=== PATIENT | male | born 1955 | race Caucasian/White ===

== ENCOUNTER → 2016-04-07 | Outpatient (CLI) | payer OTHER ==
--- NOTE | 2016-04-07 17:05 | CT ---
EXAMINATION TYPE: CT abdomen pelvis w con DATE OF EXAM: 04/07/2016 3:58 PM COMPARISON: 05/30/2014 HISTORY: 60-year-old male complains of severe generalized abdominal pain post double hernia repair on e month ago. TECHNIQUE: Contiguous axial scanning of the abdomen and pelvis following administration of 100 ml Omn ipaque 300 IV contrast. Delayed images through the kidneys and coronal/sagittal reconstructions perf ormed. CT DLP: 379.5 mGycm Automated exposure control for dose reduction was used. FINDINGS: Heart is normal size without pericardial effusion. Lung bases clear without pleural effusion. Scattered cysts within the liver are redemonstrated measuring up to 3.6 cm and the left hepatic lobe having increased in size from 2014. Liver is enlarged measuring up to 19.1 cm craniocaudal with dimin ished attenuation in comparison to the spleen. However, there is new hypodensity in the central liver superior to the gallbladder fossa, refer to ax ial images 15 through 21. This area spans approximately 4.8 cm craniocaudal. The gallbladder is hydropic measuring 5.1 cm wide. The bile duct appears dilated at 1.1 cm though wit h distal tapering and no obstructing lesion seen. The adrenal glands, right kidney, spleen, and pancreas show no gross abnormality. Cortical cysts measuring up to 1.3 cm and the left kidney are unchanged. Surgical clips below the spleen and throughout the left abdomen. Hazy density throughout the intra-ab dominal fat suggesting edema. There is mild perihepatic ascites with mild ascites tracking down the right paracolic gutter and mode rate pelvic free fluid. No dilated small bowel or free air. There appears to be circumferential wall thickening of the ascending colon, for example, coronal imag e 48 and axial image 57. No mesenteric or retroperitoneal lymphadenopathy seen. Moderate atherosclerotic calcifications throughout the abdominal aorta and iliac arteries without ane urysm. Surgical clips present continue along the proximal sigmoid and at the sigmoid rectal junction. Previously seen mass within the posterior left bladder is no longer identified. Bones: Accentuated lumbar lordosis with a mild multilevel degenerative disc disease. IMPRESSION: 1. THERE IS NEW DIFFUSE MESENTERIC EDEMA, MILD RIGHT-SIDED ABDOMINAL ASCITES, AND MODERATE PELVIC ASC ITES. THE EXACT ETIOLOGY IS UNCERTAIN AND FURTHER WORKUP IS RECOMMENDED. 2. HEPATOMEGALY WITH DIMINISHED ATTENUATION OF THE LIVER. FINDINGS COULD REFLECT HEPATIC STEATOSIS OR HEPATITIS. 3. HYDROPIC GALLBLADDER COULD RELATE TO FASTING STATE OR EARLY ACUTE CHOLECYSTITIS. CLINICALLY CORREL ATE. 4. AN ADJACENT 4.8 CM HYPODENSE AREA IN THE CENTRAL LIVER. SOME DIFFERENTIAL CONSIDERATIONS INCLUDE P ERIHEPATITIS IN THE EVENT THAT ACUTE CHOLECYSTITIS IS PRESENT. A NEOPLASTIC ETIOLOGY SUCH A CHOLAN GIOCARCINOMA IS DIFFICULT TO EXCLUDE AT THIS TIME. CORRELATION WITH TUMOR MARKERS MAY BE HELPFUL. 5. CIRCUMFERENTIAL WALL THICKENING OF THE ASCENDING COLON. CORRELATE FOR NONSPECIFIC COLITIS. 6. THE PREVIOUS LEFT POSTERIOR BLADDER MASS IS NO LONGER SEEN. EXTENSIVE SURGICAL CLIPS IN THE LEFT S ELIZABETH OF THE ABDOMEN AND PELVIS ARE REDEMONSTRATED.
== END | disposition home or self-care (01) ==
LOC: RADCTMAIN 15:28
PROVIDERS: ATTEND Surgery
DX: K63.89 Other specified diseases of intestine (principal); R18.8 Other ascites; R16.0 Hepatomegaly, not elsewhere classified; K82.8 Other specified diseases of gallbladder; Z98.890 Other specified postprocedural states
CPT/HCPCS: 74177; Q9967

== ENCOUNTER → 2016-09-16 | Outpatient (CLI) | payer OTHER ==
--- NOTE | 2016-09-16 11:39 | USB ---
EXAMINATION TYPE: US breast limited RT DATE OF EXAM: 09/16/2016 COMPARISON: Mammogram of the same date (09/16/2016). CLINICAL HISTORY: n63. Palpable abnormality. Targeted right breast ultrasound was performed in the region of the palpable abnormality, posterior t o the nipple. There is irregular flame shaped hypoechogenicity contiguous with the subareolar region in the area of the palpable abnormality. The left retroareolar region was imaged for comparison and a ppears similar compatible with bilateral gynecomastia. IMPRESSION: Findings compatible with bilateral gynecomastia. Clinical management is recommended. If the palpable abnormality remains a concern or is thought to enlarge repeat mammographic and/or sonogr aphic workup should be performed.
--- NOTE | 2016-09-17 07:12 | MM ---
Reason for exam: clinical finding. Baseline mammogram. Indicated problem(s): palpable abnormality in the right breast. Physical Findings: Nurse Summary: A 2cm nodule in the right nipple (nurse brooks). [facility] Diagnostic Mammo w CAD KENIA ML, spot compression CC, and spot compression MLO view(s) were taken of the right breast. Bilateral flamed shaped retroaerolar focal asymmetry compatible with gynecomastia. Focal asymmetry bilateral compatible with gynecomastia. These results were verbally communicated with the patient and result sheet given to the patient on 09/16/16. ASSESSMENT: Incomplete: need additional imaging evaluation, BI-RAD 0 RECOMMENDATION: Ultrasound of the right breast. (Palpable)
== END | disposition home or self-care (01) ==
LOC: RADMAMWWP 10:01
PROVIDERS: ATTEND Urology
DX: R92.8 Other abnormal and inconclusive findings on diagnostic imaging of breast (principal); N63 Unspecified lump in breast
CPT/HCPCS: 76642; G0204

== ENCOUNTER 2016-09-24 12:21 | Emergency (ER) | payer MEDICARE, OTHER ==
--- NOTE | 2016-09-24 12:47 | ED ---
ENT HPI - General Chief complaint: Dental/Oral Stated complaint: Abscess on Face, Oral Pain Source: patient Mode of arrival: ambulatory Limitations: no limitations - History of Present Illness Initial comments: 60-year-old male patient presents to emergency department today for evaluation of left facial swelling and dental pain. Patient states that couple weeks ago he did break a tooth off on the left lower. Patient states that last night he did develop some pain to the area, and when he woke this morning his face was swollen. Patient states that he does not have dental insurance therefore did not make an appointment went to his tooth broke. He denies any fever, chills, headache, neck pain, back pain, chest pain, shortness of breath, abdominal pain , nausea, vomiting, or difficulties with urination or bowel movements. She does have history of bladder cancer and last chemo treatment was 2 weeks ago. He denies any history of neutropenia. - Related Data Home Medications Medication Instructions Recorded Confirmed Albuterol Sulfate [Proventil Hfa] 1 puff INHALATION RT-Q4H PRN 05/30/14 01/21/16 Hydrocodone/Acetaminophen [[place] 2 tab PO TID PRN 05/30/14 01/21/16 10-325] oxyCODONE HCL [oxyCODONE HCL ER] 40 mg PO BID 05/30/14 01/21/16 Albuterol Nebulized [Ventolin 2.5 mg INHALATION RT-Q4H 01/21/16 01/21/16 Nebulized] Previous Rx's Medication Instructions Recorded Amoxic-Pot Clav 875-125Mg 1 tab PO Q12HR #20 tablet 09/24/16 [Augmentin 875-125] Allergies Allergy/AdvReac Type Severity Reaction Status Date / Time meclizine Allergy Unknown Verified 09/24/16 12:25 Review of Systems ROS Statement: Those systems with pertinent positive or pertinent negative responses have been documented in the HPI. ROS Other: All systems not noted in ROS Statement are negative. Past Medical History Past Medical History: Cancer, COPD, Liver Disease, Osteoarthritis (OA) Additional Past Medical History / Comment(s): current bladder ca, past colon cancer,"bruises easily, epiglotitis in past, hep c and "a spot on the liver" History of Any Multi-Drug Resistant Organisms: None Reported Past Surgical History: Appendectomy, Bowel Resection, Hernia Repair, Tonsillectomy Additional Past Surgical History / Comment(s): 01/21/16 cystoscopy w/evacuation of clot Past Anesthesia/Blood Transfusion Reactions: No Reported Reaction Past Psychological History: No Psychological Hx Reported Smoking Status: Current every day smoker Past Alcohol Use History: Daily Past Drug Use History: None Reported - Past Family History Father Family Medical History: Cancer Additional Family Medical History / Comment(s): pancreatic cacner Mother Family Medical History: Cancer Additional Family Medical History / Comment(s): lung cancer General Exam Limitations: no limitations General appearance: alert, in no apparent distress Eye exam: Present: normal appearance, PERRL, EOMI. Absent: scleral icterus, conjunctival injection, periorbital swelling ENT exam: Present: normal exam, normal oropharynx, mucous membranes moist, other (Left-sided facial swelling over the lower mandible. Patient does have broken 34th and 35th tooth. Gum swelling to the area. No area of fluctuance. ) Neck exam: Present: normal inspection. Absent: tenderness, meningismus, lymphadenopathy Respiratory exam: Present: normal lung sounds bilaterally. Absent: respiratory distress, wheezes, rales, rhonchi, stridor Cardiovascular Exam: Present: regular rate, normal rhythm, normal heart sounds. Absent: systolic murmur, diastolic murmur, rubs, gallop, clicks Neurological exam: Present: alert, oriented X3, CN II-XII intact Psychiatric exam: Present: normal affect, normal mood Skin exam: Present: warm, dry, intact, normal color. Absent: rash Medical Decision Making - Medical Decision Making 60-year-old male patient presents to emergency department today for evaluation of left facial swelling and dental pain. Did offer draining of the dental abscess, however patient refused this treatment. The patient was given a prescription for Augmentin. Patient does have [place] at home and states he will use this for pain control. Patient instructed to follow up with dentist as soon as possible. The patient was given information for dental clinic and dental school and [place] as he does not have insurance. Also instructed him to follow up his primary care physician one to 2 days for recheck. Instructed to return for any new, worsening, or concerning symptoms. Patient verbalized understanding and agreed with this plan. Disposition Clinical Impression: Dental abscess Disposition: HOME SELF-CARE Condition: Good Instructions: Dental Abscess (ED) Additional Instructions: Please follow up with the [facility] dental [facility]. [address] [place] [address]. Phone number for new patients or for existing patients. Follow-up with a dentist as soon as possible. Complete antibiotic prescription in full. Follow-up with primary care physician in one to 2 days for recheck. Return for any new, worsening, or concerning symptoms. Prescriptions: Amoxic-Pot Clav 875-125Mg [Augmentin 875-125] 1 tab PO Q12HR #20 tablet Referrals: Junior Peterson DO [Primary Care Provider] - 1-2 days Time of Disposition: 12:47
== END 2016-09-24 13:03 | disposition home or self-care (01) ==
LOC: EC 12:21
DX: K04.7 Periapical abscess without sinus (principal); J44.9 Chronic obstructive pulmonary disease, unspecified; M19.90 Unspecified osteoarthritis, unspecified site; F17.200 Nicotine dependence, unspecified, uncomplicated; Z85.51 Personal history of malignant neoplasm of bladder; Z85.038 Personal history of other malignant neoplasm of large intestine; Z90.89 Acquired absence of other organs; Z88.8 Allergy status to other drugs, medicaments and biological substances; Z79.891 Long term (current) use of opiate analgesic; Z79.899 Other long term (current) drug therapy
CPT/HCPCS: 99282

== ENCOUNTER 2017-03-29 21:12 | Emergency (ER) | payer MEDICARE ==
[2017-03-29 21:21] VITALS: RESP 18; TEMP 98.6
[2017-03-29] MEDS ORDERED: SILVER NITRATE APPLICATOR 1 EACH STICK..EA. TOPICAL STA (22:02)
[2017-03-29 22:39] LABS: Anisocytosis Slight; Basophils % (A) 0 %; Eosinophils # (A) 0.1 k/uL (0-0.7); Eosinophils % (A) 1 %; HGB 9.5 gm/dL (13.0-17.5); Lymphocytes % (A) 40 %; MCH 31.4 pg (25.0-35.0); MCHC 30.6 g/dL (31.0-37.0); MCV 102.7 fL (80.0-100.0); Macrocytosis Moderate; Mean Platelet Volume 7.2; Monocytes # (A) 0.3 k/uL (0-1.0); Monocytes % (A) 5 %; Neutrophils # (A) 2.6 k/uL (1.3-7.7); Neutrophils % (A) 51 %; Platelet Count 116 k/uL (150-450); RBC 3.02 m/uL (4.30-5.90); RDW 17.7 % (11.5-15.5)
[2017-03-29 23:16] LABS: INR 1.4 (<1.2); Partial Thromboplastin Time 25.8 sec (22.0-30.0); Prothrombin Time 13.2 sec (9.0-12.0)
--- NOTE | 2017-03-29 23:47 | ED ---
Skin/Abscess/FB HPI - General Chief complaint: Skin/Abscess/Foreign Body Stated complaint: post op problems Time Seen by Provider: 03/29/17 21:42 Source: patient Mode of arrival: ambulatory Limitations: no limitations - History of Present Illness Initial comments: 61-year-old male patient with a past medical history significant for hepatitis C , cirrhosis of the liver, and bladder cancer presents for evaluation of bleeding from his ileal conduit stoma. Patient states that he received appliances for a stoma that were smaller than usual. He states that this rubbed up against the top part of his stoma. He states that since Wednesday he has been having bleeding from the site. He states that today he has emptied 3 bags of urine that were dark red blood. He states that he has had this happen in the past and they used silver nitrate to stop the bleeding. Patient denies any weakness or dizziness. He denies any significant pain. Patient denies any recent rash, fever, chills, shortness breath, chest pain, abdominal pain, nausea , vomiting, diarrhea, constipation, back pain, numbness, tingling, headache, visual changes, or any other complaints. - Related Data Home Medications Medication Instructions Recorded Confirmed Albuterol Sulfate [Proventil Hfa] 1 puff INHALATION RT-Q4H PRN 05/30/14 03/29/17 Hydrocodone/Acetaminophen [[place] 2 tab PO TID PRN 05/30/14 03/29/17 10-325] oxyCODONE HCL [oxyCODONE HCL ER] 40 mg PO BID 05/30/14 03/29/17 Albuterol Nebulized [Ventolin 2.5 mg INHALATION RT-Q4H PRN 01/21/16 03/29/17 Nebulized] Allergies Allergy/AdvReac Type Severity Reaction Status Date / Time meclizine Allergy Unknown Verified 03/29/17 21:39 Review of Systems ROS Statement: Those systems with pertinent positive or pertinent negative responses have been documented in the HPI. ROS Other: All systems not noted in ROS Statement are negative. Past Medical History Past Medical History: Cancer, COPD, Liver Disease, Osteoarthritis (OA) Additional Past Medical History / Comment(s): current bladder ca, past colon cancer,"bruises easily, epiglotitis in past, hep c and "a spot on the liver" History of Any Multi-Drug Resistant Organisms: None Reported Past Surgical History: Appendectomy, Bowel Resection, Hernia Repair, Tonsillectomy Additional Past Surgical History / Comment(s): 01/21/16 cystoscopy w/evacuation of clot Past Anesthesia/Blood Transfusion Reactions: No Reported Reaction Past Psychological History: No Psychological Hx Reported Smoking Status: Current every day smoker Past Alcohol Use History: None Reported Past Drug Use History: None Reported - Past Family History Father Family Medical History: Cancer Additional Family Medical History / Comment(s): pancreatic cacner Mother Family Medical History: Cancer Additional Family Medical History / Comment(s): lung cancer General Exam Limitations: no limitations General appearance: alert, in no apparent distress, cachectic, other (This is a thin-appearing adult male patient in no acute distress. Vital signs upon presentation are temperature 98.6F, pulse 112, respirations 18, blood pressure 174/72, pulse ox 99% on room air.) Eye exam: Present: normal appearance, PERRL, EOMI. Absent: scleral icterus, conjunctival injection, periorbital swelling ENT exam: Present: normal exam, normal oropharynx, mucous membranes moist Respiratory exam: Present: normal lung sounds bilaterally. Absent: respiratory distress, wheezes, rales, rhonchi, stridor Cardiovascular Exam: Present: regular rate, normal rhythm, normal heart sounds. Absent: systolic murmur, diastolic murmur, rubs, gallop, clicks GI/Abdominal exam: Present: soft, normal bowel sounds, other (Large healing surgical scar over the mid abdomen. There is a stoma present to the right lower quadrant. There is oozing of blood from a spot on the superior aspect of the stoma.). Absent: distended, tenderness, guarding, rebound, rigid Neurological exam: Present: alert, oriented X3, CN II-XII intact Psychiatric exam: Present: normal affect, normal mood Skin exam: Present: warm, dry, intact, normal color. Absent: rash Course Vital Signs 03/29/17 03/30/17 21:18 00:16 Temperature 98.6 F 98.6 F Pulse Rate 112 H 89 Respiratory 18 18 Rate Blood Pressure 174/72 154/78 O2 Sat by Pulse 99 98 Oximetry Medical Decision Making - Medical Decision Making 61-year-old male patient presented to the emergency department today for evaluation of bleeding from his stoma. Physical examination did reveal a small area where blood is oozing from the superior aspect of his stoma. Labs were obtained to evaluate hemodynamics which shows hemoglobin is 9.5, red blood cells 3.02, hematocrit 31. PT was 13.2, INR is 1.4. Patient does not use any blood thinning medications. Again he has liver disease. We did perform cautery with silver nitrate sticks, one small area to the superior aspect of the stoma was cauterized. We had good cessation of bleeding. Patient did have clear yellow urine coming from the stoma after this. It is felt the area of urination was due to an ill fitting appliance. We'll discharge at this time with follow-up recommendations to his primary care, liver specialist, and surgeon. Patient does have an appointment next week with his primary care doctor. He is instructed to return here immediately for any new, worsening, or concerning symptoms. He verbalizes understanding and agrees with this plan. - Lab Data Result diagrams: 03/29/17 22:26 Lab Results 03/29/17 03/29/17 Range/Units 22:26 22:26 WBC 5.0 (3.8-10.6) k/uL RBC 3.02 L (4.30-5.90) m/uL Hgb 9.5 L (13.0-17.5) gm/dL Hct 31.0 L (39.0-53.0) % MCV 102.7 H (80.0-100.0) fL MCH 31.4 (25.0-35.0) pg MCHC 30.6 L (31.0-37.0) g/dL RDW 17.7 H (11.5-15.5) % Plt Count 116 L (150-450) k/uL Neutrophils % 51 % Lymphocytes % 40 % Monocytes % 5 % Eosinophils % 1 % Basophils % 0 % Neutrophils # 2.6 (1.3-7.7) k/uL Lymphocytes # 2.0 (1.0-4.8) k/uL Monocytes # 0.3 (0-1.0) k/uL Eosinophils # 0.1 (0-0.7) k/uL Basophils # 0.0 (0-0.2) k/uL Anisocytosis Slight Macrocytosis Moderate PT 13.2 H (9.0-12.0) sec INR 1.4 H (<1.2) APTT 25.8 (22.0-30.0) sec Disposition Clinical Impression: Stoma bleed Disposition: HOME SELF-CARE Condition: Good Instructions: Urostomy Care (ED) Additional Instructions: Monitor for any worsening bleeding. Have your labs repeated as you have planned. Follow up with her primary care physician, your surgeon, and your liver specialist as soon as possible. Return here immediately for any new, worsening, or concerning symptoms. Referrals: [facility],Clinic [Primary Care Provider] - 1-2 days Time of Disposition: 23:47
[2017-03-30 00:17] VITALS: BP 154/78; PULSE 89
== END 2017-03-30 00:16 | disposition home or self-care (01) ==
LOC: EC 21:12
DX: K91.89 Other postprocedural complications and disorders of digestive system (principal); M19.90 Unspecified osteoarthritis, unspecified site; C67.9 Malignant neoplasm of bladder, unspecified; F17.200 Nicotine dependence, unspecified, uncomplicated; Z85.038 Personal history of other malignant neoplasm of large intestine; Z86.19 Personal history of other infectious and parasitic diseases; Z79.891 Long term (current) use of opiate analgesic; Z88.8 Allergy status to other drugs, medicaments and biological substances; Z90.49 Acquired absence of other specified parts of digestive tract; Z98.890 Other specified postprocedural states
CPT/HCPCS: 36415; 85025; 85610; 85730; 99283

== ENCOUNTER → 2017-05-19 | Outpatient (CLI) | payer MEDICARE, OTHER ==
--- NOTE | 2017-05-20 13:10 | CT ---
EXAMINATION TYPE: CT abdomen pelvis w con DATE OF EXAM: 05/19/2017 COMPARISON: 04/07/2016 HISTORY: Abdominal pain. Checking on urostomy. History of colon, then bladder cancer. CT DLP: 1120 mGycm Automated exposure control for dose reduction was used. TECHNIQUE: Helical acquisition of images was performed from the lung bases through the pelvis. CONTRAST: Performed without Oral Contrast and with IV Contrast, patient injected with 100 mL of Isovue M300. FINDINGS: LUNG BASES: No significant abnormality is appreciated. LIVER/GB: The previously seen focal area of hypoattenuation within segment IVb at the level of the po rtal vein and inferior to this from image 19 through 21 is very ill-defined as compared to the prior exam of 04/07/2016 and currently not measurable. The largest hepatic cystic lesion has increased in si ze measuring 4.6 cm is previously measuring 3.6 cm. The other scattered hepatic cysts throughout the hepatic parenchyma appear overall stable. The gallbladder has decreased in size in comparison to the prior although there is extensive extrahepatic biliary ductal dilatation remaining. PANCREAS: The main pancreatic duct is dilated measuring up to 4 mm the pancreatic head. SPLEEN: No significant abnormality is seen. ADRENALS: No significant abnormality is seen. KIDNEYS: No hydronephrosis. The kidneys enhance symmetrically other than a 1.3 cm left renal cyst and additional 2 mm left renal lead is too small to accurately characterize as well as a 4 mm right lowe r pole right renal lesion that is also too small to accurately characterize. FREE AIR: No free air is visualized. URINARY BLADDER: Urinary bladder is surgically absent and a new urostomy present. The distal ureters are not able to be visualized connecting to the urostomy, however no extravasation is seen and the r ight lower quadrant ostomy defect is unremarkable. No hydronephrosis is identified or hydroureter. Sc ant amount of free fluid is seen within the right lower quadrant. On the delayed images contrast is excreted symmetrically from the ureters into the ileal conduit yiel ding opacification of the loop of ileum heading toward the ostomy. ADENOPATHY: No greater than 1 cm short axis lymph nodes are seen within the abdomen or pelvis. OSSEOUS STRUCTURES: Mild multilevel degenerative disc disease is seen of the thoracic spine. BOWEL: The previously seen extensive pericolonic fat stranding within the ascending colon has resolv ed. Multiple loops of small bowel demonstrate mild bowel wall thickening and hyperemia a few loops of fluid-filled small bowel are clustered within the low pelvis. These are nondilated measuring up to 2 .5 cm. Numerous surgical jeremy are seen throughout the pelvis. Degree of free fluid within the pelv is is markedly decreased in the interim. OTHER: Extensive atheromatous changes are seen of the abdominal aorta and its branches. IMPRESSION: 1. PERSISTENT MARKED DILATION OF THE EXTRAHEPATIC BILIARY SYSTEM AND DILATION OF THE MAIN PANCREATIC DUCT RAISES CONCERN FOR DISTAL STRICTURE OR PANCREATIC HEAD MASS ALTHOUGH NO PANCREATIC HEAD MASSES S EEN ON TODAY'S EXAMINATION. MRCP WITH AND WITHOUT CONTRAST IS RECOMMENDED TO ENSURE NO PANCREATIC MAS S. 2. PATENCY OF THE UROSTOMY (ILEAL CONDUIT) WITH OPACIFICATION OF THE CONDUIT ON DELAYED IMAGING AND N O EVIDENCE OF HYDRONEPHROSIS OR URETERAL STRICTURE. 3. INTERVAL RESOLUTION OF THE PREVIOUSLY SEEN EXTENSIVE MESENTERIC CONGESTION AND RIGHT HEMICOLONIC F AT STRANDING WITH RESIDUAL SMALL VOLUME PELVIC ASCITES. 4. THE PREVIOUSLY IDENTIFIED NEW HEPATIC LESION IS EXTREMELY VAGUE AND NEARLY RESOLVED ON TODAY'S EXA MINATION. THIS COULD EITHER REPRESENT RESPONSE TO TREATMENT, BE RELATED TO THE PHASE OF ENHANCEMENT, REPRESENT FOCAL FATTY INFILTRATION OR COULD REPRESENT RESOLUTION OF A PRIOR INFLAMMATORY CHANGE THAT WAS ADJACENT TO A DILATED GALLBLADDER. THIS COULD ALSO BE ASSESSED WITH THE ABOVE RECOMMENDED MRCP WI TH AND WITHOUT CONTRAST. 5. ENLARGING LEFT HEPATIC CYST.
== END | disposition home or self-care (01) ==
LOC: RADCTMAIN 16:42
PROVIDERS: ATTEND Urology
DX: C67.0 Malignant neoplasm of trigone of bladder (principal); K76.89 Other specified diseases of liver
CPT/HCPCS: 74177; Q9967

== ENCOUNTER → 2017-06-29 | Outpatient (CLI) | payer OTHER ==
[2017-06-29 10:21] LABS: Blood Urea Nitrogen 14 mg/dL (9-20)
--- NOTE | 2017-06-29 14:00 | MR ---
EXAMINATION TYPE: MR brain and iac wo/w con DATE OF EXAM: 06/29/2017 COMPARISON: CT brain 09/07/2013 HISTORY: Hearing loss, tinnitus, vertigo TECHNIQUE: Multiplanar, multisequence images of the brain and brainstem is performed without and with IV contras t, utilizing 5.5 mL intravenous Gadavist. Small [id number], high resolution images obtained throug h the internal auditory canals. FINDINGS: Diffusion weighted images demonstrate no evidence of a recent infarct or other diffusion ab normality. There is no extra-axial fluid collection. Scattered hyperintensities on inversion recover y and T2-weighted sequences are present within the periventricular and deep, subcortical white matter , there are approximately 30 lesions present. High signal on T1, low signal on T2-weighted sequences within the lentiform nucleus may be due to basal ganglia calcification. The ventricular system and c isternal spaces are normal in size and appearance. The brain volume is age appropriate. Midline structures demonstrate normal morphology. The craniocervical junction appears within normal limits. The posterior falx towards the left of midline there is a small focus which shows correspondi ng soft tissue attenuation on CT, isointense on T2-weighted sequences, increased on inversion recover y sequence. Lesion measures approximately 6 mm in size. Post contrast images demonstrate homogenous e nhancement. Cerebellopontine angles show no mass. The dural venous sinuses appear patent. The visuali zed sinuses are remarkable for mucosal disease within the maxillary sinuses, sphenoid sinus and ethmo id air cells and the globes are intact. Inflammatory change present in the mastoid air cells on the r ight. IMPRESSION: No evident acoustic neuroma or cerebellopontine angle mass. Small posterior falx meningio ma. Correlate for mastoiditis. Probable basal ganglia calcifications. Nonspecific white matter demyel ination, consider migraine headaches, hypertension, Lyme disease, vasculitis, chronic small vessel is chemia, multiple sclerosis in the appropriate clinical setting.
== END | disposition home or self-care (01) ==
LOC: RADMRIMAIN 09:49
PROVIDERS: ATTEND Otolaryngology
DX: D32.0 Benign neoplasm of cerebral meninges (principal); R90.89 Other abnormal findings on diagnostic imaging of central nervous system; H91.90 Unspecified hearing loss, unspecified ear
CPT/HCPCS: 82565; 84520; 70553; 36415; A9581

== ENCOUNTER 2017-07-15 19:24 | Inpatient (IN) | payer OTHER, MEDICARE ==
[2017-07-15] MEDS ORDERED: IPRATROPIUM-ALBUTEROL 3 ML NEB INHALATION STA (19:38)
[2017-07-15] MEDS ORDERED: SODIUM CHLORIDE 0.9% 1,000 ML IV STA (19:38)
[2017-07-15] MEDS ORDERED: methylPREDNISolone SOD SUCCI 125 MG/2 ML VIAL IV STA (19:38)
--- NOTE | 2017-07-15 19:42 | ED ---
SOB HPI - General Chief Complaint: Shortness of Breath Stated Complaint: SOB Time Seen by Provider: 07/15/17 19:30 Source: patient, RN notes reviewed Mode of arrival: wheelchair Limitations: no limitations - History of Present Illness Initial Comments: This is a 61-year-old male with a history of COPD asthma and is a smoker who complains of shortness of breath for last couple days she had a cough with brown chowdary phlegm no overt fevers chills or sweats he does have exertional dyspnea. Of note he recently was treated for a sinus infection and just stopped antibiotics this week. He is scheduled for rhinoplasty. He also has a urostomy states his urine had been darker in color but now is light now. He has some complaints of some lower abdominal pain again no hematuria or other symptoms he states his ostomy looks like a normal color. He does have chronic abdominal pain he believes this is probably what he has. MD Complaint: shortness of breath, cough - Related Data Home Medications Medication Instructions Recorded Confirmed Albuterol Sulfate [Proventil Hfa] 1 puff INHALATION RT-Q4H PRN 05/30/14 07/15/17 Hydrocodone/Acetaminophen [[place] 2 tab PO TID PRN 05/30/14 07/15/17 10-325] oxyCODONE HCL [oxyCODONE HCL ER] 40 mg PO BID 05/30/14 07/15/17 Albuterol Nebulized [Ventolin 2.5 mg INHALATION RT-Q4H PRN 01/21/16 07/15/17 Nebulized] Spironolactone [Aldactone] 25 mg PO DAILY 07/15/17 07/15/17 Allergies Allergy/AdvReac Type Severity Reaction Status Date / Time meclizine Allergy Unknown Verified 07/15/17 20:25 Review of Systems ROS Statement: Those systems with pertinent positive or pertinent negative responses have been documented in the HPI. ROS Other: All systems not noted in ROS Statement are negative. Past Medical History Past Medical History: Cancer, COPD, Liver Disease, Osteoarthritis (OA) Additional Past Medical History / Comment(s): current bladder ca, past colon cancer,"bruises easily, epiglotitis in past, hep c and "a spot on the liver" History of Any Multi-Drug Resistant Organisms: None Reported Past Surgical History: Appendectomy, Bowel Resection, Hernia Repair, Tonsillectomy Additional Past Surgical History / Comment(s): 01/21/16 cystoscopy w/evacuation of clot; urostomy Past Anesthesia/Blood Transfusion Reactions: No Reported Reaction Past Psychological History: No Psychological Hx Reported Smoking Status: Current every day smoker Past Alcohol Use History: None Reported Past Drug Use History: None Reported - Past Family History Father Family Medical History: Cancer Additional Family Medical History / Comment(s): pancreatic cacner Mother Family Medical History: Cancer Additional Family Medical History / Comment(s): lung cancer General Exam - General Exam Comments Initial Comments: This is a well-developed well-nourished awake alert oriented 3 male Limitations: no limitations General appearance: alert, in no apparent distress Head exam: Present: atraumatic, normocephalic, normal inspection Eye exam: Present: normal appearance, PERRL, EOMI. Absent: scleral icterus, conjunctival injection, periorbital swelling ENT exam: Present: mucous membranes dry Neck exam: Present: normal inspection. Absent: tenderness, meningismus, lymphadenopathy Respiratory exam: Present: wheezes, decreased breath sounds. Absent: respiratory distress, rales, rhonchi, stridor Cardiovascular Exam: Present: regular rate, normal rhythm, normal heart sounds. Absent: systolic murmur, diastolic murmur, rubs, gallop, clicks GI/Abdominal exam: Present: soft, normal bowel sounds, other (Examination the os reveals normal looking pink colored tissue with clear white colored yellow urine.). Absent: distended, tenderness, guarding, rebound, rigid Extremities exam: Present: normal inspection, full ROM, normal capillary refill. Absent: tenderness, pedal edema, joint swelling, calf tenderness Back exam: Present: normal inspection Neurological exam: Present: alert, oriented X3, CN II-XII intact Psychiatric exam: Present: normal affect, normal mood Skin exam: Present: warm, dry, intact, normal color. Absent: rash Course Vital Signs 07/15/17 07/15/17 07/15/17 19:31 19:50 19:52 Temperature 99.1 F Pulse Rate 98 88 Respiratory 17 18 18 Rate Blood Pressure 166/76 O2 Sat by Pulse 100 Oximetry 07/15/17 07/15/17 19:58 21:46 Temperature 98.4 F Pulse Rate 90 98 Respiratory 16 16 Rate Blood Pressure 125/58 O2 Sat by Pulse Oximetry - Reevaluation(s) Reevaluation #1: 07/15/17 23:55 Reevaluation patient reveals minimal improvement in his aeration he shows diffuse wheezing and right lower lobe rhonchi are no audible. Medical Decision Making - Lab Data Result diagrams: 07/15/17 19:45 07/15/17 19:45 Lab Results 07/15/17 07/15/17 07/15/17 Range/Units 19:45 19:45 19:45 WBC 4.0 (3.8-10.6) k/uL RBC 3.49 L (4.30-5.90) m/uL Hgb 11.1 L (13.0-17.5) gm/dL Hct 34.0 L (39.0-53.0) % MCV 97.3 (80.0-100.0) fL MCH 31.8 (25.0-35.0) pg MCHC 32.7 (31.0-37.0) g/dL RDW 19.8 H (11.5-15.5) % Plt Count 93 L (150-450) k/uL Neutrophils % 51 % Lymphocytes % 37 % Monocytes % 7 % Eosinophils % 1 % Basophils % 0 % Neutrophils # 2.0 (1.3-7.7) k/uL Lymphocytes # 1.5 (1.0-4.8) k/uL Monocytes # 0.3 (0-1.0) k/uL Eosinophils # 0.0 (0-0.7) k/uL Basophils # 0.0 (0-0.2) k/uL Anisocytosis Slight Macrocytosis Slight PT (9.0-12.0) sec INR (<1.2) APTT (22.0-30.0) sec Sodium 129 L (137-145) mmol/L Potassium 3.9 (3.5-5.1) mmol/L Chloride 95 L (98-107) mmol/L Carbon Dioxide 18 L (22-30) mmol/L Anion Gap 16 mmol/L BUN 8 L (9-20) mg/dL Creatinine 0.60 L (0.66-1.25) mg/dL Est GFR (CKD-EPI)AfAm >90 (>60 ml/min/1.73 sqM) Est GFR (CKD-EPI)NonAf >90 (>60 ml/min/1.73 sqM) Glucose 104 H (74-99) mg/dL Calcium 8.8 (8.4-10.2) mg/dL Magnesium 1.8 (1.6-2.3) mg/dL Total Bilirubin 0.7 (0.2-1.3) mg/dL AST 85 H (17-59) U/L ALT 45 (21-72) U/L Alkaline Phosphatase 142 H (38-126) U/L Total Creatine Kinase 112 (55-170) U/L CK-MB (CK-2) 2.6 H* (0.0-2.4) ng/mL CK-MB (CK-2) Rel Index 2.3 Troponin I <0.012 (0.000-0.034) ng/mL NT-Pro-B Natriuret Pep pg/mL Total Protein 7.9 (6.3-8.2) g/dL Albumin 4.1 (3.5-5.0) g/dL 07/15/17 07/15/17 Range/Units 19:45 19:45 WBC (3.8-10.6) k/uL RBC (4.30-5.90) m/uL Hgb (13.0-17.5) gm/dL Hct (39.0-53.0) % MCV (80.0-100.0) fL MCH (25.0-35.0) pg MCHC (31.0-37.0) g/dL RDW (11.5-15.5) % Plt Count (150-450) k/uL Neutrophils % % Lymphocytes % % Monocytes % % Eosinophils % % Basophils % % Neutrophils # (1.3-7.7) k/uL Lymphocytes # (1.0-4.8) k/uL Monocytes # (0-1.0) k/uL Eosinophils # (0-0.7) k/uL Basophils # (0-0.2) k/uL Anisocytosis Macrocytosis PT 12.0 (9.0-12.0) sec INR 1.3 H (<1.2) APTT 27.3 (22.0-30.0) sec Sodium (137-145) mmol/L Potassium (3.5-5.1) mmol/L Chloride (98-107) mmol/L Carbon Dioxide (22-30) mmol/L Anion Gap mmol/L BUN (9-20) mg/dL Creatinine (0.66-1.25) mg/dL Est GFR (CKD-EPI)AfAm (>60 ml/min/1.73 sqM) Est GFR (CKD-EPI)NonAf (>60 ml/min/1.73 sqM) Glucose (74-99) mg/dL Calcium (8.4-10.2) mg/dL Magnesium (1.6-2.3) mg/dL Total Bilirubin (0.2-1.3) mg/dL AST (17-59) U/L ALT (21-72) U/L Alkaline Phosphatase (38-126) U/L Total Creatine Kinase (55-170) U/L CK-MB (CK-2) (0.0-2.4) ng/mL CK-MB (CK-2) Rel Index Troponin I (0.000-0.034) ng/mL NT-Pro-B Natriuret Pep 222 pg/mL Total Protein (6.3-8.2) g/dL Albumin (3.5-5.0) g/dL - EKG Data -: EKG Interpreted by Ga EKG shows normal: sinus rhythm (Sinus rhythm rate 86186 QRS duration 90 QT since QTC of 360/457 artifact is present) - Radiology Data Radiology results: report reviewed (I did review the imaging and report evidence of right lower lobe infiltrate.), image reviewed Critical Care Time Critical Care Time: Yes Critical Care Time: 31 minutes of critical care time which includes initial presentation with history physical labs x-rays several reevaluation of the patient responsive therapy review of old charting available discussed with the admitting physician admission orders and documentation of the above Disposition Clinical Impression: Right lower lobe pneumonia, Acute exacerbation of chronic obstructive airways disease, Adult respiratory distress syndrome Disposition: ADMITTED IP TO THIS [facility] Condition: Stable Referrals: [facility],Clinic [Primary Care Provider] - 1-2 days
--- NOTE | 2017-07-15 21:05 | XR ---
EXAMINATION: XR chest 2V DATE AND TIME: 07/15/2017 8:57 PM ORDERING PROVIDER: Donaldo White MD CLINICAL INDICATION: difficulty breathing TECHNIQUE: PA and lateral COMPARISON: 05/04/2013 DESCRIPTION: There is an approximately 10 cm zone of pulmonary consolidation laterally in the right lower lobe. Th ere are prominent emphysematous changes throughout the lungs. The pleural spaces are negative. The cardiac silhouette is not enlarged. The mediastinal and pleural silhouettes are unremarkable. The skeletal structures are intact without focal findings. The soft tissues are unremarkable. IMPRESSION: Right lower lobe pneumonia; recommend six-week follow-up PA and lateral chest radiograph to prove res olution.
[2017-07-15 21:59] LABS: Anisocytosis Slight; Basophils % (A) 0 %; Eosinophils % (A) 1 %; HGB 11.1 gm/dL (13.0-17.5); Lymphocytes # (A) 1.5 k/uL (1.0-4.8); Lymphocytes % (A) 37 %; MCH 31.8 pg (25.0-35.0); MCHC 32.7 g/dL (31.0-37.0); MCV 97.3 fL (80.0-100.0); Macrocytosis Slight; Mean Platelet Volume 7.8; Monocytes # (A) 0.3 k/uL (0-1.0); Monocytes % (A) 7 %; Neutrophils % (A) 51 %; RBC 3.49 m/uL (4.30-5.90); RDW 19.8 % (11.5-15.5)
[2017-07-15 22:06] LABS: INR 1.3 (<1.2); Partial Thromboplastin Time 27.3 sec (22.0-30.0)
[2017-07-15 22:09] LABS: ALT 45 U/L (21-72); AST 85 U/L (17-59); Albumin 4.1 g/dL (3.5-5.0); Alkaline Phosphatase 142 U/L (38-126); Anion Gap 16 mmol/L; Blood Urea Nitrogen 8 mg/dL (9-20); Calcium 8.8 mg/dL (8.4-10.2); Carbon Dioxide 18 mmol/L (22-30); Chloride 95 mmol/L (98-107); Glucose 104 mg/dL (74-99); Magnesium 1.8 mg/dL (1.6-2.3); Potassium 3.9 mmol/L (3.5-5.1); Sodium 129 mmol/L (137-145); Total Bilirubin 0.7 mg/dL (0.2-1.3); Total Protein 7.9 g/dL (6.3-8.2)
[2017-07-15 22:24] LABS: Creatine Kinase 112 U/L (55-170)
[2017-07-15 22:28] LABS: Platelet Count 93 k/uL (150-450)
[2017-07-15 22:37] LABS: Troponin I <0.012 ng/mL (0.000-0.034)
[2017-07-15 22:40] LABS: Creatine Kinase MB 2.6 ng/mL (0.0-2.4)
[2017-07-15] MEDS ORDERED: SODIUM CHLORIDE 0.9% 1,000 ML IV SCH (23:45)
[2017-07-15] MEDS ORDERED: cefTRIAXone IN SWFI 1,000 MG/10 ML SYRINGE IVP STA (23:55)
[2017-07-15] MEDS ORDERED: PNEUMONIA PROTOCOL UTILIZED 1 EACH MISC PO PRN (23:58)
[2017-07-15] MEDS ORDERED: AZITHROMYCIN 500 MG in SODIUM CHLORIDE 0.9% 250 ML IVPB STA (23:58)
[2017-07-16] MEDS ORDERED: IPRATROPIUM-ALBUTEROL 3 ML NEB INHALATION SCH
[2017-07-16] MEDS ORDERED: IPRATROPIUM-ALBUTEROL 3 ML NEB INHALATION PRN (00:36)
[2017-07-16] MEDS: HYDROcodone/APAP 10-325MG 1 EACH TAB PO PRN ×2 (00:42→11:46)
[2017-07-16 01:13] VITALS: TEMP 97.7
[2017-07-16 01:21] VITALS: BMI 17.9
[2017-07-16 06:00] VITALS: BP 125/66
[2017-07-16] MEDS ORDERED: methylPREDNISolone SOD SUCCI 125 MG/2 ML VIAL IV SCH (06:00)
[2017-07-16] MEDS ORDERED: oxyCODONE ER 20 MG TAB.ER.12H PO SCH ×2 (07:00→09:00)
[2017-07-16] MEDS ORDERED: SPIRONOLACTONE 25 MG TAB PO SCH (09:00)
--- NOTE | 2017-07-16 09:41 | XR ---
EXAMINATION TYPE: XR chest 2V DATE OF EXAM: 07/16/2017 COMPARISON: 07/15/2017 HISTORY: Pneumonia follow-up and difficulty breathing TECHNIQUE: Frontal and lateral views of the chest are obtained. FINDINGS: Right lower lobe reticular opacity obscuring the costophrenic angle is similar to the prio r exam. Linear left basilar atelectasis or pleural parenchymal scarring is also unchanged. Underlying emphysematous changes are redemonstrated. Cardiomediastinal silhouette is within normal limits. Osse ous structures are intact. IMPRESSION: Similar-appearing right lower lobe basilar opacity is most compatible with pneumonia. Fo llow-up after treatment is recommended to ensure resolution.
[2017-07-16] MEDS: IPRATROPIUM-ALBUTEROL 3 ML NEB INHALATION SCH ×2 (10:50→10:51)
[2017-07-16 10:52] VITALS: RESP 16
[2017-07-16 10:57] VITALS: PULSE 77
[2017-07-16] MEDS ORDERED: NICOTINE 14MG/24HR PATCH TRANSDERM SCH (11:00)
--- NOTE | 2017-07-16 17:28 | P.HPIM ---
History of Present Illness This is a 61-year-old pleasant gentleman with history of known history of COPD can use to smoke does not use any oxygen came in with compensative shortness of breath was wheezing apparently yesterday was started on IV steroids was admitted chest x-ray showed some infiltrate in the right lower lobe although patient does not have any clinical signs or symptoms of pneumonia patient does not have any leukocytosis does not have any fever patient is unable to cough up much but does have significant infiltrate in the right lower lobe because of which I'm discharging the patient on Ceftin patient is not wheezing today patient can be discharged today on oral steroids and inhaled treatments. Patient for pedal edema is on progression sparing diuretics patient is hyponatremic patient is a advised to use compression socks and this can you the diuretic therapy because of hyponatremia and basic metabolic profile need to be tested as an outpatient to make sure patient hyponatremia improved. In sodium upon discharge is was 128 Review of Systems REVIEW OF SYSTEMS: CONSTITUTIONAL: No fever, no malaise, no fatigue. HEENT: No recent visual problems or hearing problems. Denied any sore throat. CARDIOVASCULAR: No chest pain, orthopnea, PND, no palpitations, no syncope. PULMONARY: As mentioned above GASTROINTESTINAL: No diarrhea, no nausea, no vomiting, no abdominal pain. Normoactive bowel sounds. NEUROLOGICAL: No headaches, no weakness, no numbness. HEMATOLOGICAL: Denies any bleeding or petechiae. GENITOURINARY: Denies any burning micturition, frequency, or urgency. MUSCULOSKELETAL/RHEUMATOLOGICAL: Denies any joint pain, swelling, or any muscle pain. ENDOCRINE: Denies any polyuria or polydipsia. The rest of the 14-point review of systems is negative. Past Medical History Past Medical History: Cancer, COPD, Liver Disease, Osteoarthritis (OA) Additional Past Medical History / Comment(s): current bladder ca, past colon cancer,"bruises easily, epiglotitis in past, hep c and "a spot on the liver" History of Any Multi-Drug Resistant Organisms: None Reported Past Surgical History: Appendectomy, Bowel Resection, Hernia Repair, Tonsillectomy Additional Past Surgical History / Comment(s): 01/21/16 cystoscopy w/evacuation of clot; urostomy Past Anesthesia/Blood Transfusion Reactions: No Reported Reaction Past Psychological History: No Psychological Hx Reported Smoking Status: Current every day smoker Past Alcohol Use History: None Reported Additional Past Alcohol Use History / Comment(s): started smoking Past Drug Use History: None Reported - Past Family History Father Family Medical History: Cancer Additional Family Medical History / Comment(s): pancreatic cacner Mother Family Medical History: Cancer Additional Family Medical History / Comment(s): lung cancer Medications and Allergies Home Medications Medication Instructions Recorded Confirmed Type Albuterol Sulfate [Proventil Hfa] 1 puff INHALATION RT-Q4H PRN 05/30/14 History Hydrocodone/Acetaminophen [[place] 2 tab PO TID PRN 05/30/14 07/15/17 History 10-325] oxyCODONE HCL [oxyCODONE HCL ER] 40 mg PO BID 05/30/14 07/15/17 History Albuterol Nebulized [Ventolin 2.5 mg INHALATION RT-Q4H PRN 01/21/16 07/15/17 History Nebulized] Budesonide-Formot 160-4.5 Mcg 2 puff INHALATION BID #1 inhaler 07/16/17 Rx [Symbicort 160-4.5 Mcg Inhaler] Cefuroxime Axetil [Ceftin] 500 mg PO BID #10 tab 07/16/17 Rx Tiotropium [place] [Spiriva] 1 cap INHALATION DAILY #1 device 07/16/17 Rx predniSONE 10 mg PO DAILY #30 tab 07/16/17 Rx Allergies Allergy/AdvReac Type Severity Reaction Status Date / Time meclizine Allergy Unknown Verified 07/15/17 20:25 Physical Exam Vitals: Vital Signs Temp Pulse Pulse Resp BP BP Pulse Ox 07/16/17 10:57 77 16 07/16/17 10:50 74 16 97 07/16/17 05:00 97.7 F 85 17 125/66 94 L 07/16/17 01:54 88 17 07/16/17 01:13 97.7 F 88 17 130/71 98 07/16/17 00:44 97.1 F L 95 16 135/53 95 07/16/17 00:07 97.9 F 94 16 135/53 98 07/15/17 21:46 98.4 F 98 16 125/58 07/15/17 19:58 90 16 07/15/17 19:52 88 18 07/15/17 19:50 18 05/31/18 19:31 99.1 F 98 17 166/76 100 Intake and Output 07/16/17 07/16/17 07/16/17 06:59 14:59 22:59 Intake Total 1130 Balance 1130 Intake: Intake, IV Titration 750 Amount Azithromycin 500 mg In 250 Sodium Chloride 0.9% 250 ml @ 125 mls/hr IVPB ONCE STA Rx#:[id number] Sodium Chloride 0.9% 1, 500 000 ml @ 100 mls/hr IV . Q10H STA Rx#:[id number] Oral 380 Other: Voiding Method Ileal Conduit (Right) # Bowel Movements 1 Weight 54.885 kg PHYSICAL EXAMINATION: GENERAL: The patient is alert and oriented x3, not in any acute distress. Well developed, well nourished. HEENT: Pupils are round and equally reacting to light. EOMI. No scleral icterus. No conjunctival pallor. Normocephalic, atraumatic. No pharyngeal erythema. No thyromegaly. CARDIOVASCULAR: S1 and S2 present. No murmurs, rubs, or gallops. PULMONARY: Chest is clear to auscultation, no wheezing or crackles. ABDOMEN: Soft, nontender, nondistended, normoactive bowel sounds. No palpable organomegaly. MUSCULOSKELETAL: No joint swelling or deformity. EXTREMITIES: No cyanosis, clubbing, or pedal edema. NEUROLOGICAL: Gross neurological examination did not reveal any focal deficits. SKIN: No rashes. Results CBC & Chem 7: 07/15/17 19:45 07/15/17 19:45 Labs: Abnormal Lab Results - Last 24 Hours (Table) 07/15/17 07/15/17 07/15/17 Range/Units 19:45 19:45 19:45 RBC 3.49 L (4.30-5.90) m/uL Hgb 11.1 L (13.0-17.5) gm/dL Hct 34.0 L (39.0-53.0) % RDW 19.8 H (11.5-15.5) % Plt Count 93 L (150-450) k/uL INR (<1.2) Sodium 129 L (137-145) mmol/L Chloride 95 L (98-107) mmol/L Carbon Dioxide 18 L (22-30) mmol/L BUN 8 L (9-20) mg/dL Creatinine 0.60 L (0.66-1.25) mg/dL Glucose 104 H (74-99) mg/dL AST 85 H (17-59) U/L Alkaline Phosphatase 142 H (38-126) U/L CK-MB (CK-2) 2.6 H* (0.0-2.4) ng/mL 07/15/17 Range/Units 19:45 RBC (4.30-5.90) m/uL Hgb (13.0-17.5) gm/dL Hct (39.0-53.0) % RDW (11.5-15.5) % Plt Count (150-450) k/uL INR 1.3 H (<1.2) Sodium (137-145) mmol/L Chloride (98-107) mmol/L Carbon Dioxide (22-30) mmol/L BUN (9-20) mg/dL Creatinine (0.66-1.25) mg/dL Glucose (74-99) mg/dL AST (17-59) U/L Alkaline Phosphatase (38-126) U/L CK-MB (CK-2) (0.0-2.4) ng/mL Thrombosis Risk Factor Assmnt - Choose All That Apply Any of the Below Risk Factors Present?: No Other Risk Factors: Yes Each Risk Factor Represents 2 Points: Age 61-74 years Thrombosis Risk Factor Assessment Total Risk Factor Score: 2 Thrombosis Risk Factor Assessment Level: Low Risk Assessment and Plan Plan: -Shortness of breath: Secondary to COPD exacerbation, patient has significant clinical improvement will be discharged on oral steroids will prescribe Spiriva as well as Symbicort patient can start using Symbicort after he is done with oral steroids. -Bilateral pedal edema: Appears to be venous insufficiency patient was advised to use compression socks. -Possibility of right lower lobe pneumonia community-acquired cannot be ruled out patient will be discharged on Ceftin. -Continued nicotine use: Counseling was provided -History of hepatitis C follow-up as an outpatient with gastroenterology.
--- NOTE | 2017-07-16 17:28 | P.DS ---
Providers Date of admission: 07/15/17 23:59 Attending physician: Tom Bowen Primary care physician: [facility] Hospital Course: Please refer to my HPI Patient Condition at Discharge: Stable Plan - Discharge Summary Discharge Rx Participant: No New Discharge Prescriptions: New predniSONE 10 mg PO DAILY #30 tab Budesonide-Formot 160-4.5 Mcg [Symbicort 160-4.5 Mcg Inhaler] 2 puff INHALATION BID #1 inhaler Cefuroxime Axetil [Ceftin] 500 mg PO BID #10 tab Tiotropium [place] [Spiriva] 1 cap INHALATION DAILY #1 device Discontinued Spironolactone [Aldactone] 25 mg PO DAILY No Action Albuterol Sulfate [Proventil Hfa] 1 puff INHALATION RT-Q4H PRN PRN Reason: Shortness Of Breath oxyCODONE HCL [oxyCODONE HCL ER] 40 mg PO BID Hydrocodone/Acetaminophen [[place] 10-325] 2 tab PO TID PRN PRN Reason: pain Albuterol Nebulized [Ventolin Nebulized] 2.5 mg INHALATION RT-Q4H PRN PRN Reason: Shortness Of Breath Discharge Medication List Albuterol Sulfate [Proventil Hfa] 1 puff INHALATION RT-Q4H PRN 05/30/14 [History ] Hydrocodone/Acetaminophen [[place] 10-325] 2 tab PO TID PRN 05/30/14 [History] oxyCODONE HCL [oxyCODONE HCL ER] 40 mg PO BID 05/30/14 [History] Albuterol Nebulized [Ventolin Nebulized] 2.5 mg INHALATION RT-Q4H PRN 01/21/16 [ History] Budesonide-Formot 160-4.5 Mcg [Symbicort 160-4.5 Mcg Inhaler] 2 puff INHALATION BID #1 inhaler 07/16/17 [Rx] Cefuroxime Axetil [Ceftin] 500 mg PO BID #10 tab 07/16/17 [Rx] Tiotropium [place] [Spiriva] 1 cap INHALATION DAILY #1 device 07/16/17 [Rx] predniSONE 10 mg PO DAILY #30 tab 07/16/17 [Rx] Follow up Appointment(s)/Referral(s): [facility],Clinic [Primary Care Provider] - 3 Days (office will call for appt) Patient Instructions/Handouts: Cefuroxime (By mouth), Prednisone (By mouth), Tiotropium (By breathing), Budesonide/Formoterol (By breathing), How to Stop Smoking (DC), COPD (Chronic Obstructive Pulmonary Disease) (DC), Pneumonia (DC) Discharge Disposition: HOME SELF-CARE
[2017-07-17] MEDS ORDERED: cefTRIAXone IN SWFI 1,000 MG/10 ML SYRINGE IVP SCH (06:00)
[2017-07-17] MEDS ORDERED: AZITHROMYCIN 500 MG TAB PO SCH (09:00)
== END 2017-07-16 12:26 | disposition home or self-care (01) | DRG 190 ==
LOC: EC 19:24 → 5MS5E 23:59
PROVIDERS: ADMIT Internal Medicine; ATTEND Internal Medicine
DX: J44.0 Chronic obstructive pulmonary disease with (acute) lower respiratory infection (principal); J18.9 Pneumonia, unspecified organism; E87.1 Hypo-osmolality and hyponatremia; F17.210 Nicotine dependence, cigarettes, uncomplicated; J44.1 Chronic obstructive pulmonary disease with (acute) exacerbation; Z71.6 Tobacco abuse counseling; Z79.899 Other long term (current) drug therapy; Z80.1 Family history of malignant neoplasm of trachea, bronchus and lung; Z85.038 Personal history of other malignant neoplasm of large intestine; C67.9 Malignant neoplasm of bladder, unspecified; Z79.891 Long term (current) use of opiate analgesic; M19.90 Unspecified osteoarthritis, unspecified site; Z86.19 Personal history of other infectious and parasitic diseases
CPT/HCPCS: 36415; 71046; 80053; 82550; 82553; 83735; 83880; 84484; 85025; 85610; 85730; 87040; 93005; 94640; 94760; 96361; 96374; 96375; 99291

== ENCOUNTER → 2017-08-05 | Outpatient (CLI) | payer OTHER ==
--- NOTE | 2017-08-05 10:39 | MR ---
EXAMINATION TYPE: MR MRCP DATE OF EXAM: 08/05/2017 COMPARISON: CT scan 05/19/2017 HISTORY: abdomen pain, Abn findings on diagnostic image Standard multiplanar, multisequence MRI departmental protocol Multiplanar, multisequence images of the MRCP were acquired. FINDINGS: IMPRESSION: The previously seen focal area of hypoattenuation within segment IVb at the level of the portal vein is stable as compared to the prior exam and poorly defined. The largest hepatic cystic lesion is stable in size measuring 4.6 cm is previously measuring 3.6 cm. The other scattered hepatic cysts throughout the hepatic parenchyma appear overall stable. The gallbladder remains distended in size in comparison to the prior although there is extensive extr ahepatic biliary ductal dilatation remaining. There are bilateral renal cysts all appearing simple with the exception of a mid pole anterior left r enal cyst which has a single internal septation compatible with a Bosniak 2 classification 2 cyst. Th ere are subsegmental consolidation at the right lung base. No definite pancreatic head mass. Aorta of normal caliber. Spleen is homogeneous signal. Adrenal glands have a normal morphology. Hypertrophic and degenerative change of the spine noted. Impression: 1. There is distention of the gallbladder, pancreatic duct and intrahepatic and extrahepatic bile montserrat t which is similar to the prior exam of 05/19/2017. It does appear to be a rather abrupt termination at the level of the ampulla. No definite pancreatic head mass. Consider ERCP for further evaluation as clinically warranted. 2. Hepatomegaly measuring 19 cm. Remains area of vague signal near the portal vein within the caudate lobe unchanged from the previous CT scan.
== END | disposition home or self-care (01) ==
LOC: RADMRIMAIN 09:09
DX: K82.8 Other specified diseases of gallbladder (principal); R16.0 Hepatomegaly, not elsewhere classified
CPT/HCPCS: 74181

== ENCOUNTER → 2017-09-06 | Outpatient (CLI) | payer OTHER ==
[2017-09-06 20:20] LABS: Total Protein,CSF 65 mg/dL (12-60)
[2017-09-06 20:43] LABS: Appearance,CSF Clear; CSF Tube Number 4; CSF Tube Volume 3; Nucleated Cells, CSF 0 u/L (0-5); Red Blood Cell,CSF 0 u/L (0-10)
== END | disposition home or self-care (01) ==
LOC: LABWHC1 10:17
PROVIDERS: ATTEND Nurse Practitioner Acute Care
DX: R90.82 White matter disease, unspecified (principal); R42 Dizziness and giddiness; R53.1 Weakness
CPT/HCPCS: 36415; 82040; 82042; 82784; 83873; 83916; 84157; 87476; 88108; 89050

== ENCOUNTER 2017-09-10 01:33 | Inpatient (IN) | payer OTHER, MEDICARE ==
[2017-09-10 01:59] LABS: Basophils % (A) 1 %; Eosinophils # (A) 0.1 k/uL (0-0.7); Eosinophils % (A) 2 %; HCT 32.9 % (39.0-53.0); HGB 10.3 gm/dL (13.0-17.5); Lymphocytes # (A) 2.3 k/uL (1.0-4.8); Lymphocytes % (A) 46 %; MCH 31.6 pg (25.0-35.0); MCHC 31.4 g/dL (31.0-37.0); MCV 100.6 fL (80.0-100.0); Macrocytosis Slight; Mean Platelet Volume 7.3; Monocytes # (A) 0.3 k/uL (0-1.0); Monocytes % (A) 6 %; Neutrophils % (A) 41 %; Platelet Count 122 k/uL (150-450); RBC 3.27 m/uL (4.30-5.90); RDW 15.7 % (11.5-15.5)
[2017-09-10 02:00] LABS: VBG PH 7.43 (7.31-7.41)
[2017-09-10 02:10] LABS: ALT 45 U/L (21-72); AST 77 U/L (17-59); Albumin 3.9 g/dL (3.5-5.0); Alkaline Phosphatase 104 U/L (38-126); Anion Gap 12 mmol/L; Blood Urea Nitrogen 13 mg/dL (9-20); Calcium 8.7 mg/dL (8.4-10.2); Carbon Dioxide 20 mmol/L (22-30); Chloride 99 mmol/L (98-107); Glucose 108 mg/dL (74-99); Magnesium 1.9 mg/dL (1.6-2.3); Potassium 4.2 mmol/L (3.5-5.1); Sodium 131 mmol/L (137-145); Total Bilirubin 0.6 mg/dL (0.2-1.3); Total Protein 7.4 g/dL (6.3-8.2)
[2017-09-10 02:13] LABS: INR 1.5 (<1.2); Prothrombin Time 14.3 sec (9.0-12.0)
[2017-09-10 02:27] LABS: Color,Urine Dark Red
[2017-09-10 02:28] LABS: Appearance,Urine Bloody (Clear); WBC,Urine >182 /hpf (0-5)
[2017-09-10 02:29] LABS: RBC,Urine >182 /hpf (0-5)
--- NOTE | 2017-09-10 03:02 | CT ---
EXAMINATION TYPE: CT abdomen pelvis w con DATE OF EXAM: 09/10/2017 COMPARISON: 05/19/2017 HISTORY: hematuria CT DLP: 594.80 mGycm Automated exposure control for dose reduction was used. TECHNIQUE: Helical acquisition of images was performed from the lung bases through the pelvis. CONTRAST: Performed without Oral Contrast and with IV Contrast, patient injected with 100 mL of Isovue 300. FINDINGS: There is some mild interstitial subpleural infiltrate in the posterior lateral right lower lobe. Ther e is no pleural effusion. Heart size is normal. There are several cysts in the anterior liver. These measure up to 4.5 cm. Bile ducts are not dilated . Gallbladder appears normal. Spleen appears normal. There is no pancreatic mass. There is mild ectas ia of the distal pancreatic duct. Abdominal aorta is atheromatous. There is no retroperitoneal adenopathy. Kidneys show satisfactory co ntrast opacification. There is no hydronephrosis. There is no adrenal mass. There are small cortical cyst on the left kidney. I see no intestinal wall thickening. There are no dilated loops. There are multiple surgical clips in the right colon. There is no evidence of a bowel obstruction. There is ileal conduit with cystectomy noted. Bony structures are intact. There is no compression fracture. Abdominal aorta is atheromatous . There is a left side large scrotal hydrocele. This is incompletely evaluated. IMPRESSION: MILD ECTASIA OF THE DISTAL PANCREATIC DUCT. NO DISCRETE PANCREATIC MASS SEEN. EXTENSIVE SURGERY. ILEAL CONDUIT. CYSTECTOMY. NO EVIDENCE OF RENAL OBSTRUCTION. ATHEROSCLEROTIC VASCU LAR DISEASE. LARGE LEFT-SIDED SCROTAL HYDROCELE. There is overall no significant change compared to last exam.
[2017-09-10] MEDS ORDERED: NALOXONE 0.4 MG/ML 1 ML VIAL IV PRN (03:09)
--- NOTE | 2017-09-10 03:20 | ED ---
General Adult HPI - General Chief complaint: Urogenital Stated complaint: Blood in urostomy bag Source: EMS Mode of arrival: EMS Limitations: no limitations - History of Present Illness Initial comments: Dictation was produced using [employer] dictation software. please excuse any grammatical, word or spelling errors. Chief Complaint: 61-year-old male past medical history of bladder cancer status post urostomy, COPD, liver disease presents with urostomy bleeding. History of Present Illness: Remainder is prior to arrival he noticed dark red blood collecting in his urostomy bag. Patient states his resting At least once. It was enough fluid to fill up a can. Patient reports that he has had blood collecting his urostomy bag before however bleeding source was to the site where urostomy was attached to the skin. States this time the blood was coming from the urostomy. Denies any pain. No constitutional symptoms. Patient is not on any blood thinners. The ROS documented in this emergency department record has been reviewed and confirmed by me. Those systems with pertinent positive or negative responses have been documented in the HPI. All other systems are other negative and/or noncontributory. - Related Data Home Medications Medication Instructions Recorded Confirmed Albuterol Sulfate [Proventil Hfa] 1 puff INHALATION RT-Q4H PRN 05/30/14 07/15/17 Hydrocodone/Acetaminophen [[place] 2 tab PO TID PRN 05/30/14 07/15/17 10-325] oxyCODONE HCL [oxyCODONE HCL ER] 40 mg PO BID 05/30/14 07/15/17 Albuterol Nebulized [Ventolin 2.5 mg INHALATION RT-Q4H PRN 01/21/16 07/15/17 Nebulized] Previous Rx's Medication Instructions Recorded Budesonide-Formot 160-4.5 Mcg 2 puff INHALATION BID #1 inhaler 07/16/17 [Symbicort 160-4.5 Mcg Inhaler] Cefuroxime Axetil [Ceftin] 500 mg PO BID #10 tab 07/16/17 Tiotropium [place] [Spiriva] 1 cap INHALATION DAILY #1 device 07/16/17 predniSONE 10 mg PO DAILY #30 tab 07/16/17 Allergies Allergy/AdvReac Type Severity Reaction Status Date / Time meclizine Allergy Unknown Verified 09/10/17 01:38 Review of Systems ROS Statement: Those systems with pertinent positive or pertinent negative responses have been documented in the HPI. ROS Other: All systems not noted in ROS Statement are negative. Past Medical History Past Medical History: Cancer, COPD, Liver Disease, Osteoarthritis (OA) Additional Past Medical History / Comment(s): current bladder ca, past colon cancer,"bruises easily, epiglotitis in past, hep c and "a spot on the liver" History of Any Multi-Drug Resistant Organisms: None Reported Past Surgical History: Appendectomy, Bowel Resection, Hernia Repair, Tonsillectomy Additional Past Surgical History / Comment(s): 01/21/16 cystoscopy w/evacuation of clot; urostomy, BLADDER AND PROSTATE REMOVED. Past Anesthesia/Blood Transfusion Reactions: No Reported Reaction Past Psychological History: No Psychological Hx Reported Smoking Status: Current every day smoker Past Alcohol Use History: Daily Past Drug Use History: None Reported - Past Family History Father Family Medical History: Cancer Additional Family Medical History / Comment(s): pancreatic cacner Mother Family Medical History: Cancer Additional Family Medical History / Comment(s): lung cancer General Exam - General Exam Comments Initial Comments: PHYSICAL EXAM: General Impression: Alert and oriented x3, not in acute distress, urostomy bag in place, dark blood in reservoir HEENT: Normocephalic atraumatic, extra-ocular movements intact, pupils equal and reactive to light bilaterally, mucous membranes moist. Cardiovascular: Heart regular rate and rhythm, S1&S2 audible, no murmurs, rubs or gallops Chest: Lungs clear to auscultation bilaterally, no rhonchi, no wheeze, no rales Abdomen: Bowel sounds present, abdomen soft, non-tender, non-distended, no organomegaly Musculoskeletal: Pulses present and equal in all extremities, no peripheral edema Motor: Power 5/5 bilaterally, no focal deficits noted Neurological: CN II-XII grossly intact, no focal motor or sensory deficits noted Skin: Intact with no visualized rashes Psych: Normal affect and mood Limitations: no limitations Course Vital Signs 09/10/17 01:34 Temperature 98.0 F Pulse Rate 93 Respiratory 18 Rate Blood Pressure 153/91 O2 Sat by Pulse 96 Oximetry Medical Decision Making - Medical Decision Making ED course: 61-year-old male presents with urostomy site bleeding acutely. Vital signs upon arrival are within normal limits per patient hemodynamically stable. Laboratory evaluation obtained. Hemoglobin is 10.3. This is his baseline of 9-11. Coag panel shows INR 1.5. Blood gases unremarkable. Sodium 131. No anion gap. Discussed patient case with urologist on-call. Given the degree of output patient to be admitted to the hospital for every 6 hours H&H and urology consultation. Believe patient would benefit from inpatient evaluation by surgical specialty. Patient does not appear to be showing any signs of hemorrhagic shock at this time. Reevaluation of urostomy shows cessation of bleeding. No indication for acute intervention at this time. - Lab Data Result diagrams: 09/10/17 01:48 09/10/17 01:48 Lab Results 09/10/17 09/10/17 09/10/17 Range/Units 01:45 01:48 01:48 WBC 5.0 (3.8-10.6) k/uL RBC 3.27 L (4.30-5.90) m/uL Hgb 10.3 L (13.0-17.5) gm/dL Hct 32.9 L (39.0-53.0) % MCV 100.6 H (80.0-100.0) fL MCH 31.6 (25.0-35.0) pg MCHC 31.4 (31.0-37.0) g/dL RDW 15.7 H (11.5-15.5) % Plt Count 122 L (150-450) k/uL Neutrophils % 41 % Lymphocytes % 46 % Monocytes % 6 % Eosinophils % 2 % Basophils % 1 % Neutrophils # 2.0 (1.3-7.7) k/uL Lymphocytes # 2.3 (1.0-4.8) k/uL Monocytes # 0.3 (0-1.0) k/uL Eosinophils # 0.1 (0-0.7) k/uL Basophils # 0.0 (0-0.2) k/uL Macrocytosis Slight PT (9.0-12.0) sec INR (<1.2) VBG pH 7.43 H (7.31-7.41) VBG pCO2 34 L (37-51) mmHg VBG HCO3 22 L (24-28) mmol/L Sodium (137-145) mmol/L Potassium (3.5-5.1) mmol/L Chloride (98-107) mmol/L Carbon Dioxide (22-30) mmol/L Anion Gap mmol/L BUN (9-20) mg/dL Creatinine (0.66-1.25) mg/dL Est GFR (CKD-EPI)AfAm (>60 ml/min/1.73 sqM) Est GFR (CKD-EPI)NonAf (>60 ml/min/1.73 sqM) Glucose (74-99) mg/dL Plasma Lactic Acid Bernard (0.7-2.0) mmol/L Calcium (8.4-10.2) mg/dL Magnesium (1.6-2.3) mg/dL Total Bilirubin (0.2-1.3) mg/dL AST (17-59) U/L ALT (21-72) U/L Alkaline Phosphatase (38-126) U/L Troponin I (0.000-0.034) ng/mL Total Protein (6.3-8.2) g/dL Albumin (3.5-5.0) g/dL Urine Color Urine Appearance (Clear) Urine RBC (0-5) /hpf Urine WBC (0-5) /hpf Blood Type AB Positive Blood Type Recheck No Antibody Screen NEGATIVE Spec Expiration Date 09/13/2017 - 234409/10/17 09/10/17 09/10/17 Range/Units 01:48 01:48 01:48 WBC (3.8-10.6) k/uL RBC (4.30-5.90) m/uL Hgb (13.0-17.5) gm/dL Hct (39.0-53.0) % MCV (80.0-100.0) fL MCH (25.0-35.0) pg MCHC (31.0-37.0) g/dL RDW (11.5-15.5) % Plt Count (150-450) k/uL Neutrophils % % Lymphocytes % % Monocytes % % Eosinophils % % Basophils % % Neutrophils # (1.3-7.7) k/uL Lymphocytes # (1.0-4.8) k/uL Monocytes # (0-1.0) k/uL Eosinophils # (0-0.7) k/uL Basophils # (0-0.2) k/uL Macrocytosis PT 14.3 H (9.0-12.0) sec INR 1.5 H (<1.2) VBG pH (7.31-7.41) VBG pCO2 (37-51) mmHg VBG HCO3 (24-28) mmol/L Sodium 131 L (137-145) mmol/L Potassium 4.2 (3.5-5.1) mmol/L Chloride 99 (98-107) mmol/L Carbon Dioxide 20 L (22-30) mmol/L Anion Gap 12 mmol/L BUN 13 (9-20) mg/dL Creatinine 0.70 (0.66-1.25) mg/dL Est GFR (CKD-EPI)AfAm >90 (>60 ml/min/1.73 sqM) Est GFR (CKD-EPI)NonAf >90 (>60 ml/min/1.73 sqM) Glucose 108 H (74-99) mg/dL Plasma Lactic Acid Bernard 1.8 (0.7-2.0) mmol/L Calcium 8.7 (8.4-10.2) mg/dL Magnesium 1.9 (1.6-2.3) mg/dL Total Bilirubin 0.6 (0.2-1.3) mg/dL AST 77 H (17-59) U/L ALT 45 (21-72) U/L Alkaline Phosphatase 104 (38-126) U/L Troponin I (0.000-0.034) ng/mL Total Protein 7.4 (6.3-8.2) g/dL Albumin 3.9 (3.5-5.0) g/dL Urine Color Urine Appearance (Clear) Urine RBC (0-5) /hpf Urine WBC (0-5) /hpf Blood Type Blood Type Recheck Antibody Screen Spec Expiration Date 09/10/17 09/10/17 Range/Units 01:48 01:54 WBC (3.8-10.6) k/uL RBC (4.30-5.90) m/uL Hgb (13.0-17.5) gm/dL Hct (39.0-53.0) % MCV (80.0-100.0) fL MCH (25.0-35.0) pg MCHC (31.0-37.0) g/dL RDW (11.5-15.5) % Plt Count (150-450) k/uL Neutrophils % % Lymphocytes % % Monocytes % % Eosinophils % % Basophils % % Neutrophils # (1.3-7.7) k/uL Lymphocytes # (1.0-4.8) k/uL Monocytes # (0-1.0) k/uL Eosinophils # (0-0.7) k/uL Basophils # (0-0.2) k/uL Macrocytosis PT (9.0-12.0) sec INR (<1.2) VBG pH (7.31-7.41) VBG pCO2 (37-51) mmHg VBG HCO3 (24-28) mmol/L Sodium (137-145) mmol/L Potassium (3.5-5.1) mmol/L Chloride (98-107) mmol/L Carbon Dioxide (22-30) mmol/L Anion Gap mmol/L BUN (9-20) mg/dL Creatinine (0.66-1.25) mg/dL Est GFR (CKD-EPI)AfAm (>60 ml/min/1.73 sqM) Est GFR (CKD-EPI)NonAf (>60 ml/min/1.73 sqM) Glucose (74-99) mg/dL Plasma Lactic Acid Bernard (0.7-2.0) mmol/L Calcium (8.4-10.2) mg/dL Magnesium (1.6-2.3) mg/dL Total Bilirubin (0.2-1.3) mg/dL AST (17-59) U/L ALT (21-72) U/L Alkaline Phosphatase (38-126) U/L Troponin I <0.012 (0.000-0.034) ng/mL Total Protein (6.3-8.2) g/dL Albumin (3.5-5.0) g/dL Urine Color Dark Red Urine Appearance Bloody (Clear) Urine RBC >182 H (0-5) /hpf Urine WBC >182 H (0-5) /hpf Blood Type Blood Type Recheck Antibody Screen Spec Expiration Date Disposition Clinical Impression: Complication of urostomy Disposition: ADMITTED IP TO THIS [facility] Referrals: [facility],Clinic [Primary Care Provider] - 1-2 days Time of Disposition: 03:20
[2017-09-10 04:15] VITALS: BMI 18.4
[2017-09-10] MEDS ORDERED: ALBUTEROL NEBULIZED 2.5 MG/3 ML INHALATION PRN ×2 (06:59)
[2017-09-10] MEDS ORDERED: HYDROcodone/APAP 10-325MG 1 EACH TAB PO PRN (06:59)
[2017-09-10 07:04] VITALS: BP 112/68; TEMP 98.1
--- NOTE | 2017-09-10 07:39 | P.GSCN ---
History of Present Illness Consult date: 09/10/17 History of present illness: The patient is a 61-year-old gentleman with history of carcinoma the bladder. He ended up undergoing a cystectomy a couple years ago at the [facility] in [place]. He has a right lower quadrant ileal loop. He presented last night with blood in the ostomy. This was abrupt and dark red. By the time he arrived to the hospital apparently had begins to clear. He states that he had an episode of bright red bleeding that was felt to be due to stomal bleeding last year. He has no pain. He had a computed tomography scan without contrast that was negative for obstruction or stones. He is asymptomatic this morning. The urine is clear. His vital signs are stable. Not on blood thinners. Review of Systems All systems: negative Past Medical History Past Medical History: Cancer, COPD, Liver Disease, Osteoarthritis (OA) Additional Past Medical History / Comment(s): current bladder ca, past colon cancer,"bruises easily, epiglotitis in past, hep c and "a spot on the liver" History of Any Multi-Drug Resistant Organisms: None Reported Past Surgical History: Appendectomy, Bowel Resection, Hernia Repair, Tonsillectomy Additional Past Surgical History / Comment(s): 01/21/16 cystoscopy w/evacuation of clot; urostomy, BLADDER AND PROSTATE REMOVED November 2016. Tube placed in right ear in July 2017 Past Anesthesia/Blood Transfusion Reactions: No Reported Reaction Past Psychological History: Anxiety Smoking Status: Current every day smoker Past Alcohol Use History: Daily Additional Past Alcohol Use History / Comment(s): started smoking Past Drug Use History: None Reported - Past Family History Father Family Medical History: Cancer Additional Family Medical History / Comment(s): pancreatic cacner Mother Family Medical History: Cancer Additional Family Medical History / Comment(s): lung cancer Medications and Allergies Home Medications Medication Instructions Recorded Confirmed Type Albuterol Sulfate [Proventil Hfa] 1 puff INHALATION RT-Q4H PRN 05/30/14 History Hydrocodone/Acetaminophen [[place] 2 tab PO TID PRN 05/30/14 09/10/17 History 10-325] oxyCODONE HCL [oxyCODONE HCL ER] 40 mg PO BID 05/30/14 09/10/17 History Albuterol Nebulized [Ventolin 2.5 mg INHALATION RT-Q4H PRN 01/21/16 07/15/17 History Nebulized] Budesonide-Formot 160-4.5 Mcg 2 puff INHALATION BID #1 inhaler 07/16/17 Rx [Symbicort 160-4.5 Mcg Inhaler] Cefuroxime Axetil [Ceftin] 500 mg PO BID #10 tab 07/16/17 Rx Tiotropium [place] [Spiriva] 1 cap INHALATION DAILY #1 device 07/16/17 Rx predniSONE 10 mg PO DAILY #30 tab 07/16/17 Rx Allergies Allergy/AdvReac Type Severity Reaction Status Date / Time meclizine Allergy Unknown Verified 09/10/17 04:19 Surgical - Exam Vital Signs Temp Pulse Resp BP Pulse Ox 98.0 F 93 18 153/91 96 09/10/17 01:34 09/10/17 01:34 09/10/17 01:34 09/10/17 01:34 09/10/17 01:34 - General well developed, well nourished, no distress - Eyes PERRL - ENT no hearing loss - Neck trachea midline - Respiratory normal expansion, normal respiratory effort - Cardiovascular Rhythm: regular - Abdomen The abdomen is soft. There is a right lower quadrant ileal loop. The stoma there is no blood in the bag. He has a parastomal hernia. - Genitourinary Penis testicles unremarkable, there is a left hydrocele - Integumentary no rash, no growths - Neurologic normal coordination, normal sensation - Musculoskeletal normal posture - Psychiatric oriented to time, oriented to person, oriented to place, speech is normal, memory intact Results - Labs 09/10/17 01:48 09/10/17 01:48 Abnormal Lab Results - Last 24 Hours (Table) 09/10/17 09/10/17 09/10/17 Range/Units 01:48 01:48 01:48 RBC 3.27 L (4.30-5.90) m/uL Hgb 10.3 L (13.0-17.5) gm/dL Hct 32.9 L (39.0-53.0) % MCV 100.6 H (80.0-100.0) fL RDW 15.7 H (11.5-15.5) % Plt Count 122 L (150-450) k/uL PT (9.0-12.0) sec INR (<1.2) VBG pH 7.43 H (7.31-7.41) VBG pCO2 34 L (37-51) mmHg VBG HCO3 22 L (24-28) mmol/L Sodium 131 L (137-145) mmol/L Carbon Dioxide 20 L (22-30) mmol/L Glucose 108 H (74-99) mg/dL AST 77 H (17-59) U/L Urine RBC (0-5) /hpf Urine WBC (0-5) /hpf 09/10/17 09/10/17 Range/Units 01:48 01:54 RBC (4.30-5.90) m/uL Hgb (13.0-17.5) gm/dL Hct (39.0-53.0) % MCV (80.0-100.0) fL RDW (11.5-15.5) % Plt Count (150-450) k/uL PT 14.3 H (9.0-12.0) sec INR 1.5 H (<1.2) VBG pH (7.31-7.41) VBG pCO2 (37-51) mmHg VBG HCO3 (24-28) mmol/L Sodium (137-145) mmol/L Carbon Dioxide (22-30) mmol/L Glucose (74-99) mg/dL AST (17-59) U/L Urine RBC >182 H (0-5) /hpf Urine WBC >182 H (0-5) /hpf Diabetes panel 09/10/17 Range/Units 01:48 Sodium 131 L (137-145) mmol/L Potassium 4.2 (3.5-5.1) mmol/L Chloride 99 (98-107) mmol/L Carbon Dioxide 20 L (22-30) mmol/L BUN 13 (9-20) mg/dL Creatinine 0.70 (0.66-1.25) mg/dL Glucose 108 H (74-99) mg/dL Calcium 8.7 (8.4-10.2) mg/dL AST 77 H (17-59) U/L ALT 45 (21-72) U/L Alkaline Phosphatase 104 (38-126) U/L Total Protein 7.4 (6.3-8.2) g/dL Albumin 3.9 (3.5-5.0) g/dL Calcium panel 09/10/17 Range/Units 01:48 Calcium 8.7 (8.4-10.2) mg/dL Albumin 3.9 (3.5-5.0) g/dL Pituitary panel 09/10/17 Range/Units 01:48 Sodium 131 L (137-145) mmol/L Potassium 4.2 (3.5-5.1) mmol/L Chloride 99 (98-107) mmol/L Carbon Dioxide 20 L (22-30) mmol/L BUN 13 (9-20) mg/dL Creatinine 0.70 (0.66-1.25) mg/dL Glucose 108 H (74-99) mg/dL Calcium 8.7 (8.4-10.2) mg/dL Adrenal panel 09/10/17 Range/Units 01:48 Sodium 131 L (137-145) mmol/L Potassium 4.2 (3.5-5.1) mmol/L Chloride 99 (98-107) mmol/L Carbon Dioxide 20 L (22-30) mmol/L BUN 13 (9-20) mg/dL Creatinine 0.70 (0.66-1.25) mg/dL Glucose 108 H (74-99) mg/dL Calcium 8.7 (8.4-10.2) mg/dL Total Bilirubin 0.6 (0.2-1.3) mg/dL AST 77 H (17-59) U/L ALT 45 (21-72) U/L Alkaline Phosphatase 104 (38-126) U/L Total Protein 7.4 (6.3-8.2) g/dL Albumin 3.9 (3.5-5.0) g/dL - Imaging CT scan - abdomen: report reviewed, image reviewed CT scan - pelvis: report reviewed, image reviewed Assessment and Plan Assessment: Impression: Gross hematuria and history of bladder cancer. Recommendations: This bleeding sounds more upper urinary tract rather than stomal bleeding based on the color. Generally stomal bleeding is bright red bleeding. Whether the blood in the stoma and then secondarily had old blood is indeterminate. He appears to be stable now. A CAT scan with contrast would be in order to make sure there is no upper urinary tract urothelial carcinoma. If there is none then nothing further urologic would be done at this point in time.
--- NOTE | 2017-09-10 07:45 | P.PN ---
Progress Note - Text I re reviewed the ct scan and it was with contrast In that light nothing further urologic will be ordered unless he bleeds again I would watch him for a few hours If he doesnt bleed any more then he may go home from my standpoint
[2017-09-10] MEDS ORDERED: SYMBICORT 160-4.5 MCG INHALER INHALATION SCH (08:00)
[2017-09-10 08:52] VITALS: RESP 16
[2017-09-10 08:55] LABS: Anisocytosis Slight; Basophils % (A) 1 %; Eosinophils # (A) 0.1 k/uL (0-0.7); Eosinophils % (A) 3 %; HGB 11.8 gm/dL (13.0-17.5); Lymphocytes # (A) 2.1 k/uL (1.0-4.8); Lymphocytes % (A) 42 %; MCH 32.7 pg (25.0-35.0); MCHC 31.1 g/dL (31.0-37.0); Macrocytosis Moderate; Mean Platelet Volume 6.5; Monocytes # (A) 0.3 k/uL (0-1.0); Monocytes % (A) 6 %; Neutrophils # (A) 2.3 k/uL (1.3-7.7); Neutrophils % (A) 45 %; Platelet Count 148 k/uL (150-450); RBC 3.62 m/uL (4.30-5.90); RDW 16.2 % (11.5-15.5)
[2017-09-10] MEDS ORDERED: oxyCODONE ER 20 MG TAB.ER.12H PO SCH (09:00)
[2017-09-10] MEDS: IPRATROPIUM 0.5 MG/2.5 ML NEBU INHALATION SCH ×2 (09:01→12:15)
[2017-09-10 09:10] VITALS: PULSE 82
== END 2017-09-10 15:04 | disposition home or self-care (01) | DRG 696 ==
LOC: EC 01:33 → 3SUR 03:21
PROVIDERS: ADMIT Hospitalist; ATTEND Hospitalist
DX: R31.0 Gross hematuria (principal); J44.9 Chronic obstructive pulmonary disease, unspecified; M19.90 Unspecified osteoarthritis, unspecified site; K43.5 Parastomal hernia without obstruction or gangrene; F17.200 Nicotine dependence, unspecified, uncomplicated; C67.9 Malignant neoplasm of bladder, unspecified; Z85.038 Personal history of other malignant neoplasm of large intestine; Z79.2 Long term (current) use of antibiotics; Z79.891 Long term (current) use of opiate analgesic; Z79.52 Long term (current) use of systemic steroids; Z79.899 Other long term (current) drug therapy; Z88.8 Allergy status to other drugs, medicaments and biological substances; Z79.51 Long term (current) use of inhaled steroids; Z80.1 Family history of malignant neoplasm of trachea, bronchus and lung
CPT/HCPCS: 36415; 74177; 80053; 81001; 82803; 83605; 83735; 84484; 85025; 85610; 86850; 86900; 86901; 93005; 94640; 99285

== ENCOUNTER 2017-09-13 02:36 | Emergency (ER) | payer OTHER, MEDICARE ==
[2017-09-13 02:48] VITALS: RESP 20
[2017-09-13] MEDS ORDERED: IPRATROPIUM-ALBUTEROL 3 ML NEB INHALATION STA (03:11)
--- NOTE | 2017-09-13 03:24 | ED ---
General Adult HPI - General Chief complaint: Abdominal Pain Stated complaint: blood loss Time Seen by Provider: 09/13/17 02:40 Source: patient Mode of arrival: EMS Limitations: no limitations - History of Present Illness Initial comments: This 61-year-old man who presents to be evaluated for bleeding at the site of his urostomy. The patient states she has been having episodes of this intermittently over the past 3-4 days. He has previously been seen for this and was told that the mucosa was bleeding and it was stopped with a silver nitrate cautery. Patient states that the bleeding stops at home with pressure, but tends to recur if he has it coughing episode which she has been doing over the past few days due to his COPD flaring up. The patient denies use of blood thinners. He is not having any anemic symptoms, no diaphoresis, palpitations, lightheadedness or syncope, nausea or vomiting. He does acknowledge a little bit of shortness of breath that he is a triggering to the COPD, as he is also coughing more. -: days(s) Consistency: intermittent Improves with: none Worsens with: none Associated Symptoms: cough, shortness of breath Treatments Prior to Arrival: none - Related Data Home Medications Medication Instructions Recorded Confirmed Albuterol Sulfate [Proventil Hfa] 1 puff INHALATION RT-Q4H PRN 05/30/14 09/13/17 Hydrocodone/Acetaminophen [[place] 2 tab PO TID PRN 05/30/14 09/13/17 10-325] oxyCODONE HCL [oxyCODONE HCL ER] 40 mg PO BID 05/30/14 09/13/17 Spironolactone [Aldactone] 25 mg PO DAILY 09/10/17 09/13/17 Allergies Allergy/AdvReac Type Severity Reaction Status Date / Time meclizine Allergy vertigo Verified 09/10/17 08:47 Review of Systems ROS Statement: Those systems with pertinent positive or pertinent negative responses have been documented in the HPI. ROS Other: All systems not noted in ROS Statement are negative. Constitutional: Denies: fever, chills, weakness Respiratory: Reports: as per HPI, cough, dyspnea, wheezes Cardiovascular: Denies: chest pain, palpitations, orthopnea, edema, syncope Gastrointestinal: Denies: abdominal pain, vomiting, diarrhea Musculoskeletal: Denies: back pain Skin: Denies: lesions Neurological: Denies: headache, weakness, numbness Hematological/Lymphatic: Denies: easy bleeding Past Medical History Past Medical History: Cancer, COPD, Liver Disease, Osteoarthritis (OA) Additional Past Medical History / Comment(s): current bladder ca, past colon cancer,"bruises easily, epiglotitis in past, hep c and "a spot on the liver" History of Any Multi-Drug Resistant Organisms: None Reported Past Surgical History: Appendectomy, Bowel Resection, Hernia Repair, Tonsillectomy Additional Past Surgical History / Comment(s): 01/21/16 cystoscopy w/evacuation of clot; urostomy, BLADDER AND PROSTATE REMOVED November 2016. Tube placed in right ear in July 2017 Past Anesthesia/Blood Transfusion Reactions: No Reported Reaction Past Psychological History: Anxiety Smoking Status: Current every day smoker Past Alcohol Use History: Daily Past Drug Use History: None Reported - Past Family History Father Family Medical History: Cancer Additional Family Medical History / Comment(s): pancreatic cacner Mother Family Medical History: Cancer Additional Family Medical History / Comment(s): lung cancer General Exam Limitations: no limitations General appearance: alert, in no apparent distress Head exam: Present: atraumatic, normocephalic Eye exam: Present: normal appearance. Absent: scleral icterus, conjunctival injection Respiratory exam: Present: wheezes. Absent: respiratory distress, rales, rhonchi, stridor Cardiovascular Exam: Present: regular rate, normal rhythm, normal heart sounds. Absent: systolic murmur, diastolic murmur, rubs, gallop GI/Abdominal exam: Present: soft, other (There is a urostomy in the right lower quadrants. There is a small area of bleeding from the mucosa near the transition from the squamous to the [place] or endothelium.). Absent: distended, tenderness, guarding, rebound, rigid, mass Extremities exam: Present: normal inspection, normal capillary refill. Absent: pedal edema, calf tenderness Back exam: Present: normal inspection. Absent: CVA tenderness (R), CVA tenderness (L) Neurological exam: Present: alert Skin exam: Present: warm, dry, intact, normal color. Absent: rash Course Vital Signs 09/13/17 09/13/17 09/13/17 02:42 03:34 03:42 Temperature 97.6 F Pulse Rate 94 91 91 Respiratory 20 Rate Blood Pressure 150/67 O2 Sat by Pulse 97 Oximetry Disposition Clinical Impression: Mucosal bleeding Disposition: HOME SELF-CARE Condition: Fair Instructions: Urostomy Care (ED) Is patient prescribed a controlled substance at d/c from ED?: No Referrals: [facility],Clinic [Primary Care Provider] - 1-2 days
[2017-09-13 04:52] VITALS: BP 148/81; PULSE 78; TEMP 98.1
== END 2017-09-13 04:57 | disposition home or self-care (01) ==
LOC: EC 02:36
DX: N99.530 Hemorrhage of continent stoma of urinary tract (principal); R06.2 Wheezing; R05 Cough; R06.02 Shortness of breath; J44.9 Chronic obstructive pulmonary disease, unspecified; F17.200 Nicotine dependence, unspecified, uncomplicated; Z79.891 Long term (current) use of opiate analgesic; Z79.899 Other long term (current) drug therapy; Z88.8 Allergy status to other drugs, medicaments and biological substances; Z85.51 Personal history of malignant neoplasm of bladder; Z85.038 Personal history of other malignant neoplasm of large intestine; Z90.49 Acquired absence of other specified parts of digestive tract; Z90.6 Acquired absence of other parts of urinary tract; Z80.1 Family history of malignant neoplasm of trachea, bronchus and lung; Z90.89 Acquired absence of other organs
CPT/HCPCS: 94640; 99284

== ENCOUNTER → 2017-09-20 | Outpatient (CLI) | payer OTHER ==
--- NOTE | 2017-09-20 22:59 | US ---
EXAMINATION TYPE: US carotid duplex BILAT DATE OF EXAM: 09/20/2017 COMPARISON: NONE CLINICAL HISTORY: 61-year-old male M54.5 Low back pain / M62.81 Muscle weakness. TECHNIQUE: Carotid duplex ultrasound examination. Indirect Doppler criteria was utilized. FINDINGS: EXAM MEASUREMENTS: RIGHT: Peak Systolic Velocity (PSV) cm/sec ----- Right CCA: 65.3 ----- Right ICA: 90.0 ----- Right ECA: 101.6 ICA/CCA ratio: 1.4 RIGHT: End Diastole cm/sec ----- Right CCA: 14.4 ----- Right ICA: 28.9 ----- Right ECA: 16.0 LEFT: Peak Systolic Velocity (PSV) cm/sec ----- Left CCA: 88.7 ----- Left ICA: 98.4 ----- Left ECA: 80.6 ICA/CCA ratio: 1.1 LEFT: End Diastole cm/sec ----- Left CCA: 20.8 ----- Left ICA: 32.1 ----- Left ECA: 14.4 VERTEBRALS (direction of flow): Right Vertebral: Antegrade Left Vertebral: Antegrade Rhythm: Normal Heddler notes: No significant stenosis seen Mild to moderate atherosclerotic changes noted at the right bifurcation and mild on the left. IMPRESSION: No hemodynamically significant stenosis appreciated in either internal carotid artery. Criteria for Assigning % of Stenosis / Diameter reduction (Estimation based on the indirect measurements of the internal carotid artery velocities (ICA PSV). 1. Normal (no stenosis)=ICA PSV < 125 cm/s: ratio < 2.0: ICA EDV<40 cm/s. 2. Less than 50% stenosis=ICA PSV < 125 cm/s: ratio < 2.0: ICA EDV<40 cm/s. 3. 50 to 69% stenosis=ICA PSV of 125 to 230 cm/s: ration 2.0 ? 4.0: ICA EDV 40-100 cm/s. 4. Greater than 70% stenosis to near occlusion= ICA PSV > 230 cm/s: ratio > 4.0: ICA EDV > 100 cm/s. 5. Near occlusion= ICA PSV velocities may be low or undetectable: variable ratio and ICA EDV. 6. Total occlusion=unable to detect flow.
--- NOTE | 2017-09-21 08:58 | MR ---
EXAMINATION TYPE: MR lumbar spine wo/w con DATE OF EXAM: 09/20/2017 COMPARISON: CT abdomen and pelvis September 10, 2017. HISTORY: Back Pain with Leg Weakness per order. Pain into both lower extremities per patient. TECHNIQUE: Multiplanar, multisequence images of the lumbar spine is performed without and with IV contrast, util izing 5.5 mL intravenous Gadavist FINDINGS: Sagittal images of the lumbar spine show vertebral body heights and alignment to remain sat isfactory. The intervertebral discs demonstrate multilevel disc desiccation but disc space heights ar e fairly well-maintained. No large posterior disc herniations are seen on sagittal images. The conus medullaris is somewhat low in position ending mid L2 level. No abnormal signal is seen. No suspiciou s clumping of lumbosacral nerve roots is noted. The bone marrow signal intensity is within normal rubin its. No suspicious enhancement is present. Mild multilevel anterior spurring is seen. Axial images show the T12-L1 level to appear within normal limits. Axial images at L1-L2 level show mild broad disc bulge minimally effacing anterior thecal sac, bilate ral neural foramina are patent. Axial images at L2-L3 level are felt within normal limits. Axial images at L3-L4 level show mild broad disc bulge mildly effacing anterior thecal sac on axial i mage 15. Bilateral neural foramina are patent. Axial images at L4-L5 level show tiny central disc protrusion minimally effacing anterior thecal sac, bilateral neural foramina are patent. Axial images at L5-S1 level show mild facet arthropathy bilaterally. There is tiny central disc protr usion seen. Spinal canal is preserved. Bilateral neural foramina are patent. Anteriorly in left kidney there is 1.3 cm nonenhancing T2 hyperintense lesion felt to reflect simple cyst axial image 24. IMPRESSION: Some multilevel degenerative changes in the lumbar spine as detailed above.
== END | disposition home or self-care (01) ==
LOC: RADMRIMAIN 17:06
PROVIDERS: ATTEND Psychiatry & Neurology Neurology
DX: M51.26 Other intervertebral disc displacement, lumbar region (principal); M47.816 Spondylosis without myelopathy or radiculopathy, lumbar region; M46.97 Unspecified inflammatory spondylopathy, lumbosacral region
CPT/HCPCS: 93880; 72158; A9581

== ENCOUNTER 2017-12-07 02:37 | Emergency (ER) | payer OTHER ==
[2017-12-07 02:45] VITALS: RESP 18
--- NOTE | 2017-12-07 02:50 | ED ---
Skin/Abscess/FB HPI - General Chief complaint: Skin/Abscess/Foreign Body Stated complaint: Stoma bleeding Source: patient Mode of arrival: ambulatory Limitations: no limitations - History of Present Illness Initial comments: Hang is a 61-year-old male with a medical history most significant for: As well as prostate cancer with multiple surgeries in the past which resulted in a prostatectomy and cystectomy, patient now has a urostomy in the right lower quadrant. Patient reports multiple episodes of bleeding from the urostomy. Patient reports that this morning he went to blow his nose and noted that it irritated the lower part of the stoma. He has attempted to apply direct pressure through the bag this had persistent oozing of dark blood throughout the day. She presents the ED today for evaluation of persistent bleeding from the stoma. - Related Data Home Medications Medication Instructions Recorded Confirmed Albuterol Sulfate [Proventil Hfa] 1 puff INHALATION RT-Q4H PRN 05/30/14 09/13/17 Hydrocodone/Acetaminophen [[place] 2 tab PO TID PRN 05/30/14 09/13/17 10-325] oxyCODONE HCL [oxyCODONE HCL ER] 40 mg PO BID 05/30/14 09/13/17 Spironolactone [Aldactone] 25 mg PO DAILY 09/10/17 09/13/17 Allergies Allergy/AdvReac Type Severity Reaction Status Date / Time meclizine Allergy vertigo Verified 12/07/17 02:45 Review of Systems ROS Statement: Those systems with pertinent positive or pertinent negative responses have been documented in the HPI. ROS Other: All systems not noted in ROS Statement are negative. Past Medical History Past Medical History: Cancer, COPD, Liver Disease, Osteoarthritis (OA) Additional Past Medical History / Comment(s): current bladder ca, past colon cancer,"bruises easily, epiglotitis in past, hep c and "a spot on the liver" History of Any Multi-Drug Resistant Organisms: None Reported Past Surgical History: Appendectomy, Bowel Resection, Hernia Repair, Tonsillectomy Additional Past Surgical History / Comment(s): 01/21/16 cystoscopy w/evacuation of clot; urostomy, BLADDER AND PROSTATE REMOVED November 2016. Tube placed in right ear in July 2017 Past Anesthesia/Blood Transfusion Reactions: No Reported Reaction Past Psychological History: Anxiety Smoking Status: Current every day smoker Past Alcohol Use History: Daily Past Drug Use History: None Reported - Past Family History Father Family Medical History: Cancer Additional Family Medical History / Comment(s): pancreatic cacner Mother Family Medical History: Cancer Additional Family Medical History / Comment(s): lung cancer General Exam - General Exam Comments Initial Comments: Physical Exam GENERAL: Chronically ill-appearing HENT: Normocephalic, Atraumatic. EYES: PERRL, EOMI PULMONARY: Unlabored respirations CARDIOVASCULAR: There is a regular rate and rhythm without any murmurs gallops or rubs. ABDOMEN: Soft and nontender with normal bowel sounds. Multiple well-healed surgical scars, urostomy in place in the right lower quadrant, some venous oozing from the inferior surface of urostomy. SKIN: Chronic rash around the urostomy consistent with contact dermatitis : Circumcised male NEUROLOGIC: Patient is alert and oriented x3. Moving all extremities spontaneously MUSCULOSKELETAL: Normal extremities with adequate strength and full range of motion. No lower extremity swelling or edema. No calf tenderness. PSYCHIATRIC: Normal psychiatric evaluation. Limitations: no limitations Limitations: no limitations Course Vital Signs 12/07/17 02:41 Temperature 98 F Pulse Rate 96 Respiratory 18 Rate Blood Pressure 146/71 O2 Sat by Pulse 98 Oximetry Medical Decision Making - Medical Decision Making Patient was seen and evaluated, history was obtained from the patient and review of medical record Exam reveals a urostomy with some venous oozing from the anterior surface, direct pressure was applied, when the oozing slowed bleeding was stopped with silver nitrate Patient reevaluated approximately 20 minutes after bleeding was controlled. Bleeding has not recurred. Was able to place his urostomy bag back over his stoma without difficulty and was discharged home. Disposition Clinical Impression: Stomal bleeding Disposition: HOME SELF-CARE Condition: Good Instructions: Urostomy Care (ED) Is patient prescribed a controlled substance at d/c from ED?: No Referrals: [facility],Clinic [Primary Care Provider] - 1-2 days
[2017-12-07 04:33] VITALS: BP 138/92; PULSE 88; TEMP 97.8
== END 2017-12-07 04:10 | disposition home or self-care (01) ==
LOC: EC 02:37
DX: N99.520 Hemorrhage of incontinent external stoma of urinary tract (principal); R21 Rash and other nonspecific skin eruption; J44.9 Chronic obstructive pulmonary disease, unspecified; F17.200 Nicotine dependence, unspecified, uncomplicated; Z88.8 Allergy status to other drugs, medicaments and biological substances; Z79.891 Long term (current) use of opiate analgesic; Z79.899 Other long term (current) drug therapy; Z85.46 Personal history of malignant neoplasm of prostate; Z85.51 Personal history of malignant neoplasm of bladder; Z85.038 Personal history of other malignant neoplasm of large intestine; Z90.6 Acquired absence of other parts of urinary tract; Z90.79 Acquired absence of other genital organ(s); Z90.49 Acquired absence of other specified parts of digestive tract
CPT/HCPCS: 99283

== ENCOUNTER 2017-12-16 20:13 | Emergency (ER) | payer OTHER ==
[2017-12-16] MEDS ORDERED: SODIUM CHLORIDE 0.9% 1,000 ML IV ONE (21:09)
[2017-12-16] MEDS ORDERED: ONDANSETRON 4 MG/2 ML VIAL IVP STA (21:09)
[2017-12-16] MEDS ORDERED: MORPHINE SULFATE 4 MG/ML SYRINGE IVP STA (21:09)
--- NOTE | 2017-12-16 21:10 | ED ---
Nausea/Vomiting/Diarrhea HPI - General Stated complaint: Stoma issues Source: patient Mode of arrival: ambulatory Limitations: no limitations - History of Present Illness Initial comments: Hang is a 62-year-old male with extensive past medical history most significant for multiple abdominal cancers and surgeries who presents to the emergency department today for evaluation of nausea and vomiting. Patient reports that he was in his usual state of health this morning, he was actually at the hospital for an outpatient abdominal ultrasound as well as routine blood work. Patient reports that after returning home from having these tests done he developed nausea and vomiting. He reports he a couple episodes of nonbloody vomitus. He then spent the afternoon resting in his recliner chair. He reports that upon standing he began to feel very lightheaded and was concerned that he was dehydrated. At that time he decided to come to the ER for further evaluation. Patient also notes that earlier in the day he had some bleeding from his stoma around his urostomy, however this has resolved prior to arrival. Patient has frequent bleeding from his stoma due to chronic irritation, most recently had to have the stoma cauterized earlier in the month due to bleeding. He reports the bleeding was minimal, did not even fill half of his urostomy bag, patient reports he's had significant bleeding the past requiring transfusion but he doesn't feel that he would warrant that today. - Related Data Home Medications Medication Instructions Recorded Confirmed Albuterol Sulfate [Proventil Hfa] 1 puff INHALATION RT-Q4H PRN 05/30/14 12/16/17 Hydrocodone/Acetaminophen [[place] 2 tab PO TID PRN 05/30/14 12/16/17 10-325] Spironolactone [Aldactone] 25 mg PO DAILY 09/10/17 12/16/17 Albuterol Nebulized [Ventolin 2.5 mg INHALATION RT-Q6H PRN 12/16/17 12/16/17 Nebulized] oxyCODONE HCL 20 mg PO BID 12/16/17 12/16/17 Allergies Allergy/AdvReac Type Severity Reaction Status Date / Time meclizine Allergy vertigo Verified 12/16/17 20:40 Review of Systems ROS Statement: Those systems with pertinent positive or pertinent negative responses have been documented in the HPI. ROS Other: All systems not noted in ROS Statement are negative. Past Medical History Past Medical History: Cancer, COPD, Liver Disease, Osteoarthritis (OA) Additional Past Medical History / Comment(s): current bladder ca, past colon cancer,"bruises easily, epiglotitis in past, hep c and "a spot on the liver" History of Any Multi-Drug Resistant Organisms: None Reported Past Surgical History: Appendectomy, Bowel Resection, Hernia Repair, Tonsillectomy Additional Past Surgical History / Comment(s): 01/21/16 cystoscopy w/evacuation of clot; urostomy, BLADDER AND PROSTATE REMOVED November 2016. Tube placed in right ear in July 2017 Past Anesthesia/Blood Transfusion Reactions: No Reported Reaction Past Psychological History: Anxiety Smoking Status: Current every day smoker Past Alcohol Use History: Daily Past Drug Use History: None Reported - Past Family History Father Family Medical History: Cancer Additional Family Medical History / Comment(s): pancreatic cacner Mother Family Medical History: Cancer Additional Family Medical History / Comment(s): lung cancer General Exam - General Exam Comments Initial Comments: Physical Exam GENERAL: Chronically ill appearing male, appears older than stated age HENT: Normocephalic, Atraumatic. EYES: PERRL, EOMI PULMONARY: Unlabored respirations. No audible rales rhonchi or wheezing was noted. CARDIOVASCULAR: There is a regular rate and rhythm without any murmurs gallops or rubs. ABDOMEN: Soft and nontender with normal active bowel sounds. Multiple well-healed surgical incisions over the abdomen Urostomy in place right lower quadrant, urostomy bag in place with yellow urine draining, no blood noted SKIN: Skin is clear with no lesions or rashes and otherwise unremarkable. : Deferred NEUROLOGIC: Patient is alert and oriented x3. Moving all extremities spontaneously MUSCULOSKELETAL: Normal extremities with adequate strength and full range of motion. No lower extremity swelling or edema. No calf tenderness. PSYCHIATRIC: Normal psychiatric evaluation. Limitations: no limitations Limitations: no limitations Course Vital Signs 12/16/17 12/16/17 12/16/17 20:14 21:25 21:55 Temperature 98.3 F Pulse Rate 115 H 93 102 H Respiratory 18 15 14 Rate Blood Pressure 125/59 129/59 139/64 O2 Sat by Pulse 98 97 98 Oximetry 12/16/17 22:15 Temperature 97.8 F Pulse Rate Respiratory Rate Blood Pressure O2 Sat by Pulse Oximetry Medical Decision Making - Medical Decision Making The patient was seen and evaluated, history was obtained from the patient and review of medical record Patient presented with lightheadedness and concern for dehydration due to decreased by mouth intake nausea and vomiting Patient had mild abdominal pain earlier in the day, does have a history of multiple abdominal surgeries, no bowel movement today however that is not atypical for him Labs, IV fluids, Zofran and morphine ordered Labs with mild elevation in Bili from previous, Xray suggestive of possible ileus however the patient became hungry and was eating in the ER. Patient had called for a ride home prior to being discharged and was eager for his discharge paperwork as his symptoms have resolved. Patient will follow up with Dr. Patel outpatient. - Lab Data Result diagrams: 12/16/17 20:55 12/16/17 20:50 Lab Results 12/16/17 12/16/17 Range/Units 20:50 20:55 WBC 4.5 (3.8-10.6) k/uL RBC 3.45 L (4.30-5.90) m/uL Hgb 11.3 L (13.0-17.5) gm/dL Hct 36.1 L (39.0-53.0) % MCV 104.5 H (80.0-100.0) fL MCH 32.7 (25.0-35.0) pg MCHC 31.3 (31.0-37.0) g/dL RDW 17.8 H (11.5-15.5) % Plt Count 104 L (150-450) k/uL Neutrophils % 49 % Lymphocytes % 38 % Monocytes % 9 % Eosinophils % 2 % Basophils % 1 % Neutrophils # 2.2 (1.3-7.7) k/uL Lymphocytes # 1.7 (1.0-4.8) k/uL Monocytes # 0.4 (0-1.0) k/uL Eosinophils # 0.1 (0-0.7) k/uL Basophils # 0.0 (0-0.2) k/uL Anisocytosis Slight Macrocytosis Moderate Sodium 137 (137-145) mmol/L Potassium 4.7 (3.5-5.1) mmol/L Chloride 104 (98-107) mmol/L Carbon Dioxide 21 L (22-30) mmol/L Anion Gap 12 mmol/L BUN 8 L (9-20) mg/dL Creatinine 0.58 L (0.66-1.25) mg/dL Est GFR (CKD-EPI)AfAm >90 (>60 ml/min/1.73 sqM) Est GFR (CKD-EPI)NonAf >90 (>60 ml/min/1.73 sqM) Glucose 119 H (74-99) mg/dL Calcium 9.2 (8.4-10.2) mg/dL Total Bilirubin 2.0 H (0.2-1.3) mg/dL AST 123 H (17-59) U/L ALT 35 (21-72) U/L Alkaline Phosphatase 139 H (38-126) U/L Total Protein 8.9 H (6.3-8.2) g/dL Albumin 4.5 (3.5-5.0) g/dL Amylase 67 (30-110) U/L Lipase 129 (23-300) U/L Disposition Clinical Impression: Nausea and vomiting Disposition: HOME SELF-CARE Condition: Good Instructions: Acute Nausea and Vomiting (ED) Is patient prescribed a controlled substance at d/c from ED?: No Referrals: [facility],Clinic [Primary Care Provider] - 1-2 days
[2017-12-16 21:23] LABS: ALT 35 U/L (21-72); AST 123 U/L (17-59); Albumin 4.5 g/dL (3.5-5.0); Alkaline Phosphatase 139 U/L (38-126); Amylase 67 U/L (30-110); Anion Gap 12 mmol/L; Blood Urea Nitrogen 8 mg/dL (9-20); Calcium 9.2 mg/dL (8.4-10.2); Carbon Dioxide 21 mmol/L (22-30); Chloride 104 mmol/L (98-107); Glucose 119 mg/dL (74-99); Lipase 129 U/L (23-300); Sodium 137 mmol/L (137-145); Total Protein 8.9 g/dL (6.3-8.2)
[2017-12-16 21:33] LABS: Potassium 4.7 mmol/L (3.5-5.1)
[2017-12-16 21:44] LABS: Anisocytosis Slight; Basophils % (A) 1 %; Eosinophils # (A) 0.1 k/uL (0-0.7); Eosinophils % (A) 2 %; HCT 36.1 % (39.0-53.0); HGB 11.3 gm/dL (13.0-17.5); Lymphocytes # (A) 1.7 k/uL (1.0-4.8); Lymphocytes % (A) 38 %; MCH 32.7 pg (25.0-35.0); MCHC 31.3 g/dL (31.0-37.0); MCV 104.5 fL (80.0-100.0); Macrocytosis Moderate; Mean Platelet Volume 7.7; Monocytes # (A) 0.4 k/uL (0-1.0); Monocytes % (A) 9 %; Neutrophils # (A) 2.2 k/uL (1.3-7.7); Neutrophils % (A) 49 %; Platelet Count 104 k/uL (150-450); RBC 3.45 m/uL (4.30-5.90); RDW 17.8 % (11.5-15.5); WBC 4.5 k/uL (3.8-10.6)
--- NOTE | 2017-12-16 21:48 | XR ---
EXAMINATION TYPE: XR KUB portable DATE OF EXAM: 12/16/2017 COMPARISON: 05/30/2014 HISTORY: Bleeding from the stoma TECHNIQUE: 2 views supine FINDINGS: There are some gas-filled mildly distended loops of small bowel in the mid abdomen. There i s no sign of free air. Lung bases are clear. There are numerous surgical clips throughout the left si de of the abdomen and in the pelvis also. There is atherosclerotic vascular calcification. There are no pathologic calcifications over the kidneys. IMPRESSION: Changes consistent with small bowel ileus that appears new compared to last exam. No free air.
[2017-12-16 21:57] VITALS: BP 139/64; PULSE 102; RESP 14
[2017-12-16 22:16] VITALS: TEMP 97.8
== END 2017-12-16 22:22 | disposition home or self-care (01) ==
LOC: EC 20:13
DX: R11.2 Nausea with vomiting, unspecified (principal); R42 Dizziness and giddiness; R10.9 Unspecified abdominal pain; J44.9 Chronic obstructive pulmonary disease, unspecified; M19.90 Unspecified osteoarthritis, unspecified site; C67.9 Malignant neoplasm of bladder, unspecified; F17.200 Nicotine dependence, unspecified, uncomplicated; Z85.038 Personal history of other malignant neoplasm of large intestine; Z90.49 Acquired absence of other specified parts of digestive tract; Z90.6 Acquired absence of other parts of urinary tract; Z98.890 Other specified postprocedural states; Z93.6 Other artificial openings of urinary tract status; Z79.891 Long term (current) use of opiate analgesic; Z79.899 Other long term (current) drug therapy; Z88.8 Allergy status to other drugs, medicaments and biological substances
CPT/HCPCS: 36415; 93005; 80053; 82150; 83690; 85025; 74018; 99284; 96374; 96375; 96361; J2270; J2405

== ENCOUNTER → 2017-12-16 | Outpatient (CLI) | payer OTHER ==
[2017-12-16 11:52] LABS: ALT 40 U/L (21-72); AST 106 U/L (17-59); Albumin 4.2 g/dL (3.5-5.0); Alkaline Phosphatase 113 U/L (38-126); Anion Gap 11 mmol/L; Blood Urea Nitrogen 9 mg/dL (9-20); Calcium 9.1 mg/dL (8.4-10.2); Carbon Dioxide 23 mmol/L (22-30); Chloride 104 mmol/L (98-107); Glucose 114 mg/dL (74-99); Potassium 4.6 mmol/L (3.5-5.1); Sodium 138 mmol/L (137-145); Total Bilirubin 1.1 mg/dL (0.2-1.3); Total Protein 8.3 g/dL (6.3-8.2)
[2017-12-16 11:55] LABS: Anisocytosis Slight; HCT 36.8 % (39.0-53.0); Hypochromasia Slight; MCH 31.8 pg (25.0-35.0); MCHC 29.9 g/dL (31.0-37.0); MCV 106.4 fL (80.0-100.0); Macrocytosis Marked; Mean Platelet Volume 7.1; Platelet Count 105 k/uL (150-450); RBC 3.46 m/uL (4.30-5.90); RDW 17.7 % (11.5-15.5); WBC 4.5 k/uL (3.8-10.6)
--- NOTE | 2017-12-16 14:53 | US ---
EXAMINATION TYPE: US abdomen complete DATE OF EXAM: 12/16/2017 COMPARISON: CT abdomen pelvis 09/10/2017 CLINICAL HISTORY: K70.31 Alcoholic cirrhosis of liver with ascites. Hx of bladder and colon cancer- i n remission. General pain all over. EXAM MEASUREMENTS: Liver Length: 18.6 cm Gallbladder Wall: 0.2 cm CBD: 0.9 cm CHD: 1.1 cm Spleen: 10.9 cm Right Kidney: 10.9 x 4.4 x 3.5 cm Left Kidney: 10.5 x 4.2 x 5.5 cm Pancreas: Obscured by bowel gas Liver: Enlarged. Echogenic. Multiple cystic appearing lesions identified, largest in left lobe- 3. 3 x 4.1 x 3.8 cm Gallbladder: wnl- length 8.6 cm Evidence for sonographic Sethi's sign: neg CBD: Dilated CHD: dilated Spleen: wnl Right Kidney: wnl Left Kidney: Medial cystic appearing lesion = 1.5 x 1.2 x 1.2 cm Upper IVC: wnl Abd Aorta: Mid and distal portion obscured by overlying bowel gas Kidneys show normal cortical medullary differentiation. There is no ascites. IMPRESSION: Hepatomegaly, correlate for possible hepatic steatosis. Liver cysts. Dilated common hepat ic and common bile duct. Left renal cyst is noted as on CT.
[2017-12-16 17:47] LABS: Cancer Antigen 19-9 31.9 U/mL (0.0-34.9)
[2017-12-16 18:01] LABS: Alpha Fetoprotein, Tumor Mkr <2.5 ng/mL (0.0-7.9)
== END ==
LOC: RADUSWWP 10:56
DX: K76.89 Other specified diseases of liver (principal); R16.0 Hepatomegaly, not elsewhere classified; K70.31 Alcoholic cirrhosis of liver with ascites
CPT/HCPCS: 36415; 76700; 80053; 82105; 85027; 86301

== ENCOUNTER 2018-03-30 23:17 | Emergency (ER) | payer OTHER ==
[2018-03-31] MEDS ORDERED: SODIUM CHLORIDE 0.9% 500 ML 500 ML IV STA (00:07)
[2018-03-31] MEDS ORDERED: ONDANSETRON 4 MG/2 ML VIAL IVP STA ×2 (00:07→00:38)
--- NOTE | 2018-03-31 00:15 | ED ---
Nausea/Vomiting/Diarrhea HPI - General Chief complaint: Nausea/Vomiting/Diarrhea Stated complaint: NVD Time Seen by Provider: 03/30/18 23:39 Source: patient Mode of arrival: ambulatory Limitations: no limitations - History of Present Illness Initial comments: This patient is a 62-year-old man who presents to be evaluated after he has had multiple episodes of vomiting and diarrhea today. The patient reports starting in the morning he had felt nauseated and then vomited. He subsequently had episode of watery diarrhea. He reports throughout the course the day having a total of 3 episodes of each. MD complaint: nausea, vomiting, diarrhea Onset/Timin -: days(s) Description of Vomiting: food contents Description of Diarrhea: water Quality: cramping Consistency: intermittent, now resolved Improves with: none Worsens with: none Associated Symptoms: fever/chills - Related Data Home Medications Medication Instructions Recorded Confirmed Albuterol Sulfate [Proventil Hfa] 1 puff INHALATION RT-Q4H PRN 05/30/14 03/30/18 Hydrocodone/Acetaminophen [[place] 2 tab PO TID PRN 05/30/14 03/30/18 10-325] Spironolactone [Aldactone] 25 mg PO DAILY 09/10/17 03/30/18 Albuterol Nebulized [Ventolin 2.5 mg INHALATION RT-Q6H PRN 12/16/17 03/30/18 Nebulized] oxyCODONE HCL 20 mg PO BID 12/16/17 03/30/18 Previous Rx's Medication Instructions Recorded Ciprofloxacin HCl [Cipro] 500 mg PO BID 3 Days #6 tab 03/31/18 Allergies Allergy/AdvReac Type Severity Reaction Status Date / Time meclizine Allergy vertigo Verified 12/16/17 20:40 Review of Systems ROS Statement: Those systems with pertinent positive or pertinent negative responses have been documented in the HPI. ROS Other: All systems not noted in ROS Statement are negative. Constitutional: Reports: chills Respiratory: Reports: dyspnea (Chronic COPD). Denies: cough Cardiovascular: Denies: chest pain, palpitations, syncope Gastrointestinal: Reports: abdominal pain, nausea, vomiting, diarrhea. Denies: constipation, melena, hematochezia Genitourinary: Reports: other (Patient has urostomy states the output is unchanged). Denies: hematuria Musculoskeletal: Denies: back pain Skin: Denies: rash Neurological: Denies: headache, weakness Past Medical History Past Medical History: Cancer, COPD, Liver Disease, Osteoarthritis (OA) Additional Past Medical History / Comment(s): current bladder ca, past colon cancer,"bruises easily, epiglotitis in past, hep c and "a spot on the liver" History of Any Multi-Drug Resistant Organisms: None Reported Past Surgical History: Appendectomy, Bowel Resection, Hernia Repair, Tonsillectomy Additional Past Surgical History / Comment(s): 01/21/16 cystoscopy w/evacuation of clot; urostomy, BLADDER AND PROSTATE REMOVED November 2016. Tube placed in right ear in July 2017 Past Anesthesia/Blood Transfusion Reactions: No Reported Reaction Past Psychological History: Anxiety Smoking Status: Current every day smoker Past Alcohol Use History: Daily Past Drug Use History: None Reported - Past Family History Father Family Medical History: Cancer Additional Family Medical History / Comment(s): pancreatic cacner Mother Family Medical History: Cancer Additional Family Medical History / Comment(s): lung cancer General Exam Limitations: no limitations General appearance: alert, in no apparent distress Head exam: Present: atraumatic, normocephalic Eye exam: Present: normal appearance. Absent: scleral icterus, conjunctival injection ENT exam: Present: mucous membranes dry Neck exam: Present: normal inspection Respiratory exam: Present: wheezes. Absent: respiratory distress, rales, rhonchi, stridor Cardiovascular Exam: Present: regular rate, normal rhythm, normal heart sounds. Absent: systolic murmur, diastolic murmur, rubs, gallop GI/Abdominal exam: Present: soft, other (There is a urostomy present in the right lower quadrants with normal appearing urine output). Absent: distended, tenderness, guarding, rebound, rigid, pulsatile mass Extremities exam: Present: normal inspection, normal capillary refill. Absent: pedal edema, calf tenderness Back exam: Present: normal inspection. Absent: CVA tenderness (R), CVA tenderness (L) Neurological exam: Present: alert Skin exam: Present: warm, dry, intact, normal color. Absent: rash Course Vital Signs 03/30/18 03/30/18 23:29 23:50 Temperature 98.4 F 99.4 F Pulse Rate 116 H Respiratory 20 Rate Blood Pressure 137/57 O2 Sat by Pulse 98 Oximetry Medical Decision Making - Lab Data Result diagrams: 03/30/18 23:45 03/30/18 23:45 Lab Results 03/30/18 03/30/18 03/30/18 Range/Units 23:45 23:45 23:45 WBC 4.7 (3.8-10.6) k/uL RBC 3.15 L (4.30-5.90) m/uL Hgb 11.7 L (13.0-17.5) gm/dL Hct 37.5 L (39.0-53.0) % MCV 119.2 H (80.0-100.0) fL MCH 37.2 H (25.0-35.0) pg MCHC 31.2 (31.0-37.0) g/dL RDW 16.3 H (11.5-15.5) % Plt Count 79 L (150-450) k/uL Neutrophils % 71 % Lymphocytes % 22 % Monocytes % 4 % Eosinophils % 1 % Basophils % 0 % Neutrophils # 3.3 (1.3-7.7) k/uL Lymphocytes # 1.1 (1.0-4.8) k/uL Monocytes # 0.2 (0-1.0) k/uL Eosinophils # 0.0 (0-0.7) k/uL Basophils # 0.0 (0-0.2) k/uL Manual Slide Review Performed Polychromasia Present Anisocytosis Slight Macrocytosis Marked Target Cells Present Sodium 137 (137-145) mmol/L Potassium 4.3 (3.5-5.1) mmol/L Chloride 100 (98-107) mmol/L Carbon Dioxide 22 (22-30) mmol/L Anion Gap 15 mmol/L BUN 8 L (9-20) mg/dL Creatinine 0.56 L (0.66-1.25) mg/dL Est GFR (CKD-EPI)AfAm >90 (>60 ml/min/1.73 sqM) Est GFR (CKD-EPI)NonAf >90 (>60 ml/min/1.73 sqM) Glucose 107 H (74-99) mg/dL Calcium 9.4 (8.4-10.2) mg/dL Total Bilirubin 1.8 H (0.2-1.3) mg/dL AST 138 H (17-59) U/L ALT 47 (21-72) U/L Alkaline Phosphatase 136 H (38-126) U/L Total Protein 8.5 H (6.3-8.2) g/dL Albumin 4.3 (3.5-5.0) g/dL Amylase 92 (30-110) U/L Lipase 115 (23-300) U/L Urine Color Urine Appearance (Clear) Urine pH (5.0-8.0) Ur Specific [place] (1.001-1.035) Urine Protein (Negative) Urine Glucose (UA) (Negative) Urine Ketones (Negative) Urine Blood (Negative) Urine Nitrite (Negative) Urine Bilirubin (Negative) Urine Urobilinogen (<2.0) mg/dL Ur Leukocyte Esterase (Negative) Urine RBC (0-5) /hpf Urine WBC (0-5) /hpf Amorphous Sediment (None) /hpf Urine Bacteria (None) /hpf Urine Mucus (None) /hpf Influenza Type A RNA (Not Detectd) Influenza Type B (PCR) (Not Detectd) 03/30/18 03/31/18 Range/Units 23:45 00:56 WBC (3.8-10.6) k/uL RBC (4.30-5.90) m/uL Hgb (13.0-17.5) gm/dL Hct (39.0-53.0) % MCV (80.0-100.0) fL MCH (25.0-35.0) pg MCHC (31.0-37.0) g/dL RDW (11.5-15.5) % Plt Count (150-450) k/uL Neutrophils % % Lymphocytes % % Monocytes % % Eosinophils % % Basophils % % Neutrophils # (1.3-7.7) k/uL Lymphocytes # (1.0-4.8) k/uL Monocytes # (0-1.0) k/uL Eosinophils # (0-0.7) k/uL Basophils # (0-0.2) k/uL Manual Slide Review Polychromasia Anisocytosis Macrocytosis Target Cells Sodium (137-145) mmol/L Potassium (3.5-5.1) mmol/L Chloride (98-107) mmol/L Carbon Dioxide (22-30) mmol/L Anion Gap mmol/L BUN (9-20) mg/dL Creatinine (0.66-1.25) mg/dL Est GFR (CKD-EPI)AfAm (>60 ml/min/1.73 sqM) Est GFR (CKD-EPI)NonAf (>60 ml/min/1.73 sqM) Glucose (74-99) mg/dL Calcium (8.4-10.2) mg/dL Total Bilirubin (0.2-1.3) mg/dL AST (17-59) U/L ALT (21-72) U/L Alkaline Phosphatase (38-126) U/L Total Protein (6.3-8.2) g/dL Albumin (3.5-5.0) g/dL Amylase (30-110) U/L Lipase (23-300) U/L Urine Color Yellow Urine Appearance Cloudy (Clear) Urine pH 6.5 (5.0-8.0) Ur Specific [place] 1.011 (1.001-1.035) Urine Protein Trace H (Negative) Urine Glucose (UA) Negative (Negative) Urine Ketones 1+ H (Negative) Urine Blood Small H (Negative) Urine Nitrite Positive (Negative) Urine Bilirubin Negative (Negative) Urine Urobilinogen <2.0 (<2.0) mg/dL Ur Leukocyte Esterase Negative (Negative) Urine RBC 4 (0-5) /hpf Urine WBC 5 (0-5) /hpf Amorphous Sediment Rare H (None) /hpf Urine Bacteria Rare H (None) /hpf Urine Mucus Rare H (None) /hpf Influenza Type A RNA Not Detected (Not Detectd) Influenza Type B (PCR) Not Detected (Not Detectd) Disposition Clinical Impression: Urinary tract infection Disposition: HOME SELF-CARE Condition: Good Instructions (If sedation given, give patient instructions): Acute Nausea and Vomiting (ED) Prescriptions: Ciprofloxacin HCl [Cipro] 500 mg PO BID 3 Days #6 tab Is patient prescribed a controlled substance at d/c from ED?: No Referrals: [facility],Clinic [Primary Care Provider] - 1-2 days
--- NOTE | 2018-03-31 00:36 | XR ---
EXAM: XR Abdomen, 1 View CLINICAL HISTORY: ITS.REASON XR Reason: pain TECHNIQUE: Frontal supine view of the abdomen/pelvis. COMPARISON: No relevant prior studies available. FINDINGS: Extensive surgical clips. No bowel obstruction or free air. IMPRESSION: No acute findings
[2018-03-31] MEDS ORDERED: HYDROcodone/APAP 7.5-325MG 1 EACH TAB PO ONE (00:39)
[2018-03-31 00:43] LABS: Anisocytosis Slight; Basophils % (A) 0 %; Eosinophils % (A) 1 %; HCT 37.5 % (39.0-53.0); HGB 11.7 gm/dL (13.0-17.5); Lymphocytes # (A) 1.1 k/uL (1.0-4.8); Lymphocytes % (A) 22 %; MCH 37.2 pg (25.0-35.0); MCHC 31.2 g/dL (31.0-37.0); MCV 119.2 fL (80.0-100.0); Mean Platelet Volume 7.3; Monocytes # (A) 0.2 k/uL (0-1.0); Monocytes % (A) 4 %; Neutrophils # (A) 3.3 k/uL (1.3-7.7); Neutrophils % (A) 71 %; RBC 3.15 m/uL (4.30-5.90); RDW 16.3 % (11.5-15.5); WBC 4.7 k/uL (3.8-10.6)
[2018-03-31 01:03] LABS: Macrocytosis Marked; Platelet Count 79 k/uL (150-450); Polychromasia Present; Target Cells Present
[2018-03-31 01:06] LABS: Amorphous Sediment,Urine Rare /hpf; Appearance,Urine Cloudy (Clear); Bacteria,Urine Rare /hpf; Bilirubin,Urine Negative (Negative); Blood,Urine Small (Negative); Color,Urine Yellow; Glucose,Urine (UA) Negative (Negative); Ketones,Urine 1+ (Negative); Leukocyte Esterase,Urine Negative (Negative); Mucus,Urine Rare /hpf; Nitrite,Urine Positive (Negative); PH, Urine 6.5 (5.0-8.0); Protein,Urine Trace (Negative); RBC,Urine 4 /hpf (0-5); Specific Gravity,Urine 1.011 (1.001-1.035); Urobilinogen,Urine <2.0 mg/dL (<2.0)
[2018-03-31 01:14] LABS: ALT 47 U/L (21-72); AST 138 U/L (17-59); Albumin 4.3 g/dL (3.5-5.0); Alkaline Phosphatase 136 U/L (38-126); Anion Gap 15 mmol/L; Blood Urea Nitrogen 8 mg/dL (9-20); Calcium 9.4 mg/dL (8.4-10.2); Carbon Dioxide 22 mmol/L (22-30); Chloride 100 mmol/L (98-107); Glucose 107 mg/dL (74-99); Lipase 115 U/L (23-300); Potassium 4.3 mmol/L (3.5-5.1); Sodium 137 mmol/L (137-145); Total Bilirubin 1.8 mg/dL (0.2-1.3); Total Protein 8.5 g/dL (6.3-8.2)
--- NOTE | 2018-03-31 03:23 | XR ---
EXAM: XR Chest, 2 Views CLINICAL HISTORY: ITS.REASON XR Reason: Pain TECHNIQUE: Frontal and lateral views of the chest. COMPARISON: 07/16/17 FINDINGS: Lungs: Slight hyperexpansion of the lungs and appearance consistent with chronic obstructive pulmonary disease. No evidence for focal consolidation. Pleural space: Unremarkable. No pneumothorax. Heart: Cardiac silhouette size is normal. Mediastinum: Unremarkable. Bones/joints: Mildly prominent thoracic kyphosis and mild degenerative disc changes. Vasculature: Mild atherosclerosis at the aortic arch. IMPRESSION: 1. No acute cardiopulmonary findings. 2. COPD.
[2018-03-31] MEDS ORDERED: LEVOFLOXACIN 750 MG TAB PO STA (03:31)
[2018-03-31 03:52] VITALS: BP 152/87; PULSE 83; RESP 18; TEMP 98.9
== END 2018-03-31 03:52 | disposition home or self-care (01) ==
LOC: EC 23:17
DX: N39.0 Urinary tract infection, site not specified (principal); R11.2 Nausea with vomiting, unspecified; R19.7 Diarrhea, unspecified; R06.2 Wheezing; J44.9 Chronic obstructive pulmonary disease, unspecified; F17.200 Nicotine dependence, unspecified, uncomplicated; Z88.8 Allergy status to other drugs, medicaments and biological substances; Z79.891 Long term (current) use of opiate analgesic; Z79.899 Other long term (current) drug therapy; Z93.6 Other artificial openings of urinary tract status; Z85.46 Personal history of malignant neoplasm of prostate; Z85.51 Personal history of malignant neoplasm of bladder; Z87.19 Personal history of other diseases of the digestive system; Z90.79 Acquired absence of other genital organ(s); Z90.49 Acquired absence of other specified parts of digestive tract; Z80.0 Family history of malignant neoplasm of digestive organs; Z80.1 Family history of malignant neoplasm of trachea, bronchus and lung
CPT/HCPCS: 99284; 96374; 96376; 96361; 36415; 80053; 82150; 83690; 85025; 81001; 87502; 71046; 74018; J2405

== ENCOUNTER 2018-04-01 16:29 | Inpatient (IN) | payer OTHER, MEDICARE ==
[2018-04-01] MEDS ORDERED: MORPHINE SULFATE 4 MG/ML SYRINGE IVP STA (17:17)
--- NOTE | 2018-04-01 17:22 | ED ---
General Adult HPI - General Chief complaint: Fall Stated complaint: Weakness Time Seen by Provider: 04/01/18 16:40 Source: patient, RN notes reviewed Mode of arrival: EMS Limitations: no limitations - History of Present Illness Initial comments: This is a 62-year-old male with a past medical history significant for bladder cancer and colon cancer. Patient has a urostomy and was recently seen in emergency department diagnoses urinary tract infection. Patient states yesterday he went home was sitting on the toilet and passed out and fell on the floor. Patient states he woke up and was a little sore but he doesn't know how long he was down. Patient states she woke up this morning and he could barely move or walk. Patient complains of right clavicle pain. Patient denies any anterior chest pain. Patient denies bilateral knee pain and right hip pain and bilateral arm pain. Patient states also has noticed quite a bit of ecchymosis all over his body and his chest face and arms since yesterday morning after the fall. Patient denies any blood disorders that he knows of. Patient denies any blood thinners. Patient denies any headache patient denies hitting his head patient denies any neck pain patient denies any numbness weakness. Patient denies lightheadedness dizziness or near syncopal episode. - Related Data Home Medications Medication Instructions Recorded Confirmed Albuterol Sulfate [Proventil Hfa] 1 puff INHALATION RT-Q4H PRN 05/30/14 04/01/18 Hydrocodone/Acetaminophen [[place] 2 tab PO TID PRN 05/30/14 04/01/18 10-325] Spironolactone [Aldactone] 25 mg PO DAILY 09/10/17 04/01/18 Albuterol Nebulized [Ventolin 2.5 mg INHALATION RT-Q6H PRN 12/16/17 04/01/18 Nebulized] oxyCODONE HCL 20 mg PO BID 12/16/17 04/01/18 Previous Rx's Medication Instructions Recorded Ciprofloxacin HCl [Cipro] 500 mg PO BID 3 Days #6 tab 03/31/18 Allergies Allergy/AdvReac Type Severity Reaction Status Date / Time gabapentin Allergy Unknown Verified 04/01/18 16:55 meclizine Allergy vertigo Verified 04/01/18 16:55 Review of Systems ROS Statement: Those systems with pertinent positive or pertinent negative responses have been documented in the HPI. ROS Other: All systems not noted in ROS Statement are negative. Past Medical History Past Medical History: Cancer, COPD, Liver Disease, Osteoarthritis (OA) Additional Past Medical History / Comment(s): current bladder ca, past colon cancer,"bruises easily, epiglotitis in past, hep c and "a spot on the liver" History of Any Multi-Drug Resistant Organisms: None Reported Past Surgical History: Appendectomy, Bowel Resection, Hernia Repair, Tonsillectomy Additional Past Surgical History / Comment(s): 01/21/16 cystoscopy w/evacuation of clot; urostomy, BLADDER AND PROSTATE REMOVED November 2016. Tube placed in right ear in July 2017 Past Anesthesia/Blood Transfusion Reactions: No Reported Reaction Past Psychological History: Anxiety Smoking Status: Current every day smoker Past Alcohol Use History: Daily Past Drug Use History: None Reported - Past Family History Father Family Medical History: Cancer Additional Family Medical History / Comment(s): pancreatic cacner Mother Family Medical History: Cancer Additional Family Medical History / Comment(s): lung cancer General Exam - General Exam Comments Initial Comments: GENERAL: Patient is well-developed and well-nourished. Patient is nontoxic and well- hydrated and is in moderate distress. ENT: Neck is soft and supple. No significant lymphadenopathy is noted. Oropharynx is clear. Moist mucous membranes. Neck has full range of motion without eliciting any pain. EYES: The sclera were anicteric and conjunctiva were pink and moist. Extraocular movements were intact and pupils were equal round and reactive to light. Eyelids were unremarkable. PULMONARY: Unlabored respirations. Good breath sounds bilaterally. No audible rales rhonchi or wheezing was noted. CARDIOVASCULAR: There is a regular rate and rhythm without any murmurs gallops or rubs. ABDOMEN: Soft and nontender with normal bowel sounds. SKIN: She has a large area of ecchymosis to the left cheek right anterior chest as well as multiple ecchymotic areas to the arms. NEUROLOGIC: Patient is alert and oriented x3. Cranial nerves II through XII are grossly intact. Motor and sensory are also intact. Normal speech, volume and content. Symmetrical smile. MUSCULOSKELETAL: Recent has tenderness to bilateral knees. Patient has has tenderness to the sternoclavicular joint on the right. Patient has anterior chest wall tenderness. Patient has some mild right hip tenderness. LYMPHATICS: No significant lymphadenopathy is noted PSYCHIATRIC: Normal psychiatric evaluation. Limitations: no limitations Course Vital Signs 04/01/18 04/01/18 04/01/18 16:40 17:30 18:00 Temperature 98.2 F Pulse Rate 104 H 96 97 Respiratory 20 20 20 Rate Blood Pressure 154/81 127/83 127/83 O2 Sat by Pulse 98 95 96 Oximetry 04/01/18 04/01/18 19:00 20:00 Temperature 98.3 F Pulse Rate 99 106 H Respiratory 20 20 Rate Blood Pressure 101/78 125/60 O2 Sat by Pulse 97 99 Oximetry Medical Decision Making - Medical Decision Making EKG shows normal sinus rhythm at 93 bpm [place] interval is on a 42 QRS is 84 QT interval 372 QTC is 462. Patient's EKG shows no ST segment elevation or depression or T wave abnormalities are noted. I spoke with Dr. Rankin he agreed to admit the patient admitted the patient wrote admitting orders. Down and saw the patient in the emergency department wanted a CT of the brain and C-spine ordered. I wrote admitting orders. - Lab Data Result diagrams: 04/01/18 17:06 04/01/18 17:06 Lab Results 04/01/18 04/01/18 04/01/18 Range/Units 17:06 17:06 17:06 WBC 6.1 (3.8-10.6) k/uL RBC 2.68 L (4.30-5.90) m/uL Hgb 10.3 L (13.0-17.5) gm/dL Hct 31.4 L (39.0-53.0) % MCV 117.3 H (80.0-100.0) fL MCH 38.6 H (25.0-35.0) pg MCHC 32.9 (31.0-37.0) g/dL RDW 15.8 H (11.5-15.5) % Plt Count 72 L (150-450) k/uL Neutrophils % 77 % Lymphocytes % 13 % Monocytes % 7 % Eosinophils % 1 % Basophils % 0 % Neutrophils # 4.7 (1.3-7.7) k/uL Lymphocytes # 0.8 L (1.0-4.8) k/uL Monocytes # 0.4 (0-1.0) k/uL Eosinophils # 0.0 (0-0.7) k/uL Basophils # 0.0 (0-0.2) k/uL Macrocytosis Marked PT (9.0-12.0) sec INR (<1.2) APTT (22.0-30.0) sec Sodium 135 L (137-145) mmol/L Potassium 4.3 (3.5-5.1) mmol/L Chloride 98 (98-107) mmol/L Carbon Dioxide 24 (22-30) mmol/L Anion Gap 13 mmol/L BUN 9 (9-20) mg/dL Creatinine 0.67 (0.66-1.25) mg/dL Est GFR (CKD-EPI)AfAm >90 (>60 ml/min/1.73 sqM) Est GFR (CKD-EPI)NonAf >90 (>60 ml/min/1.73 sqM) Glucose 115 H (74-99) mg/dL Plasma Lactic Acid Bernard (0.7-2.0) mmol/L Calcium 8.9 (8.4-10.2) mg/dL Total Bilirubin 2.1 H (0.2-1.3) mg/dL AST 98 H (17-59) U/L ALT 50 (21-72) U/L Alkaline Phosphatase 100 (38-126) U/L Total Creatine Kinase 1589 H* (55-170) U/L CK-MB (CK-2) 5.0 H (0.0-2.4) ng/mL CK-MB (CK-2) Rel Index 0.3 Total Protein 7.8 (6.3-8.2) g/dL Albumin 3.9 (3.5-5.0) g/dL 04/01/18 04/01/18 Range/Units 17:06 17:15 WBC (3.8-10.6) k/uL RBC (4.30-5.90) m/uL Hgb (13.0-17.5) gm/dL Hct (39.0-53.0) % MCV (80.0-100.0) fL MCH (25.0-35.0) pg MCHC (31.0-37.0) g/dL RDW (11.5-15.5) % Plt Count (150-450) k/uL Neutrophils % % Lymphocytes % % Monocytes % % Eosinophils % % Basophils % % Neutrophils # (1.3-7.7) k/uL Lymphocytes # (1.0-4.8) k/uL Monocytes # (0-1.0) k/uL Eosinophils # (0-0.7) k/uL Basophils # (0-0.2) k/uL Macrocytosis PT 13.3 H (9.0-12.0) sec INR 1.3 H (<1.2) APTT 25.4 (22.0-30.0) sec Sodium (137-145) mmol/L Potassium (3.5-5.1) mmol/L Chloride (98-107) mmol/L Carbon Dioxide (22-30) mmol/L Anion Gap mmol/L BUN (9-20) mg/dL Creatinine (0.66-1.25) mg/dL Est GFR (CKD-EPI)AfAm (>60 ml/min/1.73 sqM) Est GFR (CKD-EPI)NonAf (>60 ml/min/1.73 sqM) Glucose (74-99) mg/dL Plasma Lactic Acid Bernard 1.1 (0.7-2.0) mmol/L Calcium (8.4-10.2) mg/dL Total Bilirubin (0.2-1.3) mg/dL AST (17-59) U/L ALT (21-72) U/L Alkaline Phosphatase (38-126) U/L Total Creatine Kinase (55-170) U/L CK-MB (CK-2) (0.0-2.4) ng/mL CK-MB (CK-2) Rel Index Total Protein (6.3-8.2) g/dL Albumin (3.5-5.0) g/dL Disposition Clinical Impression: Rhabdomyolysis, Fracture, clavicle, Multiple contusions, Syncope Disposition: ADMITTED IP TO THIS [facility] Referrals: [facility],Clinic [Primary Care Provider] - 1-2 days Time of Disposition: 20:53
[2018-04-01 17:46] LABS: Basophils % (A) 0 %; Eosinophils % (A) 1 %; HCT 31.4 % (39.0-53.0); HGB 10.3 gm/dL (13.0-17.5); Lymphocytes # (A) 0.8 k/uL (1.0-4.8); Lymphocytes % (A) 13 %; MCH 38.6 pg (25.0-35.0); MCHC 32.9 g/dL (31.0-37.0); MCV 117.3 fL (80.0-100.0); Macrocytosis Marked; Mean Platelet Volume 8.6; Monocytes # (A) 0.4 k/uL (0-1.0); Monocytes % (A) 7 %; Neutrophils # (A) 4.7 k/uL (1.3-7.7); Neutrophils % (A) 77 %; RBC 2.68 m/uL (4.30-5.90); RDW 15.8 % (11.5-15.5); WBC 6.1 k/uL (3.8-10.6)
[2018-04-01 17:48] LABS: Platelet Count 72 k/uL (150-450)
[2018-04-01 17:57] LABS: ALT 50 U/L (21-72); AST 98 U/L (17-59); Albumin 3.9 g/dL (3.5-5.0); Alkaline Phosphatase 100 U/L (38-126); Anion Gap 13 mmol/L; Blood Urea Nitrogen 9 mg/dL (9-20); Calcium 8.9 mg/dL (8.4-10.2); Carbon Dioxide 24 mmol/L (22-30); Chloride 98 mmol/L (98-107); Glucose 115 mg/dL (74-99); Potassium 4.3 mmol/L (3.5-5.1); Sodium 135 mmol/L (137-145); Total Bilirubin 2.1 mg/dL (0.2-1.3); Total Protein 7.8 g/dL (6.3-8.2)
[2018-04-01 18:03] LABS: INR 1.3 (<1.2); Partial Thromboplastin Time 25.4 sec (22.0-30.0); Prothrombin Time 13.3 sec (9.0-12.0)
--- NOTE | 2018-04-01 18:24 | XR ---
Right clavicle 2 views. History weakness. Comparison none. FINDINGS: There is a fracture of the lateral and of the right clavicle that is 2 cm from the AC joint. There is mild angulation at the fracture site. There is no displacement. The glenohumeral joint is anatomic. IMPRESSION: Acute fracture lateral end of the right clavicle.
--- NOTE | 2018-04-01 18:25 | XR ---
Pelvis single view. History weakness. Fall. Comparison none. FINDINGS: The pelvic ring appears intact. Proximal femurs and hip joints are intact. There are numerous surgica l clips in the pelvis. Sacroiliac joints appear normal. IMPRESSION: No fracture seen of the pelvis and both hip joints. Normal hip joint spaces.
--- NOTE | 2018-04-01 18:27 | XR ---
EXAMINATION TYPE: XR chest 2V DATE OF EXAM: 04/01/2018 COMPARISON: 03/31/2018 HISTORY: Weakness TECHNIQUE: Frontal and lateral views of the chest are obtained. FINDINGS: Heart is normal. Lungs are clear. Costophrenic angles are clear. There is acute nondisplac ed fracture lateral end of the right clavicle. There are chest leads. IMPRESSION: No cardiopulmonary disease.. Heart and lungs unchanged.
--- NOTE | 2018-04-01 20:37 | XR ---
Left knee 3 views. History knee pain. Comparison none. FINDINGS: I see no fracture nor dislocation. Joint spaces are fairly normal. There is no sign of joint effusion . There is osteosclerosis in the distal femoral diaphysis consistent with old infarct. IMPRESSION: No acute abnormality of the left knee. Normal joint spaces. No fracture. 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
[2018-04-01] MEDS ORDERED: HYDROmorphone 0.5 MG/0.5 ML SYRINGE IVP STA (20:52)
[2018-04-01] MEDS ORDERED: SODIUM CHLORIDE 0.9% 1,000 ML IV ONE (20:53)
[2018-04-01] MEDS ORDERED: LORazepam 2 MG/ML INJ IV STA (20:53)
--- NOTE | 2018-04-01 21:03 | CT ---
EXAMINATION TYPE: CT brain aleida farmer DATE OF EXAM: 04/01/2018 COMPARISON: 09/07/2013 CT scan of the brain HISTORY: Pt fall on Wednesday evening. Pain "all over" according to pt. Headache. Neck pain CT DLP: 1274.1 mGycm Automated exposure control for dose reduction was used. TECHNIQUE: CT scan of the head and cervical spine are performed without contrast. FINDINGS: Ventricles of normal size. There is no mass effect nor midline shift. There is no sign of intracranial hemorrhage. Calvarium is intact. There is mucosal thickening in the right maxillary sin us. The cervical vertebra have normal alignment. Disc spaces are fairly normal. There is mild spurring of the endplates in the mid and lower cervical spine. There is no compression fracture. Atlantoaxial fa cet joint is normal. There are no cervical ribs. Posterior elements are intact. Facet joints are inta ct. The skull base is intact. IMPRESSION: Negative CT scan of the brain. Mild maxillary sinusitis. No change. Mild degenerative disc changes in the cervical spine. No fracture seen. Multilevel mild calcified pos terior disc herniation at C3-4 C4-5 C5-6. There is 7 mm spinal stenosis at C4-5.
[2018-04-01] MEDS ORDERED: ACETAMINOPHEN TAB 500 MG TAB PO PRN (21:48)
--- NOTE | 2018-04-01 22:18 | CT ---
EXAM: CT Angiography Chest With Intravenous Contrast CLINICAL HISTORY: ITS.REASON CT Reason: Dimer elevated TECHNIQUE: Axial computed tomographic angiography images of the chest with intravenous contrast using pulmonary embolism protocol. CTDI is 7.2 mGy and DLP is 308.4 mGy-cm. This CT exam was performed using one or more of the following dose reduction techniques: automated exposure control, adjustment of the mA and/or kV according to patient size, and/or use of iterative reconstruction technique. MIP reconstructed images were created and reviewed. COMPARISON: Chest radiographs 03/31/2018. FINDINGS: Pulmonary arteries: There is suboptimal bolus timing with heterogeneous opacification of the pulmonary arteries which degrades evaluation for pulmonary embolism. However, no large central pulmonary embolism is seen. Aorta: No acute findings. No thoracic aortic aneurysm. Lungs: Paraseptal and centrilobular emphysematous change of the lungs. No mass. Pleural space: Unremarkable. No significant effusion. No pneumothorax. Heart: Coronary artery atherosclerotic calcifications. No significant pericardial effusion. No evidence of RV dysfunction. Bones/joints: Degenerative change throughout the thoracic spine. Soft tissues: Unremarkable. Lymph nodes: Unremarkable. No enlarged lymph nodes. Liver: 5.1 cm cyst in the liver. Ill-defined hypodensities along the falciform ligament are poorly characterized on this examination. IMPRESSION: 1. Suboptimal bolus timing without evidence of large central pulmonary embolism. 2. Coronary artery atherosclerotic calcifications. 3. Paraseptal and centrilobular emphysematous change of the lungs.
[2018-04-01 22:53] LABS: Amorphous Sediment,Urine Rare /hpf; Appearance,Urine Clear (Clear); Bilirubin,Urine Negative (Negative); Blood,Urine Trace (Negative); Color,Urine Yellow; Glucose,Urine (UA) Negative (Negative); Ketones,Urine Trace (Negative); Leukocyte Esterase,Urine Negative (Negative); Mucus,Urine Rare /hpf; Nitrite,Urine Negative (Negative); PH, Urine 6.5 (5.0-8.0); Protein,Urine Negative (Negative); RBC,Urine 1 /hpf (0-5); Specific Gravity,Urine 1.006 (1.001-1.035); Urobilinogen,Urine <2.0 mg/dL (<2.0); WBC,Urine 1 /hpf (0-5)
[2018-04-01] MEDS: HYDROcodone/APAP 10-325MG 1 EACH TAB PO PRN (23:24)
[2018-04-01] MEDS: TEMAZEPAM 15 MG CAP PO PRN (23:25)
[2018-04-02] MEDS: HYDROmorphone 0.5 MG/0.5 ML SYRINGE IVP PRN ×7 (00:54→21:22)
[2018-04-02] MEDS: PANTOPRAZOLE 40 MG TABLET PO SCH (06:18)
[2018-04-02 07:00] LABS: Anion Gap 9 mmol/L; Blood Urea Nitrogen 8 mg/dL (9-20); Calcium 8.3 mg/dL (8.4-10.2); Carbon Dioxide 24 mmol/L (22-30); Chloride 104 mmol/L (98-107); Creatine Kinase 695 U/L (55-170); Glucose 123 mg/dL (74-99); Potassium 3.9 mmol/L (3.5-5.1); Sodium 137 mmol/L (137-145)
[2018-04-02 07:21] LABS: Basophils % (A) 0 %; Eosinophils % (A) 1 %; HCT 29.4 % (39.0-53.0); HGB 9.5 gm/dL (13.0-17.5); Hypochromasia Slight; Lymphocytes # (A) 1.3 k/uL (1.0-4.8); Lymphocytes % (A) 23 %; MCHC 32.4 g/dL (31.0-37.0); MCV 120.4 fL (80.0-100.0); Mean Platelet Volume 8.4; Monocytes # (A) 0.4 k/uL (0-1.0); Monocytes % (A) 8 %; Neutrophils # (A) 3.6 k/uL (1.3-7.7); Neutrophils % (A) 65 %; RBC 2.44 m/uL (4.30-5.90); RDW 15.8 % (11.5-15.5); WBC 5.5 k/uL (3.8-10.6)
[2018-04-02 07:22] LABS: Macrocytosis Marked; Platelet Count 55 k/uL (150-450)
--- NOTE | 2018-04-02 07:40 | HP ---
HISTORY AND PHYSICAL DATE OF SERVICE: 04/01/2018 CHIEF COMPLAINTS: Fall and weakness. HISTORY OF PRESENT ILLNESS: This 62-year-old gentleman with a past medical history of multiple medical problems including colon cancer, bladder cancer, COPD, liver disease, history of DJD, history of appendectomy, bowel resection being followed by [facility] and Dr. Peterson in the outpatient setting previously had a urostomy bag from bladder cancer. The patient presented to the hospital a couple days ago with UTI. Patient was given a prescription of Cipro. The patient apparently was sitting on the toilet. The next thing the patient remembers the patient was lying on the floor. The patient was able to get up and walk, but progressively the patient noticed some difficulty in walking and some pain in the legs and neck and the chest and the patient came to [facility] and admitted for further evaluation and treatment. Evaluation of multiple findings such as diffuse ecchymosis and also had right clavicle fracture. The patient's CK was elevated indicating rhabdomyolysis also. There is no history of fever, rigors, chills. No history of any hematochezia or melena at this time. PAST MEDICAL HISTORY: History of colon cancer, breast cancer, bladder cancer, history of COPD, liver disease and DJD. MEDICATIONS: Home medications prior to admission include: 1. Oxycodone 20 mg p.o. b.i.d. 2. Aldactone 25 mg p.o. 3. [place] 10 mg 2 tabs t.i.d. p.r.n. 4. Cipro 500 mg p.o. b.i.d. 5. ProAir one puff q.4h p.r.n. 6. Ventolin nebulizer 2.5 q.6h p.r.n. ALLERGIES: GABAPENTIN, MECLIZINE. FAMILY HISTORY: History of cancer in the family. SOCIAL HISTORY: Continued smoking and alcohol, at least 2 beers according to him. REVIEW OF SYSTEMS: ENT: Diminished hearing or vision. CARDIOVASCULAR: No angina. RESPIRATORY: No cough or hemoptysis. GI: No nausea. : No dysuria. NERVOUS SYSTEM: No numbness, weakness. ALLERGY/IMMUNOLOGY: No asthma. MUSCULOSKELETAL: As mentioned. HEMATOLOGY: As mentioned. ENDOCRINE: No history of diabetes or hypothyroidism. CONSTITUTIONAL: As mentioned earlier. DERMATOLOGY: Negative. RHEUMATOLOGY: Negative. PSYCHIATRY: As mentioned. PHYSICAL EXAMINATION: Alert and oriented x3. Pulse is 106. Blood pressure 120/66, respiration 20, temperature 98.4, pulse ox 98% on room air. HEENT: Conjunctivae normal. Oral mucosa normal. Neck is no jugular venous distention, no carotid bruit. No lymph node enlargement. CARDIOVASCULAR: S1, S2. RESPIRATORY: Breath sounds diminished in the bases. Scattered rhonchi and crackles. Painful clavicle also present. ABDOMEN: Soft, nontender. No mass palpable. LEGS: No edema, no swelling. NERVOUS SYSTEM: Higher functions as mentioned earlier. Moves all 4 limbs. Minimal weakness of the lower legs noted. Tone is also increased. SKIN: No ulcer, rash, bleeding. JOINTS: No active arthropathy. LAB STUDIES: WBC 6.9, hemoglobin 10.3, MCV 117.3, INR 1.3. Sodium 135, and creatine kinase 1589. The clavicle x-ray showed acute fracture of the lateral right clavicle and also the head and spine CAT scan showed mild DJD and some multilevel calcified posterior disc herniation and 7 mm spinal stenosis C4-5. ASSESSMENT: 1. Fall and diffuse weakness and pain with possible acute rhabdomyolysis. 2. Right clavicle fracture. 3. Possible syncope for evaluation, rule out seizure, cardiac arrhythmia. 4. Possible ETOH. 5. History of nicotine dependence. 6. Rule out cervical spondylosis and spinal stenosis. 7. History of degenerative joint disease. 8. History of bladder cancer. 9. History of recent urinary tract infection. 10.History of colon cancer. 11.History of bowel resection. 12.History of tonsillectomy. 13.History of anxiety. RECOMMENDATIONS AND DISCUSSION: This 62-year-old gentleman who presented with multiple complex medical issues, will monitor the patient closely. Continue the current management and symptomatic treatment. I recommend symptomatic treatment of the pain and we will initiate broad- spectrum IV antibiotics. Resume the home medications including the pain medications. Guarded prognosis because of multiple complex medical issues. Further recommendations to follow. Copy of dictation forwarded to Dr. Peterson who is the primary physician. MMRAIN / FRANSISCO: [id number] / MTDD
[2018-04-02] MEDS: FOLIC ACID 1 MG TAB PO SCH (07:57)
[2018-04-02] MEDS: THIAMINE 100 MG TAB PO SCH (07:57)
[2018-04-02] MEDS: MULTIVITAMINS, THERA 1 EACH TAB PO SCH (07:57)
[2018-04-02] MEDS: HYDROcodone/APAP 10-325MG 1 EACH TAB PO PRN ×2 (07:57→16:31)
[2018-04-02] MEDS: SPIRONOLACTONE 25 MG TAB PO SCH (07:57)
[2018-04-02] MEDS ORDERED: HEPARIN SODIUM,PORCINE 5,000 UNIT/ML 1 ML VIAL SQ SCH (09:00)
[2018-04-02 11:29] VITALS: BMI 18.3
--- NOTE | 2018-04-02 13:19 | P.CNOR ---
History of Present Illness - [facility] Consult date: 04/02/18 Consult reason: fracture History of present illness: Patient is a 62-year-old male who was brought to [facility] on 04/01/2018 after having a syncopal episode and fall in office toilet. Patient was unaware of how long he was out, he was able to crawl to his fall on an contact emergency services. Patient was brought to [facility] by EMS. Multiple imaging and lab tests were done, images demonstrated a right lateral clavicle fracture. Due to the syncopal episode, patient was admitted to the cardiology unit for further workup. Patient was recently hospitalized with complaints of nausea and diarrhea and vomiting, he is diagnosed with urinary tract infection and sent home on oral antibiotics. Patient is a very extensive medical history, including colon cancer with history of surgical resection, along with bladder cancer and surgical resection. Patient states that he usually uses a walker to ambulate. He states that since his admission on 03/31/2018 he has been very weak with both the upper and lower extremities. Patient denies any previous orthopedic surgery involving the right upper extremity. X-rays were taken of the pelvis and also his left knee. Computed tomography scan of the head and neck was also done. Patient is complaining of significant pain involving the left arm and elbow, there is a significant ecchymosis present in the area. I did order x-rays of both of those. Patient states he did see an orthopedic surgeon in the last year to importer on, for his knees, no acute treatment was done. Patient denies any paresthesias involving the bilateral upper extremities. He denies any loss of bowel function, he does have a urinary stoma. He does have a history of cervical and lumbar pain. He denies any surgeries involving Review of Systems Constitutional: Reports as per HPI Past Medical History Past Medical History: Cancer, COPD, Liver Disease, Osteoarthritis (OA) Additional Past Medical History / Comment(s): current bladder ca, past colon cancer,"bruises easily, epiglotitis in past, hep c and "a spot on the liver" History of Any Multi-Drug Resistant Organisms: None Reported Past Surgical History: Appendectomy, Bowel Resection, Hernia Repair, Tonsillectomy Additional Past Surgical History / Comment(s): 01/21/16 cystoscopy w/evacuation of clot; urostomy, BLADDER AND PROSTATE REMOVED November 2016. Tube placed in right ear in July 2017 Past Anesthesia/Blood Transfusion Reactions: No Reported Reaction Past Psychological History: Anxiety Smoking Status: Current every day smoker Past Alcohol Use History: Daily Additional Past Alcohol Use History / Comment(s): started smoking Past Drug Use History: None Reported - Past Family History Father Family Medical History: Cancer Additional Family Medical History / Comment(s): pancreatic cacner Mother Family Medical History: Cancer Additional Family Medical History / Comment(s): lung cancer Medications and Allergies Home Medications Medication Instructions Recorded Confirmed Type Albuterol Sulfate [Proventil Hfa] 1 puff INHALATION RT-Q4H PRN 05/30/14 History Hydrocodone/Acetaminophen [[place] 2 tab PO TID PRN 05/30/14 04/01/18 History 10-325] Spironolactone [Aldactone] 25 mg PO DAILY 09/10/17 04/01/18 History Albuterol Nebulized [Ventolin 2.5 mg INHALATION RT-Q6H PRN 12/16/17 04/01/18 History Nebulized] oxyCODONE HCL 20 mg PO BID 12/16/17 04/01/18 History Ciprofloxacin HCl [Cipro] 500 mg PO BID 3 Days #6 tab 03/31/18 04/01/18 Rx Allergies Allergy/AdvReac Type Severity Reaction Status Date / Time gabapentin Allergy Unknown Verified 04/01/18 16:55 meclizine Allergy vertigo Verified 04/01/18 16:55 Physical Examination Right upper extremity: Notable ecchymosis over the anterior chest wall, no significant skin deformities present involving the before meals joint. No open lesions or sores present. Utilizing arm sling at this time. Sensation to light touch throughout the upper extremities intact. Range of motion and strength testing was not assessed. Radial pulses 2+. Tender with palpation noted over the lateral clavicle. Left upper extremity: No obvious open lesions or sores. Significant ecchymosis noted on the medial elbow. His active motion is very limited, was able to range him through passive motion, this did reproduce pain in the area of the bruise and also the elbow. Sensation to light touch throughout that extremity is intact. Radial pulses 2+. Bilateral lower extremities: Logroll maneuver the bilateral lower extremities reproduces no discomfort. Notable discomfort with palpation along the medial joint line of the left knee. No obvious effusions present on the bilateral knees. No obvious areas of ecchymosis or soft tissue swelling. Passive motion of the bilateral knees reproduces no significant pain. Results - Labs Labs: Abnormal Lab Results - Last 24 Hours (Table) 04/01/18 04/01/18 04/01/18 Range/Units 17:06 17:06 17:06 RBC 2.68 L (4.30-5.90) m/uL Hgb 10.3 L (13.0-17.5) gm/dL Hct 31.4 L (39.0-53.0) % MCV 117.3 H (80.0-100.0) fL MCH 38.6 H (25.0-35.0) pg RDW 15.8 H (11.5-15.5) % Plt Count 72 L (150-450) k/uL Lymphocytes # 0.8 L (1.0-4.8) k/uL PT (9.0-12.0) sec INR (<1.2) D-Dimer (<0.60) mg/L FEU Sodium 135 L (137-145) mmol/L BUN (9-20) mg/dL Creatinine (0.66-1.25) mg/dL Glucose 115 H (74-99) mg/dL Calcium (8.4-10.2) mg/dL Total Bilirubin 2.1 H (0.2-1.3) mg/dL AST 98 H (17-59) U/L Creatine Kinase (55-170) U/L Total Creatine Kinase 1589 H* (55-170) U/L CK-MB (CK-2) 5.0 H (0.0-2.4) ng/mL Urine Ketones (Negative) Urine Blood (Negative) Amorphous Sediment (None) /hpf Urine Mucus (None) /hpf 04/01/18 04/01/18 04/01/18 Range/Units 17:06 17:06 22:30 RBC (4.30-5.90) m/uL Hgb (13.0-17.5) gm/dL Hct (39.0-53.0) % MCV (80.0-100.0) fL MCH (25.0-35.0) pg RDW (11.5-15.5) % Plt Count (150-450) k/uL Lymphocytes # (1.0-4.8) k/uL PT 13.3 H (9.0-12.0) sec INR 1.3 H (<1.2) D-Dimer 6.47 H (<0.60) mg/L FEU Sodium (137-145) mmol/L BUN (9-20) mg/dL Creatinine (0.66-1.25) mg/dL Glucose (74-99) mg/dL Calcium (8.4-10.2) mg/dL Total Bilirubin (0.2-1.3) mg/dL AST (17-59) U/L Creatine Kinase (55-170) U/L Total Creatine Kinase (55-170) U/L CK-MB (CK-2) (0.0-2.4) ng/mL Urine Ketones Trace H (Negative) Urine Blood Trace H (Negative) Amorphous Sediment Rare H (None) /hpf Urine Mucus Rare H (None) /hpf 04/02/18 04/02/18 Range/Units 06:19 06:19 RBC 2.44 L (4.30-5.90) m/uL Hgb 9.5 L (13.0-17.5) gm/dL Hct 29.4 L (39.0-53.0) % MCV 120.4 H (80.0-100.0) fL MCH 39.0 H (25.0-35.0) pg RDW 15.8 H (11.5-15.5) % Plt Count 55 L (150-450) k/uL Lymphocytes # (1.0-4.8) k/uL PT (9.0-12.0) sec INR (<1.2) D-Dimer (<0.60) mg/L FEU Sodium (137-145) mmol/L BUN 8 L (9-20) mg/dL Creatinine 0.51 L (0.66-1.25) mg/dL Glucose 123 H (74-99) mg/dL Calcium 8.3 L (8.4-10.2) mg/dL Total Bilirubin (0.2-1.3) mg/dL AST (17-59) U/L Creatine Kinase 695 H (55-170) U/L Total Creatine Kinase (55-170) U/L CK-MB (CK-2) (0.0-2.4) ng/mL Urine Ketones (Negative) Urine Blood (Negative) Amorphous Sediment (None) /hpf Urine Mucus (None) /hpf H & H 04/01/18 04/02/18 Range/Units 17:06 06:19 Hgb 10.3 L 9.5 L (13.0-17.5) gm/dL Hct 31.4 L 29.4 L (39.0-53.0) % Coagulation 04/01/18 Range/Units 17:06 INR 1.3 H (<1.2) Result Diagrams: 04/02/18 06:19 04/02/18 06:19 Assessment and Plan Plan: Imaging: AP pelvis x-rays were reviewed along with report, no acute fractures or dislocations. Left knee x-rays were reviewed, no fractures or dislocations present. 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 X- rays of the right clavicle were reviewed, images demonstrate a minimally displaced right lateral clavicle fracture. The before meals joint remains intact. The glenohumeral joint remains intact. CT report was reviewed of the cervical spine, no acute fractures or dislocations, degenerative disc disease noted at multiple levels, they also noted 7 mm a spinal stenosis at C4-C5. Assessment: 1. Right lateral clavicle fracture 2. Cervical spine degenerative disc disease multiple level 3. Multiple medical comorbidities Plan: I was able to discuss the case, including with physical exam findings and imaging studies with my attending Dr. Eisenberg. With regards to the right clavicle fracture, I will order a new sling, recommend minimal use at this time of the right upper extremity. No surgical intervention needed. I did order x-rays of the left elbow and left humerus, I imagine soft tissue injury at this time With the generalized weakness involving the bilateral upper extremities and lower extremity is, likely related to recent fall, illness and previous medical history Other medical specialty recommendations We'll be available for any further questions regarding this patient. Time with Patient: Less than 30
--- NOTE | 2018-04-02 13:46 | XR ---
EXAMINATION TYPE: XR humerus LT, XR elbow limited LT DATE OF EXAM: 04/02/2018 CLINICAL HISTORY: pain TECHNIQUE: Frontal and lateral images of the left humerus are obtained. COMPARISON: None. FINDINGS: Fracture humeral head at the greater tuberosity. The joint spaces appear within normal limi ts. The overlying soft tissue appears unremarkable. IMPRESSION: Fracture humeral head at the greater tuberosity. ICD 10 closed FRACTURE, INITIAL EVALUATION EXAMINATION TYPE: XR humerus LT, XR elbow limited LT DATE OF EXAM: 04/02/2018 CLINICAL HISTORY: pain TECHNIQUE: Frontal, lateral images of the left elbow are obtained. COMPARISON: None. FINDINGS: There is no acute fracture/dislocation evident of the elbow. Prominent anterior fat pad id entified. The overlying soft tissue appears unremarkable. IMPRESSION: There is no acute fracture or dislocation of the elbow. ICD 10 NO FRACTURE, INITIAL EVALUATION
--- NOTE | 2018-04-02 13:55 | P.GSCN ---
History of Present Illness Consult date: 04/02/18 History of present illness: This is 62-year-old male who presents after a fall as a trauma consult. He was down for an unknown amount of time. He has a complex past medical and surgical history including latter cancer and colon cancer. He currently has a urostomy. He was being treated as an outpatient for a UTI with ciprofloxacin and he sat down on the toilet and states he passed out and woke up with blood around him. He is brought to the emergency department and is currently being treated for other my lysis along with clavicle fracture on the right. He has some generalized aches and pains and bruising there is no lacerations. He denies any abdominal pain. He is complaining of some pain in his right elbow and arm. He states his chronic neck pain this is not any worse he denies any midline neck tenderness. He denies any numbness or tingling. Past Medical History Past Medical History: Cancer, COPD, Liver Disease, Osteoarthritis (OA) Additional Past Medical History / Comment(s): current bladder ca, past colon cancer,"bruises easily, epiglotitis in past, hep c and "a spot on the liver" History of Any Multi-Drug Resistant Organisms: None Reported Past Surgical History: Appendectomy, Bowel Resection, Hernia Repair, Tonsillectomy Additional Past Surgical History / Comment(s): 01/21/16 cystoscopy w/evacuation of clot; urostomy, BLADDER AND PROSTATE REMOVED November 2016. Tube placed in right ear in July 2017 Past Anesthesia/Blood Transfusion Reactions: No Reported Reaction Past Psychological History: Anxiety Smoking Status: Current every day smoker Past Alcohol Use History: Daily Additional Past Alcohol Use History / Comment(s): started smoking Past Drug Use History: None Reported - Past Family History Father Family Medical History: Cancer Additional Family Medical History / Comment(s): pancreatic cacner Mother Family Medical History: Cancer Additional Family Medical History / Comment(s): lung cancer Medications and Allergies Home Medications Medication Instructions Recorded Confirmed Type Albuterol Sulfate [Proventil Hfa] 1 puff INHALATION RT-Q4H PRN 05/30/14 History Hydrocodone/Acetaminophen [[place] 2 tab PO TID PRN 05/30/14 04/01/18 History 10-325] Spironolactone [Aldactone] 25 mg PO DAILY 09/10/17 04/01/18 History Albuterol Nebulized [Ventolin 2.5 mg INHALATION RT-Q6H PRN 12/16/17 04/01/18 History Nebulized] oxyCODONE HCL 20 mg PO BID 12/16/17 04/01/18 History Ciprofloxacin HCl [Cipro] 500 mg PO BID 3 Days #6 tab 03/31/18 04/01/18 Rx Allergies Allergy/AdvReac Type Severity Reaction Status Date / Time gabapentin Allergy Unknown Verified 04/01/18 16:55 meclizine Allergy vertigo Verified 04/01/18 16:55 Surgical - Exam Osteopathic Statement: *. No significant issues noted on an osteopathic structural exam other than those noted in the History and Physical/Consult. Vital Signs Temp Pulse Resp BP Pulse Ox 98.2 F 104 H 20 154/81 98 04/01/18 16:40 04/01/18 16:40 04/01/18 16:40 04/01/18 16:40 04/01/18 16:40 - General no distress, cachectic, chronically ill - Eyes PERRL - Neck No midline tenderness palpation no masses, trachea midline - Respiratory normal expansion, normal respiratory effort - Cardiovascular Rhythm: regular - Abdomen Abdomen: soft, non tender - Integumentary Large ecchymosis over right mandible. Several small ecchymosis on chest. - Neurologic normal coordination, normal sensation - Psychiatric oriented to time, oriented to person, oriented to place Results - Labs 04/02/18 06:19 04/02/18 06:19 Abnormal Lab Results - Last 24 Hours (Table) 04/01/18 04/01/18 04/01/18 Range/Units 17:06 17:06 17:06 RBC 2.68 L (4.30-5.90) m/uL Hgb 10.3 L (13.0-17.5) gm/dL Hct 31.4 L (39.0-53.0) % MCV 117.3 H (80.0-100.0) fL MCH 38.6 H (25.0-35.0) pg RDW 15.8 H (11.5-15.5) % Plt Count 72 L (150-450) k/uL Lymphocytes # 0.8 L (1.0-4.8) k/uL PT (9.0-12.0) sec INR (<1.2) D-Dimer (<0.60) mg/L FEU Sodium 135 L (137-145) mmol/L BUN (9-20) mg/dL Creatinine (0.66-1.25) mg/dL Glucose 115 H (74-99) mg/dL Calcium (8.4-10.2) mg/dL Total Bilirubin 2.1 H (0.2-1.3) mg/dL AST 98 H (17-59) U/L Creatine Kinase (55-170) U/L Total Creatine Kinase 1589 H* (55-170) U/L CK-MB (CK-2) 5.0 H (0.0-2.4) ng/mL Urine Ketones (Negative) Urine Blood (Negative) Amorphous Sediment (None) /hpf Urine Mucus (None) /hpf 04/01/18 04/01/18 04/01/18 Range/Units 17:06 17:06 22:30 RBC (4.30-5.90) m/uL Hgb (13.0-17.5) gm/dL Hct (39.0-53.0) % MCV (80.0-100.0) fL MCH (25.0-35.0) pg RDW (11.5-15.5) % Plt Count (150-450) k/uL Lymphocytes # (1.0-4.8) k/uL PT 13.3 H (9.0-12.0) sec INR 1.3 H (<1.2) D-Dimer 6.47 H (<0.60) mg/L FEU Sodium (137-145) mmol/L BUN (9-20) mg/dL Creatinine (0.66-1.25) mg/dL Glucose (74-99) mg/dL Calcium (8.4-10.2) mg/dL Total Bilirubin (0.2-1.3) mg/dL AST (17-59) U/L Creatine Kinase (55-170) U/L Total Creatine Kinase (55-170) U/L CK-MB (CK-2) (0.0-2.4) ng/mL Urine Ketones Trace H (Negative) Urine Blood Trace H (Negative) Amorphous Sediment Rare H (None) /hpf Urine Mucus Rare H (None) /hpf 04/02/18 04/02/18 Range/Units 06:19 06:19 RBC 2.44 L (4.30-5.90) m/uL Hgb 9.5 L (13.0-17.5) gm/dL Hct 29.4 L (39.0-53.0) % MCV 120.4 H (80.0-100.0) fL MCH 39.0 H (25.0-35.0) pg RDW 15.8 H (11.5-15.5) % Plt Count 55 L (150-450) k/uL Lymphocytes # (1.0-4.8) k/uL PT (9.0-12.0) sec INR (<1.2) D-Dimer (<0.60) mg/L FEU Sodium (137-145) mmol/L BUN 8 L (9-20) mg/dL Creatinine 0.51 L (0.66-1.25) mg/dL Glucose 123 H (74-99) mg/dL Calcium 8.3 L (8.4-10.2) mg/dL Total Bilirubin (0.2-1.3) mg/dL AST (17-59) U/L Creatine Kinase 695 H (55-170) U/L Total Creatine Kinase (55-170) U/L CK-MB (CK-2) (0.0-2.4) ng/mL Urine Ketones (Negative) Urine Blood (Negative) Amorphous Sediment (None) /hpf Urine Mucus (None) /hpf Diabetes panel 04/01/18 04/02/18 Range/Units 17:06 06:19 Sodium 135 L 137 (137-145) mmol/L Potassium 4.3 3.9 (3.5-5.1) mmol/L Chloride 98 104 (98-107) mmol/L Carbon Dioxide 24 24 (22-30) mmol/L BUN 9 8 L (9-20) mg/dL Creatinine 0.67 0.51 L (0.66-1.25) mg/dL Glucose 115 H 123 H (74-99) mg/dL Calcium 8.9 8.3 L (8.4-10.2) mg/dL AST 98 H (17-59) U/L ALT 50 (21-72) U/L Alkaline Phosphatase 100 (38-126) U/L Total Protein 7.8 (6.3-8.2) g/dL Albumin 3.9 (3.5-5.0) g/dL Calcium panel 04/01/18 04/02/18 Range/Units 17:06 06:19 Calcium 8.9 8.3 L (8.4-10.2) mg/dL Albumin 3.9 (3.5-5.0) g/dL Pituitary panel 04/01/18 04/02/18 Range/Units 17:06 06:19 Sodium 135 L 137 (137-145) mmol/L Potassium 4.3 3.9 (3.5-5.1) mmol/L Chloride 98 104 (98-107) mmol/L Carbon Dioxide 24 24 (22-30) mmol/L BUN 9 8 L (9-20) mg/dL Creatinine 0.67 0.51 L (0.66-1.25) mg/dL Glucose 115 H 123 H (74-99) mg/dL Calcium 8.9 8.3 L (8.4-10.2) mg/dL Adrenal panel 04/01/18 04/02/18 Range/Units 17:06 06:19 Sodium 135 L 137 (137-145) mmol/L Potassium 4.3 3.9 (3.5-5.1) mmol/L Chloride 98 104 (98-107) mmol/L Carbon Dioxide 24 24 (22-30) mmol/L BUN 9 8 L (9-20) mg/dL Creatinine 0.67 0.51 L (0.66-1.25) mg/dL Glucose 115 H 123 H (74-99) mg/dL Calcium 8.9 8.3 L (8.4-10.2) mg/dL Total Bilirubin 2.1 H (0.2-1.3) mg/dL AST 98 H (17-59) U/L ALT 50 (21-72) U/L Alkaline Phosphatase 100 (38-126) U/L Total Protein 7.8 (6.3-8.2) g/dL Albumin 3.9 (3.5-5.0) g/dL Assessment and Plan Assessment: Right clavicle fracture, rhabdomyolysis status post fall from sitting. Plan: At this time patient does not appear to have any acute traumatic injuries requiring trauma surgical intervention. He is clear from a trauma surgery standpoint to be treated by orthopedic surgery. Continue IV fluid hydration per medical team for rhabdomyolysis. Orthopedic surgery did order some films of the right elbow and humerus which they're following up on.
[2018-04-02] MEDS: ALBUTEROL NEBULIZED 2.5 MG/3 ML INHALATION PRN (15:27)
--- NOTE | 2018-04-02 18:06 | XR ---
Left shoulder 3 views. History shoulder pain. Comparison none. FINDINGS: There is slightly impacted fracture of the humeral neck. There is comminution with large chip fractur e of the greater tuberosity. There is no dislocation. Scapula appears intact. IMPRESSION: Acute slightly impacted humeral neck comminuted fracture.
--- NOTE | 2018-04-02 20:58 | PN ---
PROGRESS NOTE DATE OF SERVICE: 04/02/2018 This 62-year-old gentleman admitted with some weakness and fall appears to have some alcohol issues as well. The patient has also had right clavicular fracture and shoulder x-ray was done by orthopedic surgery and acute impacted humeral neck comminuted fracture was also noted on the on the left side. The patient also is severely emaciated. A chest CT was also done because of the elevated D-dimer, which showed coronary artery calcifications and no evidence of any large pulmonary embolism. PAST MEDICAL HISTORY: Reviewed. REVIEW OF SYSTEMS: CARDIOVASCULAR: No angina or palpitations. RESPIRATORY: As mentioned earlier. GI as mentioned earlier. no dysuria. Musculoskeletal: As mentioned earlier. CURRENT MEDICATIONS ARE: Reviewed and include: 1. Tylenol 500 mg q.6h p.r.n. 2. [place] 10 mg t.i.d. p.r.n. 3. Folic acid 1 mg. 4. Dilaudid 0.5 mg q.h.s. 5. Multivitamins. 6. Protonix 40 mg daily. 7. Aldactone 25 mg. 8. Restoril 50 mg q.h.s. 9. Vitamin B1 100 mg p.o. daily. PHYSICAL EXAM: Patient is alert and oriented times three. Pulse is 99. Blood pressure 150/70, respiration 18, temperature 99.2, pulse ox 94% on room air. HEENT: Conjunctivae normal. NECK: No jugular venous distention. CARDIOVASCULAR: S1, S2 muffled. RESPIRATORY: Breath sounds diminished in the bases. A few scattered rhonchi and crackles. Expiratory wheezing. ABDOMEN: Soft, nontender. LEGS: No edema, no swelling. CENTRAL NERVOUS SYSTEM: No focal deficits. LAB STUDIES: WBC 5.5, hemoglobin is 10.5, sodium 137, potassium 3.9, creatine kinase 695. ASSESSMENT: 1. Fall and diffuse weakness with pain with possible acute rhabdomyolysis. 2. Right clavicle fracture and left humeral neck comminuted fracture slightly impacted. 3. Syncope, rule out seizure or cardiac arrhythmia. 4. History of alcoholism. 5. History of nicotine dependence. 6. Diffuse bruises. 7. Mild to moderate protein calorie malnutrition. 8. Cervical spondylosis and spinal stenosis. 9. History of degenerative joint disease. 10.History of bladder cancer. 11.History of recent urinary tract infection. 12.Gait dysfunction. 13.History of colon cancer. 14.History of bowel resection. 15.History of tonsillectomy. 16.History of anxiety. 17.FULL CODE. RECOMMENDATIONS AND DISCUSSION: In this 62-year-old gentleman who presented with multiple medical problems, at this time I recommend to continue current medications, continue with monitoring, symptomatic treatment. Otherwise, at this time, continue with current medications. Continue with bronchodilators. Alcohol withdrawal precautions. I would also recommend orthopedic input appreciated. Repeat labs will be ordered and I would also recommend PT/OT evaluation, possible ECF rehab also. 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 The overall prognosis guarded because of multiple complex medical issues and further recommendations to follow. MMODL / IJN: [id number] /
[2018-04-03] MEDS: TEMAZEPAM 15 MG CAP PO PRN (00:15)
[2018-04-03] MEDS: HYDROmorphone 0.5 MG/0.5 ML SYRINGE IVP PRN ×8 (00:15→23:34)
[2018-04-03] MEDS: HYDROcodone/APAP 10-325MG 1 EACH TAB PO PRN ×4 (00:15→21:50)
[2018-04-03] MEDS: ALBUTEROL NEBULIZED 2.5 MG/3 ML INHALATION PRN ×4 (02:32→19:44)
[2018-04-03] MEDS: PANTOPRAZOLE 40 MG TABLET PO SCH (06:34)
[2018-04-03 06:40] LABS: Anisocytosis Slight; Basophils % (A) 0 %; Eosinophils # (A) 0.1 k/uL (0-0.7); Eosinophils % (A) 1 %; HCT 29.1 % (39.0-53.0); HGB 9.5 gm/dL (13.0-17.5); Lymphocytes # (A) 1.5 k/uL (1.0-4.8); Lymphocytes % (A) 23 %; MCH 39.5 pg (25.0-35.0); MCHC 32.6 g/dL (31.0-37.0); Mean Platelet Volume 7.4; Monocytes # (A) 0.5 k/uL (0-1.0); Monocytes % (A) 8 %; Neutrophils # (A) 4.2 k/uL (1.3-7.7); Neutrophils % (A) 65 %; RBC 2.41 m/uL (4.30-5.90); RDW 16.1 % (11.5-15.5); WBC 6.5 k/uL (3.8-10.6)
[2018-04-03 06:53] LABS: Platelet Count 74 k/uL (150-450)
[2018-04-03 06:54] LABS: Macrocytosis Marked
[2018-04-03 06:59] LABS: Anion Gap 9 mmol/L; Blood Urea Nitrogen 7 mg/dL (9-20); Calcium 8.7 mg/dL (8.4-10.2); Carbon Dioxide 26 mmol/L (22-30); Chloride 98 mmol/L (98-107); Creatine Kinase 465 U/L (55-170); Glucose 111 mg/dL (74-99); Potassium 3.9 mmol/L (3.5-5.1); Sodium 133 mmol/L (137-145)
[2018-04-03] MEDS: FOLIC ACID 1 MG TAB PO SCH (08:20)
[2018-04-03] MEDS: MULTIVITAMINS, THERA 1 EACH TAB PO SCH (08:20)
[2018-04-03] MEDS: SPIRONOLACTONE 25 MG TAB PO SCH (08:20)
[2018-04-03] MEDS: THIAMINE 100 MG TAB PO SCH (08:20)
--- NOTE | 2018-04-03 17:44 | PN ---
PROGRESS NOTE DATE OF SERVICE: 04/03/2018. HISTORY: This 62-year-old gentleman who was admitted with fall and diffuse weakness with pain and possible acute abdomen also had right clavicular and left humerus fracture also. The patient is in a sling at this time. The patient is being closely monitored. Patient has significant ETOH also. Patient also had protein calorie malnutrition. Patient is being closely monitored and followed by multiple consultants. PAST MEDICAL HISTORY: Reviewed. REVIEW OF SYSTEMS: CARDIOVASCULAR: No angina. RESPIRATORY: As mentioned. GI: As mentioned. : As mentioned. NERVOUS SYSTEM: No numbness or weakness. CURRENT MEDICATIONS: 1. Tylenol 500 every 6h p.r.n. 2. [place] 10 mg t.i.d. p.r.n. 4. Dilaudid p.r.n. 5. Multivitamins. 6. Protonix 40 mg. 7. Aldactone 25 mg daily. 8. Restoril 50 mg at bedtime. 9. Vitamin B1, 100 mg p.o. daily. PHYSICAL EXAM: Alert, oriented x3. Pulse 106, blood pressure 130/62, respirations 18, temperature 98 degrees, pulse ox 97% room air. HEENT: Conjunctivae normal. NECK: No JVD. CARDIOVASCULAR: S1 and S2 muffled. LUNGS: Breath sounds diminished at the bases. Few scattered rhonchi and crackles. ABDOMEN: Soft, nontender. EXTREMITIES: Legs no edema. NERVOUS SYSTEM: Mild diffuse weakness. LYMPHATICS: No lymph nodes palpable in the neck, axillae or groin. MUSCULOSKELETAL: Clavicle and humerus painful. LAB STUDIES: WBC 6.2, hemoglobin 9.5, sodium 133, and CK is 455. ASSESSMENT: 1. Fall and diffuse weakness with pain with possible acute rhabdomyolysis. 2. Right clavicle fracture and left humeral neck comminuted fracture slightly impacted on conservative line of management. 3. Syncope, rule out seizure or cardiac arrhythmia. 4. History of alcoholism. 5. History of nicotine dependence. 6. Diffuse bruises. 7. Mild to moderate protein calorie malnutrition. 8. Cervical spondylosis and spinal stenosis. 9. History of degenerative joint disease. 10.History of bladder cancer. 11.History of recent urinary tract infection. 12.Gait dysfunction. 13.History of colon cancer. 14.History of bowel resection. 15.History of tonsillectomy. 16.History of anxiety. 17.FULL CODE. RECOMMENDATIONS: Continue current medications and symptomatic treatment. Continue with antibiotics. Otherwise cultures are negative so far. I will continue the PT, OT evaluation, possible ECF rehab. Otherwise, continue the pain management. Observe for DT precautions. Closely follow with Orthopedic Surgery. Further recommendations to follow. KEYONNA / FRANSISCO: [id number] / MTDD
[2018-04-04] MEDS: TEMAZEPAM 15 MG CAP PO PRN ×2 (00:30→23:02)
[2018-04-04] MEDS: HYDROmorphone 0.5 MG/0.5 ML SYRINGE IVP PRN ×5 (03:20→21:50)
[2018-04-04 06:51] LABS: Anisocytosis Slight; Basophils % (A) 0 %; Eosinophils # (A) 0.1 k/uL (0-0.7); Eosinophils % (A) 2 %; HCT 29.8 % (39.0-53.0); HGB 9.6 gm/dL (13.0-17.5); Hypochromasia Slight; Lymphocytes # (A) 1.4 k/uL (1.0-4.8); Lymphocytes % (A) 21 %; MCH 39.4 pg (25.0-35.0); MCHC 32.3 g/dL (31.0-37.0); MCV 122.2 fL (80.0-100.0); Mean Platelet Volume 7.2; Monocytes # (A) 0.6 k/uL (0-1.0); Monocytes % (A) 9 %; Neutrophils # (A) 4.2 k/uL (1.3-7.7); Neutrophils % (A) 64 %; RBC 2.44 m/uL (4.30-5.90); RDW 16.2 % (11.5-15.5); WBC 6.5 k/uL (3.8-10.6)
[2018-04-04 07:08] LABS: Anion Gap 9 mmol/L; Blood Urea Nitrogen 10 mg/dL (9-20); Calcium 8.7 mg/dL (8.4-10.2); Carbon Dioxide 27 mmol/L (22-30); Chloride 101 mmol/L (98-107); Creatine Kinase 278 U/L (55-170); Glucose 107 mg/dL (74-99); Potassium 4.2 mmol/L (3.5-5.1); Sodium 137 mmol/L (137-145)
[2018-04-04 07:13] LABS: Macrocytosis Marked; Platelet Count 93 k/uL (150-450)
[2018-04-04] MEDS: ALBUTEROL NEBULIZED 2.5 MG/3 ML INHALATION PRN ×3 (08:17→21:47)
[2018-04-04] MEDS: PANTOPRAZOLE 40 MG TABLET PO SCH (08:43)
[2018-04-04] MEDS: HYDROcodone/APAP 10-325MG 1 EACH TAB PO PRN ×3 (08:43→23:02)
[2018-04-04] MEDS: SPIRONOLACTONE 25 MG TAB PO SCH (08:43)
[2018-04-04] MEDS: FOLIC ACID 1 MG TAB PO SCH (11:51)
[2018-04-04] MEDS: THIAMINE 100 MG TAB PO SCH (11:51)
[2018-04-04] MEDS: MULTIVITAMINS, THERA 1 EACH TAB PO SCH (11:51)
[2018-04-04 17:32] LABS: ALT 48 U/L (21-72); AST 72 U/L (17-59); Albumin 3.5 g/dL (3.5-5.0); Alkaline Phosphatase 94 U/L (38-126); Anion Gap 10 mmol/L; Blood Urea Nitrogen 11 mg/dL (9-20); Carbon Dioxide 26 mmol/L (22-30); Chloride 98 mmol/L (98-107); Glucose 118 mg/dL (74-99); Potassium 4.4 mmol/L (3.5-5.1); Sodium 134 mmol/L (137-145); Total Bilirubin 1.3 mg/dL (0.2-1.3); Total Protein 7.2 g/dL (6.3-8.2)
--- NOTE | 2018-04-04 20:08 | PN ---
PROGRESS NOTE DATE OF SERVICE: 04/04/2018 This 62-year-old gentleman who was admitted with a fall and diffuse weakness also has significant history of alcoholism. No chest pain. No palpitations. No fever. PT/OT is evaluating the patient. The patient was also seen by Surgery. No chest pain. No palpitations. No fever. On exam, alert and oriented x3. Pulse is 99, blood pressure 125/58, respirations 16, temperature 98.6, pulse ox 100% on room air. HEENT: Conjunctivae normal. NECK: No jugular venous distention. CARDIOVASCULAR SYSTEM: S1, S2 muffled. RESPIRATORY SYSTEM: Breath sounds diminished at the bases. A few scattered rhonchi. No crackles. ABDOMEN: Soft, non-tender. LEGS: No edema. No swelling. NERVOUS SYSTEM: No focal deficit. Multiple fractures noted. LABS: WBC 6.5, hemoglobin 9.6. Sodium 137, potassium 4.2. ASSESSMENT: 1. Fall and diffuse weakness with pain and possible acute rhabdomyolysis. 2. Right clavicle fracture, left humeral neck comminuted fracture, slightly impacted, on conservative line of management. 3. Syncope, possible seizure or cardiac arrhythmia. 4. History of alcoholism. 5. History of nicotine dependence. 6. Diffuse bruises. 7. Mild to moderate protein-calorie malnutrition. 8. Cervical spondylosis and spinal stenosis. 9. History of degenerative joint disease. 10.History of bladder cancer. 11.History of recent urinary tract infection. 12.Gait dysfunction. 13.History of colon cancer. 14.History of bowel resection. 15.History of tonsillectomy. 16.History of anxiety. 17.FULL CODE. RECOMMENDATIONS AND DISCUSSION: I recommend to continue current medications, continue with the monitoring, symptomatic treatment. Otherwise at this time I would recommend PT/OT evaluation, pain management, repeat labs. Possible ECF rehab. Guarded prognosis. Further recommendations to follow. MMODL / IJN: [id number] /
[2018-04-05] MEDS: HYDROmorphone 0.5 MG/0.5 ML SYRINGE IVP PRN ×4 (03:07→12:29)
[2018-04-05 06:05] VITALS: RESP 16
[2018-04-05] MEDS: SPIRONOLACTONE 25 MG TAB PO SCH (07:41)
[2018-04-05] MEDS: HYDROcodone/APAP 10-325MG 1 EACH TAB PO PRN ×2 (07:41→15:36)
[2018-04-05] MEDS: PANTOPRAZOLE 40 MG TABLET PO SCH (07:41)
[2018-04-05 10:27] LABS: Anion Gap 8 mmol/L; Blood Urea Nitrogen 14 mg/dL (9-20); Calcium 8.7 mg/dL (8.4-10.2); Carbon Dioxide 25 mmol/L (22-30); Chloride 100 mmol/L (98-107); Creatine Kinase 191 U/L (55-170); Glucose 113 mg/dL (74-99); Potassium 4.3 mmol/L (3.5-5.1); Sodium 133 mmol/L (137-145)
[2018-04-05 10:41] LABS: Basophils % (A) 1 %; Eosinophils # (A) 0.1 k/uL (0-0.7); Eosinophils % (A) 2 %; HCT 28.6 % (39.0-53.0); HGB 9.1 gm/dL (13.0-17.5); Hypochromasia Slight; Lymphocytes # (A) 0.9 k/uL (1.0-4.8); Lymphocytes % (A) 17 %; MCH 39.4 pg (25.0-35.0); MCHC 31.9 g/dL (31.0-37.0); MCV 123.6 fL (80.0-100.0); Macrocytosis Marked; Mean Platelet Volume 7.5; Monocytes # (A) 0.5 k/uL (0-1.0); Monocytes % (A) 8 %; Neutrophils # (A) 3.8 k/uL (1.3-7.7); Neutrophils % (A) 69 %; RBC 2.31 m/uL (4.30-5.90); RDW 15.9 % (11.5-15.5); WBC 5.5 k/uL (3.8-10.6)
[2018-04-05 10:42] LABS: Platelet Count 98 k/uL (150-450)
--- NOTE | 2018-04-05 11:32 | P.DS ---
Providers Date of admission: 04/01/18 20:53 Expected date of discharge: 04/05/18 Attending physician: Good Rankin Consults: 04/01/18 20:53 Consult Physician Urgent Consulting Provider: Siddhartha Eisenberg Consult Reason/Comments: Clavicle fracture Do you want consulting provider notified?: Yes 04/01/18 21:59 Consult Physician Routine Consulting Provider: Jonathan Rudd Consult Reason/Comments: fracture, fall Do you want consulting provider notified?: Yes, Notify in am Primary care physician: [facility] Hospital Course: Final Diagnoses: = Fall and diffuse weakness with pain, possible acute rhabdomyolysis -Right clavicle fracture, left humeral neck comminuted fracture, slightly impacted, on conservative tx -Syncope, possible seizure or cardiac arrhythmia -History of alcohol abuse -History of nicotine dependence -Mild to moderate protein calorie malnutrition Hospital course: This a 62-year-old gentleman admitted with right clavicle fracture, left humeral neck comminuted fracture, slightly impacted, status post fall, possible rhabdomyolysis in a patient with history of alcohol abuse. Evaluated by a general surgery, orthopedic surgery with conservative management recommended. Maintained on on IV fluid hydration, CIWA protocol,pain management. Sling as recommended per orthopedic surgery. Significant clinical improvement. Cleared by all consults for discharge. Patient is being discharged to [facility] in a stable condition with guarded prognosis. Exam:GEN: Alert and oriented 3, no acute distress.CV: S1,S2, LUNGS: Bilateral bases diminished, occasional scattered rhonchi.ABDOMEN: Soft, nontender, positive bowel sounds.NERVOUS: No focal deficits. The impression and plan of care has been dictated as directed. : I performed a history and examination of this patient, discussed the same with the dictator. I agree with the dictator's note ,documented as a scribe. Any additional findings or plans will be noted. Time taken: 35 minutes Patient Condition at Discharge: Stable Plan - Discharge Summary New Discharge Prescriptions: New Folic Acid 1 mg PO DAILY@1200 tab Multivitamins, Thera [Multivitamin (formulary)] 1 each PO DAILY@1200 tab Pantoprazole [Protonix] 40 mg PO AC-BRKFST tablet. Thiamine [Vitamin B-1] 100 mg PO DAILY@1200 tab LORazepam [Ativan] 1 mg PO TID PRN 3 Days #9 tab PRN Reason: Anxiety Continue Albuterol Sulfate [Proventil Hfa] 1 puff INHALATION RT-Q4H PRN PRN Reason: Shortness Of Breath Spironolactone [Aldactone] 25 mg PO DAILY Albuterol Nebulized [Ventolin Nebulized] 2.5 mg INHALATION RT-Q6H PRN PRN Reason: Shortness Of Breath Hydrocodone/Acetaminophen [[place] 10-325] 2 tab PO TID PRN #18 tablet PRN Reason: pain Discontinued oxyCODONE HCL 20 mg PO BID Ciprofloxacin HCl [Cipro] 500 mg PO BID 3 Days #6 tab Discharge Medication List Albuterol Sulfate [Proventil Hfa] 1 puff INHALATION RT-Q4H PRN 05/30/14 [History ] Spironolactone [Aldactone] 25 mg PO DAILY 09/10/17 [History] Albuterol Nebulized [Ventolin Nebulized] 2.5 mg INHALATION RT-Q6H PRN 12/16/17 [ History] Folic Acid 1 mg PO DAILY@1200 tab 04/05/18 [Rx] Hydrocodone/Acetaminophen [[place] 10-325] 2 tab PO TID PRN #18 tablet 04/05/18 [ Rx] LORazepam [Ativan] 1 mg PO TID PRN 3 Days #9 tab 04/05/18 [Rx] Multivitamins, Thera [Multivitamin (formulary)] 1 each PO DAILY@1200 tab [Rx] Pantoprazole [Protonix] 40 mg PO AC-BRKFST tablet. 04/05/18 [Rx] Thiamine [Vitamin B-1] 100 mg PO DAILY@1200 tab 04/05/18 [Rx] Follow up Appointment(s)/Referral(s): Long Rm PAC [PHYSICIAN ANESTHESIA ATTENDING] - 1 Week [facility],Clinic [Primary Care Provider] - 3 Days Patient Instructions/Handouts: Clavicle Fracture (DC), Arm Fracture in Adults ( DC) Activity/Diet/Wound Care/Special Instructions: Medi PH Diet: Cardiac Activity: As tolerated CBC, BMP in 3 days Maintain sling as recommended per orthopedic surgery
[2018-04-05] MEDS: ALBUTEROL NEBULIZED 2.5 MG/3 ML INHALATION PRN (11:56)
[2018-04-05] MEDS: MULTIVITAMINS, THERA 1 EACH TAB PO SCH (12:06)
[2018-04-05] MEDS: THIAMINE 100 MG TAB PO SCH (12:06)
[2018-04-05] MEDS: FOLIC ACID 1 MG TAB PO SCH (12:06)
[2018-04-05 17:03] VITALS: BP 117/57; PULSE 102; TEMP 98.7
== END 2018-04-05 17:09 | DRG 558 ==
LOC: EC 16:29 → 3SCARD 20:53 → 4MS4W 04-04 18:46
PROVIDERS: ADMIT Hospitalist; ATTEND Hospitalist
DX: M62.82 Rhabdomyolysis (principal); E44.0 Moderate protein-calorie malnutrition; R64 Cachexia; R56.9 Unspecified convulsions; M48.02 Spinal stenosis, cervical region; Z93.6 Other artificial openings of urinary tract status; C67.9 Malignant neoplasm of bladder, unspecified; F17.200 Nicotine dependence, unspecified, uncomplicated; G89.29 Other chronic pain; J44.9 Chronic obstructive pulmonary disease, unspecified; R79.1 Abnormal coagulation profile; M47.812 Spondylosis without myelopathy or radiculopathy, cervical region; M50.30 Other cervical disc degeneration, unspecified cervical region; B19.20 Unspecified viral hepatitis C without hepatic coma; F41.9 Anxiety disorder, unspecified; M19.90 Unspecified osteoarthritis, unspecified site; R26.2 Difficulty in walking, not elsewhere classified; R55 Syncope and collapse; S42.031A Displaced fracture of lateral end of right clavicle, initial encounter for closed fracture; T14.8XXA Other injury of unspecified body region, initial encounter; I49.9 Cardiac arrhythmia, unspecified; F10.10 Alcohol abuse, uncomplicated; Z90.49 Acquired absence of other specified parts of digestive tract; Z85.3 Personal history of malignant neoplasm of breast; Z85.038 Personal history of other malignant neoplasm of large intestine; Z85.46 Personal history of malignant neoplasm of prostate; Z87.440 Personal history of urinary (tract) infections; Z79.891 Long term (current) use of opiate analgesic; Z79.899 Other long term (current) drug therapy; Z88.8 Allergy status to other drugs, medicaments and biological substances; Z80.1 Family history of malignant neoplasm of trachea, bronchus and lung; W18.11XA Fall from or off toilet without subsequent striking against object, initial encounter; Y92.9 Unspecified place or not applicable
CPT/HCPCS: 36415; 70450; 71046; 71275; 72125; 72170; 80048; 80053; 81001; 82550; 82553; 83605; 85025; 85379; 85610; 85730; 93005; 94640; 96361; 96374; 96375; 99285

== ENCOUNTER 2018-08-30 11:09 | Day surgery (SDC) | payer MEDICARE, OTHER ==
[2018-08-26 14:29] VITALS: BMI 19.1
[~2018-08-30 11:09] MED LIST: LACTATED RINGERS 1,000 ML IV SCH; LIDOCAINE 1% 20 ML VIAL (10MG/ML) FOR IV START INTRADERMA PRN
[2018-08-30 11:25] VITALS: RESP 16; TEMP 97.4
[2018-08-30] MEDS ORDERED: LIDOCAINE 1% INJ 10MG/ML (20 ML MDV) ONE (12:08)
[2018-08-30] MEDS ORDERED: PROPOFOL 10 MG/ML 20 ML VIAL IV ONE (12:08)
--- NOTE | 2018-08-30 12:46 | P.PCN ---
Date of Procedure: 08/30/18 Description of Procedure: BRIEF HISTORY: Patient is a 62-year-old pleasant male scheduled for an elective colonoscopy as a part of surveillance after history of colon cancer. The patient reports being diagnosed with colon cancer in 2003 requiring surgical intervention. He denies any chemotherapy or radiation therapy. He reports frequent follow-up after initial diagnosis. Last colonoscopy was 3 years ago per the patient's report a normal. He denies any change in bowel habits, blood per rectum or other worrisome signs or symptoms. PROCEDURE PERFORMED: Colonoscopy. PREOPERATIVE DIAGNOSIS: History of colon cancer, last colonoscopy 3 years ago. ESTIMATED BLOOD LOSS: Minimal. IV sedation per Anesthesia. PROCEDURE: After informed consent was obtained, the patient, was brought into the endoscopy unit. IV sedation was administered by Anesthesia under continuous monitoring. Digital rectal examination was normal. Initially the Olympus CF-190 flexible video colonoscope was then inserted in the rectum, gradually advanced into the cecum without any difficulty. Careful examination was performed as the scope was gradually being withdrawn. Ileocecal valve and the appendiceal orifice were visualized and appeared normal. Prep was excellent. Mucosa of the visualized colon appeared normal with anastomotic site from previous colonic resection not noted. There was mild scattered diverticulosis. Mild internal hemorrhoids. Retroflexion was performed in the rectum and no lesions were seen. The patient tolerated the procedure well. IMPRESSION: Mild scattered diverticulosis. Mild internal hemorrhoids. Normal-appearing colon, status post bowel resection. 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 Okay to resume a high-fiber diet. Would recommend repeat colonoscopy in 5 years given personal history of colon cancer or sooner if any worrisome signs or symptoms develop.
[2018-08-30 12:59] VITALS: BP 118/68; PULSE 68
== END 2018-08-30 13:24 | disposition home or self-care (01) ==
LOC: ORWHC2ENDO 11:09
PROVIDERS: ATTEND Internal Medicine
DX: Z12.11 Encounter for screening for malignant neoplasm of colon (principal); K57.90 Diverticulosis of intestine, part unspecified, without perforation or abscess without bleeding; K64.8 Other hemorrhoids; Z85.038 Personal history of other malignant neoplasm of large intestine; J44.9 Chronic obstructive pulmonary disease, unspecified; F17.200 Nicotine dependence, unspecified, uncomplicated; Z85.51 Personal history of malignant neoplasm of bladder; M19.90 Unspecified osteoarthritis, unspecified site; F41.9 Anxiety disorder, unspecified; Z86.19 Personal history of other infectious and parasitic diseases; Z79.891 Long term (current) use of opiate analgesic; Z79.899 Other long term (current) drug therapy; Z88.8 Allergy status to other drugs, medicaments and biological substances
CPT/HCPCS: G0105; J2001; J2704; 45378

== ENCOUNTER → 2018-09-21 | Outpatient (CLI) | payer OTHER ==
--- NOTE | 2018-09-21 09:01 | US ---
"EXAMINATION TYPE: US abdomen complete DATE OF EXAM: 09/21/2018 COMPARISON: CT & US CLINICAL HISTORY: K70.31 Alcoholic cirrhosis of liver with ascites. Alcoholic cirrhosis, history of c olon and prostate CA EXAM MEASUREMENTS: Liver Length: 17.8 cm Gallbladder Wall: 0.3 cm CBD: 1.2 cm Spleen: 10.4 cm Right Kidney: 11.2 x 3.5 x 5.0 cm Left Kidney: 10.1 x 4.9 x 4.7 cm Pancreas: Dilated pancreatic duct Liver: Cyst left lobe= 4.2 x 3.8 x 5.1 cm, cyst right lobe= 1.6 x 1.0 x 1.4 cm, possible solid lesio n anterior to GB= 2.3 x 1.6 x 2.6 cm, WOOD and PV flow hepatopedal Gallbladder: Unremarkable Evidence for sonographic Sethi's sign: No CBD: Dilated Spleen: wnl Right Kidney: wnl Left Kidney: Medial cyst= 1.8 x 1.2 x 1.7 cm Upper IVC: wnl Abd Aorta: Extensive wall calcifications, extensive eccentric soft plaque within distal aorta during the lumen approximately 60% IMPRESSION: 1. Approximately 60% luminal narrowing by what appears to be eccentric soft plaque within the heavily calcified distal abdominal aorta. This could be further assessed with CTA abdomen pelvis. 2. Dilated common bile duct appears to be present on the prior and could simply represent a choledoch ocyst, however there is dilation of the main pancreatic duct and therefore three-phase CT abdomen is recommended to exclude obstructing pancreatic head neoplasm. 3. Hypoechoic 2.3 cm lesion within the right hepatic lobe in segment IVb. This could represent focal fatty sparing as the remainder liver appears to display mild degree hepatic steatosis, although could also be assessed with the above recommended CT as there is a history of colon carcinoma and metastas is is possible. 4. Incidentally noted simple appearing hepatic cysts measuring up to 5.1 cm and benign-appearing left renal cyst measuring 1.8 cm. A Yellow level critical message alert has been initiated for SONALI Jefferson via the [employer] | Critical Results System on 09/21/2018 8:54 AM. This message alert has been sent to SONALI Jefferson via the preferences provided by the clinician for the receipt of Radiology Critical Findings. Message ID [id number]."
== END | disposition home or self-care (01) ==
LOC: RADUSWWP 07:35
PROVIDERS: ATTEND Internal Medicine
DX: I70.0 Atherosclerosis of aorta (principal); K83.8 Other specified diseases of biliary tract; K70.31 Alcoholic cirrhosis of liver with ascites
CPT/HCPCS: 76700

== ENCOUNTER → 2018-09-21 | Outpatient (CLI) | payer OTHER | END | disposition home or self-care (01) | LOC: RADXRMAIN 10:56 | PROVIDERS: ATTEND Otolaryngology Otolaryngic Allergy | DX: Z53.9 Procedure and treatment not carried out, unspecified reason (principal) ==

== ENCOUNTER → 2018-09-22 | Outpatient (CLI) | payer OTHER ==
--- NOTE | 2018-09-22 10:20 | FL ---
EXAMINATION TYPE: FL esophagus cervic/pharynx DATE OF EXAM: 09/22/2018 HISTORY: Chronic laryngitis COMPARISON: NONE TECHNIQUE: A single contrast esophagram is performed barium. 25 images and 0.4 minutes of fluorosco py utilized FINDINGS: The esophagus shows normal motility and emptying into the stomach. No evidence of hiatal hernia or s tricture noted. No significant gastroesophageal reflux was seen during real time performance of this study. IMPRESSION: No significant abnormality is seen to account for patient's symptoms.
== END | disposition home or self-care (01) ==
LOC: RADFLMAIN 08:00
PROVIDERS: ATTEND Otolaryngology Otolaryngic Allergy
DX: J37.0 Chronic laryngitis (principal)
CPT/HCPCS: 74210

== ENCOUNTER → 2018-10-08 | Outpatient (CLI) | payer OTHER ==
--- NOTE | 2018-10-08 16:18 | CT ---
EXAMINATION TYPE: CT abdomen pelvis wo/w con DATE OF EXAM: 10/08/2018 COMPARISON: CT abdomen 09/10/2017 HISTORY: Abnormal US. CT DLP: 650.3 mGycm Automated exposure control for dose reduction was used. TECHNIQUE: Helical acquisition of images was performed from the lung bases through the pelvis. CONTRAST: Performed with Oral Contrast and without and with IV Contrast, patient injected with 100 mL of Isovue 370. FINDINGS: Lung bases are clear of consolidation. There is mild pulmonary emphysema. There is no pleural effusio n. There are multiple hepatic cysts. The largest is in the left lobe of the liver and measures 4.6 cm. Gallbladder appears normal. There is large common bile duct that measures 11 mm. Intrahepatic bile du cts are not dilated. Spleen is intact. Stomach is intact. There is no evidence of pancreatic mass. Abdominal aorta is atheromatous. There is no adrenal mass. Kidneys show satisfactory contrast opacifi cation. There is no hydronephrosis. There is no retroperitoneal adenopathy. There is no ascites. Ther e is right lower quadrant ileal conduit. There are surgical multiple clips in the pelvis. There is co ntrast in the large bowel. I see no definite sign of bowel obstruction. There is fecal material down to the rectum. The graft urinary bladder is absent. There is no inguinal hernia. There is no ascites or free air. There is no sign of mesenteric edema. There is probably some scrotal fluid on the left s lolis that could be a hydrocele there is not completely evaluated. Lumbar vertebra have normal alignment. There is no compression fracture. I see no focal bone destruct ion. Bony pelvis is intact. IMPRESSION: PREVIOUS INTESTINAL SURGERY. ILEAL CONDUIT. NO RENAL MASS OR OBSTRUCTION. CYSTECTOMY. NO CHANGE CORWIN RED TO OLD EXAM. Hepatic cysts unchanged.
--- NOTE | 2018-10-08 17:13 | CT ---
EXAMINATION TYPE: CT angio abdomen pelvis DATE OF EXAM: 10/08/2018 10:44 AM COMPARISON: HISTORY: Abnormal US. CT DLP: 650.3 mGycm Automated exposure control for dose reduction was used. TECHNIQUE: Performed with IV Contrast, patient injected with 100 mL of Isovue 370. . Multiple axial sections were obtained from the diaphragm to the floor the pelvis with intravenous c ontrast. There are 3-D post processed images. FINDINGS: There is extensive atherosclerotic calcification in the abdominal aorta. There is patency of the rahat ac artery and superior mesenteric artery. There is bilateral patency of the renal arteries. There is plaque formation and up to 50% stenosis of the left iliac artery. There is similar less severe plaque on the right side and also up to 50% stenosis right iliac artery. There is bilateral arterial flow i n the internal and external iliac arteries. There is bilateral patency of the femoral arteries. I see no evidence of hemodynamic stenosis. There is no evidence of abdominal aortic aneurysm or dissection . There is normal contrast opacification of the kidneys and inferior vena cava. There is normal contr ast opacification of the portal venous system. There is suboptimal contrast density in the arteries. There is retained fecal material in the rectum. There are multiple surgical clips in the pelvis. Ther e is ileal conduit. IMPRESSION: Atherosclerotic vascular disease. There is up to 50% stenosis of the iliac arteries. Suboptimal exam. No evidence of hemodynamic stenosis. No aortic aneurysm. Rectal fecal impaction. IMPRESSION:
== END | disposition home or self-care (01) ==
LOC: RADCTMAIN 08:12
PROVIDERS: ATTEND Physician Assistant
DX: K76.89 Other specified diseases of liver (principal); I70.0 Atherosclerosis of aorta; I70.8 Atherosclerosis of other arteries; K56.41 Fecal impaction; Z88.8 Allergy status to other drugs, medicaments and biological substances
CPT/HCPCS: 74178; 74174; Q9967

== ENCOUNTER → 2018-10-15 | Outpatient (CLI) | payer OTHER ==
--- NOTE | 2018-10-16 15:14 | MR ---
EXAMINATION TYPE: MR shoulder LT wo con DATE OF EXAM: 10/15/2018 COMPARISON: Radiograph 10/04/2018 HISTORY: Left shoulder pain, fell TECHNIQUE: Multiplanar, multisequence imaging of the left shoulder is performed without contrast. FINDINGS: Avascular necrosis of the humeral head without articular surface collapse. There is a 14 x 13 mm TR b y AP osteochondral fragment positioned along the superior medial margin of the humeral head articular surface, approximately 2.2 cm from its donor site at the superior and lateral margin of the humeral head articular surface, also involving the medial aspect of the greater tuberosity foot plate. This i s not discretely attached to the supraspinatus fibers however insertional supraspinatus fibers cover and partially fill the donor site, contributing to low-grade articular surface insertional tear. Minimal subacromial/subdeltoid bursal fluid. Thickened and increased signal within the supraspinatus and subscapularis tendon fibers compatible with tendinosis. No high-grade or full-thickness rotator c uff tear. Surrounding shoulder girdle musculature within normal limits. [id number] tendinosis of the long head biceps tendon, otherwise intact. Combination of ill-defined tearing and fraying of the superior through posterior superior glenoid lab rum. Capsular ligaments are intact. Partial-thickness cartilage loss of the humeral head cartilage wi thout full-thickness defect. Inferior medial humeral head osteophyte. Small glenohumeral joint effusi on, the complexity of which in the axillary recess suggests a component of synovitis. Mild acromioclavicular joint hypertrophy. Curved acromial undersurface. IMPRESSION: 1. Displaced osteochondral fracture emanating from the superior and lateral humeral head articular lee rface, partially involving the greater tuberosity foot plate. This is not distinctly attached to supr aspinatus fibers however insertional fibers cover the osseous donor site due to shallow articular alverto ed partial tear. 2. Humeral head avascular necrosis without articular surface collapse. Moderate degenerative changes at the glenohumeral joint. Associated superior through posterior superior degenerative labral tearing . 3. Mild subacromial/subdeltoid bursitis. Supraspinatus and subscapularis tendinosis. No high-grade or full-thickness rotator cuff tear. 4. Mild to moderate tendinosis of the long head biceps tendon. 5. Small glenohumeral joint effusion with synovitis.
== END | disposition home or self-care (01) ==
LOC: RADMRIMAIN 12:44
PROVIDERS: ATTEND Orthopaedic Surgery
DX: S42.292A Other displaced fracture of upper end of left humerus, initial encounter for closed fracture (principal); M87.822 Other osteonecrosis, left humerus; M21.922 Unspecified acquired deformity of left upper arm; M67.89 Other specified disorders of synovium and tendon, multiple sites; M25.412 Effusion, left shoulder; M65.88 Other synovitis and tenosynovitis, other site

== ENCOUNTER 2018-11-10 10:15 | Day surgery (SDC) | payer OTHER ==
[2018-11-08 11:23] VITALS: BMI 16.9
--- NOTE | 2018-11-09 19:59 | HP ---
HISTORY AND PHYSICAL DATE OF SURGERY: 11/10/2018 Hang Miranda is a 62-year-old patient seen with progressive left shoulder pain. We discussed options for treatment. He elected to proceed with left shoulder arthroscopy. Consent was obtained. Preoperative medical clearance was provided. PAST MEDICAL HISTORY: 1. Asthma. 2. Depression. PAST SURGICAL HISTORY: Urostomy. DAILY MEDICATIONS: 1. [place]. 2. Spironolactone. ALLERGIES: 1. MECLIZINE. 2. NEURONTIN. SOCIAL HISTORY: He smokes one pack of cigarettes daily. PHYSICAL EVALUATION OF THE LEFT SHOULDER: Flexion is 40 degrees. Abduction is 30 degrees. External rotation is 20 degrees with some weakness. Tenderness along the anterolateral acromion rotator cuff insertion site. Impingement sign is positive at 90 degrees. Drop-arm sign positive. Distal neurovascular exam intact. IMAGING: X-rays of the left shoulder revealed a previous well-healed fracture. MRI of the left shoulder revealed osteochondral fragment, labral tear, long head biceps tendinosis and early avascular necrosis of the humeral head. IMPRESSION: 1. Left shoulder impingement with possible rotator cuff tear, labral tear, loose body. 2. Chronic opioid use. 3. Tobacco use. PLAN: Left shoulder arthroscopy with probable removal of loose body, possible arthroscopic rotator cuff repair, possible biceps tenotomy and debridement. MMODL / IJN: [id number] /
[~2018-11-10 10:15] MED LIST changes: +DEXAMETHASONE SOD PHOSPHATE 10 MG/ML 1 ML VIAL IV ONE; +HYDROmorphone 0.5 MG/0.5 ML SYRINGE IVP PRN; +MIDAZOLAM 2 MG/2 ML VIAL IV PRN; +ONDANSETRON 4 MG/2 ML VIAL IVP ONE; +fentaNYL (PF) 50 MCG/ML 2 ML AMP IV PRN
[2018-11-10] MEDS ORDERED: ROPIVACAINE 5 MG/ML 30 ML VIAL ONE (11:25)
[2018-11-10] MEDS ORDERED: SUCCINYLCHOLINE CHLORIDE 100 MG/5 ML SYR IV ONE (11:25)
[2018-11-10] MEDS ORDERED: LIDOCAINE 1% INJ 10MG/ML (20 ML MDV) ONE (11:25)
[2018-11-10] MEDS ORDERED: ePHEDrine SULFATE/0.9% NACL/PF 50 MG/5 ML SYRINGE IV ONE (11:25)
[2018-11-10] MEDS ORDERED: DEXAMETHASONE SOD PHOSPHATE 4 MG/ML 1 ML VIAL ONE (11:25)
[2018-11-10] MEDS ORDERED: PHENYLEPHRINE-0.9% NACL SYG 1 MG/10 ML SYRINGE ONE (11:25)
[2018-11-10] MEDS ORDERED: MIDAZOLAM 2 MG/2 ML VIAL ONE (11:25)
[2018-11-10] MEDS ORDERED: PROPOFOL 10 MG/ML 20 ML VIAL IV ONE (11:25)
[2018-11-10] MEDS ORDERED: fentaNYL (PF) 50 MCG/ML 2 ML AMP ONE (11:25)
[2018-11-10] MEDS ORDERED: LACTATED RINGERS 1,000 ML IV ONE (12:53)
--- NOTE | 2018-11-10 13:09 | P.OP ---
Date of Procedure: 11/10/18 Preoperative Diagnosis: Left shoulder impingement Postoperative Diagnosis: 1. Left shoulder impingement 2. Left shoulder acromioclavicular joint osteoarthritis 3. Left shoulder partial long head biceps tendon tear 4. Left shoulder superficial partial rotator cuff tea Procedure(s) Performed: 1. Left shoulder arthroscopic subacromial decompression 2. Left shoulder arthroscopic Karlene procedure 3. Left shoulder arthroscopic biceps tenotomy 4. Left shoulder arthroscopic debridement superficial rotator cuff tear Anesthesia: GETA, regional (Interscalene block) Surgeon: Siddhartha Eisenberg Estimated Blood Loss (ml): 5 Pathology: none sent Condition: stable Disposition: PACU Indications for Procedure: 62-year-old patient seen with progressive left shoulder pain. After treatment options were discussed, he elected to proceed with arthroscopy. Operative Findings: See description of procedure Description of Procedure: Patient underwent an interscalene block by department of anesthesia for postoperative pain management. The patient was then taken to the operative suite. The patient underwent a general anesthetic by the department of anesthesia. The patient was placed into a lateral position and secured. There was appropriate padding of the bony prominence. Left shoulder was then prepped and draped in normal sterile orthopedic fashion. We placed the extremity in 10 pounds of longitudinal traction. A posterior incision was now made for a posterior working portal site. The trocar and cannula were inserted into the glenohumeral joint. Arthroscopy was initiated. Spinal needle was now inserted anteriorly, to ascertain the anterior working portal site. An incision was now made in that area, a trocar was inserted followed by a probe. There was partial tearing hyperemia long head biceps tendon. The labrum was probed and found to be stable. There were some grade 1 chondromalacia changes of both the humeral head and glenoid fossa with no evidence for any osteochondral tearing. No loose bodies were identified. I could not visualize rotator cuff tear from glenohumeral side. I performed an arthroscopic biceps tenotomy. The superior labrum was again probed and found to be stable. I again thoroughly explored the glenohumeral joint and did not find any loose bodies. At this point instruments removed from the glenohumeral joint. Utilizing the posterior working portal site, the trocar and cannula were inserted into the subacromial space. Arthroscopy initiated. I made an incision 2 fingerbreadths lateral to the acromion. I introduced my trocar followed by my [employer] ablator. I now began ablating thick subacromial bursal tissue, which exposed the undersurface of the anterior acromion. There was diminished subacromial space. There was a very prominent anterior acromion. A motorized bur was introduced and a subacromial decompression was performed. I also excised some osteophytes off the inferior aspect of the distal clavicle. The AC joint was visualized and noted to be fairly arthritic. The motorized bur was introduced in the anterior portal site and a Karlene procedure was performed without difficulty, decompressing the AC joint nicely. I turned my attention to the rotator cuff tendon. There was some superficial fraying along the distal supraspinatus area. I debrided that area utilizing motorized bur. This incorporated approximately 10-15% of the superficial tendon tissue. I thoroughly probed the area and found no tear or perforation. I injected 1cc Renyte intra-articular. Instruments now removed from the portal sites. All portal sites were approximated with nylon suture. Sterile dressings were applied followed by a shoulder sling. The patient was awakened, transferred to a bed, and taken to recovery in stable condition.
[2018-11-10 13:13] VITALS: TEMP 99
[2018-11-10 14:10] VITALS: RESP 18
[2018-11-10 15:10] VITALS: BP 160/78; PULSE 86
--- NOTE | 2018-11-10 21:10 | P.ANPRN ---
Procedure Note - Anesthesia - Nerve Block Performed Left Interscalene Single Time Out Performed: Yes Date of Procedure: 11/10/18 Procedure Start Time: 10:48 Procedure Stop Time: 10:51 Location of Patient Procedure: PreOp Indication: Acute Post-Operative Pain, Requested by Surgeon Sedation Type: Sedate with meaningful contact maintained Preparation: Sterile Prep Position: Supine Needle Types: Pajunk Needle Gauge: 21 Ultrasound used to visualize needle placement: Yes Ultrasound used to observe medication spread: Yes Blood Aspirated: No Pain Paresthesia on Injection Noted: No Resistance on Injection: Normal Image Stored and Saved: Yes Events: Uneventful and Well Tolerated (ropi .5% 20cc plus dexamethasone 4mg)
== END 2018-11-10 15:14 | disposition home or self-care (01) ==
LOC: OR 10:15
PROVIDERS: ATTEND Orthopaedic Surgery
DX: M19.012 Primary osteoarthritis, left shoulder (principal); M75.112 Incomplete rotator cuff tear or rupture of left shoulder, not specified as traumatic; M75.42 Impingement syndrome of left shoulder; S46.112A Strain of muscle, fascia and tendon of long head of biceps, left arm, initial encounter; M94.212 Chondromalacia, left shoulder; J44.9 Chronic obstructive pulmonary disease, unspecified; B19.20 Unspecified viral hepatitis C without hepatic coma; F32.9 Major depressive disorder, single episode, unspecified; F17.210 Nicotine dependence, cigarettes, uncomplicated; Z79.891 Long term (current) use of opiate analgesic; Z79.899 Other long term (current) drug therapy; Z88.8 Allergy status to other drugs, medicaments and biological substances; Z85.46 Personal history of malignant neoplasm of prostate; Z85.51 Personal history of malignant neoplasm of bladder; Z85.038 Personal history of other malignant neoplasm of large intestine; Z98.890 Other specified postprocedural states; Z90.49 Acquired absence of other specified parts of digestive tract; Z90.79 Acquired absence of other genital organ(s); X58.XXXA Exposure to other specified factors, initial encounter
CPT/HCPCS: 64415; 76942; 29824; 29826; C1765; J2250; J1100 ×2; J2405; J0690; J2001; J3010; J2795; J2370; J0330; J2704

== ENCOUNTER → 2018-11-15 | Outpatient (CLI) | payer OTHER ==
[2018-11-15 11:27] LABS: HCT 38.9 % (39.0-53.0); HGB 13.2 gm/dL (13.0-17.5); MCH 32.2 pg (25.0-35.0); MCHC 33.8 g/dL (31.0-37.0); MCV 95.3 fL (80.0-100.0); Mean Platelet Volume 5.7; Platelet Count 237 k/uL (150-450); RBC 4.08 m/uL (4.30-5.90); RDW 13.5 % (11.5-15.5); WBC 6.8 k/uL (3.8-10.6)
[2018-11-15 11:43] LABS: INR 1.1 (<1.2); Prothrombin Time 11.2 sec (9.0-12.0)
[2018-11-15 18:01] LABS: Alpha Fetoprotein, Tumor Mkr <2.5 ng/mL (0.0-7.9)
[2018-11-15 18:03] LABS: African American GFR (CKD) 110.2 (60.0-200.0); Albumin 4.5 g/dL (3.80-4.90); Albumin/Globulin Ratio 1.61 (1.60-3.17); Anion Gap 7.8 mmol/L (4.00-12.00); BUN/Creat Ratio 16.25 Ratio (12.00-20.00); Calcium 9.8 mg/dL (8.7-10.3); Carbon Dioxide 27.2 mmol/L (21.6-31.8); Globulin 2.8 g/dL (1.6-3.3); Potassium 4.3 mmol/L (3.5-5.5); Total Bilirubin 0.7 mg/dL (0.3-1.2); Total Protein 7.3 g/dL (6.2-8.2)
[2018-11-15 18:08] LABS: Cancer Antigen 19-9 17.2 U/mL (0.0-34.9)
== END | disposition home or self-care (01) ==
LOC: LABWHC1 10:45
PROVIDERS: ATTEND Internal Medicine
DX: K70.31 Alcoholic cirrhosis of liver with ascites (principal)
CPT/HCPCS: 36415; 80053; 82105; 85027; 85610; 86301

== ENCOUNTER → 2018-12-14 | Outpatient (CLI) | payer OTHER ==
--- NOTE | 2018-12-14 09:40 | US ---
EXAMINATION TYPE: US scrotum with doppler. Grayscale and color Doppler Duplex imaging performed of shabana cao scrotum. DATE OF EXAM: 12/14/2018 COMPARISON: NONE CLINICAL HISTORY: SWELLING, DISCOMFORT. Edema left testicle for 2 years, tenderness left testicle EXAM MEASUREMENTS: TESTICLES: Right Testicle: 4.5 x 1.6 x 3.0 cm Left Testicle: 5.0 x 2.0 x 2.8cm cm EPIDIDYMIS HEAD: Right Epididymis: 0.9 cm Left Epididymis: 1.2 cm Doppler performed to assess for testicular vascularity; good bilateral color flow and waveforms are s een. There is no evidence of testicular torsion. Presence of hydroceles: yes, medial to right testicle = 3.0cm and large fluid collection on the left = 7.0 x 4.5 x 6.7cm IMPRESSION: Large left hydrocele with few questionable thin internal septations versus artifact. Smal l right hydrocele is also seen.
== END | disposition home or self-care (01) ==
LOC: RADUSWWP 07:02
PROVIDERS: ATTEND Internal Medicine
DX: N43.3 Hydrocele, unspecified (principal)
CPT/HCPCS: 76870; 93975

== ENCOUNTER → 2018-12-14 | Outpatient (CLI) | payer OTHER ==
--- NOTE | 2018-12-14 09:00 | US ---
EXAMINATION TYPE: US abdomen complete DATE OF EXAM: 12/14/2018 COMPARISON: NONE CLINICAL HISTORY: K70.31 alcoholic cirrhosis of liver with ascites. Cirrhosis, abdominal pain, histor y of liver cysts EXAM MEASUREMENTS: Liver Length: 17.3 cm Gallbladder Wall: 0.2 cm CBD: 1.1 cm Spleen: 10.6 cm Right Kidney: 10.7 x 3.0 x 4.6 cm Left Kidney: 10.1 x 4.9 x 3.8 cm Pancreas: Dilated duct measuring at least 0.3cm Liver: cystic areas noted with largest = 3.9 x 4.1 x 4.3cm, possible solid area adjacent to GB as on prior exam = 2.1 x 1.8 x 1.7cm. portal vein flow appears hepatopetal Gallbladder: no evidence of stones Evidence for sonographic Sethi's sign: no CBD: dilated Spleen: wnl Right Kidney: no evidence of hydronephrosis Left Kidney: cystic area medial = 1.7 x 1.3 x 1.4cm Upper IVC: wnl Abd Aorta: distal aorta and bifurcation obscured by overlying bowel content IMPRESSION: 1. Dilated main pancreatic duct and dilated common bile duct both seen on the ultrasound of 09/21/[address] of 10/08/2018. MRCP with and without contrast or ERCP could further evaluate these findings. 2. Focal subtle hypoechoic lesion near the gallbladder fossa and segment IVb appears rounded within t he liver. Background hepatic heterogeneity is attributable to this patient's known hepatocellular dis ease/cirrhosis. MR abdomen with contrast (liver mass protocol) is recommended to exclude hepatoma. 3. Benign appearing Bosniak type I left renal cyst measuring 1.7 cm.
== END | disposition home or self-care (01) ==
LOC: RADUSWWP 07:04
PROVIDERS: ATTEND Internal Medicine
DX: N28.1 Cyst of kidney, acquired (principal); K86.89 Other specified diseases of pancreas; K83.8 Other specified diseases of biliary tract; K82.9 Disease of gallbladder, unspecified
CPT/HCPCS: 76700

== ENCOUNTER → 2019-08-03 | Outpatient (CLI) | payer OTHER ==
--- NOTE | 2019-08-03 11:53 | MR ---
EXAMINATION TYPE: MR knee LT wo con DATE OF EXAM: 08/03/2019 COMPARISON: Plain film 07/04/2019 HISTORY: Left Knee Pain - Chronic. Medial side of Knee, Around Kneecap and Knee does Lock up TECHNIQUE: Multiplanar, multisequence imaging of the left knee is performed without IV contrast. FINDINGS: MEDIAL MENISCUS: Minimal irregular increased signal present at the undersurface of the posterior horn the medial meniscus laterally seen on sagittal image #21 and 20 is questionable clinical significanc e, coronal image #22 shows some intrinsic increased signal towards the root anchor LATERAL MENISCUS: Anterior horn of the lateral meniscus shows abnormal increased signal which is some what diffuse, there may be mucoid degeneration, no clear communication with the articular surface. CRUCIATE LIGAMENTS: The anterior and posterior cruciate ligaments are intact and unremarkable. COLLATERAL LIGAMENTS: The medial collateral ligament and lateral collateral ligament complex are inta ct and unremarkable. EXTENSOR MECHANISM: Visualized quadriceps and patellar tendons are intact. EFFUSION: No significant suprapatellar joint effusion. POPLITEAL CYST: No popliteal/daswon cyst. TRICOMPARTMENT SPACES: Maintained CARTILAGE: Maintained, Thickening of the articular cartilage is present in the lateral compartment along the proximal tibia BONE MARROW SIGNAL: Medullary serpiginous peripheral low signal is noted on T1 and T2-weighted sequen jose with central mixed signal corresponding to the plain film findings and consistent with bone infar cts within the distal femur and proximal tibia metadiaphysis. OTHER: No additional significant abnormality is appreciated. IMPRESSION: Bone infarcts. Suspect some mucoid degeneration of the anterior horn of the lateral meniscus. Mild ir regularity of the posterior horn of the medial meniscus as described.
== END | disposition home or self-care (01) ==
LOC: RADMRIMAIN 09:09
PROVIDERS: ATTEND Orthopaedic Surgery
DX: M25.862 Other specified joint disorders, left knee (principal); M89.8X6 Other specified disorders of bone, lower leg

== ENCOUNTER → 2019-08-03 | Outpatient (CLI) | payer OTHER ==
[2019-08-03 10:31] LABS: HGB 14.4 gm/dL (13.0-17.5); MCH 32.4 pg (25.0-35.0); MCHC 32.6 g/dL (31.0-37.0); MCV 99.3 fL (80.0-100.0); Mean Platelet Volume 6.5; Platelet Count 250 k/uL (150-450); RBC 4.43 m/uL (4.30-5.90); RDW 12.7 % (11.5-15.5); WBC 7.3 k/uL (3.8-10.6)
[2019-08-03 17:48] LABS: African American GFR (CKD) 109.4 (60.0-200.0); Albumin 4.8 g/dL (3.80-4.90); Albumin/Globulin Ratio 1.66 (1.60-3.17); Anion Gap 6.6 mmol/L (4.00-12.00); BUN/Creat Ratio 8.75 Ratio (12.00-20.00); Calcium 9.4 mg/dL (8.7-10.3); Carbon Dioxide 28.4 mmol/L (21.6-31.8); Globulin 2.9 g/dL (1.6-3.3); Non-African American GFR(CKD) 94.4 (60.0-200.0); Potassium 4.1 mmol/L (3.5-5.5); Total Bilirubin 0.6 mg/dL (0.3-1.2); Total Protein 7.7 g/dL (6.2-8.2)
[2019-08-03 20:00] LABS: Alpha Fetoprotein, Tumor Mkr <2.5 ng/mL (0.0-7.9)
== END | disposition home or self-care (01) ==
LOC: LABWHC1 09:57
PROVIDERS: ATTEND Internal Medicine
DX: K70.31 Alcoholic cirrhosis of liver with ascites (principal)
CPT/HCPCS: 36415; 80053; 82105; 85027; 86301

== ENCOUNTER → 2019-08-17 | Outpatient (CLI) | payer OTHER ==
[2019-08-17 10:51] LABS: Basophils # (A) 0.1 k/uL (0-0.2); Basophils % (A) 1 %; Eosinophils # (A) 0.3 k/uL (0-0.7); Eosinophils % (A) 3 %; HCT 46.4 % (39.0-53.0); HGB 14.5 gm/dL (13.0-17.5); Lymphocytes # (A) 4.4 k/uL (1.0-4.8); Lymphocytes % (A) 52 %; MCH 31.5 pg (25.0-35.0); MCHC 31.3 g/dL (31.0-37.0); MCV 100.5 fL (80.0-100.0); Mean Platelet Volume 6.5; Monocytes # (A) 0.3 k/uL (0-1.0); Monocytes % (A) 4 %; Neutrophils # (A) 3.3 k/uL (1.3-7.7); Neutrophils % (A) 38 %; Platelet Count 279 k/uL (150-450); RBC 4.61 m/uL (4.30-5.90); RDW 12.9 % (11.5-15.5); WBC 8.6 k/uL (3.8-10.6)
[2019-08-17 11:01] LABS: Potassium 4.9 mmol/L (3.5-5.1)
== END | disposition home or self-care (01) ==
LOC: LABPAT 08:46
PROVIDERS: ATTEND Orthopaedic Surgery
DX: Z01.818 Encounter for other preprocedural examination (principal); M23.92 Unspecified internal derangement of left knee
CPT/HCPCS: 36415; 80051; 85025; 93005

== ENCOUNTER 2019-09-06 07:23 | Day surgery (SDC) | payer OTHER ==
[2019-09-04 13:29] VITALS: BMI 19.2
--- NOTE | 2019-09-05 16:19 | HP ---
HISTORY AND PHYSICAL DATE OF SURGERY: 09/06/2019 Hang Miranda is a 63-year-old patient seen with progressive left knee pain. We discussed options. He elected to proceed with arthroscopy. Consent was obtained. PAST MEDICAL HISTORY: Asthma, depression. PAST SURGICAL HISTORY: Left shoulder arthroscopy, urostomy. DAILY MEDICATIONS: [place], oxycodone, spironolactone. ALLERGIES: MECLIZINE, NEURONTIN. SOCIAL HISTORY: He smokes one pack of cigarettes daily. PHYSICAL EVALUATION OF THE LEFT KNEE: Range of motion is negative 5/6 to 125 degrees. There is a mild effusion present. He is tender along the medial joint line. Positive medial Mike's. He is tender on the lateral joint line with positive lateral Mike's. His ligaments are stable. Hip rotation is without pain. His distal neurovascular exam is intact. RADIOGRAPHS: Radiographs of the left knee revealed osteoarthritic changes. Left knee MRI revealed abnormal signals to the medial and lateral menisci. IMPRESSION: 1. Internal derangement of the left knee with meniscal tear. 2. Left knee osteoarthritis. 3. Tobacco use. 4. Chronic opioid use. PLAN: Left knee arthroscopy with partial meniscectomy, partial synovectomy and debridement. MMODL / IJN: [id number] /
[~2019-09-06 07:23] MED LIST changes: -HYDROmorphone 0.5 MG/0.5 ML SYRINGE IVP PRN; -LIDOCAINE 1% 20 ML VIAL (10MG/ML) FOR IV START INTRADERMA PRN; -MIDAZOLAM 2 MG/2 ML VIAL IV PRN; -fentaNYL (PF) 50 MCG/ML 2 ML AMP IV PRN
[2019-09-06] MEDS ORDERED: LIDOCAINE 1% (10MG/ML) FOR IV START INTRADERMA ONE (08:08)
[2019-09-06] MEDS ORDERED: ONDANSETRON 4 MG/2 ML VIAL ONE (08:13)
[2019-09-06 08:44] LABS: INR 1.3 (<1.2); Prothrombin Time 12.9 sec (9.0-12.0)
[2019-09-06 08:52] LABS: ALT 19 U/L (4-49); AST 25 U/L (17-59); African American GFR (CKD) >90 (>60 ml/min/1.73 sqM); Albumin 4.1 g/dL (3.5-5.0); Alkaline Phosphatase 100 U/L (38-126); Anion Gap 7 mmol/L; Blood Urea Nitrogen 8 mg/dL (9-20); Calcium 8.8 mg/dL (8.4-10.2); Carbon Dioxide 29 mmol/L (22-30); Chloride 101 mmol/L (98-107); Glucose 95 mg/dL (74-99); Non-African American GFR(CKD) >90 (>60 ml/min/1.73 sqM); Potassium 4.3 mmol/L (3.5-5.1); Sodium 137 mmol/L (137-145); Total Bilirubin 0.6 mg/dL (0.2-1.3); Total Protein 6.8 g/dL (6.3-8.2)
[2019-09-06] MEDS ORDERED: MIDAZOLAM 2 MG/2 ML VIAL ONE (09:07)
[2019-09-06] MEDS ORDERED: HYDROmorphone (PF) 1 MG/ML ONE (09:07)
[2019-09-06] MEDS ORDERED: LIDOCAINE 1% INJ 10MG/ML (20 ML MDV) ONE (09:07)
[2019-09-06] MEDS ORDERED: fentaNYL (PF) 50 MCG/ML 2 ML AMP ONE (09:07)
[2019-09-06] MEDS ORDERED: SUCCINYLCHOLINE CHLORIDE 100 MG/5 ML SYR IV ONE (09:07)
[2019-09-06] MEDS ORDERED: PROPOFOL 10 MG/ML 20 ML VIAL IV ONE (09:07)
[2019-09-06] MEDS ORDERED: BUPIVACAIN-EPI 0.25%-1:200,000 30 ML VIAL SQ ONE (09:32)
[2019-09-06] MEDS ORDERED: LACTATED RINGERS 1,000 ML IV ONE (09:34)
[2019-09-06 10:02] VITALS: TEMP 97.6
--- NOTE | 2019-09-06 10:08 | P.OP ---
Date of Procedure: 09/06/19 Preoperative Diagnosis: Internal derangement left knee Postoperative Diagnosis: 1. Tear medial meniscus left knee 2. Grade 2 chondromalacia patella left knee 3. Reactive synovitis medial, lateral and suprapatellar compartments left knee Procedure(s) Performed: 1. Arthroscopic partial medial meniscectomy left knee 2. Arthroscopic chondroplasty patella left knee 3. Arthroscopic partial synovectomy medial, lateral and suprapatellar compartments left knee Anesthesia: DARRYLA, local Surgeon: Siddhartha Eisenberg Estimated Blood Loss (ml): 7 Pathology: none sent Condition: stable Disposition: PACU Indications for Procedure: 63-year-old patient seen with progressive left knee pain. After treatment options were discussed, he elected to proceed with arthroscopy. Operative Findings: See description of procedure Description of Procedure: Patient was taken to the operative suite. Patient underwent a general anesthetic by the department of anesthesia. Patient was given preoperative antibiotics. The left lower extremity was placed in a well-padded arthroscopic leg vann. The left leg was prepped and draped in the normal sterile orthopedic fashion. A lateral parapatellar incision was made. Trochars were inserted. Arthroscopy was initiated. Suprapatellar pouch revealed diffuse thick reactive synovitis. The patellofemoral joint appeared articulate congruently. There was grade 2 chondromalacia of the patella with some osteochondral flap tears present. The scope was guided into the medial gutter. No loose bodies or plica were identified. The scope was then guided into the medial compartment. A medial parapatellar incision was made. Trocar inserted followed by probe. There was a radial tear at the junction of the posterior horn and midbody medial meniscus. There was some mild grade 1 chondromalacia changes. There was thick reactive synovitis anteriorly. I performed a partial medial meniscectomy. I performed a partial synovectomy. The residual meniscus was probed and found to be stable. There was good decompression of the synovitis. Scope and probe were then guided into the intercondylar notch. Cruciates were identified, probed and found to be stable. The scope and probe were then guided into lateral compartment. Lateral meniscus was found to be stable. There was no significant chondromalacia. There was thick reactive synovitis anteriorly. I performed a partial synovectomy. Those good decompression of the synovitis. The scope was in guided back into the suprapatellar compartment. I introduced a motorized shaver into the suprapatellar compartment. I debrided some piecemeal fragments of meniscus I encountered. I performed a chondroplasty of the patella. I performed a partial synovectomy. Shaver was removed. The residual osteochondral surface of the patella was stable. There was good decompression of the synovitis. I took one more look on the entire knee, no residual debris. Instruments were now removed from the joint. The joint was infiltrated with .25% Marcaine. Steri-Strips were applied to the portal sites. Sterile dressings were applied. The patient was placed into a OH hose. No tourniquet was utilized. The patient was awakened, transferred to a bed and taken to recovery stable satisfactory condition.
[2019-09-06] MEDS: HYDROmorphone 0.5 MG/0.5 ML SYRINGE IVP PRN ×2 (10:13→10:18)
[2019-09-06 10:15] VITALS: RESP 16
[2019-09-06 10:51] VITALS: BP 126/70; PULSE 86
== END 2019-09-06 11:27 | disposition home or self-care (01) ==
LOC: OR 07:23
PROVIDERS: ATTEND Orthopaedic Surgery
DX: M23.222 Derangement of posterior horn of medial meniscus due to old tear or injury, left knee (principal); M22.42 Chondromalacia patellae, left knee; M65.862 Other synovitis and tenosynovitis, left lower leg; F32.9 Major depressive disorder, single episode, unspecified; J45.909 Unspecified asthma, uncomplicated; M17.12 Unilateral primary osteoarthritis, left knee; F17.210 Nicotine dependence, cigarettes, uncomplicated; Z88.8 Allergy status to other drugs, medicaments and biological substances; Z79.891 Long term (current) use of opiate analgesic; Z79.899 Other long term (current) drug therapy
CPT/HCPCS: 29881; 80053; 85610; J2250; J1100; J0690; J2405; J2001; J3010; J1170 ×2; J0330; J2704

== ENCOUNTER → 2019-10-05 | Outpatient (CLI) | payer OTHER ==
--- NOTE | 2019-10-05 10:13 | US ---
EXAMINATION TYPE: US abdomen complete DATE OF EXAM: 10/05/2019 COMPARISON: US 2019 CLINICAL HISTORY: K70.31 Alcoholic cirrhosis of liver with ascites. EXAM MEASUREMENTS: Liver Length: 16.2 cm Gallbladder Wall: 0.2 cm CBD: 1.3 cm Spleen: 10.0 cm Right Kidney: 10.2 x 4.7 x 4.7 cm Left Kidney: 9.7 x 5.1 x 4.5 cm Pancreas: duct seen measuring 0.5cm Liver: multiple cystic areas with largest measuring 2.7 x 3.4 x 3.8cm in left lobe, possible solid a josé seen adjacent to gallbladder as seen on prior exam measuring 2.0 x 1.6 x 1.6cm Gallbladder: low level echoes within posterior portion, wall measures wnl Evidence for sonographic Sethi's sign: no CBD: dilated Spleen: wnl Right Kidney: wnl Left Kidney: 1.7 x 1.3 x 1.3cm cystic area medial mid pole Upper IVC: wnl Abd Aorta: visualized portions wnl, limited by overlying midline bowel gas IMPRESSION: 1. Gallbladder contains low-level echoes suggestive of sludge in the common bile duct is dilated ashley uring 1.3 cm suggestive of a distal CBD obstruction. There also is mild dilation of the pancreatic du ct. Consider CT scan of the abdomen and pelvis. 2. Hypoechoic area within the liver adjacent to the gallbladder fossa. Suggestive of a solid lesion m easuring approximately 2 cm in stable. 3. Stable hepatic cyst. 4. Stable left renal cyst
[2019-10-05 10:27] LABS: HCT 46.3 % (39.0-53.0); HGB 14.9 gm/dL (13.0-17.5); MCH 33.5 pg (25.0-35.0); MCHC 32.1 g/dL (31.0-37.0); MCV 104.4 fL (80.0-100.0); Macrocytosis Moderate; Mean Platelet Volume 6.6; Platelet Count 308 k/uL (150-450); RBC 4.43 m/uL (4.30-5.90); RDW 14.2 % (11.5-15.5); WBC 7.8 k/uL (3.8-10.6)
[2019-10-05 10:35] LABS: ALT 17 U/L (4-49); AST 27 U/L (17-59); African American GFR (CKD) >90 (>60 ml/min/1.73 sqM); Albumin 4.9 g/dL (3.5-5.0); Alkaline Phosphatase 120 U/L (38-126); Anion Gap 11 mmol/L; Blood Urea Nitrogen 10 mg/dL (9-20); Carbon Dioxide 27 mmol/L (22-30); Chloride 103 mmol/L (98-107); Glucose 103 mg/dL (74-99); Non-African American GFR(CKD) >90 (>60 ml/min/1.73 sqM); Potassium 4.3 mmol/L (3.5-5.1); Sodium 141 mmol/L (137-145); Total Bilirubin 0.5 mg/dL (0.2-1.3); Total Protein 8.2 g/dL (6.3-8.2)
[2019-10-05 10:36] LABS: INR 1.2 (<1.2); Prothrombin Time 11.8 sec (9.0-12.0)
[2019-10-05 17:21] LABS: Cancer Antigen 19-9 16.2 U/mL (0.0-34.9)
[2019-10-05 17:55] LABS: Alpha Fetoprotein, Tumor Mkr <2.5 ng/mL (0.0-7.9)
== END | disposition home or self-care (01) ==
LOC: RADUSWWP 09:06
PROVIDERS: ATTEND Internal Medicine
DX: N28.1 Cyst of kidney, acquired (principal); K70.31 Alcoholic cirrhosis of liver with ascites; K76.89 Other specified diseases of liver
CPT/HCPCS: 76700; 80053; 82105; 85027; 85610; 86301

== ENCOUNTER → 2019-11-01 | Outpatient (CLI) | payer OTHER ==
--- NOTE | 2019-11-02 22:37 | CT ---
EXAMINATION TYPE: CT abdomen wo/w con DATE OF EXAM: 11/01/2019 COMPARISON: 10/08/2018 INDICATION: Obstruction of bile duct. DLP: 480.9 mGycm, Automated exposure control for dose reduction was used. CONTRAST: 100 mL of Isovue M300. Study performed with Oral Contrast TECHNIQUE: Axial images were obtained from above the diaphragm to the pubic rami in the axial plane a t 5 mm thick sections. Reconstructed images are reviewed on the computer in the coronal plane. FINDINGS: Limited CT sections are obtained the lung bases. The lung bases are clear. CT ABDOMEN: Liver: Several hepatic cysts are present. The largest in the left lobe liver measures 3.8 cm in 16 [place]. No intrahepatic biliary dilatation is evident. Some bile duct measures 1.1 cm which somewha t prominent for a patient of this age, normal less than 0.6 cm. Spleen: Normal Pancreas: Somewhat atrophic. The pancreatic duct at the body is somewhat prominent at 0.4 cm. Normal less than 0.2 cm. Consider endoscopy for additional evaluation. Adrenal glands: The adrenal glands are normal. Gallbladder: Normal Kidneys: No masses are evident. No hydronephrosis is present. No cysts are present. Delayed images were obtained through the kidneys, which remain unremarkable. Aorta: Vascular calcification is within the aorta. Inferior vena cava: Normal. : Loops of bowel within the abdomen and pelvis are normal. There are loops of bowel which are incom pletely distended or lack oral contrast limiting their evaluation. IMPRESSIONS: 1. Pancreatic duct is somewhat prominent. An obstructive etiology is not clearly identified. Consider EGD for additional evaluation. 2. No intrahepatic biliary dilatation.
== END | disposition home or self-care (01) ==
LOC: RADCTMAIN 16:07
PROVIDERS: ATTEND Internal Medicine
DX: K83.1 Obstruction of bile duct (principal)
CPT/HCPCS: 74170; Q9967 ×2

== ENCOUNTER → 2020-03-20 | Outpatient (CLI) | payer OTHER ==
--- NOTE | 2020-03-20 10:31 | US ---
EXAMINATION TYPE: US abdomen complete DATE OF EXAM: 03/20/2020 COMPARISON: CT abdomen pelvis 11/01/2019 CLINICAL HISTORY: K70.31 ALCOHOLIC CIRRHOSOS OF LIVER. Cirrhosis EXAM MEASUREMENTS: Liver Length: 13.4 cm Gallbladder Wall: .3 cm CBD: 1.1 cm Spleen: 9.7 cm Right Kidney: 10.8 x 3.3 x 4.4 cm Left Kidney: 9.2 x 4.4 x 3.9 cm Pancreas: Duct seen .4cm, this is at the body the pancreas and is prominent. Normal dural 0.2 cm or l ess. This may have a cut off at the distal head of the pancreas. Additional workup is recommended. Th is appears to been present on the CT examination. Repeat CT is recommended. Liver: Heterogenous cystic area 1.8 x 2.9 x 2.8cm hypoechoic area seen near gallbladder 3.9 x 1.7 x 2.7 cm Gallbladder: Low level echoes seen. Evidence for sonographic Sethi's sign: No CBD: Dilated. Spleen: wnl Right Kidney: Renal pelvis seen 2.4 x 1.3 x 2.2 cm Left Kidney: Hypoechoic area mid pole 1.5 x 1.2 x 1.4 cm Upper IVC: wnl Abd Aorta: wnl IMPRESSION: 1. Prominence of the pancreatic duct. Consider CT abdomen for additional evaluation of the pancreas. 2. Hepatic cyst. 3. Focal hepatic echotexture change adjacent to the gallbladder bed fossa. 4. Gallbladder sludge.
[2020-03-20 10:47] LABS: Anisocytosis Slight; HCT 44.8 % (39.0-53.0); HGB 13.8 gm/dL (13.0-17.5); Hypochromasia Slight; MCHC 30.9 g/dL (31.0-37.0); MCV 116.6 fL (80.0-100.0); Macrocytosis Marked; Mean Platelet Volume 6.9; Platelet Count 229 k/uL (150-450); RBC 3.84 m/uL (4.30-5.90); WBC 6.9 k/uL (3.8-10.6)
[2020-03-20 10:58] LABS: ALT 25 U/L (4-49); AST 33 U/L (17-59); African American GFR (CKD) >90 (>60 ml/min/1.73 sqM); Albumin 4.6 g/dL (3.5-5.0); Alkaline Phosphatase 78 U/L (38-126); Anion Gap 9 mmol/L; Blood Urea Nitrogen 12 mg/dL (9-20); Calcium 9.5 mg/dL (8.4-10.2); Carbon Dioxide 28 mmol/L (22-30); Chloride 107 mmol/L (98-107); Glucose 98 mg/dL (74-99); Non-African American GFR(CKD) >90 (>60 ml/min/1.73 sqM); Potassium 4.2 mmol/L (3.5-5.1); Sodium 144 mmol/L (137-145); Total Bilirubin 0.6 mg/dL (0.2-1.3); Total Protein 7.8 g/dL (6.3-8.2)
== END | disposition home or self-care (01) ==
LOC: RADUSWWP 08:59
PROVIDERS: ATTEND Internal Medicine
DX: K76.89 Other specified diseases of liver (principal); R93.2 Abnormal findings on diagnostic imaging of liver and biliary tract; K86.89 Other specified diseases of pancreas; K70.31 Alcoholic cirrhosis of liver with ascites
CPT/HCPCS: 36415; 76700; 80053; 85027; 85610; 86301

== ENCOUNTER 2020-04-23 14:49 | Emergency (ER) | payer OTHER ==
[2020-04-23] MEDS ORDERED: ALBUTEROL HFA INHALER INHALATION STA (15:27)
[2020-04-23] MEDS ORDERED: ALBUTEROL HFA INHALER INHALATION PRN (15:27)
[2020-04-23] MEDS ORDERED: ACETAMINOPHEN TAB 325 MG TAB PO PRN (15:27)
[2020-04-23] MEDS ORDERED: ACETAMINOPHEN TAB 325 MG TAB PO STA (15:27)
--- NOTE | 2020-04-23 15:31 | ED ---
General Adult HPI - General Chief complaint: Upper Respiratory Infection Stated complaint: Congestion Time Seen by Provider: 04/23/20 15:11 Source: patient, RN notes reviewed Mode of arrival: ambulatory Limitations: no limitations - History of Present Illness Initial comments: Patient is a pleasant 64-year-old male presenting to the emergency department with concerns regarding chest and nasal congestion. Onset of symptoms was a few days ago. Patient does have occasional cough with yellow sputum. Patient has had dyspnea is similar to previous COPD. Patient has been using his inhaler and nebulizer. No fever. Patient has NASAL congestion as well as rhinorrhea. - Related Data Home Medications Medication Instructions Recorded Confirmed Albuterol Sulfate [Proventil Hfa] 1 puff INHALATION RT-Q4H PRN 05/30/14 04/23/20 Spironolactone [Aldactone] 25 mg PO DAILY 09/10/17 04/23/20 Albuterol Nebulized [Ventolin 2.5 mg INHALATION RT-Q4H PRN 12/16/17 04/23/20 Nebulized] oxyCODONE ER [OxyCONTIN] 20 mg PO BID 08/26/18 04/23/20 polyethylene glycoL 3350 [Miralax] 17 gm PO DAILY 08/26/18 04/23/20 Previous Rx's Medication Instructions Recorded Hydrocodone/Acetaminophen [[place] 2 tab PO TID PRN #18 tablet 04/05/18 10-325] Azithromycin [Zithromax Z-pack (6 250 mg PO DIRECTED #6 tab 04/23/20 tabs)] predniSONE [Deltasone] 20 mg PO BID #10 tab 04/23/20 Allergies Allergy/AdvReac Type Severity Reaction Status Date / Time bupropion [From Wellbutrin] Allergy Unknown Verified 04/23/20 17:31 fluoxetine [From Prozac] Allergy Unknown Verified 04/23/20 17:31 gabapentin Allergy redness, Verified 04/23/20 17:31 "didn't feel good" hydromorphone Allergy Swelling Verified 04/23/20 17:31 meclizine Allergy vertigo Verified 04/23/20 17:31 paroxetine [From Paxil] Allergy Unknown Verified 04/23/20 17:31 sertraline [From Zoloft] Allergy Rash/Hives Verified 04/23/20 17:31 tramadol Allergy Unknown Verified 04/23/20 17:31 methadone AdvReac Unknown Verified 04/23/20 17:31 niacin AdvReac Unknown Verified 04/23/20 17:31 Review of Systems ROS Statement: Those systems with pertinent positive or pertinent negative responses have been documented in the HPI. ROS Other: All systems not noted in ROS Statement are negative. Constitutional: Denies: fever Eyes: Denies: eye pain ENT: Reports: congestion. Denies: ear pain Respiratory: Reports: cough, dyspnea Cardiovascular: Denies: chest pain Endocrine: Reports: fatigue Gastrointestinal: Denies: abdominal pain Genitourinary: Denies: dysuria Musculoskeletal: Denies: back pain Skin: Denies: rash Neurological: Denies: weakness Past Medical History Past Medical History: Cancer, COPD, Hearing Disorder / Deafness, Liver Disease, Osteoarthritis (OA), Pneumonia Additional Past Medical History / Comment(s): "Has Urostomy bag/stoma." Hx blad mike cancer Nov 2016, hx colon cancer 2002/2003, hx epiglotitis, hx Pnemomia 2017. Hepatitis C, "a spot on the liver", cirrhosis. "? seizure X1 Mar 2018, blacked out, broke both arms." History of Any Multi-Drug Resistant Organisms: None Reported Past Surgical History: Appendectomy, Bowel Resection, Ear Surgery, Hernia Repair, Tonsillectomy Additional Past Surgical History / Comment(s): 01/21/16 cystoscopy w/evacuation of clot; urostomy, BLADDER AND PROSTATE REMOVED November 2016. Tube placed in right ear in July 2017, pilinodal cyst removed, reapir of left shoulder, Past Anesthesia/Blood Transfusion Reactions: No Reported Reaction Additional Past Anesthesia/Blood Transfusion Reaction / Comment(s): Vertigo. Past Psychological History: Anxiety Smoking Status: Current every day smoker Past Alcohol Use History: None Reported Past Drug Use History: None Reported - Past Family History Father Family Medical History: Cancer Additional Family Medical History / Comment(s): Pancreatic cancer. Mother Family Medical History: Cancer Additional Family Medical History / Comment(s): Lung cancer. Brother(s) Family Medical History: Cancer Additional Family Medical History / Comment(s): Colon cancer. General Exam Limitations: no limitations General appearance: alert, in no apparent distress Head exam: Present: normocephalic Eye exam: Present: normal appearance Neck exam: Present: normal inspection Respiratory exam: Present: wheezes Cardiovascular Exam: Present: regular rate, normal rhythm GI/Abdominal exam: Present: soft. Absent: tenderness Extremities exam: Present: normal inspection Neurological exam: Present: alert Psychiatric exam: Present: normal affect, normal mood Skin exam: Present: normal color Course Vital Signs 04/23/20 04/23/20 14:51 15:16 Temperature 98.0 F Pulse Rate 92 Respiratory 18 20 Rate Blood Pressure 143/74 O2 Sat by Pulse 97 Oximetry EKG Findings - EKG Comments: EKG Findings:: Normal sinus rhythm at 82. MA 126. QRS 86. QT 380. QTC 443. Left axis. Left anterior fascicular block. No acute ST change. Medical Decision Making - Medical Decision Making Patient reevaluated and resting comfortably in bed. Lung sounds have somewhat improved. Patient states he is feeling much better and requests discharge home. - Lab Data Result diagrams: 04/23/20 15:16 04/23/20 15:16 Lab Results 04/23/20 04/23/20 04/23/20 Range/Units 15:16 15:16 15:16 WBC 5.8 (3.8-10.6) k/uL RBC 3.88 L (4.30-5.90) m/uL Hgb 14.4 (13.0-17.5) gm/dL Hct 42.8 (39.0-53.0) % MCV 110.2 H D (80.0-100.0) fL MCH 37.0 H (25.0-35.0) pg MCHC 33.6 (31.0-37.0) g/dL RDW 12.7 (11.5-15.5) % Plt Count 244 (150-450) k/uL MPV 6.9 Neutrophils % 55 % Lymphocytes % 36 % Monocytes % 5 % Eosinophils % 3 % Basophils % 1 % Neutrophils # 3.2 (1.3-7.7) k/uL Lymphocytes # 2.1 (1.0-4.8) k/uL Monocytes # 0.3 (0-1.0) k/uL Eosinophils # 0.2 (0-0.7) k/uL Basophils # 0.0 (0-0.2) k/uL Manual Slide Review Performed Macrocytosis Marked A PT 11.2 (9.0-12.0) sec INR 1.1 (<1.2) APTT 23.5 (22.0-30.0) sec Sodium 135 L (137-145) mmol/L Potassium 4.6 (3.5-5.1) mmol/L Chloride 99 (98-107) mmol/L Carbon Dioxide 27 (22-30) mmol/L Anion Gap 9 mmol/L BUN 8 L (9-20) mg/dL Creatinine 0.51 L (0.66-1.25) mg/dL Est GFR (CKD-EPI)AfAm >90 (>60 ml/min/1.73 sqM) Est GFR (CKD-EPI)NonAf >90 (>60 ml/min/1.73 sqM) Glucose 95 (74-99) mg/dL Plasma Lactic Acid Bernard (0.7-2.0) mmol/L Calcium 9.0 (8.4-10.2) mg/dL Magnesium 1.6 (1.6-2.3) mg/dL Total Bilirubin 0.5 (0.2-1.3) mg/dL AST 25 (17-59) U/L ALT 15 (4-49) U/L Alkaline Phosphatase 76 (38-126) U/L Lactate Dehydrogenase 333 (313-618) U/L C-Reactive Protein 10.4 H (<10.0) mg/L Total Protein 7.3 (6.3-8.2) g/dL Albumin 4.3 (3.5-5.0) g/dL Coronavirus (PCR) (Not Detectd) 04/23/20 04/23/20 Range/Units 15:16 16:16 WBC (3.8-10.6) k/uL RBC (4.30-5.90) m/uL Hgb (13.0-17.5) gm/dL Hct (39.0-53.0) % MCV (80.0-100.0) fL MCH (25.0-35.0) pg MCHC (31.0-37.0) g/dL RDW (11.5-15.5) % Plt Count (150-450) k/uL MPV Neutrophils % % Lymphocytes % % Monocytes % % Eosinophils % % Basophils % % Neutrophils # (1.3-7.7) k/uL Lymphocytes # (1.0-4.8) k/uL Monocytes # (0-1.0) k/uL Eosinophils # (0-0.7) k/uL Basophils # (0-0.2) k/uL Manual Slide Review Macrocytosis PT (9.0-12.0) sec INR (<1.2) APTT (22.0-30.0) sec Sodium (137-145) mmol/L Potassium (3.5-5.1) mmol/L Chloride (98-107) mmol/L Carbon Dioxide (22-30) mmol/L Anion Gap mmol/L BUN (9-20) mg/dL Creatinine (0.66-1.25) mg/dL Est GFR (CKD-EPI)AfAm (>60 ml/min/1.73 sqM) Est GFR (CKD-EPI)NonAf (>60 ml/min/1.73 sqM) Glucose (74-99) mg/dL Plasma Lactic Acid Bernard 1.3 (0.7-2.0) mmol/L Calcium (8.4-10.2) mg/dL Magnesium (1.6-2.3) mg/dL Total Bilirubin (0.2-1.3) mg/dL AST (17-59) U/L ALT (4-49) U/L Alkaline Phosphatase (38-126) U/L Lactate Dehydrogenase (313-618) U/L C-Reactive Protein (<10.0) mg/L Total Protein (6.3-8.2) g/dL Albumin (3.5-5.0) g/dL Coronavirus (PCR) Not Detected (Not Detectd) - Radiology Data Radiology results: image reviewed (Chest x-ray shows no acute process. COPD.) Disposition Clinical Impression: Acute exacerbation of chronic obstructive airways disease, Sinusitis Disposition: HOME SELF-CARE Condition: Stable Instructions (If sedation given, give patient instructions): Sinusitis (ED), COPD (Chronic Obstructive Pulmonary Disease) (ED) Additional Instructions: Please follow-up with primary care physician in the next day or 2 for recheck. Return for fevers, difficulty breathing, worsening symptoms or other concerns. Prescription has been sent to your pharmacy. [facility] [address] Prescriptions: predniSONE [Deltasone] 20 mg PO BID #10 tab Azithromycin [Zithromax Z-pack (6 tabs)] 250 mg PO DIRECTED #6 tab Is patient prescribed a controlled substance at d/c from ED?: No Referrals: [facility],Clinic [Primary Care Provider] - 1-2 days Time of Disposition: 18:00
[2020-04-23 16:20] LABS: Basophils % (A) 1 %; Eosinophils # (A) 0.2 k/uL (0-0.7); Eosinophils % (A) 3 %; HCT 42.8 % (39.0-53.0); HGB 14.4 gm/dL (13.0-17.5); Lymphocytes # (A) 2.1 k/uL (1.0-4.8); Lymphocytes % (A) 36 %; MCHC 33.6 g/dL (31.0-37.0); Macrocytosis Marked; Mean Platelet Volume 6.9; Monocytes # (A) 0.3 k/uL (0-1.0); Monocytes % (A) 5 %; Neutrophils # (A) 3.2 k/uL (1.3-7.7); Neutrophils % (A) 55 %; Platelet Count 244 k/uL (150-450); RBC 3.88 m/uL (4.30-5.90); RDW 12.7 % (11.5-15.5); WBC 5.8 k/uL (3.8-10.6)
[2020-04-23 16:22] LABS: MCV 110.2 fL (80.0-100.0)
[2020-04-23 16:26] LABS: ALT 15 U/L (4-49); AST 25 U/L (17-59); African American GFR (CKD) >90 (>60 ml/min/1.73 sqM); Albumin 4.3 g/dL (3.5-5.0); Alkaline Phosphatase 76 U/L (38-126); Anion Gap 9 mmol/L; Blood Urea Nitrogen 8 mg/dL (9-20); C Reactive Protein 10.4 mg/L (<10.0); Carbon Dioxide 27 mmol/L (22-30); Chloride 99 mmol/L (98-107); Glucose 95 mg/dL (74-99); LDH 333 U/L (313-618); Magnesium 1.6 mg/dL (1.6-2.3); Non-African American GFR(CKD) >90 (>60 ml/min/1.73 sqM); Potassium 4.6 mmol/L (3.5-5.1); Sodium 135 mmol/L (137-145); Total Bilirubin 0.5 mg/dL (0.2-1.3); Total Protein 7.3 g/dL (6.3-8.2)
[2020-04-23 16:42] LABS: INR 1.1 (<1.2); Partial Thromboplastin Time 23.5 sec (22.0-30.0); Prothrombin Time 11.2 sec (9.0-12.0)
--- NOTE | 2020-04-23 16:51 | XR ---
EXAMINATION TYPE: XR chest 2V DATE OF EXAM: 04/23/2020 COMPARISON: Weakness and shortness of breath. Suspect covid infection. HISTORY: Chest x-ray April 01, 2018 TECHNIQUE: Frontal and lateral views of the chest are obtained. FINDINGS: There is chronic parenchymal change bilaterally without suspicious new focal air space [place], pleural effusion, or pneumothorax seen. The cardiac silhouette size is stable and within paty l limits. Overlying EKG leads are in current study. The osseous structures are demineralized. Parti al visualization of underlying scoliotic curvature in the lumbar spine. IMPRESSION: Chronic changes without new acute pulmonary process.
[2020-04-23 18:25] VITALS: BP 137/78; PULSE 93; RESP 18; TEMP 98.1
[2020-04-23] MEDS ORDERED: ALBUTEROL HFA INHALER INHALATION SCH (20:00)
[2020-04-24 02:03] LABS: Ferritin 129.2 ng/mL (22.0-322.0)
== END 2020-04-23 18:23 | disposition home or self-care (01) ==
LOC: EC 14:49
DX: J44.1 Chronic obstructive pulmonary disease with (acute) exacerbation (principal); J32.9 Chronic sinusitis, unspecified; F17.200 Nicotine dependence, unspecified, uncomplicated; M19.90 Unspecified osteoarthritis, unspecified site; Z79.52 Long term (current) use of systemic steroids; Z85.51 Personal history of malignant neoplasm of bladder; Z20.822 Contact with and (suspected) exposure to COVID-19
CPT/HCPCS: 36415; 71046; 80053; 82728; 83605; 83615; 83735; 84145; 85025; 85610; 85730; 86140; 87635; 93005; 94640; 99284

== ENCOUNTER → 2020-09-16 | Outpatient (CLI) | payer OTHER ==
[2020-09-16 08:53] LABS: HCT 41.4 % (39.0-53.0); HGB 14.3 gm/dL (13.0-17.5); MCH 36.1 pg (25.0-35.0); MCHC 34.7 g/dL (31.0-37.0); MCV 104.1 fL (80.0-100.0); Macrocytosis Slight; Mean Platelet Volume 7.1; Platelet Count 306 k/uL (150-450); RBC 3.97 m/uL (4.30-5.90); RDW 12.5 % (11.5-15.5); WBC 7.9 k/uL (3.8-10.6)
[2020-09-16 08:58] LABS: INR 1.2 (<1.2); Prothrombin Time 12.2 sec (9.0-12.0)
[2020-09-16 09:18] LABS: ALT 22 U/L (4-49); AST 29 U/L (17-59); African American GFR (CKD) >90 (>60 ml/min/1.73 sqM); Albumin 4.7 g/dL (3.5-5.0); Alkaline Phosphatase 77 U/L (38-126); Anion Gap 8 mmol/L; Blood Urea Nitrogen 10 mg/dL (9-20); Calcium 9.9 mg/dL (8.4-10.2); Carbon Dioxide 29 mmol/L (22-30); Chloride 103 mmol/L (98-107); Glucose 99 mg/dL (74-99); Non-African American GFR(CKD) >90 (>60 ml/min/1.73 sqM); Potassium 4.4 mmol/L (3.5-5.1); Sodium 140 mmol/L (137-145); Total Bilirubin 0.5 mg/dL (0.2-1.3); Total Protein 7.6 g/dL (6.3-8.2)
--- NOTE | 2020-09-16 09:22 | US ---
EXAMINATION TYPE: US abdomen complete DATE OF EXAM: 09/16/2020 COMPARISON: 03/20/2020 and 10/05/2019 CLINICAL HISTORY: 64-year-old male K70.31 Alcoholic cirrhosis of the liver. TECHNIQUE: Multiple sonographic images of the abdomen are obtained. FINDINGS: EXAM MEASUREMENTS: Liver Length: 13.0 cm Gallbladder Wall: 0.3 cm CBD: 1.2 cm Spleen: 8.6 cm Right Kidney: 10.4 x 3.2 x 4.2 cm Left Kidney: 9.3 x 5.2 x 4.7 cm Cooler Servicer notes: Patient has had many surgeries, history of bladder and colon cancer. Pancreas: Suboptimal visualization of the pancreatic tail due to shadowing from bowel gas. Visualize d portions show no gross abnormality. Liver: A few cysts are present, largest in the left lobe measures 2.9 x 2.9 x 3.6 cm. Overall homo geneous echotexture. No focal lesion otherwise seen. Gallbladder: No stones seen Evidence for sonographic Sethi's sign: No CBD: dilated at 1.2 cm (versus 1.1 cm measured on 03/20/2020 and 1.3 cm measured on 10/05/2019) Spleen: wnl Right Kidney: No hydronephrosis. Left Kidney: exophytic cyst measures 1.7 x 1.2 x 1.9 cm. No hydronephrosis. Upper IVC: wnl Abd Aorta: wnl as visualized, distal portion not visualized due to overlying bowel and scar tissue. IMPRESSION: 1. Benign hepatic cysts measuring up to 2.9 cm. Benign left renal cyst cortical cyst measuring 1.9 cm . 2. The bile duct remains dilated up to 1.2 cm. This seems to be chronic for the patient as the duct w as measured at 1.3 cm on 10/05/2019. Correlate with alkaline phosphatase and bilirubin levels.
[2020-09-16 16:40] LABS: Alpha Fetoprotein, Tumor Mkr <2.5 ng/mL (0.0-7.9)
[2020-09-16 16:43] LABS: Cancer Antigen 19-9 8.9 U/mL (0.0-34.9)
== END | disposition home or self-care (01) ==
LOC: RADUSWWP 06:57
PROVIDERS: ATTEND Internal Medicine
DX: N28.1 Cyst of kidney, acquired (principal); K76.89 Other specified diseases of liver; K70.30 Alcoholic cirrhosis of liver without ascites
CPT/HCPCS: 76700; 80053; 82105; 85027; 85610; 86301

== ENCOUNTER → 2021-06-02 | Outpatient (CLI) | payer OTHER ==
--- NOTE | 2021-06-02 21:56 | CTL ---
EXAMINATION TYPE: CT Low Dose Lung DATE OF EXAM ORDERED: 06/02/2021 HISTORY: Tobacco use. Lung cancer screening CT DLP: 57.[address] CTDI: 1.4 mGy Automated exposure control for dose reduction was used. SCREENING VISIT: Baseline COMPARISON: CT dated 04/01/2018 TECHNIQUE: Low dose computed tomography scan was performed through the chest at 1 mm thick sections a nd reconstructed images in multiple planes at 1 mm and [address] DIAGNOSTIC QUALITY: Satisfactory FINDINGS: LUNG NODULES: Left lung base 11 mm solid nodule image #[id number], not appreciated previously. LUNGS: COPD: Severity: Moderate to severe Fibrosis: Severity: Mild Lymph nodes: No pathologically enlarged lymph nodes. Other findings: Intraluminal secretions seen at the inferior aspect of the trachea and some bronchi w ith bronchial wall thickening which could be related to chronic bronchitis. Focal infiltration/reticu lations are seen at the posterior aspect of the left lung base which could be inflammatory/infectious in etiology, for follow-up. RIGHT PLEURAL SPACE: Effusion: None Calcification: None Thickening: None Pneumothorax: None LEFT PLEURAL SPACE: Effusion: None Calcification: None Thickening: None Pneumothorax: None HEART: Heart Size: Normal Coronary Calcification: Moderate Pericardial Effusion: None OTHER FINDINGS: Upper abdomen: Stable left hepatic lobe hypodensities likely representing hepatic cysts. Left renal c yst, appreciated previously. Atrophic pancreas. Bony thorax: Osteopenia. Degenerative changes of the left glenohumeral articulation. Supraclavicular region: None Other: Arterial atherosclerotic calcifications. IMPRESSION: 11 mm left lateral basal pulmonary nodule with left posterior basal pulmonary infiltratio n/reticulation, not appreciated previously. Acute inflammatory/infectious process at that location ca n't be excluded, for clinical correlation and follow-up CT scan in 3 months for reassessment. Other i ncidental findings as described above. CT LUNG RAD AND CT CHEST RECOMMENDATION: Lung-Rad 4A Suspicious: Follow-up 3 month LDCT. S Modifier (other clinically significant findings): As above.
== END | disposition home or self-care (01) ==
LOC: RADCTMAIN 16:04
DX: Z12.2 Encounter for screening for malignant neoplasm of respiratory organs (principal); Z87.891 Personal history of nicotine dependence
CPT/HCPCS: 71271

== ENCOUNTER → 2021-08-15 | Outpatient (CLI) | payer OTHER ==
--- NOTE | 2021-08-15 16:01 | US ---
EXAMINATION TYPE: US liver DATE OF EXAM: 08/15/2021 COMPARISON: 09/16/20 CLINICAL HISTORY: K70.31 ALCOHOLIC CIRRHOSIS OF LIVER WITH ASCITES. Alcoholic cirrhosis of liver EXAM MEASUREMENTS: Liver Length: 13.1 cm Gallbladder Wall: 0.19 cm CBD: 1.1 cm Right Kidney: 10.3 x 4.0 x 3.1 cm Pancreas: Dilated pancreatic duct measuring 0.48 cm seen at body and proximal tail of pancreas. This appears to be a change from comparison. Liver: Two cystic areas seen largest measuring 3.0 x 2.1 x 1.8 cm. Heterogeneous appearing liver wit h focal fatty sparing adjacent to CBD measuring 2.8 x 2.2 x 1.3 cm. Gallbladder: Sludge seen in GB Evidence for sonographic Sethi's sign: No CBD: Dilated duct, but similar appearance compared to prior. Right Kidney: Cystic area in inferior pole measuring 1.1 x 1.0 x 0.9 cm, dilated renal pelvis measur ing 1.1 cm IMPRESSION: 1. Prominent pancreatic duct of 0.5 cm. Normal up to 0.2 cm at the body of the pancreas. Consider add itional workup. Neoplasm not excluded. 2. Hepatic cysts. 3. Sludge within the gallbladder. 4. Small inferior pole right renal cyst.
[2021-08-15 23:03] LABS: HGB 14.3 g/dL (13.0-17.0); MCH 31.6 pg (27.0-32.0); MCHC 31.8 g/dL (32.0-37.0); MCV 99.6 fL (80.0-97.0); Mean Platelet Volume 9.1 fL (9.5-12.2); NRBC Per 100 WBC 0 /100 WBCS (0.0-0.0); Platelet Count 292 X 10*3/uL (140-440); RBC 4.52 X 10*6/uL (4.40-5.60); RDW 12.5 % (11.5-14.5); WBC 7.87 X 10*3/uL (4.50-10.00)
[2021-08-15 23:33] LABS: African American GFR (CKD) 105.2 (60.0-200.0); Albumin 4.9 g/dL (3.8-4.9); Albumin/Globulin Ratio 1.58 (1.60-3.17); Anion Gap 13.9 mmol/L (10.00-18.00); BUN/Creat Ratio 12.47 Ratio (12.00-20.00); Blood Urea Nitrogen 10.6 mg/dL (9.0-27.0); Calcium 10.2 mg/dL (8.7-10.3); Carbon Dioxide 25.5 mmol/L (20.0-27.5); Globulin 3.1 g/dL (1.6-3.3); Non-African American GFR(CKD) 90.8 (60.0-200.0); Potassium 4.9 mmol/L (3.5-5.5); Total Bilirubin 0.4 mg/dL (0.30-1.20); Total Protein 8.1 g/dL (6.2-8.2)
== END | disposition home or self-care (01) ==
LOC: RADUSWWP 14:05
PROVIDERS: ATTEND Internal Medicine Gastroenterology
DX: K70.31 Alcoholic cirrhosis of liver with ascites (principal); K82.8 Other specified diseases of gallbladder; N28.1 Cyst of kidney, acquired
CPT/HCPCS: 76705; 80053; 82105; 85027

== ENCOUNTER → 2021-09-30 | Outpatient (CLI) | payer OTHER ==
[2021-09-30 17:15] LABS: African American GFR (CKD) >90 (>60 ml/min/1.73 sqM); Blood Urea Nitrogen 11 mg/dL (9-20); Non-African American GFR(CKD) >90 (>60 ml/min/1.73 sqM)
--- NOTE | 2021-10-01 07:29 | CT ---
EXAMINATION TYPE: CT chest wo/w con CT DLP: 309.4 mGycm, Automated exposure control for dose reduction was used. DATE OF EXAM: 09/30/2021 5:34 PM COMPARISON: CT 06/02/2021. CT abdomen 11/01/2019. CLINICAL INDICATION:Male, 65 years old with history of [id number], lung nodule TECHNIQUE: Multiple axial images were obtained through the chest. Sagittal and coronal reformats were created for review. Contrast used:100ml mL of Isovue 300 with IV Contrast, none. Oral contrast used: none. FINDINGS: LUNGS/ PLEURA: There is moderate centrilobular emphysema changes seen throughout the lung. Prior pulm onary nodules appear smaller in size on today's exam and appear to represent atelectasis when viewing on sagittal imaging. There is superimposed streaky interstitial lung markings which may represent sc arring in the left lung base given their stability since at least 2019. No focal consolidation, pneum othorax or pleural effusion. No additional suspicious pulmonary nodules identified. AIRWAY: Patent and unremarkable. HEART: Size within normal limits. Mild to moderate coronary artery atherosclerosis. MEDIASTINUM: No gross evidence of adenopathy. VASCULATURE: No aortic aneurysm. There is moderate atherosclerosis of the arterial vasculature MUSCULOSKELETAL: No acute osseous abnormalities, multilevel disc degeneration changes are seen throug hout the spine. SOFT TISSUES/LYMPH NODES: Mild gynecomastia changes bilaterally. LOWER NECK: No significant findings. UPPER ABDOMEN: Left upper quadrant surgical clips. Hepatic cysts and left renal cysts IMPRESSION: 1. Previous pulmonary nodules have a atelectasis wedge-shaped appearance on sagittal imaging. Recomm end follow-up in one year with low dose lung cancer screening examination. 2. Moderate COPD. 3. Moderate coronary artery atherosclerosis.
== END | disposition home or self-care (01) ==
LOC: RADCTMAIN 16:13
PROVIDERS: ATTEND Physician Assistant Medical
DX: J98.11 Atelectasis (principal); J44.9 Chronic obstructive pulmonary disease, unspecified; I25.10 Atherosclerotic heart disease of native coronary artery without angina pectoris; R91.8 Other nonspecific abnormal finding of lung field
CPT/HCPCS: 82565; 84520; 71270; 36415; Q9967

== ENCOUNTER 2022-05-16 05:11 | Emergency (ER) | payer OTHER ==
[2022-05-16 05:20] VITALS: TEMP 98.1
[2022-05-16] MEDS ORDERED: DILTIAZEM DRIP BOLUS FROM BAG 1 MG SOLN IV ONE (06:14)
[2022-05-16] MEDS ORDERED: methylPREDNISolone SOD SUCCI 125 MG/2 ML VIAL IV STA (06:15)
[2022-05-16] MEDS ORDERED: DILTIAZEM 125 MG in SODIUM CHLORIDE 0.9% 100 ML IV SCH (06:15)
[2022-05-16] MEDS ORDERED: SODIUM CHLORIDE 0.9% 500 ML 500 ML IV ONE (06:17)
[2022-05-16 06:33] LABS: Basophils % (A) 1 %; Eosinophils # (A) 0.1 k/uL (0-0.7); Eosinophils % (A) 1 %; HCT 43.7 % (39.0-53.0); HGB 15.1 gm/dL (13.0-17.5); Lymphocytes # (A) 1.4 k/uL (1.0-4.8); Lymphocytes % (A) 22 %; MCHC 34.5 g/dL (31.0-37.0); MCV 98.6 fL (80.0-100.0); Monocytes # (A) 0.3 k/uL (0-1.0); Monocytes % (A) 6 %; Neutrophils # (A) 4.2 k/uL (1.3-7.7); Neutrophils % (A) 69 %; Platelet Count 211 k/uL (150-450); RBC 4.43 m/uL (4.30-5.90); RDW 12.2 % (11.5-15.5); WBC 6.1 k/uL (3.8-10.6)
[2022-05-16 06:44] LABS: Partial Thromboplastin Time 23.2 sec (22.0-30.0); Prothrombin Time 10.8 sec (9.0-12.0)
--- NOTE | 2022-05-16 06:55 | XR ---
EXAMINATION TYPE: XR chest 2V DATE OF EXAM: 05/16/2022 COMPARISON: Difficulty in breathing. HISTORY: Chest x-ray October 03, 2021. Chest CT September 30, 2021. TECHNIQUE: Frontal and lateral views of the chest are obtained. FINDINGS: Background mild underlying emphysematous change redemonstrated. There is no suspicious foca l air space opacity, pleural effusion, or pneumothorax seen. The cardiac silhouette size is stable a nd within normal limits. The osseous structures are intact. IMPRESSION: Chronic emphysematous change without acute pulmonary process. No significant change from most recent prior studies.
[2022-05-16 07:01] LABS: ALT 18 U/L (4-49); AST 28 U/L (17-59); African American GFR (CKD) >90 (>60 ml/min/1.73 sqM); Albumin 4.7 g/dL (3.5-5.0); Alkaline Phosphatase 85 U/L (38-126); Anion Gap 13 mmol/L; Blood Urea Nitrogen 9 mg/dL (9-20); Calcium 9.3 mg/dL (8.4-10.2); Carbon Dioxide 25 mmol/L (22-30); Chloride 100 mmol/L (98-107); Glucose 103 mg/dL (74-99); Magnesium 1.8 mg/dL (1.6-2.3); Non-African American GFR(CKD) >90 (>60 ml/min/1.73 sqM); Potassium 4.3 mmol/L (3.5-5.1); Sodium 138 mmol/L (137-145); Total Bilirubin 0.6 mg/dL (0.2-1.3); Total Protein 8.2 g/dL (6.3-8.2)
--- NOTE | 2022-05-16 07:04 | ED ---
General Adult HPI - General Chief complaint: Shortness of Breath Stated complaint: SOB Time Seen by Provider: 05/16/22 06:00 Source: patient, EMS, RN notes reviewed Mode of arrival: EMS Limitations: no limitations - History of Present Illness Initial comments: 66-year-old male presents emergency Department with chief complaint of shortness of breath. Patient states he woke up night felt short of breath states that he had severe dizziness and tremoring. Patient states his tremoring is intermittent. Patient states he is a daily smoker he states he is in the ER which helped some. He does still has some right side shortness of breath. Denies any chest pain. Patient states his admission bladder cancer with urostomy. Patient has appears or chills - Related Data Home Medications Medication Instructions Recorded Confirmed Albuterol Sulfate [Proventil Hfa] 1 puff INHALATION RT-Q4H PRN 05/30/14 04/23/20 Spironolactone [Aldactone] 25 mg PO DAILY 09/10/17 04/23/20 Albuterol Nebulized [Ventolin 2.5 mg INHALATION RT-Q4H PRN 12/16/17 04/23/20 Nebulized] oxyCODONE ER [OxyCONTIN] 20 mg PO BID 08/26/18 04/23/20 polyethylene glycoL 3350 [Miralax] 17 gm PO DAILY 08/26/18 04/23/20 Previous Rx's Medication Instructions Recorded Hydrocodone/Acetaminophen [[place] 2 tab PO TID PRN #18 tablet 04/05/18 10-325] Azithromycin [Zithromax Z-pack (6 250 mg PO DIRECTED #6 tab 04/23/20 tabs)] predniSONE [Deltasone] 20 mg PO BID #10 tab 04/23/20 Azithromycin [Zithromax Z Pack] 0 tab PO DIRECTED #6 tab 05/16/22 predniSONE 50 mg PO DAILY #5 tab 05/16/22 Allergies Allergy/AdvReac Type Severity Reaction Status Date / Time bupropion [From Wellbutrin] Allergy Unknown Verified 04/23/20 17:31 fluoxetine [From Prozac] Allergy Unknown Verified 04/23/20 17:31 gabapentin Allergy redness, Verified 04/23/20 17:31 "didn't feel good" hydromorphone Allergy Swelling Verified 04/23/20 17:31 meclizine Allergy vertigo Verified 04/23/20 17:31 paroxetine [From Paxil] Allergy Unknown Verified 04/23/20 17:31 sertraline [From Zoloft] Allergy Rash/Hives Verified 04/23/20 17:31 tramadol Allergy Unknown Verified 04/23/20 17:31 methadone AdvReac Unknown Verified 04/23/20 17:31 niacin AdvReac Unknown Verified 04/23/20 17:31 Review of Systems ROS Statement: Those systems with pertinent positive or pertinent negative responses have been documented in the HPI. ROS Other: All systems not noted in ROS Statement are negative. Past Medical History Past Medical History: Cancer, COPD, Hearing Disorder / Deafness, Liver Disease, Osteoarthritis (OA), Pneumonia Additional Past Medical History / Comment(s): "Has Urostomy bag/stoma." Hx bladder cancer Nov 2016, hx colon cancer , hx epiglotitis, hx Pnemomia 2017. Hepatitis C, "a spot on the liver", cirrhosis. "? seizure X1 Mar 2018, blacked out, broke both arms." History of Any Multi-Drug Resistant Organisms: None Reported Past Surgical History: Appendectomy, Bowel Resection, Ear Surgery, Hernia Repair, Tonsillectomy Additional Past Surgical History / Comment(s): 01/21/16 cystoscopy w/evacuation of clot; urostomy, BLADDER AND PROSTATE REMOVED November 2016. Tube placed in right ear in July 2017, pilinodal cyst removed, reapir of left shoulder, Past Anesthesia/Blood Transfusion Reactions: No Reported Reaction Additional Past Anesthesia/Blood Transfusion Reaction / Comment(s): Vertigo. Past Psychological History: Anxiety Smoking Status: Current every day smoker Past Alcohol Use History: None Reported Past Drug Use History: None Reported - Past Family History Father Family Medical History: Cancer Additional Family Medical History / Comment(s): Pancreatic cancer. Mother Family Medical History: Cancer Additional Family Medical History / Comment(s): Lung cancer. Brother(s) Family Medical History: Cancer Additional Family Medical History / Comment(s): Colon cancer. General Exam Limitations: no limitations General appearance: alert, in no apparent distress Head exam: Present: atraumatic, normocephalic, normal inspection Eye exam: Present: normal appearance, PERRL, EOMI. Absent: scleral icterus, conjunctival injection, periorbital swelling ENT exam: Present: normal exam, normal oropharynx, mucous membranes moist Neck exam: Present: normal inspection, full ROM. Absent: tenderness, meningismus, lymphadenopathy Respiratory exam: Present: wheezes, decreased breath sounds. Absent: normal lung sounds bilaterally, respiratory distress, rales, rhonchi, stridor Cardiovascular Exam: Present: normal rhythm, tachycardia, normal heart sounds. Absent: systolic murmur, diastolic murmur, rubs, gallop, clicks GI/Abdominal exam: Present: soft, normal bowel sounds, other (Urostomy noted). Absent: distended, tenderness, guarding, rebound, rigid Neurological exam: Present: alert, oriented X3, CN II-XII intact, reflexes normal, other (Finger to nose intact bilaterally, upper and lower extremities equal bilaterally). Absent: motor sensory deficit Skin exam: Present: warm, dry, intact, normal color. Absent: rash Course Vital Signs 05/16/22 05:14 Temperature 98.1 F Pulse Rate 106 H Respiratory 22 Rate Blood Pressure 108/71 O2 Sat by Pulse 93 L Oximetry Medical Decision Making - Medical Decision Making Was pt. sent in by a medical professional or institution (, PA, [employer], urgent care, hospital, or residential...) When possible be specific @ -No Did you speak to anyone other than the patient for history (EMS, parent, family, police, friend...)? What history was obtained from this source @ -No Did you review nursing and triage notes (agree or disagree)? Why? @ -I reviewed and agree with nursing and triage notes Were old charts reviewed (outside hosp., previous admission, EMS record, old EKG, old radiological studies, urgent care reports/EKG's, residential records)? Report findings @ -Prior laboratory study, x-ray's were reviewed Differential Diagnosis (chest pain, altered mental status, abdominal pain women, abdominal pain men, vaginal bleeding, weakness, fever, dyspnea, syncope, head ache, dizziness, GI bleed, back pain, seizure, CVA, palpatations, mental health, musculoskeletal)? @ -Differential Dyspnea: Coronary syndrome, arrhythmia, tamponade, asthma, COPD, pulmonary embolism, pneumonia, pneumothorax, pulmonary effusion, anaphylaxis, diabetic ketoacidosis, flailed chest, pulmonary contusion, diaphragmatic rupture, anemia, neuromuscular, this is not meant to be an all-inclusive list. e EKG interpreted by me (3pts min.). @ -As above X-rays interpreted by me (1pt min.). @ -Chest x-ray shows COPD changes CT interpreted by me (1pt min.). @ -CT of the brain does not show any acute intracranial process possible sinusitis type changes U/S interpreted by me (1pt. min.). @ -None done What testing was considered but not performed or refused? (CT, X-rays, U/S, labs)? Why? @ -None What meds were considered but not given or refused? Why? @ -None Did you discuss the management of the patient with other professionals (professionals i.e. , PA, [employer], lab, RT, psych nurse, social media editor, ironworker helper shop, teacher, parking enforcement officer, case making machine operator)? Give summary @ -No Was smoking cessation discussed for >3mins.? @ -No Was critical care preformed (if so, how long)? @ -No Were there social determinants of health that impacted care today? How? (Homelessness, low income, unemployed, alcoholism, drug addiction, transportation, low edu. Level, literacy, decrease access to med. care, care home, rehab)? @ -No Was there de-escalation of care discussed even if they declined (Discuss DNR or withdrawal of care, Hospice)? DNR status @ -No What co-morbidities impacted this encounter? (DM, HTN, Smoking, COPD, CAD, Cancer, CVA, ARF, Chemo, Hep., AIDS, mental health diagnosis, sleep apnea, morbid obesity)? @ -COPD bladder cancer Was patient admitted / discharged? Hospital course, mention meds given and ro yeny, prescriptions, significant lab abnormalities, going to OR and other pertinent info. @ -Discharged patient states he felt great improved after his own use of inhaler patient had mild wheezing, steroids were given patient is complaining of dizziness which is now resolved after Valium patient is unable take Antivert per patient. Patient labs, CT did not reveal any acute findings. Patient feels comfortable with discharge and requests discharge home Undiagnosed new problem with uncertain prognosis? @ -No Drug Therapy requiring intensive monitoring for toxicity (Heparin, Nitro, Insulin, Cardizem)? @ -No Were any procedures done? @ -No Diagnosis/symptom? @ -COPD exacerbation Acute, or Chronic, or Acute on Chronic? @ -Acute Uncomplicated (without systemic symptoms) or Complicated (systemic symptoms)? @ -Complicated Side effects of treatment? @ -No Exacerbation, Progression, or Severe Exacerbation? @ -Exacerbation Poses a threat to life or bodily function? How? (Chest pain, [place], [place], pneumonia, PE, COPD, DKA, ARF, appy, cholecystitis, CVA, Diverticulitis, Homicidal, Suicidal, threat to staff... and all critical care pts) @ -yes Diagnosis/symptom? @ -Dizziness Acute, or Chronic, or Acute on Chronic? @ -Acute Uncomplicated (without systemic symptoms) or Complicated (systemic symptoms)? @ -Complicated Side effects of treatment? @ -none Exacerbation, Progression, or Severe Exacerbation] @ -no Poses a threat to life or bodily function? @ -no - Lab Data Result diagrams: 05/16/22 06:16 05/16/22 06:16 Lab Results 05/16/22 05/16/22 05/16/22 Range/Units 06:16 06:16 06:16 WBC 6.1 (3.8-10.6) k/uL RBC 4.43 (4.30-5.90) m/uL Hgb 15.1 (13.0-17.5) gm/dL Hct 43.7 (39.0-53.0) % MCV 98.6 (80.0-100.0) fL MCH 34.0 (25.0-35.0) pg MCHC 34.5 (31.0-37.0) g/dL RDW 12.2 (11.5-15.5) % Plt Count 211 (150-450) k/uL MPV 7.0 Neutrophils % 69 % Lymphocytes % 22 % Monocytes % 6 % Eosinophils % 1 % Basophils % 1 % Neutrophils # 4.2 (1.3-7.7) k/uL Lymphocytes # 1.4 (1.0-4.8) k/uL Monocytes # 0.3 (0-1.0) k/uL Eosinophils # 0.1 (0-0.7) k/uL Basophils # 0.0 (0-0.2) k/uL PT 10.8 (9.0-12.0) sec INR 1.0 (<1.2) APTT 23.2 (22.0-30.0) sec Sodium 138 (137-145) mmol/L Potassium 4.3 (3.5-5.1) mmol/L Chloride 100 (98-107) mmol/L Carbon Dioxide 25 (22-30) mmol/L Anion Gap 13 mmol/L BUN 9 (9-20) mg/dL Creatinine 0.72 (0.66-1.25) mg/dL Est GFR (CKD-EPI)AfAm >90 (>60 ml/min/1.73 sqM) Est GFR (CKD-EPI)NonAf >90 (>60 ml/min/1.73 sqM) Glucose 103 H (74-99) mg/dL Calcium 9.3 (8.4-10.2) mg/dL Magnesium 1.8 (1.6-2.3) mg/dL Total Bilirubin 0.6 (0.2-1.3) mg/dL AST 28 (17-59) U/L ALT 18 (4-49) U/L Alkaline Phosphatase 85 (38-126) U/L Troponin I (0.000-0.034) ng/mL NT-Pro-B Natriuret Pep pg/mL Total Protein 8.2 (6.3-8.2) g/dL Albumin 4.7 (3.5-5.0) g/dL Influenza Type A (PCR) (Not Detectd) Influenza Type B (PCR) (Not Detectd) RSV (PCR) (Not Detectd) SARS-CoV-2 (PCR) (Not Detectd) 05/16/22 05/16/22 05/16/22 Range/Units 06:16 06:16 06:33 WBC (3.8-10.6) k/uL RBC (4.30-5.90) m/uL Hgb (13.0-17.5) gm/dL Hct (39.0-53.0) % MCV (80.0-100.0) fL MCH (25.0-35.0) pg MCHC (31.0-37.0) g/dL RDW (11.5-15.5) % Plt Count (150-450) k/uL MPV Neutrophils % % Lymphocytes % % Monocytes % % Eosinophils % % Basophils % % Neutrophils # (1.3-7.7) k/uL Lymphocytes # (1.0-4.8) k/uL Monocytes # (0-1.0) k/uL Eosinophils # (0-0.7) k/uL Basophils # (0-0.2) k/uL PT (9.0-12.0) sec INR (<1.2) APTT (22.0-30.0) sec Sodium (137-145) mmol/L Potassium (3.5-5.1) mmol/L Chloride (98-107) mmol/L Carbon Dioxide (22-30) mmol/L Anion Gap mmol/L BUN (9-20) mg/dL Creatinine (0.66-1.25) mg/dL Est GFR (CKD-EPI)AfAm (>60 ml/min/1.73 sqM) Est GFR (CKD-EPI)NonAf (>60 ml/min/1.73 sqM) Glucose (74-99) mg/dL Calcium (8.4-10.2) mg/dL Magnesium (1.6-2.3) mg/dL Total Bilirubin (0.2-1.3) mg/dL AST (17-59) U/L ALT (4-49) U/L Alkaline Phosphatase (38-126) U/L Troponin I <0.012 (0.000-0.034) ng/mL NT-Pro-B Natriuret Pep 139 pg/mL Total Protein (6.3-8.2) g/dL Albumin (3.5-5.0) g/dL Influenza Type A (PCR) Not Detected (Not Detectd) Influenza Type B (PCR) Not Detected (Not Detectd) RSV (PCR) Not Detected (Not Detectd) SARS-CoV-2 (PCR) Not Detected (Not Detectd) Disposition Clinical Impression: Acute exacerbation of chronic obstructive airways disease, Dizziness Disposition: HOME SELF-CARE Condition: Stable Instructions (If sedation given, give patient instructions): COPD (Chronic O bstructive Pulmonary Disease) (ED) Additional Instructions: Please return to the Emergency Department if symptoms worsen or any other concerns. Prescriptions: predniSONE 50 mg PO DAILY #5 tab Azithromycin [Zithromax Z Pack] 0 tab PO DIRECTED #6 tab Is patient prescribed a controlled substance at d/c from ED?: No Referrals: [facility],Clinic [Primary Care Provider] - 1-2 days Time of Disposition: 07:46
--- NOTE | 2022-05-16 07:07 | CT ---
EXAMINATION TYPE: CT brain wo con DATE OF EXAM: 05/16/2022 HISTORY: dizziness CT DLP: 1188.4 mGycm. Automated Exposure Control for Dose Reduction was Utilized. TECHNIQUE: CT scan of the head is performed without contrast. COMPARISON: CT brain April 01, 2018 FINDINGS: There is no acute intracranial hemorrhage or midline shift identified. There is mild diff use ventricular and sulcal prominence redemonstrated. Vasquez-white matter differentiation fairly well p reserved. Some dependent opacification or fluid in the bilateral maxillary sinuses otherwise paranasa l sinuses are clear. There is bilateral aphakia now present. No suspicious opacification of the masto id air cells. IMPRESSION: No acute intracranial hemorrhage or midline shift. Possible mild bilateral inferior acu te maxillary sinusitis. Correlate clinically.
[2022-05-16 08:03] VITALS: BP 124/58; PULSE 84; RESP 16
== END 2022-05-16 08:08 | disposition home or self-care (01) ==
LOC: EC 05:11
DX: J44.1 Chronic obstructive pulmonary disease with (acute) exacerbation (principal); R42 Dizziness and giddiness; M19.90 Unspecified osteoarthritis, unspecified site; F41.9 Anxiety disorder, unspecified; F17.200 Nicotine dependence, unspecified, uncomplicated; Z79.899 Other long term (current) drug therapy; Z79.1 Long term (current) use of non-steroidal anti-inflammatories (NSAID); Z88.6 Allergy status to analgesic agent; Z88.8 Allergy status to other drugs, medicaments and biological substances; Z88.5 Allergy status to narcotic agent; Z20.822 Contact with and (suspected) exposure to COVID-19
CPT/HCPCS: 36415; 83880; 80053; 83735; 84484; 85025; 85610; 85730; 87636; 71046; 70450; 99285; 96374; 96375; 96361 ×2; J2930; J3360

== ENCOUNTER 2022-05-18 12:02 | Inpatient (IN) | payer OTHER, MEDICARE ==
[2022-05-18] MEDS ORDERED: ALBUTEROL NEBULIZED 2.5 MG/3 ML INHALATION STA (12:48)
[2022-05-18] MEDS ORDERED: SODIUM CHLORIDE 0.9% 1,000 ML IV STA (12:48)
[2022-05-18] MEDS ORDERED: IPRATROPIUM 0.5 MG/2.5 ML NEBU INHALATION STA (12:48)
[2022-05-18] MEDS ORDERED: methylPREDNISolone SOD SUCCI 125 MG/2 ML VIAL IV STA (12:48)
--- NOTE | 2022-05-18 13:00 | ED ---
General Adult HPI - General Chief complaint: Shortness of Breath Stated complaint: sob Time Seen by Provider: 05/18/22 12:15 Source: patient, RN notes reviewed, old records reviewed Mode of arrival: ambulatory Limitations: no limitations - History of Present Illness Initial comments: This is a 66-year-old male who presents emergency Department complaining of a history of COPD he continues to smoke. Patient states his difficulty breathing is gotten worse since he was last in the emergency department. Patient states he's had no fever but he has had the chills. Patient denies any chest pain. Patient denies any abdominal pain patient denies nausea vomiting diarrhea. Patient denies any back pain. Patient denies lightheadedness or dizziness. - Related Data Home Medications Medication Instructions Recorded Confirmed Albuterol Inhaler [Ventolin Hfa 1 puff INHALATION RT-Q6H PRN 05/18/22 05/18/22 Inhaler] Azithromycin [Zithromax Z Pack] See Taper PO DIRECTED 05/18/22 05/18/22 Fluticasone Propion/Salmeterol 1 puff INHALATION RT-BID 05/18/22 05/18/22 [Fluticasone-Salmeterol 250-50] Folic Acid 1 mg PO DAILY 05/18/22 05/18/22 HYDROcodone/APAP 10-325MG [[place] 1 tab PO QID PRN 05/18/22 05/18/22 10-325] Ipratropium Nebulized [Atrovent 0.5 mg INHALATION RT-Q4H PRN 05/18/22 05/18/22 Nebulized 0.2 MG/ML] Naloxone HCl [Narcan] 4 mg NASAL ONCE PRN 05/18/22 05/18/22 Spironolactone 25 mg PO DAILY 05/18/22 05/18/22 oxyCODONE HCL [oxyCODONE HCL ER] 20 mg PO BID 05/18/22 05/18/22 polyethylene glycoL 3350 [Miralax] 17 gm PO DAILY 05/18/22 05/18/22 Previous Rx's Medication Instructions Recorded predniSONE 50 mg PO DAILY #5 tab 05/16/22 Allergies Allergy/AdvReac Type Severity Reaction Status Date / Time bupropion [From Wellbutrin] Allergy Unknown Verified 05/18/22 14:17 fluoxetine [From Prozac] Allergy Unknown Verified 05/18/22 14:17 gabapentin Allergy redness, Verified 05/18/22 14:17 "didn't feel good" hydromorphone Allergy Swelling Verified 05/18/22 14:17 meclizine Allergy vertigo Verified 05/18/22 14:17 paroxetine [From Paxil] Allergy Unknown Verified 05/18/22 14:17 sertraline [From Zoloft] Allergy Rash/Hives Verified 05/18/22 14:17 tramadol Allergy Unknown Verified 05/18/22 14:17 methadone AdvReac Unknown Verified 05/18/22 14:17 niacin AdvReac Unknown Verified 05/18/22 14:17 Review of Systems ROS Statement: Those systems with pertinent positive or pertinent negative responses have been documented in the HPI. ROS Other: All systems not noted in ROS Statement are negative. Past Medical History Past Medical History: Cancer, COPD, Hearing Disorder / Deafness, Liver Disease, Osteoarthritis (OA), Pneumonia Additional Past Medical History / Comment(s): "Has Urostomy bag/stoma." Hx bladder cancer Nov 2016, hx colon cancer , hx epiglotitis, hx Pnemomia 2017. Hepatitis C, "a spot on the liver", cirrhosis. "? seizure X1 Mar 2018, blacked out, broke both arms." History of Any Multi-Drug Resistant Organisms: None Reported Past Surgical History: Appendectomy, Bowel Resection, Ear Surgery, Hernia Repair, Tonsillectomy Additional Past Surgical History / Comment(s): 01/21/16 cystoscopy w/evacuation of clot; urostomy, BLADDER AND PROSTATE REMOVED November 2016. Tube placed in right ear in July 2017, pilinodal cyst removed, reapir of left shoulder, Past Anesthesia/Blood Transfusion Reactions: No Reported Reaction Additional Past Anesthesia/Blood Transfusion Reaction / Comment(s): Vertigo. Past Psychological History: Anxiety Smoking Status: Current every day smoker Past Alcohol Use History: None Reported Past Drug Use History: None Reported - Past Family History Father Family Medical History: Cancer Additional Family Medical History / Comment(s): Pancreatic cancer. Mother Family Medical History: Cancer Additional Family Medical History / Comment(s): Lung cancer. Brother(s) Family Medical History: Cancer Additional Family Medical History / Comment(s): Colon cancer. General Exam - General Exam Comments Initial Comments: GENERAL: Patient is well-developed and well-nourished. Patient is nontoxic and well-hydrated and is in mild distress. ENT: Neck is soft and supple. No significant lymphadenopathy is noted. Oropharynx is clear. Moist mucous membranes. Neck has full range of motion without eliciting any pain. EYES: The sclera were anicteric and conjunctiva were pink and moist. Extraocular movements were intact and pupils were equal round and reactive to light. Eyelids were unremarkable. PULMONARY: Expiratory wheezing diffusely CARDIOVASCULAR: Patient is tachycardic in the 120 beats a minute ABDOMEN: Soft and nontender with normal bowel sounds. SKIN: Skin is clear with no lesions or rashes and otherwise unremarkable. NEUROLOGIC: Patient is alert and oriented x3. Cranial nerves II through XII are grossly intact. Motor and sensory are also intact. Normal speech, volume and content. Symmetrical smile. MUSCULOSKELETAL: Normal extremities with adequate strength and full range of motion. No lower extremity swelling or edema. No calf tenderness. LYMPHATICS: No significant lymphadenopathy is noted PSYCHIATRIC: Normal psychiatric evaluation. Limitations: no limitations Course Vital Signs 05/18/22 05/18/22 05/18/22 12:13 12:30 13:28 Temperature 97.8 F Pulse Rate 125 H 83 Respiratory 36 H 24 18 Rate Blood Pressure 153/88 119/60 O2 Sat by Pulse 86 L 100 Oximetry 05/18/22 05/18/22 13:41 14:09 Temperature Pulse Rate 82 94 Respiratory Rate Blood Pressure O2 Sat by Pulse Oximetry Medical Decision Making - Medical Decision Making EKG was interpreted by myself shows a sinus rhythm at 93 bpm MD interval 155 QRSs 85 QT interval 370 QTC is 47. Patient's EKG shows no ST segment elevation or depression. Was pt. sent in by a medical professional or institution (, PA, CORE MAN, urgent care, hospital, or residential...) When possible be specific @ -No Did you speak to anyone other than the patient for history (EMS, parent, family, police, friend...)? What history was obtained from this source @ -No Did you review nursing and triage notes (agree or disagree)? Why? @ -I reviewed and agree with nursing and triage notes Were old charts reviewed (outside hosp., previous admission, EMS record, old EKG, old radiological studies, urgent care reports/EKG's, residential records)? Report findings @ -I reviewed prior lab work prior charts on this patient Differential Diagnosis (chest pain, altered mental status, abdominal pain women, abdominal pain men, vaginal bleeding, weakness, fever, dyspnea, syncope, head ache, dizziness, GI bleed, back pain, seizure, CVA, palpatations, mental health, musculoskeletal)? @ -Differential Dyspnea: Coronary syndrome, arrhythmia, tamponade, asthma, COPD, pulmonary embolism, pneumonia, pneumothorax, pulmonary effusion, anaphylaxis, diabetic ketoacidosis, flailed chest, pulmonary contusion, diaphragmatic rupture, anemia, neuromuscular, this is not meant to be an all-inclusive list. EKG interpreted by me (3pts min.). @ -As above X-rays interpreted by me (1pt min.). @ -Chest x-ray was interpreted by myself. Chest x-ray shows opacification the retrocardiac region CT interpreted by me (1pt min.). @ -None done U/S interpreted by me (1pt. min.). @ -None done What testing was considered but not performed or refused? (CT, X-rays, U/S, labs)? Why? @ -None What meds were considered but not given or refused? Why? @ -None Did you discuss the management of the patient with other professionals (professionals i.e. , PA, CORE MAN, lab, RT, psych nurse, social media content specialist, nutritionist public health, teacher, chief risk officer, correctional case records supervisor)? Give summary @ -I spoke with sounds physician's they agreed to admit the patient admitted the patient I wrote admitting orders Was smoking cessation discussed for >3mins.? @ -Yes Was critical care preformed (if so, how long)? @ -No Were there social determinants of health that impacted care today? How? (Homelessness, low income, unemployed, alcoholism, drug addiction, transport ation, low edu. Level, literacy, decrease access to med. care, snf, rehab)? @ -No Was there de-escalation of care discussed even if they declined (Discuss DNR or withdrawal of care, Hospice)? DNR status @ -No What co-morbidities impacted this encounter? (DM, HTN, Smoking, COPD, CAD, Cancer, CVA, ARF, Chemo, Hep., AIDS, mental health diagnosis, sleep apnea, morbid obesity)? @ -None Was patient admitted / discharged? Hospital course, mention meds given and route, prescriptions, significant lab abnormalities, going to OR and other pertinent info. @ -Patient received steroids and antibiotics and breathing treatments in the emergency department he was feeling better however he still continued to be wheezing bilaterally. Undiagnosed new problem with uncertain prognosis? @ -No Drug Therapy requiring intensive monitoring for toxicity (Heparin, Nitro, Insulin, Cardizem)? @ -No Were any procedures done? @ -No Diagnosis/symptom? @ -COPD exacerbation Acute, or Chronic, or Acute on Chronic? @ -Acute on chronic Uncomplicated (without systemic symptoms) or Complicated (systemic symptoms)? @ -Complicated Side effects of treatment? @ -No Exacerbation, Progression, or Severe Exacerbation? @ -Severe exacerbation Poses a threat to life or bodily function? How? (Chest pain, USA, OR, pneumonia, PE, COPD, DKA, ARF, appy, cholecystitis, CVA, Diverticulitis, Homicidal, Suicidal, threat to staff... and all critical care pts) @ -Yes this could lead to severe hypoxia end organ dysfunction Diagnosis/symptom? @ -Pneumonia Acute, or Chronic, or Acute on Chronic? @ -Acute Uncomplicated (without systemic symptoms) or Complicated (systemic symptoms)? @ -Complicated Side effects of treatment? @ -none Exacerbation, Progression, or Severe Exacerbation] @ -no Poses a threat to life or bodily function? @ -no - Lab Data Result diagrams: 05/18/22 12:58 05/18/22 12:58 Lab Results 05/18/22 05/18/22 05/18/22 Range/Units 12:58 12:58 12:58 WBC 9.7 (3.8-10.6) k/uL RBC 4.72 (4.30-5.90) m/uL Hgb 15.6 (13.0-17.5) gm/dL Hct 46.0 (39.0-53.0) % MCV 97.3 (80.0-100.0) fL MCH 33.0 (25.0-35.0) pg MCHC 33.9 (31.0-37.0) g/dL RDW 12.7 (11.5-15.5) % Plt Count 220 (150-450) k/uL MPV 7.2 Neutrophils % 73 % Lymphocytes % 21 % Monocytes % 4 % Eosinophils % 1 % Basophils % 0 % Neutrophils # 7.1 (1.3-7.7) k/uL Lymphocytes # 2.0 (1.0-4.8) k/uL Monocytes # 0.4 (0-1.0) k/uL Eosinophils # 0.1 (0-0.7) k/uL Basophils # 0.0 (0-0.2) k/uL PT 10.5 (9.0-12.0) sec INR 1.0 (<1.2) APTT 22.4 (22.0-30.0) sec Sodium 140 (137-145) mmol/L Potassium 4.6 (3.5-5.1) mmol/L Chloride 100 (98-107) mmol/L Carbon Dioxide 31 H (22-30) mmol/L Anion Gap 9 mmol/L BUN 13 (9-20) mg/dL Creatinine 0.68 (0.66-1.25) mg/dL Est GFR (CKD-EPI)AfAm >90 (>60 ml/min/1.73 sqM) Est GFR (CKD-EPI)NonAf >90 (>60 ml/min/1.73 sqM) Glucose 88 (74-99) mg/dL Plasma Lactic Acid Bernard (0.7-2.0) mmol/L Calcium 9.4 (8.4-10.2) mg/dL Magnesium 1.8 (1.6-2.3) mg/dL Total Bilirubin 0.7 (0.2-1.3) mg/dL AST 42 (17-59) U/L ALT 26 (4-49) U/L Alkaline Phosphatase 65 (38-126) U/L Troponin I (0.000-0.034) ng/mL Total Protein 8.4 H (6.3-8.2) g/dL Albumin 4.6 (3.5-5.0) g/dL 05/18/22 05/18/22 Range/Units 12:58 12:58 WBC (3.8-10.6) k/uL RBC (4.30-5.90) m/uL Hgb (13.0-17.5) gm/dL Hct (39.0-53.0) % MCV (80.0-100.0) fL MCH (25.0-35.0) pg MCHC (31.0-37.0) g/dL RDW (11.5-15.5) % Plt Count (150-450) k/uL MPV Neutrophils % % Lymphocytes % % Monocytes % % Eosinophils % % Basophils % % Neutrophils # (1.3-7.7) k/uL Lymphocytes # (1.0-4.8) k/uL Monocytes # (0-1.0) k/uL Eosinophils # (0-0.7) k/uL Basophils # (0-0.2) k/uL PT (9.0-12.0) sec INR (<1.2) APTT (22.0-30.0) sec Sodium (137-145) mmol/L Potassium (3.5-5.1) mmol/L Chloride (98-107) mmol/L Carbon Dioxide (22-30) mmol/L Anion Gap mmol/L BUN (9-20) mg/dL Creatinine (0.66-1.25) mg/dL Est GFR (CKD-EPI)AfAm (>60 ml/min/1.73 sqM) Est GFR (CKD-EPI)NonAf (>60 ml/min/1.73 sqM) Glucose (74-99) mg/dL Plasma Lactic Acid Bernard 1.4 (0.7-2.0) mmol/L Calcium (8.4-10.2) mg/dL Magnesium (1.6-2.3) mg/dL Total Bilirubin (0.2-1.3) mg/dL AST (17-59) U/L ALT (4-49) U/L Alkaline Phosphatase (38-126) U/L Troponin I 0.019 (0.000-0.034) ng/mL Total Protein (6.3-8.2) g/dL Albumin (3.5-5.0) g/dL Disposition Clinical Impression: Acute exacerbation of chronic obstructive pulmonary disease (COPD), Pneumonia Disposition: ADMITTED IP TO THIS HOSP Referrals: [facility] [Primary Care Provider] - 1-2 days Time of Disposition: 14:06
[2022-05-18] MEDS ORDERED: LORazepam 2 MG/ML INJ IV STA (13:15)
[2022-05-18 13:21] LABS: Basophils % (A) 0 %; Eosinophils # (A) 0.1 k/uL (0-0.7); Eosinophils % (A) 1 %; HGB 15.6 gm/dL (13.0-17.5); Lymphocytes % (A) 21 %; MCHC 33.9 g/dL (31.0-37.0); MCV 97.3 fL (80.0-100.0); Mean Platelet Volume 7.2; Monocytes # (A) 0.4 k/uL (0-1.0); Monocytes % (A) 4 %; Neutrophils # (A) 7.1 k/uL (1.3-7.7); Neutrophils % (A) 73 %; Platelet Count 220 k/uL (150-450); RBC 4.72 m/uL (4.30-5.90); RDW 12.7 % (11.5-15.5); WBC 9.7 k/uL (3.8-10.6)
[2022-05-18 13:35] LABS: ALT 26 U/L (4-49); African American GFR (CKD) >90 (>60 ml/min/1.73 sqM); Albumin 4.6 g/dL (3.5-5.0); Anion Gap 9 mmol/L; Blood Urea Nitrogen 13 mg/dL (9-20); Calcium 9.4 mg/dL (8.4-10.2); Carbon Dioxide 31 mmol/L (22-30); Chloride 100 mmol/L (98-107); Glucose 88 mg/dL (74-99); Magnesium 1.8 mg/dL (1.6-2.3); Non-African American GFR(CKD) >90 (>60 ml/min/1.73 sqM); Sodium 140 mmol/L (137-145); Total Bilirubin 0.7 mg/dL (0.2-1.3); Total Protein 8.4 g/dL (6.3-8.2)
[2022-05-18 13:37] LABS: AST 42 U/L (17-59); Alkaline Phosphatase 65 U/L (38-126); Potassium 4.6 mmol/L (3.5-5.1)
[2022-05-18 13:38] LABS: Partial Thromboplastin Time 22.4 sec (22.0-30.0); Prothrombin Time 10.5 sec (9.0-12.0)
--- NOTE | 2022-05-18 13:42 | XR ---
EXAMINATION TYPE: XR chest 2V DATE OF EXAM: 05/18/2022 COMPARISON: 05/16/2022 HISTORY: 66-year-old male cough, shortness of breath, difficulty breathing TECHNIQUE: PA and lateral views FINDINGS: Heart normal size. Aorta and pulmonary vasculature are within normal limits. Patchy opacity in the re trocardiac left base appears increased. Subtle interstitial change may be increased as well throughou t the lungs. No pleural effusion. Hyperinflation. IMPRESSION: COPD with subtle increased interstitial density. Focal patchy retrocardiac opacity. Correlate for int erstitial pneumonitis or atypical pneumonias.
[2022-05-18] MEDS ORDERED: IPRATROPIUM-ALBUTEROL 3 ML NEB INHALATION PRN (14:06)
[2022-05-18] MEDS ORDERED: NALOXONE 0.4 MG/ML 1 ML VIAL IVP PRN (14:06)
[2022-05-18] MEDS ORDERED: AZITHROMYCIN 500 MG TAB PO STA (14:09)
[2022-05-18] MEDS ORDERED: ALBUTEROL NEBULIZED 2.5 MG/3 ML INHALATION PRN (14:30)
[2022-05-18] MEDS ORDERED: IPRATROPIUM 0.5 MG/2.5 ML NEBU INHALATION PRN (14:30)
[2022-05-18] MEDS ORDERED: ACETAMINOPHEN TAB 325 MG TAB PO PRN (14:59)
[2022-05-18] MEDS ORDERED: MAG HYDROX/AL HYDROX/SIMETH 30 ML CUP PO PRN (14:59)
[2022-05-18] MEDS ORDERED: MELATONIN 3 MG TABLET PO PRN (14:59)
[2022-05-18] MEDS ORDERED: ONDANSETRON 4 MG/2 ML VIAL IVP PRN (14:59)
[2022-05-18] MEDS ORDERED: ALPRAZolam 0.25 MG TAB PO PRN (14:59)
[2022-05-18] MEDS: IPRATROPIUM 0.5 MG/2.5 ML NEBU INHALATION SCH ×2 (15:54→19:26)
[2022-05-18] MEDS: ALBUTEROL NEBULIZED 2.5 MG/3 ML INHALATION SCH ×2 (15:58→19:26)
[2022-05-18] MEDS ORDERED: IPRATROPIUM-ALBUTEROL 3 ML NEB INHALATION SCH (16:00)
--- NOTE | 2022-05-18 16:48 | P.HPIM ---
History of Present Illness H&P Date: 05/18/22 Patient is a 66-year-old male with PMH of COPD, history of bladder cancer with urostomy, smoker presents to the ED for shortness of breath and wheezing. He initially came to the ED on 05/16 for similar symptoms. He was discharged home after nebulize treatments. Patient reports progressive shortness of breath since his discharge prompted him to come back to the ED today. He reports a dry cough. He denies any headache, lower extremity edema, nausea or vomiting, fever or chills, chest pain, palpitations, changes in urination or bowel habits. No changes in appetite or weight. He denies any dizziness, numbness/weakness as to the extremities. In the ED, he was tachypneic with a respiratory rate of 36, tachycardic with a heart rate of 125 and O2 saturation of 86% on room air. CBC was unremarkable. Coagulation panel was negative. CMP showed a bicarb of 31 and total protein of 8.4. Troponin was 0.019. Lactic acid is 1.4. Flu, RSV and COVID-19 negative. Chest x-ray showed findings of COPD with subtle increased interstitial density and focal retrocardiac opacity. EKG showed sinus rhythm with left anterior fascicular block. Patient is admitted for COPD exacerbation and pulmonology consultation. Pertinent positives and negatives as discussed in HPI, a complete review of systems was performed and all other systems are negative. General: non toxic, no distress, appears at stated age Derm: warm, dry Head: atraumatic, normocephalic, symmetric Eyes: EOMI, no lid lag, anicteric sclera Mouth: no lip lesion, mucus membranes moist Cardiovascular: Tachycardic, no murmur, positive posterior tibial pulse bilateral, Lungs: Decreased breath sounds bilateral, no rhonchi, no rales , no accessory muscle use Ext: no gross muscle atrophy, no edema, no contractures Neuro: no focal neuro deficits Psych: Alert, oriented, appropriate affect #Acute hypoxic respiratory failure #COPD exacerbation #Smoker Chronic conditions: history of bladder cancer with urostomy Based on my assessment of this patient, this patient meets a high complexity level of care. I have reviewed the following data center consultant notes: None. I have reviewed the results of the following tests: CBC was unremarkable. Coagulation panel was negative. CMP showed a bicarb of 31 and total protein of 8.4. Troponin was 0.019. Lactic acid is 1.4. Flu, RSV and COVID-19 negative. I have ordered the following tests: Pro-calcitonin. I have discussed the care of this patient with the following independent historian: None. I have independently interpreted the following test below: Chest x-ray showed findings of COPD with subtle increased interstitial density and focal retrocardiac opacity. EKG showed sinus rhythm with left anterior fascicular block. I have discussed the management of this patient with the following physician: The case was discussed with the ED physician and decision made to admit the patient for COPD exacerbation and treatment of pneumonia. This patient has a high risk of morbidity due to the following reasons: Patient has a COPD with severe exacerbation or progression of disease which poses a threat to life or bodily function. He is currently on 6 L nasal cannula required to maintain O2 saturation greater than 92%. He has been started on Rocephin 2 g IV daily along with azithromycin 500 mg by mouth daily for concerns of community-acquired pneumonia. Pro-calcitonin will be ordered. He'll be started on albuterol neb as needed for shortness of breath and wheezing. Start Solu-Medrol 60 mg IV every 6 hours. Telemetry monitoring. Pulmonology was consulted for further management of this patient. Patient names his friend decision maker if he can't make decisions for himself. Patient will like to be full code. Lovenox 40 mg SQ for DVT prophylaxis. Past Medical History Past Medical History: Cancer, COPD, Hearing Disorder / Deafness, Liver Disease, Osteoarthritis (OA), Pneumonia Additional Past Medical History / Comment(s): "Has Urostomy bag/stoma." Hx bladder cancer Nov 2016, hx colon cancer 2002/2003, hx epiglotitis, hx Pnemomia 2017. Hepatitis C, "a spot on the liver", cirrhosis. "? seizure X1 Mar 2018, blacked out, broke both arms." History of Any Multi-Drug Resistant Organisms: None Reported Past Surgical History: Appendectomy, Bowel Resection, Ear Surgery, Hernia Repair, Tonsillectomy Additional Past Surgical History / Comment(s): 01/21/16 cystoscopy w/evacuation of clot; urostomy, BLADDER AND PROSTATE REMOVED November 2016. Tube placed in right ear in July 2017, pilinodal cyst removed, reapir of left shoulder, Past Anesthesia/Blood Transfusion Reactions: No Reported Reaction Additional Past Anesthesia/Blood Transfusion Reaction / Comment(s): Vertigo. Past Psychological History: Anxiety Smoking Status: Current every day smoker Past Alcohol Use History: None Reported Past Drug Use History: None Reported - Past Family History Father Family Medical History: Cancer Additional Family Medical History / Comment(s): Pancreatic cancer. Mother Family Medical History: Cancer Additional Family Medical History / Comment(s): Lung cancer. Brother(s) Family Medical History: Cancer Additional Family Medical History / Comment(s): Colon cancer. Medications and Allergies Home Medications Medication Instructions Recorded Confirmed Type predniSONE 50 mg PO DAILY #5 tab 05/16/22 05/18/22 Rx Albuterol Inhaler [Ventolin Hfa 1 puff INHALATION RT-Q6H PRN 05/18/22 05/18/22 History Inhaler] Azithromycin [Zithromax Z Pack] See Taper PO DIRECTED 05/18/22 05/18/22 History Fluticasone Propion/Salmeterol 1 puff INHALATION RT-BID 05/18/22 05/18/22 History [Fluticasone-Salmeterol 250-50] Folic Acid 1 mg PO DAILY 05/18/22 05/18/22 History HYDROcodone/APAP 10-325MG [[place] 1 tab PO QID PRN 05/18/22 05/18/22 History 10-325] Ipratropium Nebulized [Atrovent 0.5 mg INHALATION RT-Q4H PRN 05/18/22 05/18/22 History Nebulized 0.2 MG/ML] Naloxone HCl [Narcan] 4 mg NASAL ONCE PRN 05/18/22 05/18/22 History Spironolactone 25 mg PO DAILY 05/18/22 05/18/22 History oxyCODONE HCL [oxyCODONE HCL ER] 20 mg PO BID 05/18/22 05/18/22 History polyethylene glycoL 3350 [Miralax] 17 gm PO DAILY 05/18/22 05/18/22 History Allergies Allergy/AdvReac Type Severity Reaction Status Date / Time bupropion [From Wellbutrin] Allergy Unknown Verified 05/18/22 14:17 fluoxetine [From Prozac] Allergy Unknown Verified 05/18/22 14:17 gabapentin Allergy redness, Verified 05/18/22 14:17 "didn't feel good" hydromorphone Allergy Swelling Verified 05/18/22 14:17 meclizine Allergy vertigo Verified 05/18/22 14:17 paroxetine [From Paxil] Allergy Unknown Verified 05/18/22 14:17 sertraline [From Zoloft] Allergy Rash/Hives Verified 05/18/22 14:17 tramadol Allergy Unknown Verified 05/18/22 14:17 methadone AdvReac Unknown Verified 05/18/22 14:17 niacin AdvReac Unknown Verified 05/18/22 14:17 Physical Exam Vitals: Vital Signs Temp Pulse Pulse Resp BP BP Pulse Ox 05/18/22 16:10 90 05/18/22 15:54 84 05/18/22 15:00 97.9 F 98 18 96 05/18/22 14:58 94 L 05/18/22 14:49 103 H 18 88 L 05/18/22 14:25 96 24 99/55 98 05/18/22 14:09 94 05/18/22 14:00 98.0 F 97 18 99/55 96 05/18/22 13:41 82 05/18/22 13:28 83 18 119/60 100 05/18/22 12:30 24 05/18/22 12:13 97.8 F 125 H 36 H 153/88 86 L Intake and Output 05/18/22 05/18/22 05/18/22 06:59 14:59 22:59 Other: Weight 49.895 kg Results CBC & Chem 7: 05/18/22 12:58 05/18/22 12:58 Labs: Abnormal Lab Results - Last 24 Hours (Table) 05/18/22 Range/Units 12:58 Carbon Dioxide 31 H (22-30) mmol/L Total Protein 8.4 H (6.3-8.2) g/dL
[2022-05-18] MEDS: methylPREDNISolone SOD SUCCI 125 MG/2 ML VIAL IV SCH (19:17)
[2022-05-18] MEDS ORDERED: SYMBICORT 80-4.5 MCG INHALER INHALATION SCH (20:00)
[2022-05-18] MEDS: HYDROcodone/APAP 10-325MG 1 EACH TAB PO PRN (23:01)
[2022-05-19] MEDS: methylPREDNISolone SOD SUCCI 125 MG/2 ML VIAL IV SCH ×5 (00:03→23:10)
[2022-05-19] MEDS: oxyCODONE ER 20 MG TAB.ER.12H PO SCH ×3 (02:06→20:41)
--- NOTE | 2022-05-19 04:34 | P.CNPUL ---
History of Present Illness Consult date: 05/19/22 Requesting physician: Cary Horvath Reason for consult: COPD Chief complaint: Shortness of breath History of present illness: Seeing this patient in new consultation today 05/19/2022 on the general medical floor for progressive shortness of breath. This is a pleasant 66-year-old white male with past medical history of COPD, current 1.5 pack per day smoker, polysubstance abuse, bladder cancer with urostomy, colon cancer with previous resection, hepatitis C, alcoholic cirrhosis, alcoholism, seizure disorder. Patient's COPD is normally managed by the [facility]. Patient uses a albuterol nebuli zer and Advair on an outpatient basis. Patient presented to the emergency room yesterday evening with the chief complaint of progressive shortness of breath over the last 2 days and associated wheezing. Patient states that he gets short of breath with minimal activity including getting up and going to the bathroom. Patient denies any change in his nonproductive cough, fever, chest pain, hemoptysis. Patient is currently up walking in the room, on room air, in no obvious acute distress. Patient's chest x-ray done on arrival showed chronic COPD changes with small focal patchy retrocardiac opacity. CBC on arrival was essentially normal. BMP on arrival was also unremarkable with a chronically elevated serum bicarb level of 31. Troponin negative 1. Patient was negative for influenza, RSV, COVID-19. Patient is being empirically covered with Rocephin and received a dose of azithromycin. Patient is afebrile at the moment. He is also receiving bronchodilators, Symbicort inhaler, and IV Solu- Medrol. Vital signs are stable. Review of Systems REVIEW OF SYSTEMS: CONSTITUTIONAL: Denies any recent significant weight loss or weight gain. EYES: Denies change in vision. EARS, NOSE, MOUTH, THROAT: Denies headaches, denies sore throat. CARDIOVASCULAR: Denies chest pain, palpitations or syncopal episodes. RESPIRATORY: See HPI GASTROINTESTINAL: Denies change in appetite, abdominal pain, nausea and vomiting, or diarrhea GENITOURINARY: Denies hematuria, denies infections. MUSKULOSKELETAL: Denies pain, denies swelling. INTEGUMENTARY: Denies rash, denies eczema. NEUROLOGICAL: Denies recent memory loss, no recent seizure activity. PSYCHIATRIC: Denies anxiety, denies depression. HEMATOLOGIC/LYMPHATIC: Denies anemia, denies enlarged lymph node Past Medical History Past Medical History: Cancer, COPD, Hearing Disorder / Deafness, Liver Disease, Osteoarthritis (OA), Pneumonia Additional Past Medical History / Comment(s): "Has Urostomy bag/stoma." Hx bladder cancer Nov 2016, hx colon cancer , hx epiglotitis, hx Pnemomia 2017. Hepatitis C, "a spot on the liver", cirrhosis. "? seizure X1 Mar 2018, blacked out, broke both arms." History of Any Multi-Drug Resistant Organisms: None Reported Past Surgical History: Appendectomy, Bowel Resection, Ear Surgery, Hernia Repair, Tonsillectomy Additional Past Surgical History / Comment(s): 01/21/16 cystoscopy w/evacuation of clot; urostomy, BLADDER AND PROSTATE REMOVED November 2016. Tube placed in right ear in July 2017, pilinodal cyst removed, reapir of left shoulder, Past Anesthesia/Blood Transfusion Reactions: No Reported Reaction Additional Past Anesthesia/Blood Transfusion Reaction / Comment(s): Vertigo. Past Psychological History: Anxiety Smoking Status: Current every day smoker Past Alcohol Use History: None Reported Additional Past Alcohol Use History / Comment(s): Has been smoking 40-50 yrs, 1 PPD. Past Drug Use History: None Reported - Past Family History Father Family Medical History: Cancer Additional Family Medical History / Comment(s): Pancreatic cancer. Mother Family Medical History: Cancer Additional Family Medical History / Comment(s): Lung cancer. Brother(s) Family Medical History: Cancer Additional Family Medical History / Comment(s): Colon cancer. Medications and Allergies Home Medications Medication Instructions Recorded Confirmed Type predniSONE 50 mg PO DAILY #5 tab 05/16/22 05/18/22 Rx Albuterol Inhaler [Ventolin Hfa 1 puff INHALATION RT-Q6H PRN 05/18/22 05/18/22 History Inhaler] Azithromycin [Zithromax Z Pack] See Taper PO DIRECTED 05/18/22 05/18/22 Histo ry Fluticasone Propion/Salmeterol 1 puff INHALATION RT-BID 05/18/22 05/18/22 History [Fluticasone-Salmeterol 250-50] Folic Acid 1 mg PO DAILY 05/18/22 05/18/22 History HYDROcodone/APAP 10-325MG [Harrold 1 tab PO QID PRN 05/18/22 05/18/22 History 10-325] Ipratropium Nebulized [Atrovent 0.5 mg INHALATION RT-Q4H PRN 05/18/22 05/18/22 History Nebulized 0.2 MG/ML] Naloxone HCl [Narcan] 4 mg NASAL ONCE PRN 05/18/22 05/18/22 History Spironolactone 25 mg PO DAILY 05/18/22 05/18/22 History oxyCODONE HCL [oxyCODONE HCL ER] 20 mg PO BID 05/18/22 05/18/22 History polyethylene glycoL 3350 [Miralax] 17 gm PO DAILY 05/18/22 05/18/22 History Allergies Allergy/AdvReac Type Severity Reaction Status Date / Time bupropion [From Wellbutrin] Allergy Unknown Verified 05/18/22 14:17 fluoxetine [From Prozac] Allergy Unknown Verified 05/18/22 14:17 gabapentin Allergy redness, Verified 05/18/22 14:17 "didn't feel good" hydromorphone Allergy Swelling Verified 05/18/22 14:17 meclizine Allergy vertigo Verified 05/18/22 14:17 paroxetine [From Paxil] Allergy Unknown Verified 05/18/22 14:17 sertraline [From Zoloft] Allergy Rash/Hives Verified 05/18/22 14:17 tramadol Allergy Unknown Verified 05/18/22 14:17 methadone AdvReac Unknown Verified 05/18/22 14:17 niacin AdvReac Unknown Verified 05/18/22 14:17 Physical Exam Vitals: Vital Signs Temp Pulse Pulse Pulse Resp BP BP 05/19/22 02:00 97.6 F 65 18 131/71 05/19/22 01:00 64 16 122/59 05/19/22 00:10 68 16 122/59 05/19/22 00:00 67 16 121/58 05/18/22 23:00 80 15 110/54 05/18/22 22:00 70 16 114/53 05/18/22 21:00 78 12 115/61 05/18/22 20:10 80 16 115/61 05/18/22 20:08 84 18 101/62 05/18/22 19:38 78 05/18/22 19:28 74 05/18/22 19:15 75 18 101/62 05/18/22 17:00 98.7 F 75 16 99/55 05/18/22 16:10 90 05/18/22 16:00 98.0 F 86 18 101/62 05/18/22 15:54 84 05/18/22 15:00 97.9 F 98 18 05/18/22 14:58 05/18/22 14:49 103 H 18 05/18/22 14:25 96 24 05/18/22 14:09 94 05/18/22 14:00 98.0 F 97 18 99/55 05/18/22 13:41 82 05/18/22 13:28 83 18 119/60 05/18/22 12:30 24 05/18/22 12:13 97.8 F 125 H 36 H 153/88 BP Pulse Ox 05/19/22 02:00 99 05/19/22 01:00 94 L 05/19/22 00:10 93 L 05/19/22 00:00 98 05/18/22 23:00 98 05/18/22 22:00 98 05/18/22 21:00 97 05/18/22 20:10 96 05/18/22 20:08 96 05/18/22 19:38 05/18/22 19:28 05/18/22 19:15 97 05/18/22 17:00 96 05/18/22 16:10 05/18/22 16:00 96 05/18/22 15:54 05/18/22 15:00 96 05/18/22 14:58 94 L 05/18/22 14:49 88 L 05/18/22 14:25 99/55 98 05/18/22 14:09 05/18/22 14:00 96 05/18/22 13:41 05/18/22 13:28 100 05/18/22 12:30 05/18/22 12:13 86 L Intake and Output 05/18/22 05/18/22 05/19/22 14:59 22:59 06:59 Other: Weight 49.895 kg 49.895 kg GENERAL EXAM: Alert, 66-year-old white male, comfortable in no apparent distress. HEAD: Normocephalic and atraumatic EYES: Normal reaction of pupils, equal size. NOSE: Clear with pink turbinates. THROAT: No erythema or exudates. NECK: No masses, no JVD. CHEST: No chest wall deformity. LUNGS: Equal air entry with expiratory wheezes heard bilaterally and throughout. no crackles, rhonchi or focal dullness. On room air. No conversational dyspnea or accessory muscle use.. CVS: S1 and S2 normal with no audible murmur, regular rhythm. No extra heart sounds ABDOMEN: No hepatosplenomegaly, active bowel sounds, no guarding or rigidity. SPINE: No scoliosis or deformity SKIN: No rashes CENTRAL NERVOUS SYSTEM: No focal deficits, tone is normal in all 4 extremities. EXTREMITIES: There is no peripheral edema, clubbing, or cyanosis. Peripheral pulses are intact. Results - Laboratory Findings CBC and BMP: 05/18/22 12:58 05/18/22 12:58 PT/INR, D-dimer PT 10.5 sec (9.0-12.0) 05/18/22 12:58 INR 1.0 (<1.2) 05/18/22 12:58 Abnormal lab findings: Abnormal Labs 05/18/22 12:58 Carbon Dioxide 31 H Total Protein 8.4 H - Diagnostic Findings Chest x-ray: image reviewed Assessment and Plan Assessment: Acute COPD exacerbation possibly secondary to an underlying community-acquired pneumonia. Current smoker approximately 1.5 packs per day History of alcoholism and polysubstance abuse. Patient reports no current use. Alcoholic liver disease History of bladder cancer with Urostomy History of colon cancer status post bowel resection Plan: Patient's medications, labs, chest x-ray reviewed Will continue empiric antibiotics for now We will check pro calcitonin level, and manage antibiotics accordingly On room air Continue bronchodilators Start Symbicort inhaler Continue IV Solu-Medrol Lovenox for DVT prophylaxis Nicotine replacement therapy offered We will continue to follow I have personally seen and examined the patient, performed the documentation and the assessment and plan as written. Number of minutes spent on the visit:20 Time with Patient: Greater than 30
[2022-05-19] MEDS: HYDROcodone/APAP 10-325MG 1 EACH TAB PO PRN ×3 (06:58→23:10)
[2022-05-19] MEDS: ALBUTEROL NEBULIZED 2.5 MG/3 ML INHALATION SCH ×4 (08:32→20:16)
[2022-05-19] MEDS: SYMBICORT 160-4.5 MCG INHALER INHALATION SCH ×2 (08:32→20:15)
[2022-05-19] MEDS: IPRATROPIUM 0.5 MG/2.5 ML NEBU INHALATION SCH ×4 (08:33→20:15)
[2022-05-19] MEDS ORDERED: NICOTINE GUM (POLACRILEX) 2 MG GUM BUCCAL PRN (10:12)
[2022-05-19] MEDS: ENOXAPARIN 40 MG/0.4 ML SYRINGE SQ SCH (10:28)
[2022-05-19] MEDS: AZITHROMYCIN 500 MG TAB PO SCH (10:28)
[2022-05-19] MEDS: SPIRONOLACTONE 25 MG TAB PO SCH (10:28)
[2022-05-19] MEDS: NICOTINE 21MG/24HR PATCH TRANSDERM SCH (10:28)
[2022-05-19] MEDS: polyethylene glycoL 3350 17 GM POWD.PACK PO SCH (10:28)
[2022-05-19] MEDS: FOLIC ACID 1 MG TAB PO SCH (10:30)
--- NOTE | 2022-05-19 10:50 | P.PN ---
Subjective Progress Note Date: 05/19/22 Patient is improved room air. He says his breathing has significantly improved. He no longer has shakes or rigors. Gen: awake, alert HEENT: normocephalic, atraumatic, good hearing acuity, moist mucous membranes Resp: good air exchange, breathing comfortably with no accessory muscle use, diffuse wheezing CVS: good distal perfusion x 4, GI: soft, NTTP, ND : no SPT, no CVAT, morales catheter not present MSK: no pitting edema, no clubbing Neuro: non-focal, moving all extremities Psych: cooperative, euthymic mood Hospital course: Patient is a 66-year-old male with PMH of COPD, history of bladder cancer with urostomy, smoker presents to the ED for shortness of breath and wheezing. He initially came to the ED on 05/16 for similar symptoms. He was discharged home after nebulize treatments. Patient reports progressive shortness of breath since his discharge prompted him to come back to the ED today. He reports a dry cough. He denies any headache, lower extremity edema, nausea or vomiting, fever or chills, chest pain, palpitations, changes in urination or bowel habits. No changes in appetite or weight. He denies any dizziness, numbness/weakness as to the extremities. In the ED, he was tachypneic with a respiratory rate of 36, tachycardic with a heart rate of 125 and O2 saturation of 86% on room air. CBC was unremarkable. Coagulation panel was negative. CMP showed a bicarb of 31 and total protein of 8.4. Troponin was 0.019. Lactic acid is 1.4. Flu, RSV and COVID-19 negative. Chest x-ray showed findings of COPD with subtle increased interstitial density and focal retrocardiac opacity. EKG showed sinus rhythm with left anterior fascicular block. Patient is admitted for COPD exacerbation and pulmonology consultation. Assessment: #Acute hypoxic respiratory failure #COPD exacerbation #Smoker History of bladder cancer with urostomy Plan: Today, patient is afebrile, 103/62, heart rate 77, 95% on room air. Influenza A, B, RSV, Covid were negative. Pulmonology note reviewed, pro-calcitonin ordered in order to adjust antibiotics as necessary, they would like to continue monitoring patient Continue ceftriaxone 2 g every 24 hours, azithromycin 500 mg daily Continue ipratropium, albuterol 4 times a day Continue Solu-Medrol 60 mg IV every 6 hours Continue Symbicort twice a day Patient is full code DVT prophylaxis with enoxaparin 40 mg subcu daily Objective - Vital Signs Vital signs: Vital Signs Temp 97.3 F L 05/19/22 07:17 Pulse 88 05/19/22 08:54 Resp 18 05/19/22 08:00 BP 103/62 05/19/22 07:17 Pulse Ox 95 05/19/22 08:33 FiO2 21 05/19/22 08:33 Intake & Output 05/18/22 05/19/22 05/19/22 18:59 06:59 18:59 Intake Total 180 Balance 180 Weight 49.895 kg 49.895 kg Intake: Oral 180 Other: # Voids 1 - Labs CBC & Chem 7: 05/18/22 12:58 05/18/22 12:58 Labs: Abnormal Lab Results - Last 24 Hours (Table) 05/18/22 Range/Units 12:58 Carbon Dioxide 31 H (22-30) mmol/L Total Protein 8.4 H (6.3-8.2) g/dL
[2022-05-19 11:13] LABS: Basophils # (A) 0 X 10*3/uL (0.00-0.10); Basophils % (A) 0 %; Eosinophils # (A) 0 X 10*3/uL (0.04-0.35); Eosinophils % (A) 0 %; HCT 42.4 % (39.6-50.0); HGB 14.3 g/dL (13.0-17.0); Immature Grans, Automated 0.9 %; Lymphocytes # (A) 1.14 X 10*3/uL (0.90-5.00); Lymphocytes % (A) 26.5 %; MCH 33.1 pg (27.0-32.0); MCHC 33.7 g/dL (32.0-37.0); MCV 98.1 fL (80.0-97.0); Mean Platelet Volume 8.9 fL (9.5-12.2); Monocytes # (A) 0.07 X 10*3/uL (0.20-1.00); Monocytes % (A) 1.6 %; NRBC Per 100 WBC 0 /100 WBCS (0.0-0.0); Neutrophils # (A) 3.05 X 10*3/uL (1.80-7.70); Platelet Count 181 X 10*3/uL (140-440); RBC 4.32 X 10*6/uL (4.40-5.60); RDW 12.2 % (11.5-14.5)
[2022-05-19 11:16] LABS: African American GFR (CKD) 113.2 (60.0-200.0); Anion Gap 13.9 mmol/L (10.00-18.00); BUN/Creat Ratio 13.43 Ratio (12.00-20.00); Blood Urea Nitrogen 9.4 mg/dL (9.0-27.0); Calcium 9.5 mg/dL (8.7-10.3); Carbon Dioxide 26.1 mmol/L (20.0-27.5); Non-African American GFR(CKD) 97.7 (60.0-200.0); Potassium 4.3 mmol/L (3.5-5.5)
[2022-05-19 13:01] VITALS: BMI 16.2
[2022-05-20] MEDS: methylPREDNISolone SOD SUCCI 125 MG/2 ML VIAL IV SCH ×4 (05:42→23:30)
[2022-05-20] MEDS: HYDROcodone/APAP 10-325MG 1 EACH TAB PO PRN ×4 (05:43→23:31)
[2022-05-20 07:44] LABS: Basophils % (A) 0 %; Eosinophils % (A) 0 %; HCT 41.8 % (39.0-53.0); HGB 14.1 gm/dL (13.0-17.5); Lymphocytes % (A) 20 %; MCH 32.8 pg (25.0-35.0); MCHC 33.8 g/dL (31.0-37.0); Monocytes # (A) 0.1 k/uL (0-1.0); Monocytes % (A) 3 %; Neutrophils # (A) 3.7 k/uL (1.3-7.7); Neutrophils % (A) 75 %; Platelet Count 201 k/uL (150-450); RDW 12.3 % (11.5-15.5); WBC 4.9 k/uL (3.8-10.6)
[2022-05-20 08:08] LABS: African American GFR (CKD) >90 (>60 ml/min/1.73 sqM); Anion Gap 9 mmol/L; Blood Urea Nitrogen 17 mg/dL (9-20); Calcium 9.2 mg/dL (8.4-10.2); Carbon Dioxide 29 mmol/L (22-30); Chloride 100 mmol/L (98-107); Glucose 132 mg/dL (74-99); Non-African American GFR(CKD) >90 (>60 ml/min/1.73 sqM); Potassium 4.2 mmol/L (3.5-5.1); Sodium 138 mmol/L (137-145)
[2022-05-20] MEDS: ALBUTEROL NEBULIZED 2.5 MG/3 ML INHALATION SCH ×4 (08:27→21:26)
[2022-05-20] MEDS: SYMBICORT 160-4.5 MCG INHALER INHALATION SCH ×2 (08:27→21:26)
[2022-05-20] MEDS: IPRATROPIUM 0.5 MG/2.5 ML NEBU INHALATION SCH ×4 (08:27→21:26)
[2022-05-20] MEDS ORDERED: traZODone HCL 50 MG TAB PO PRN (09:37)
--- NOTE | 2022-05-20 10:02 | P.PN ---
Subjective Progress Note Date: 05/20/22 Patient is improved room air. However, he reports significant dyspnea even at rest as well as exertion. Significant wheezing on exam Gen: awake, alert HEENT: normocephalic, atraumatic, good hearing acuity, moist mucous membranes Resp: good air exchange, breathing comfortably with no accessory muscle use, diffuse wheezing CVS: good distal perfusion x 4, GI: soft, NTTP, ND : no SPT, no CVAT, morales catheter not present MSK: no pitting edema, no clubbing Neuro: non-focal, moving all extremities Psych: cooperative, euthymic mood Hospital course: Patient is a 66-year-old male with PMH of COPD, history of bladder cancer with urostomy, smoker presents to the ED for shortness of breath and wheezing. He initially came to the ED on 05/16 for similar symptoms. He was discharged home after nebulize treatments. Patient reports progressive shortness of breath since his discharge prompted him to come back to the ED today. He reports a dry cough. He denies any headache, lower extremity edema, nausea or vomiting, fever or chills, chest pain, palpitations, changes in urination or bowel habits. No changes in appetite or weight. He denies any dizziness, numbness/weakness as to the extremities. In the ED, he was tachypneic with a respiratory rate of 36, tachycardic with a heart rate of 125 and O2 saturation of 86% on room air. CBC was unremarkable. Coagulation panel was negative. CMP showed a bicarb of 31 and total protein of 8.4. Troponin was 0.019. Lactic acid is 1.4. Flu, RSV and COVID-19 negative. Chest x-ray showed findings of COPD with subtle increa sed interstitial density and focal retrocardiac opacity. EKG showed sinus rhythm with left anterior fascicular block. Patient is admitted for COPD exacerbation and pulmonology consultation. Assessment: #Acute hypoxic respiratory failure #COPD exacerbation #Smoker History of bladder cancer with urostomy Plan: Today, patient is afebrile, 103/59, heart rate 76, 95% on room air CBC is reviewed and unremarkable, chemistries are reviewed and unremarkable, magnesium is 2.0 Pro-calcitonin is 0.06 Ordered CBC, basic metabolic panel, magnesium for tomorrow Pulmonology note reviewed, pro-calcitonin ordered in order to adjust antibiotics as necessary, they would like to continue monitoring patient Continue ceftriaxone 2 g every 24 hours, azithromycin 500 mg daily Continue ipratropium, albuterol 4 times a day Continue Solu-Medrol 60 mg IV every 6 hours Continue Symbicort twice a day Patient is full code DVT prophylaxis with enoxaparin 40 mg subcu daily Objective - Vital Signs Vital signs: Vital Signs Temp 98.0 F 05/20/22 08:21 Pulse 74 05/20/22 08:46 Resp 18 05/20/22 08:21 BP 103/59 05/20/22 08:21 Pulse Ox 94 L 05/20/22 08:27 FiO2 21 05/19/22 08:33 Intake & Output 05/19/22 05/20/22 05/20/22 18:59 06:59 18:59 Intake Total 430 Output Total 500 2000 Balance -70 -1999 Weight 49.895 kg Intake: Oral 430 Output: Urine 500 1999 - Labs CBC & Chem 7: 05/20/22 05:34 05/20/22 05:34 Labs: Abnormal Lab Results - Last 24 Hours (Table) 05/19/22 05/19/22 05/20/22 Range/Units 05:30 05:30 05:34 WBC 4.30 L (4.50-10.00) X 10*3/uL RBC 4.32 L (4.40-5.60) X 10*6/uL MCV 98.1 H (80.0-97.0) fL MCH 33.1 H (27.0-32.0) pg MPV 8.9 L (9.5-12.2) fL Monocytes # 0.07 L (0.20-1.00) X 10*3/uL Eosinophils # 0 L (0.04-0.35) X 10*3/uL Glucose 126 H 132 H (70-110) mg/dL Microbiology - Last 24 Hours (Table) 05/18/22 12:55 Blood Culture - Preliminary Blood No Growth after 24 hours 05/18/22 13:10 Blood Culture - Preliminary Blood No Growth after 24 hours
[2022-05-20] MEDS: ENOXAPARIN 40 MG/0.4 ML SYRINGE SQ SCH (10:06)
[2022-05-20] MEDS: polyethylene glycoL 3350 17 GM POWD.PACK PO SCH (10:06)
[2022-05-20] MEDS: AZITHROMYCIN 500 MG TAB PO SCH (10:07)
[2022-05-20] MEDS: FOLIC ACID 1 MG TAB PO SCH (10:07)
[2022-05-20] MEDS: oxyCODONE ER 20 MG TAB.ER.12H PO SCH ×2 (10:07→21:49)
[2022-05-20] MEDS: SPIRONOLACTONE 25 MG TAB PO SCH (10:08)
[2022-05-20] MEDS: NICOTINE 21MG/24HR PATCH TRANSDERM SCH (10:08)
--- NOTE | 2022-05-20 13:46 | P.PN ---
Subjective Progress Note Date: 05/20/22 Seeing this patient in new consultation today 05/19/2022 on the general medical floor for progressive shortness of breath. This is a pleasant 66-year-old white male with past medical history of COPD, current 1.5 pack per day smoker, polysubstance abuse, bladder cancer with urostomy, colon cancer with previous resection, hepatitis C, alcoholic cirrhosis, alcoholism, seizure disorder. [facility] Patient uses a albuterol nebulizer and Advair on an outpatient basis. Patient presented to the emergency room yesterday evening with the chief complaint of progressive shortness of breath over the last 2 days and associated wheezing. Patient states that he gets short of breath with minimal activity including getting up and going to the bathroom. Patient denies any change in his nonproductive cough, fever, chest pain, hemoptysis. Patient is currently up walking in the room, on room air, in no obvious acute distress. Patient's chest x-ray done on arrival showed chronic COPD changes with small focal patchy retrocardiac opacity. CBC on arrival was essentially normal. BMP on arrival was also unremarkable with a chronically elevated serum bicarb level of 31. Troponin negative 1. Patient was negative for influenza, RSV, COVID-19. Patient is being empirically covered with Rocephin and received a dose of azithromycin. Patient is afebrile at the moment. He is also receiving bronchodilators, Symbicort inhaler, and IV Solu- Medrol. Vital signs are stable. The patient is seen today 05/20/2022 in follow-up on the regular medical floor. He is currently sitting up in bed. Awake and alert in no acute distress. Maintaining O2 saturations in the 90s on room air. Still somewhat bronchospastic and wheezing. Not quite back to his baseline. No worsening rina rtness of breath, cough or congestion. No fever or chills. He is continued on antibiotics in form of ceftriaxone and azithromycin. Remains on Symbicort, DuoNeb inhalations, IV Solu-Medrol. NicoDerm patch in place. Blood cultures reveal no growth. White count 4.9. Hemoglobin 14.1. Liquid stool 1. Sodium 138. Potassium 4.2. Bicarb 29. BUN 17. Creatinine 0.69. Glucose 132. Procalcitonin was 0.06. Objective - Vital Signs Vital signs: Vital Signs Temp 98.0 F 05/20/22 08:21 Pulse 81 05/20/22 12:24 Resp 18 05/20/22 08:21 BP 103/59 05/20/22 08:21 Pulse Ox 95 05/20/22 10:30 FiO2 21 05/19/22 08:33 Intake & Output 05/19/22 05/20/22 05/20/22 18:59 06:59 18:59 Intake Total 430 Output Total 500 1999 Balance -70 -1999 Weight 49.895 kg Intake: Oral 430 Output: Urine 500 1999 - Exam GENERAL EXAM: Alert, pleasant 66-year-old gentleman, on room air, comfortable in no apparent distress. HEAD: Normocephalic. EYES: Normal reaction of pupils, equal size. NOSE: Clear with pink turbinates. THROAT: No erythema or exudates. NECK: No masses, no JVD. CHEST: No chest wall deformity. LUNGS: Equal air entry with bilateral end expiratory wheeze, diminished. CVS: S1 and S2 normal with no audible murmur, regular rhythm. ABDOMEN: No hepatosplenomegaly, normal bowel sounds, no guarding or rigidity. SPINE: No scoliosis or deformity SKIN: No rashes CENTRAL NERVOUS SYSTEM: No focal deficits, tone is normal in all 4 extremities. EXTREMITIES: There is no peripheral edema. No clubbing, no cyanosis. Peripheral pulses are intact. - Labs CBC & Chem 7: 05/20/22 05:34 05/20/22 05:34 Labs: Abnormal Lab Results - Last 24 Hours (Table) 05/20/22 Range/Units 05:34 Glucose 132 H (74-99) mg/dL Microbiology - Last 24 Hours (Table) 05/18/22 12:55 Blood Culture - Preliminary Blood No Growth after 24 hours 05/18/22 13:10 Blood Culture - Preliminary Blood No Growth after 24 hours Assessment and Plan Assessment: Acute COPD exacerbation possibly secondary to an underlying community-acquired pneumonia. Pro calcitonin 0.06. Antibiotics discontinued Current smoker approximately 1.5 packs per day History of alcoholism and polysubstance abuse. Patient reports no current use. Alcoholic liver disease History of bladder cancer with Urostomy History of colon cancer status post bowel resection Plan: The patient was seen and evaluated Stable and on room air Not quite back to his baseline Pro calcitonin within normal limits Antibiotics discontinued Continue that bronchodilators, IV Solu-Medrol Educated regarding the importance of complete smoking cessation NicoDerm patch in place, utilizing a Nicorette gum Probable discharge in the a.m. We will continue to follow I have personally seen and examined the patient, performed the documentation and the assessment and plan as written. Number of minutes spent on the visit: 10.
[2022-05-21] MEDS: HYDROcodone/APAP 10-325MG 1 EACH TAB PO PRN ×4 (04:58→23:05)
[2022-05-21] MEDS: methylPREDNISolone SOD SUCCI 125 MG/2 ML VIAL IV SCH ×4 (05:00→23:06)
[2022-05-21] MEDS: polyethylene glycoL 3350 17 GM POWD.PACK PO SCH (08:04)
[2022-05-21] MEDS: NICOTINE 21MG/24HR PATCH TRANSDERM SCH (08:04)
[2022-05-21] MEDS: oxyCODONE ER 20 MG TAB.ER.12H PO SCH ×2 (08:05→21:13)
[2022-05-21] MEDS: FOLIC ACID 1 MG TAB PO SCH (08:06)
[2022-05-21] MEDS: SPIRONOLACTONE 25 MG TAB PO SCH (08:06)
[2022-05-21] MEDS: ENOXAPARIN 40 MG/0.4 ML SYRINGE SQ SCH (08:07)
[2022-05-21] MEDS: SYMBICORT 160-4.5 MCG INHALER INHALATION SCH ×2 (08:20→19:30)
[2022-05-21] MEDS: IPRATROPIUM 0.5 MG/2.5 ML NEBU INHALATION SCH ×4 (08:21→19:29)
[2022-05-21] MEDS: ALBUTEROL NEBULIZED 2.5 MG/3 ML INHALATION SCH ×4 (08:21→19:30)
[2022-05-21] MEDS ORDERED: ALPRAZolam 0.25 MG TAB PO PRN (10:21)
--- NOTE | 2022-05-21 10:21 | P.PN ---
Subjective Progress Note Date: 05/21/22 Patient is still on room air at rest, but dyspneic on exertion. Plan for home oxygen test today. Gen: awake, alert HEENT: normocephalic, atraumatic, good hearing acuity, moist mucous membranes Resp: good air exchange, breathing comfortably with no accessory muscle use, diffuse wheezing CVS: good distal perfusion x 4, GI: soft, NTTP, ND : no SPT, no CVAT, morales catheter not present MSK: no pitting edema, no clubbing Neuro: non-focal, moving all extremities Psych: cooperative, euthymic mood Hospital course: Patient is a 66-year-old male with PMH of COPD, history of bladder cancer with urostomy, smoker presents to the ED for shortness of breath and wheezing. He initially came to the ED on 05/16 for similar symptoms. He was discharged home after nebulize treatments. Patient reports progressive shortness of breath since his discharge prompted him to come back to the ED today. He reports a dry cough. He denies any headache, lower extremity edema, nausea or vomiting, fever or chills, chest pain, palpitations, changes in urination or bowel habits. No changes in appetite or weight. He denies any dizziness, numbness/weakness as to the extremities. In the ED, he was tachypneic with a respiratory rate of 36, tachycardic with a heart rate of 125 and O2 saturation of 86% on room air. CBC was unremarkable. Coagulation panel was negative. CMP showed a bicarb of 31 and total protein of 8.4. Troponin was 0.019. Lactic acid is 1.4. Flu, RSV and COVID-19 negative. Chest x-ray showed findings of COPD with subtle increased interstitial density and focal retrocardiac opacity. EKG showed sinus rhythm with left anterior fascicular block. Patient is admitted for COPD exacerbation and pulmonology consultation. Assessment: #Acute hypoxic respiratory failure #COPD exacerbation #Smoker History of bladder cancer with urostomy Plan: Today, patient is afebrile, 116/67, heart rate 72, 94% on room air Ordered CBC, basic metabolic panel, magnesium for tomorrow Pulmonology note reviewed and case discussed with them today, patient will have his antibiotics discontinued, continue bronchodilators and IV Solu-Medrol, evaluate for home oxygen Discontinue ceftriaxone, azithromycin Ordered home oxygen testing today. Nursing Continue ipratropium, albuterol 4 times a day Continue Solu-Medrol 60 mg IV every 6 hours Continue Symbicort twice a day Patient is full code DVT prophylaxis with enoxaparin 40 mg subcu daily Objective - Vital Signs Vital signs: Vital Signs Temp 98.6 F 05/21/22 07:06 Pulse 92 05/21/22 08:37 Resp 18 05/21/22 07:06 BP 116/67 05/21/22 07:06 Pulse Ox 94 L 05/21/22 07:06 FiO2 21 05/19/22 08:33 Intake & Output 05/20/22 05/21/22 05/21/22 18:59 06:59 18:59 Intake Total 118 Output Total 280 Balance -280 118 Intake: Oral 118 Output: Urine 280 Other: # Voids 4 - Labs CBC & Chem 7: 05/20/22 05:34 05/20/22 05:34 Labs: Microbiology - Last 24 Hours (Table) 05/18/22 13:10 Blood Culture - Preliminary Blood No Growth after 48 hours 05/18/22 12:55 Blood Culture - Preliminary Blood No Growth after 48 hours
[2022-05-21 11:02] LABS: Basophils # (A) 0.02 X 10*3/uL (0.00-0.10); Basophils % (A) 0.3 %; Eosinophils # (A) 0 X 10*3/uL (0.04-0.35); Eosinophils % (A) 0 %; HCT 44.2 % (39.6-50.0); HGB 14.6 g/dL (13.0-17.0); Immature Grans, Automated 0.9 %; Lymphocytes # (A) 1.51 X 10*3/uL (0.90-5.00); Lymphocytes % (A) 19.2 %; MCH 32.3 pg (27.0-32.0); MCV 97.8 fL (80.0-97.0); Monocytes # (A) 0.16 X 10*3/uL (0.20-1.00); NRBC Per 100 WBC 0 /100 WBCS (0.0-0.0); Neutrophils # (A) 6.09 X 10*3/uL (1.80-7.70); Neutrophils % (A) 77.6 %; Platelet Count 219 X 10*3/uL (140-440); RBC 4.52 X 10*6/uL (4.40-5.60); WBC 7.85 X 10*3/uL (4.50-10.00)
[2022-05-21 11:26] LABS: Magnesium 2.1 mg/dL (1.5-2.4)
[2022-05-21 11:43] LABS: African American GFR (CKD) 107.1 (60.0-200.0); Blood Urea Nitrogen 17.6 mg/dL (9.0-27.0); Calcium 10.3 mg/dL (8.7-10.3); Non-African American GFR(CKD) 92.4 (60.0-200.0); Potassium 4.8 mmol/L (3.5-5.5)
--- NOTE | 2022-05-21 14:56 | P.PN ---
Progress Note - Text Progress Note Date: 05/21/22 Patient will require home oxygen when ambulatory due to desaturation 87% on room air while ambulating. Saturating 95% on room air while at rest.
--- NOTE | 2022-05-21 16:27 | P.PN ---
Subjective Progress Note Date: 05/21/22 Principal diagnosis: Acute COPD exacerbation, basilar atelectasis, no evidence of pneumonia Seeing this patient in new consultation today 05/19/2022 on the general medical floor for progressive shortness of breath. This is a pleasant 66-year-old white male with past medical history of COPD, current 1.5 pack per day smoker, polysubstance abuse, bladder cancer with urostomy, colon cancer with previous resection, hepatitis C, alcoholic cirrhosis, alcoholism, seizure disorder. Hemalatha molina's COPD is normally managed by the [facility]. Patient uses a albuterol nebulizer and Advair on an outpatient basis. Patient presented to the emergency room yesterday evening with the chief complaint of progressive shortness of breath over the last 2 days and associated wheezing. Patient states that he gets short of breath with minimal activity including getting up and going to the bathroom. Patient denies any change in his nonproductive cough, fever, chest pain, hemoptysis. Patient is currently up walking in the room, on room air, in no obvious acute distress. Patient's chest x-ray done on arrival showed chronic COPD changes with small focal patchy retrocardiac opacity. CBC on arrival was essentially normal. BMP on arrival was also unremarkable with a chronically elevated serum bicarb level of 31. Troponin negative 1. Patient was negative for influenza, RSV, COVID-19. Patient is being empirically covered with Rocephin and received a dose of azithromycin. Patient is afebrile at the moment. He is also receiving bronchodilators, Symbicort inhaler, and IV Solu- Medrol. Vital signs are stable. The patient is seen today 05/20/2022 in follow-up on the regular medical floor. He is currently sitting up in bed. Awake and alert in no acute distress. Maintaining O2 saturations in the 90s on room air. Still somewhat bronchospastic and wheezing. Not quite back to his baseline. No worsening shortness of breath, cough or congestion. No fever or chills. He is continued on antibiotics in form of ceftriaxone and azithromycin. Remains on Symbicort, DuoNeb inhalations, IV Solu-Medrol. NicoDerm patch in place. Blood cultures reveal no growth. White count 4.9. Hemoglobin 14.1. Liquid stool 1. Sodium 138. Potassium 4.2. Bicarb 29. BUN 17. Creatinine 0.69. Glucose 132. Procalcitonin was 0.06. Reevaluated today on 05/21/2022, patient is doing much better today, less cough and less wheezing less shortness of breath, on physical examination he had diminished breath sounds and some wheezing on forced expiratory maneuver. His off antibiotics be because his pro-calcitonin was normal and I am clearing the patient to be discharged home today. However the patient may need home O2 and he would have a 6 minute walk, if he drops below 88% the patient needs to have h ome O2. Objective - Vital Signs Vital signs: Vital Signs Temp 98.1 F 05/21/22 15:20 Pulse 90 05/21/22 16:00 Resp 18 05/21/22 15:20 BP 142/72 05/21/22 15:20 Pulse Ox 94 L 05/21/22 15:20 FiO2 21 05/19/22 08:33 Intake & Output 05/20/22 05/21/22 05/21/22 18:59 06:59 18:59 Intake Total 118 Output Total 280 Balance -280 118 Weight 49.895 kg Intake: Oral 118 Output: Urine 280 Other: # Voids 4 - Exam Physical Exam: Revealed a 66-year-old white male in no distress on room air Head: Atraumatic normocephalic HEENT:[Neck is supple.] [No neck masses.] [No thyromegaly.] [No JVD.] Chest: [Diminished breath sounds at the bases no rectal crackles or rhonchi or wheezes except some wheezing on forced expiratory maneuver Cardiac Exam: [Normal S1 and S2, no S3 gallop, no murmur.] Abdomen: [Soft, nontender, no megaly, no rebound, no guarding, normal bowel sounds.] Extremities: [No clubbing, no edema, no cyanosis.] Neurological Exam: [No focal neurologic deficit.] Alert and oriented 3 Psychiatric: Normal mood affect, normal mental status examination. Skin: No rashes - Labs CBC & Chem 7: 05/21/22 05:24 05/21/22 05:24 Labs: Abnormal Lab Results - Last 24 Hours (Table) 05/21/22 05/21/22 Range/Units 05:24 05:24 MCV 97.8 H (80.0-97.0) fL MCH 32.3 H (27.0-32.0) pg MPV 9.0 L (9.5-12.2) fL Immature Gran # 0.07 H (0.00-0.04) X 10*3/uL Monocytes # 0.16 L (0.20-1.00) X 10*3/uL Eosinophils # 0 L (0.04-0.35) X 10*3/uL Carbon Dioxide 30.0 H (20.0-27.5) mmol/L BUN/Creatinine Ratio 22.00 H (12.00-20.00) Ratio Glucose 135 H (70-110) mg/dL Microbiology - Last 24 Hours (Table) 05/18/22 12:55 Blood Culture - Preliminary Blood No Growth after 72 hours 05/18/22 13:10 Blood Culture - Preliminary Blood No Growth after 72 hours Assessment and Plan Assessment: Acute COPD exacerbation possibly secondary to an underlying community-acquired pneumonia. Pro calcitonin 0.06. Antibiotics discontinued Current smoker approximately 1.5 packs per day History of alcoholism and polysubstance abuse. Patient reports no current use. Alcoholic liver disease History of bladder cancer with Urostomy History of colon cancer status post bowel resection Recommendation: Arrange for home O2 if the patient qualifies Consider discharging the patient home on albuterol, Symbicort, and DuoNeb updrafts 4 times a day and when necessary as well as prednisone 40 mg tapered over the next 2 weeks follow-up on outpatient basis in the next one week Patient may or may not qualify for home O2, and if he does strongly recommend that he goes home on oxygen. Time with Patient: Less than 30
[2022-05-22] MEDS: HYDROcodone/APAP 10-325MG 1 EACH TAB PO PRN ×2 (05:22→11:44)
[2022-05-22] MEDS: methylPREDNISolone SOD SUCCI 125 MG/2 ML VIAL IV SCH ×2 (05:45→12:19)
[2022-05-22] MEDS: polyethylene glycoL 3350 17 GM POWD.PACK PO SCH (07:56)
[2022-05-22] MEDS: ENOXAPARIN 40 MG/0.4 ML SYRINGE SQ SCH (07:56)
[2022-05-22] MEDS: oxyCODONE ER 20 MG TAB.ER.12H PO SCH (07:57)
[2022-05-22] MEDS: NICOTINE 21MG/24HR PATCH TRANSDERM SCH (07:57)
[2022-05-22] MEDS: FOLIC ACID 1 MG TAB PO SCH (07:57)
[2022-05-22] MEDS: SPIRONOLACTONE 25 MG TAB PO SCH (08:00)
[2022-05-22] MEDS: IPRATROPIUM 0.5 MG/2.5 ML NEBU INHALATION SCH ×2 (08:46→11:44)
[2022-05-22] MEDS: ALBUTEROL NEBULIZED 2.5 MG/3 ML INHALATION SCH ×2 (08:46→11:45)
[2022-05-22] MEDS: SYMBICORT 160-4.5 MCG INHALER INHALATION SCH (08:46)
[2022-05-22 09:21] VITALS: RESP 19
--- NOTE | 2022-05-22 10:20 | P.DS ---
Providers Date of admission: 05/18/22 14:09 Expected date of discharge: 05/22/22 Attending physician: Angel Gallegos MD Consults: 05/18/22 14:59 Consult Physician Routine Consulting Provider: Luz Maria Rodriges Consult Reason/Comments: copd Do you want consulting provider notified?: Yes Primary care physician: [facility] Hospital Course: Assessment: #Acute hypoxic respiratory failure #COPD exacerbation #Smoker History of bladder cancer with urostomy Hospital course: Patient is a 66-year-old male with PMH of COPD, history of bladder cancer with urostomy, smoker presents to the ED for shortness of breath and wheezing. He initially came to the ED on 05/16 for similar symptoms. He was discharged home after nebulize treatments. Patient reports progressive shortness of breath since his discharge prompted him to come back to the ED today. He reports a dry cough. He denies any headache, lower extremity edema, nausea or vomiting, fever or chills, chest pain, palpitations, changes in urination or bowel habits. No changes in appetite or weight. He denies any dizziness, numbness/weakness as to the extremities. In the ED, he was tachypneic with a respiratory rate of 36, tachycardic with a heart rate of 125 and O2 saturation of 86% on room air. CBC was unremarkable. Coagulation panel was negative. CMP showed a bicarb of 31 and total protein of 8.4. Troponin was 0.019. Lactic acid is 1.4. Flu, RSV and COVID-19 negative. Chest x-ray showed findings of COPD with subtle increas ed interstitial density and focal retrocardiac opacity. EKG showed sinus rhythm with left anterior fascicular block. Patient was admitted for COPD exacerbation and pulmonology consultation. Patient was treated with COPD exacerbation medications including nebulizers, steroids, and initially was started on antibiotics. Procalcitonin was done and was low, therefore antibiotics were discontinued. Patient slowly improved across 72 hours. By day 3, he was at his baseline, however, he needed evaluation for home oxygen which demonstrated need for ambulatory oxygen due to desaturation to 87% while walking. Case management facilitated home oxygen approval through the [place], and was able to obtain a by day 4 of hospitalization, and patient was discharged home. Patient will complete a prednisone taper and follow-up with pulmonology. I spent 40 minutes coordinating this discharge on 05/22 Gen: awake, alert HEENT: normocephalic, atraumatic, good hearing acuity, moist mucous membranes Resp: good air exchange, breathing comfortably with no accessory muscle use, diffuse wheezing CVS: good distal perfusion x 4, GI: soft, NTTP, ND : no SPT, no CVAT, morales catheter not present MSK: no pitting edema, no clubbing Neuro: non-focal, moving all extremities Psych: cooperative, euthymic mood Patient Condition at Discharge: Good Plan - Discharge Summary New Discharge Prescriptions: New Budesonide-Formot 160-4.5 Mcg [Symbicort 160-4.5 Mcg Inhaler] 2 puff INHALATION RT-BID #1 each predniSONE [Deltasone] See Rx Instructions .ROUTE .COMPLEX #15 tab Nicotine 21Mg/24Hr Patch [Habitrol] 1 patch TRANSDERM DAILY #30 patch Acetaminophen Tab [Tylenol] 650 mg PO Q6HR PRN tab PRN Reason: Mild Pain Or Fever > 100.5 Continue oxyCODONE HCL [oxyCODONE HCL ER] 20 mg PO BID HYDROcodone/APAP 10-325MG [[place] 10-325] 1 tab PO QID PRN PRN Reason: Breakthrough Pain Spironolactone 25 mg PO DAILY Azithromycin [Zithromax Z Pack] See Taper PO DIRECTED Folic Acid 1 mg PO DAILY polyethylene glycoL 3350 [Miralax] 17 gm PO DAILY Naloxone HCl [Narcan] 4 mg NASAL ONCE PRN PRN Reason: overdose Ipratropium Nebulized [Atrovent Nebulized 0.2 MG/ML] 0.5 mg INHALATION RT-Q4H PRN PRN Reason: Shortness Of Breath Albuterol Inhaler [Ventolin Hfa Inhaler] 1 puff INHALATION RT-Q6H PRN PRN Reason: Shortness Of Breath Discontinued predniSONE 50 mg PO DAILY #5 tab Fluticasone Propion/Salmeterol [Fluticasone-Salmeterol 250-50] 1 puff INHALATION RT-BID Discharge Medication List Albuterol Inhaler [Ventolin Hfa Inhaler] 1 puff INHALATION RT-Q6H PRN 05/18/22 [History] Azithromycin [Zithromax Z Pack] See Taper PO DIRECTED 05/18/22 [History] Folic Acid 1 mg PO DAILY 05/18/22 [History] HYDROcodone/APAP 10-325MG [[place] 10-325] 1 tab PO QID PRN 05/18/22 [History] Ipratropium Nebulized [Atrovent Nebulized 0.2 MG/ML] 0.5 mg INHALATION RT-Q4H PRN 05/18/22 [History] Naloxone HCl [Narcan] 4 mg NASAL ONCE PRN 05/18/22 [History] Spironolactone 25 mg PO DAILY 05/18/22 [History] oxyCODONE HCL [oxyCODONE HCL ER] 20 mg PO BID 05/18/22 [History] polyethylene glycoL 3350 [Miralax] 17 gm PO DAILY 05/18/22 [History] Acetaminophen Tab [Tylenol] 650 mg PO Q6HR PRN tab 05/22/22 [Rx] Budesonide-Formot 160-4.5 Mcg [Symbicort 160-4.5 Mcg Inhaler] 2 puff INHALATION RT-BID #1 each 05/22/22 [Rx] Nicotine 21Mg/24Hr Patch [Habitrol] 1 patch TRANSDERM DAILY #30 patch 05/22/22 [Rx] predniSONE [Deltasone] See Rx Instructions .ROUTE .COMPLEX #15 tab 05/22/22 [Rx] Follow up Appointment(s)/Referral(s): Luz Maria Rodriges MD [STAFF PHYSICIAN] - 05/29/22 1:00 pm [facility],Clinic [Primary Care Provider] - 1-2 days Patient Instructions/Handouts: How to Stop Smoking (DC), Cigarette Smoking and Your Health (GEN) Activity/Diet/Wound Care/Special Instructions: [facility] - [phone] - please call if you have questions or concerns about your oxygen. Discharge Disposition: HOME SELF-CARE
[2022-05-22 11:19] LABS: Basophils # (A) 0.02 X 10*3/uL (0.00-0.10); Basophils % (A) 0.3 %; Eosinophils # (A) 0 X 10*3/uL (0.04-0.35); Eosinophils % (A) 0 %; HCT 44.8 % (39.6-50.0); Immature Grans, Automated 1.2 %; Lymphocytes # (A) 1.09 X 10*3/uL (0.90-5.00); Lymphocytes % (A) 16.3 %; MCH 32.5 pg (27.0-32.0); MCHC 33.5 g/dL (32.0-37.0); Monocytes # (A) 0.22 X 10*3/uL (0.20-1.00); Monocytes % (A) 3.3 %; NRBC Per 100 WBC 0 /100 WBCS (0.0-0.0); Neutrophils # (A) 5.27 X 10*3/uL (1.80-7.70); Neutrophils % (A) 78.9 %; Platelet Count 228 X 10*3/uL (140-440); RBC 4.62 X 10*6/uL (4.40-5.60); RDW 11.9 % (11.5-14.5); WBC 6.68 X 10*3/uL (4.50-10.00)
[2022-05-22 11:28] LABS: African American GFR (CKD) 102.1 (60.0-200.0); Anion Gap 11.9 mmol/L (10.00-18.00); BUN/Creat Ratio 20.56 Ratio (12.00-20.00); Blood Urea Nitrogen 18.5 mg/dL (9.0-27.0); Calcium 9.9 mg/dL (8.7-10.3); Carbon Dioxide 30.1 mmol/L (20.0-27.5); Magnesium 2.4 mg/dL (1.5-2.4); Non-African American GFR(CKD) 88.1 (60.0-200.0); Potassium 4.4 mmol/L (3.5-5.5)
--- NOTE | 2022-05-22 14:09 | P.PN ---
Subjective Progress Note Date: 05/22/22 Seeing this patient in new consultation today 05/19/2022 on the general medical floor for progressive shortness of breath. This is a pleasant 66-year-old white male with past medical history of COPD, current 1.5 pack per day smoker, polysubstance abuse, bladder cancer with urostomy, colon cancer with previous resection, hepatitis C, alcoholic cirrhosis, alcoholism, seizure disorder. [facility] Patient uses a albuterol nebulizer and Advair on an outpatient basis. Patient presented to the emergency room yesterday evening with the chief complaint of progressive shortness of breath over the last 2 days and associated wheezing. Patient states that he gets short of breath with minimal activity including getting up and going to the bathroom. Patient denies any change in his nonproductive cough, fever, chest pain, hemoptysis. Patient is currently up walking in the room, on room air, in no obvious acute distress. Patient's chest x-ray done on arrival showed chronic COPD changes with small focal patchy retrocardiac opacity. CBC on arrival was essentially normal. BMP on arrival was also unremarkable with a chronically elevated serum bicarb level of 31. Troponin negative 1. Patient was negative for influenza, RSV, COVID-19. Patient is being empirically covered with Rocephin and received a dose of azithromycin. Patient is afebrile at the moment. He is also receiving bronchodilators, Symbicort inhaler, and IV Solu- Medrol. Vital signs are stable. The patient is seen today 05/20/2022 in follow-up on the regular medical floor. He is currently sitting up in bed. Awake and alert in no acute distress. Maintaining O2 saturations in the 90s on room air. Still somewhat bronchospastic and wheezing. Not quite back to his baseline. No worsening rina rtness of breath, cough or congestion. No fever or chills. He is continued on antibiotics in form of ceftriaxone and azithromycin. Remains on Symbicort, DuoNeb inhalations, IV Solu-Medrol. NicoDerm patch in place. Blood cultures reveal no growth. White count 4.9. Hemoglobin 14.1. Liquid stool 1. Sodium 138. Potassium 4.2. Bicarb 29. BUN 17. Creatinine 0.69. Glucose 132. Procalcitonin was 0.06. Patient is seen today 05/22/2022 in follow-up on the regular medical floor. He's been up ambulating in his room. Awake and alert in no acute distress. Maintaining good O2 saturations in the 90s on room air. Feeling nearly back to his baseline. Continue on bronchodilators, IV Solu-Medrol, NicoDerm patch in place. Lovenox for DVT prophylaxis. White count 6.6. Hemoglobin 15.0. Sodium 139. Potassium 4.4. Bicarb 30. BUN 18. Creatinine 0.9. Glucose 139. Objective - Vital Signs Vital signs: Vital Signs Temp 97.5 F L 05/22/22 07:02 Pulse 86 05/22/22 11:58 Resp 19 05/22/22 07:02 BP 152/76 05/22/22 07:02 Pulse Ox 92 L 05/22/22 07:02 FiO2 21 05/19/22 08:33 Intake & Output 05/21/22 05/22/22 05/22/22 18:59 06:59 18:59 Intake Total 598 Output Total 300 Balance 598 -300 Weight 49.895 kg Intake: Oral 598 Output: Urine 300 Other: # Voids 2 - Exam GENERAL EXAM: Alert, pleasant 66-year-old male patient, on room air, comfortable in no apparent distress. HEAD: Normocephalic. EYES: Normal reaction of pupils, equal size. NOSE: Clear with pink turbinates. THROAT: No erythema or exudates. NECK: No masses, no JVD. CHEST: No chest wall deformity. LUNGS: Equal air entry with bilateral end expiratory wheeze, diminished. CVS: S1 and S2 normal with no audible murmur, regular rhythm. ABDOMEN: No hepatosplenomegaly, normal bowel sounds, no guarding or rigidity. SPINE: No scoliosis or deformity SKIN: No rashes CENTRAL NERVOUS SYSTEM: No focal deficits, tone is normal in all 4 extremities. EXTREMITIES: There is no peripheral edema. No clubbing, no cyanosis. Peripheral pulses are intact. - Labs CBC & Chem 7: 05/22/22 05:23 05/22/22 05:23 Labs: Abnormal Lab Results - Last 24 Hours (Table) 05/22/22 05/22/22 Range/Units 05: 05: MCH 32.5 H (27.0-32.0) pg MPV 9.0 L (9.5-12.2) fL Immature Gran # 0.08 H (0.00-0.04) X 10*3/uL Eosinophils # 0 L (0.04-0.35) X 10*3/uL Carbon Dioxide 30.1 H (20.0-27.5) mmol/L BUN/Creatinine Ratio 20.56 H (12.00-20.00) Ratio Glucose 139 H (70-110) mg/dL Microbiology - Last 24 Hours (Table) 05/18/22 12:55 Blood Culture - Preliminary Blood No Growth after 72 hours 05/18/22 13:10 Blood Culture - Preliminary Blood No Growth after 72 hours Assessment and Plan Assessment: Acute COPD exacerbation possibly secondary to an underlying community-acquired pneumonia. Pro calcitonin 0.06. Antibiotics discontinued Current smoker approximately 1.5 packs per day History of alcoholism and polysubstance abuse. Patient reports no current use. Alcoholic liver disease History of bladder cancer with Urostomy History of colon cancer status post bowel resection Plan: The patient was seen and evaluated Stable and on room air For discharge from the pulmonary standpoint Continue bronchodilators Complete a prednisone taper Educated regarding the importance of complete smoking cessation NicoDerm patch in place, utilizing a Nicorette gum Follow-up with the [place] [facility] I have personally seen and examined the patient, performed the documentation and the assessment and plan as written. Number of minutes spent on the visit: 10.
[2022-05-22 15:21] VITALS: BP 182/76; PULSE 90; TEMP 97.8
== END 2022-05-22 15:14 | disposition home or self-care (01) | DRG 190 ==
LOC: EC 12:02 → 4SSUR 14:09 → OBSVTOIN 14:09 → 4SSUR 05-19 01:15
PROVIDERS: ADMIT Student in an Organized Health Care Education/Training Program; ATTEND Student in an Organized Health Care Education/Training Program
DX: J44.1 Chronic obstructive pulmonary disease with (acute) exacerbation (principal); J18.9 Pneumonia, unspecified organism; J96.01 Acute respiratory failure with hypoxia; K70.30 Alcoholic cirrhosis of liver without ascites; F19.10 Other psychoactive substance abuse, uncomplicated; G40.909 Epilepsy, unspecified, not intractable, without status epilepticus; F10.20 Alcohol dependence, uncomplicated; J44.0 Chronic obstructive pulmonary disease with (acute) lower respiratory infection; R00.0 Tachycardia, unspecified; H91.90 Unspecified hearing loss, unspecified ear; F17.210 Nicotine dependence, cigarettes, uncomplicated; I44.4 Left anterior fascicular block; Z20.822 Contact with and (suspected) exposure to COVID-19; Z85.038 Personal history of other malignant neoplasm of large intestine; Z85.51 Personal history of malignant neoplasm of bladder; Z80.1 Family history of malignant neoplasm of trachea, bronchus and lung; Z80.0 Family history of malignant neoplasm of digestive organs; Z88.5 Allergy status to narcotic agent; Z88.8 Allergy status to other drugs, medicaments and biological substances; Z79.899 Other long term (current) drug therapy; Z79.891 Long term (current) use of opiate analgesic; Z93.6 Other artificial openings of urinary tract status; Z86.19 Personal history of other infectious and parasitic diseases
CPT/HCPCS: 36415; 71046; 80048; 80053; 83605; 83735; 84145; 84484; 85025; 85610; 85730; 87040; 87636; 93005; 94640; 94760; 96361; 96374; 96375; 96376; 99285; 99406

== ENCOUNTER 2022-07-16 11:44 | Emergency (ER) | payer OTHER ==
[2022-07-16 12:15] VITALS: TEMP 98.2
[2022-07-16] MEDS ORDERED: SODIUM CHLORIDE 0.9% 500 ML 500 ML IV ONE (12:43)
--- NOTE | 2022-07-16 12:49 | ED ---
General Adult HPI - General Chief complaint: Urogenital Stated complaint: poss uti Time Seen by Provider: 07/16/22 12:28 Source: patient, RN notes reviewed Mode of arrival: ambulatory Limitations: no limitations - History of Present Illness Initial comments: This is a 66-year-old male with a past medical history significant for bladder cancer presents to the emergency department with a chief complaint of possible UTI. Patient reports that he was seen at urgent care 2 days ago for which they diagnosed him with a UTI and prescribed him Keflex. He reports no improvement of his symptoms. He reports dark urine with foul smell that collects in his urostomy bag. He denies any fever, nausea, vomiting, flank pain, hematuria. His urologist is Dr. Lee - Related Data Home Medications Medication Instructions Recorded Confirmed Albuterol Inhaler [Ventolin Hfa 1 puff INHALATION RT-Q6H PRN 05/18/22 05/18/22 Inhaler] Azithromycin [Zithromax Z Pack] See Taper PO DIRECTED 05/18/22 05/18/22 Folic Acid 1 mg PO DAILY 05/18/22 05/18/22 HYDROcodone/APAP 10-325MG [Tyrone 1 tab PO QID PRN 05/18/22 05/18/22 10-325] Ipratropium Nebulized [Atrovent 0.5 mg INHALATION RT-Q4H PRN 05/18/22 05/18/22 Nebulized 0.2 MG/ML] Naloxone HCl [Narcan] 4 mg NASAL ONCE PRN 05/18/22 05/18/22 Spironolactone 25 mg PO DAILY 05/18/22 05/18/22 oxyCODONE HCL [oxyCODONE HCL ER] 20 mg PO BID 05/18/22 05/18/22 polyethylene glycoL 3350 [Miralax] 17 gm PO DAILY 05/18/22 05/18/22 Previous Rx's Medication Instructions Recorded Acetaminophen Tab [Tylenol] 650 mg PO Q6HR PRN tab 05/22/22 Budesonide-Formot 160-4.5 Mcg 2 puff INHALATION RT-BID #1 each 05/22/22 [Symbicort 160-4.5 Mcg Inhaler] Nicotine 21Mg/24Hr Patch [Habitrol] 1 patch TRANSDERM DAILY #30 patch 05/22/22 predniSONE [Deltasone] See Rx Instructions .ROUTE 05/22/22 .COMPLEX #15 tab Sulfamethox-Tmp 800-160Mg [Bactrim 1 each PO Q12HR #20 tab 07/16/22 Ds] Allergies Allergy/AdvReac Type Severity Reaction Status Date / Time bupropion [From Wellbutrin] Allergy Unknown Verified 07/16/22 12:15 fluoxetine [From Prozac] Allergy Unknown Verified 07/16/22 12:15 gabapentin Allergy redness, Verified 07/16/22 12:15 "didn't feel good" hydromorphone Allergy Swelling Verified 07/16/22 12:15 meclizine Allergy vertigo Verified 07/16/22 12:15 paroxetine [From Paxil] Allergy Unknown Verified 07/16/22 12:15 sertraline [From Zoloft] Allergy Rash/Hives Verified 07/16/22 12:15 tramadol Allergy Unknown Verified 07/16/22 12:15 methadone AdvReac Unknown Verified 07/16/22 12:15 niacin AdvReac Unknown Verified 07/16/22 12:15 Review of Systems ROS Statement: Those systems with pertinent positive or pertinent negative responses have been documented in the HPI. ROS Other: All systems not noted in ROS Statement are negative. Past Medical History Past Medical History: Cancer, COPD, Hearing Disorder / Deafness, Liver Disease, Osteoarthritis (OA), Pneumonia Additional Past Medical History / Comment(s): "Has Urostomy bag/stoma." Hx bladder cancer Nov 2016, hx colon cancer 2002/2003, hx epiglotitis, hx Pnemomia 2017. Hepatitis C, "a spot on the liver", cirrhosis. "? seizure X1 Mar 2018, blacked out, broke both arms." History of Any Multi-Drug Resistant Organisms: None Reported Past Surgical History: Appendectomy, Bowel Resection, Ear Surgery, Hernia Repair, Tonsillectomy Additional Past Surgical History / Comment(s): 01/21/16 cystoscopy w/evacuation of clot; urostomy, BLADDER AND PROSTATE REMOVED November 2016. Tube placed in right ear in July 2017, pilinodal cyst removed, reapir of left shoulder, Past Anesthesia/Blood Transfusion Reactions: No Reported Reaction Additional Past Anesthesia/Blood Transfusion Reaction / Comment(s): Vertigo. Past Psychological History: Anxiety Smoking Status: Current every day smoker Past Alcohol Use History: None Reported Past Drug Use History: None Reported - Past Family History Father Family Medical History: Cancer Additional Family Medical History / Comment(s): Pancreatic cancer. Mother Family Medical History: Cancer Additional Family Medical History / Comment(s): Lung cancer. Brother(s) Family Medical History: Cancer Additional Family Medical History / Comment(s): Colon cancer. General Exam - General Exam Comments Initial Comments: General: Alert, in no acute distress Head: atraumatic normocephalic. Eyes PERRL, EOMI intact, mucous membranes moist Respiratory: Lungs clear to auscultation bilaterally Cardiovascular: Rate regular rate and rhythm Abdominal: Soft without guarding or rebound, there is a urostomy bag with slight that is clean and dry without erythema or edema. Urine output is dark and foul- smelling. No CVA tenderness Extremities: Normal inspection with full range of motion and normal capillary refill Neuroogic: alert and oriented 3, CN II-XII intact, able to ambulate with steady gait Skin: warm dry and intact with normal color Limitations: no limitations Course Vital Signs 07/16/22 07/16/22 12:10 15:16 Temperature 98.2 F Pulse Rate 116 H 74 Respiratory 20 16 Rate Blood Pressure 109/44 117/46 O2 Sat by Pulse 94 L 93 L Oximetry Medical Decision Making - Medical Decision Making Was pt. sent in by a medical professional or institution (MUSA Garcia, PRODUCTION SUPPORT ANALYST, urgent care, hospital, or custodial...) When possible be specific @ -[No] Did you speak to anyone other than the patient for history (EMS, parent, family, police, friend...)? What history was obtained from this source @ -[No] Did you review nursing and triage notes (agree or disagree)? Why? @ -[I reviewed and agree with nursing and triage notes] Were old charts reviewed (outside hosp., previous admission, EMS record, old EKG, old radiological studies, urgent care reports/EKG's, custodial records)? Report findings @ -[No old charts were reviewed] Differential Diagnosis (chest pain, altered mental status, abdominal pain women, abdominal pain men, vaginal bleeding, weakness, fever, dyspnea, syncope, headache, dizziness, GI bleed, back pain, seizure, CVA, palpatations, mental health, musculoskeletal)? @ -[not applicable] EKG interpreted by me (3pts min.). @ -[As above] X-rays interpreted by me (1pt min.). @ -[None done] CT interpreted by me (1pt min.). @ -[None done] U/S interpreted by me (1pt. min.). @ Kidney ultrasound negative for any evidence of hydronephrosis What testing was considered but not performed or refused? (CT, X-rays, U/S, labs)? Why? @ -[None] What meds were considered but not given or refused? Why? @ -[None] Did you discuss the management of the patient with other professionals (professionals i.e. , PA, PRODUCTION SUPPORT ANALYST, lab, RT, psych nurse, social services, staff command and control officer, teacher, sailing officer, case preparer and liner)? Give summary @ -[No] Was smoking cessation discussed for >3mins.? @ -[No] Was critical care preformed (if so, how long)? @ -[No] Were there social determinants of health that impacted care today? How? (Homelessness, low income, unemployed, alcoholism, drug addiction, transportation, low edu. Level, literacy, decrease access to med. care, shelter, rehab)? @ -[No] Was there de-escalation of care discussed even if they declined (Discuss DNR or withdrawal of care, Hospice)? DNR status @ -[No] What co-morbidities impacted this encounter? (DM, HTN, Smoking, COPD, CAD, Cancer, CVA, ARF, Chemo, Hep., AIDS, mental health diagnosis, sleep apnea, morbid obesity)? @ -[None] Was patient admitted / discharged? Hospital course, mention meds given and route, prescriptions, significant lab abnormalities, going to OR and other pertinent info. @ -Discharged. This is a 66-year-old male who presents the emergency department with dark urine. Patient had a thorough history and physical exam performed in the ED. Physical exam essentially unremarkable. Heart rate regular rate and rhythm, lungs are to auscultation bilaterally, abdomen soft non-tender. Patient had lab work and imaging performed which were essentially unremarkable. I discussed the results in detail with the patient verbalized understanding and all questions were addressed. Patient is currently on Keflex for 2 days however he is given a prescription for Bactrim. He was instructed to follow up with Dr. Lee in 1-2 days. Return precautions were discussed at length. Patient discharged in stable condition. Case discussed with Dr. Lubin [facility] who agrees with plan of care Undiagnosed new problem with uncertain prognosis? @ -[No] Drug Therapy requiring intensive monitoring for toxicity (Heparin, Nitro, Insulin, Cardizem)? @ -[No] Were any procedures done? @ -[No] Diagnosis/symptom? @ -Urinary Tract Infection - Hx of Urostomy Acute, or Chronic, or Acute on Chronic? @ -Acute Uncomplicated (without systemic symptoms) or Complicated (systemic symptoms)? @ -Complicated Side effects of treatment? @ -[No] Exacerbation, Progression, or Severe Exacerbation? @ -[No] Poses a threat to life or bodily function? How? (Chest pain, [place], [place], pneumonia, PE, COPD, DKA, ARF, appy, cholecystitis, CVA, Diverticulitis, Homicidal, Suicidal, threat to staff... and all critical care pts) @ -Low likelihood - Lab Data Result diagrams: 07/16/22 12:47 07/16/22 12:47 Lab Results 07/16/22 07/16/22 07/16/22 Range/Units 12:47 12:47 12:47 WBC 9.0 (3.8-10.6) k/uL RBC 4.52 (4.30-5.90) m/uL Hgb 15.3 (13.0-17.5) gm/dL Hct 45.6 (39.0-53.0) % MCV 100.8 H (80.0-100.0) fL MCH 33.9 (25.0-35.0) pg MCHC 33.6 (31.0-37.0) g/dL RDW 12.6 (11.5-15.5) % Plt Count 281 (150-450) k/uL MPV 6.8 Neutrophils % 72 % Lymphocytes % 19 % Monocytes % 5 % Eosinophils % 1 % Basophils % 0 % Neutrophils # 6.5 (1.3-7.7) k/uL Lymphocytes # 1.8 (1.0-4.8) k/uL Monocytes # 0.4 (0-1.0) k/uL Eosinophils # 0.1 (0-0.7) k/uL Basophils # 0.0 (0-0.2) k/uL Sodium 139 (137-145) mmol/L Potassium 4.7 (3.5-5.1) mmol/L Chloride 98 (98-107) mmol/L Carbon Dioxide 31 H (22-30) mmol/L Anion Gap 10 mmol/L BUN 14 (9-20) mg/dL Creatinine 0.74 (0.66-1.25) mg/dL Est GFR (CKD-EPI)AfAm >90 (>60 ml/min/1.73 sqM) Est GFR (CKD-EPI)NonAf >90 (>60 ml/min/1.73 sqM) Glucose 131 H (74-99) mg/dL Calcium 9.8 (8.4-10.2) mg/dL Total Bilirubin 0.7 (0.2-1.3) mg/dL AST 25 (17-59) U/L ALT 21 (4-49) U/L Alkaline Phosphatase 102 (38-126) U/L Total Protein 8.5 H (6.3-8.2) g/dL Albumin 4.8 (3.5-5.0) g/dL Urine Color Yellow Urine Appearance Clear (Clear) Urine pH 6.5 (5.0-8.0) Ur Specific Burnett 1.024 (1.001-1.035) Urine Protein 2+ H (Negative) Urine Glucose (UA) Negative (Negative) Urine Ketones Trace H (Negative) Urine Blood Large H (Negative) Urine Nitrite Negative (Negative) Urine Bilirubin Negative (Negative) Urine Urobilinogen 4.0 (<2.0) mg/dL Ur Leukocyte Esterase Negative (Negative) Urine RBC 28 H (0-5) /hpf Urine WBC 22 H (0-5) /hpf Ur Squamous Epith Cells <1 (0-4) /hpf Hyaline Casts 8 H (0-2) /lpf Urine Mucus Rare H (None) /hpf Disposition Clinical Impression: Urinary tract infection Disposition: HOME SELF-CARE Condition: Stable Instructions (If sedation given, give patient instructions): Urinary Tract Infection in Men (ED) Additional Instructions: Please return to the nearest emergency department symptoms worsen or persist Prescriptions: Sulfamethox-Tmp 800-160Mg [Bactrim Ds] 1 each PO Q12HR #20 tab Is patient prescribed a controlled substance at d/c from ED?: No Referrals: [facility] [Primary Care Provider] - 1-2 days Time of Disposition: 15:36
[2022-07-16 13:13] LABS: Basophils % (A) 0 %; Eosinophils # (A) 0.1 k/uL (0-0.7); Eosinophils % (A) 1 %; HCT 45.6 % (39.0-53.0); HGB 15.3 gm/dL (13.0-17.5); Lymphocytes # (A) 1.8 k/uL (1.0-4.8); Lymphocytes % (A) 19 %; MCH 33.9 pg (25.0-35.0); MCHC 33.6 g/dL (31.0-37.0); MCV 100.8 fL (80.0-100.0); Mean Platelet Volume 6.8; Monocytes # (A) 0.4 k/uL (0-1.0); Monocytes % (A) 5 %; Neutrophils # (A) 6.5 k/uL (1.3-7.7); Neutrophils % (A) 72 %; Platelet Count 281 k/uL (150-450); RBC 4.52 m/uL (4.30-5.90); RDW 12.6 % (11.5-15.5)
[2022-07-16 13:23] LABS: ALT 21 U/L (4-49); AST 25 U/L (17-59); African American GFR (CKD) >90 (>60 ml/min/1.73 sqM); Albumin 4.8 g/dL (3.5-5.0); Alkaline Phosphatase 102 U/L (38-126); Anion Gap 10 mmol/L; Blood Urea Nitrogen 14 mg/dL (9-20); Calcium 9.8 mg/dL (8.4-10.2); Carbon Dioxide 31 mmol/L (22-30); Chloride 98 mmol/L (98-107); Glucose 131 mg/dL (74-99); Non-African American GFR(CKD) >90 (>60 ml/min/1.73 sqM); Potassium 4.7 mmol/L (3.5-5.1); Sodium 139 mmol/L (137-145); Total Bilirubin 0.7 mg/dL (0.2-1.3); Total Protein 8.5 g/dL (6.3-8.2)
[2022-07-16 13:26] LABS: Appearance,Urine Clear (Clear); Bilirubin,Urine Negative (Negative); Blood,Urine Large (Negative); Color,Urine Yellow; Glucose,Urine (UA) Negative (Negative); Hyaline Casts,Urine 8 /lpf (0-2); Ketones,Urine Trace (Negative); Leukocyte Esterase,Urine Negative (Negative); Mucus,Urine Rare /hpf; Nitrite,Urine Negative (Negative); PH, Urine 6.5 (5.0-8.0); Protein,Urine 2+ (Negative); RBC,Urine 28 /hpf (0-5); Specific Gravity,Urine 1.024 (1.001-1.035); Squamous Epithelial Cell,Urine <1 /hpf (0-4); WBC,Urine 22 /hpf (0-5)
--- NOTE | 2022-07-16 15:16 | US ---
EXAMINATION TYPE: US kidneys/renal and bladder DATE OF EXAM: 07/16/2022 COMPARISON: CT 11/01/2019 CLINICAL INDICATION: Male, 66 years old with history of r/out hydro; pain uti EXAM MEASUREMENTS: Right Kidney: 9.6 x 3.2 x 3.6 cm Left Kidney: 9.1 x 4.3 x 3.9 cm Right Kidney: Dilated renal pelvis 1.2 x 2.5 x 1.9 cm. Hypoechoic area lateral 0.8 cm. Left Kidney: Hypoechoic area upper pole 1.8 x 1.4 x 1.6 cm no definitive through transmission. Bladder: Bladder removed 2017 [place]. IMPRESSION: 1. Bilateral renal lesions which appear hypoechoic which may be due to technique. Consider evaluatio n with CT renal mass protocol for confirmation for simple cysts versus solid mass. 2. No evidence of obstructive uropathy. Extrarenal pelves bilaterally.
[2022-07-16 15:22] VITALS: BP 117/46; PULSE 74; RESP 16
== END 2022-07-16 15:43 | disposition home or self-care (01) ==
LOC: EC 11:44
DX: N39.0 Urinary tract infection, site not specified (principal); J44.9 Chronic obstructive pulmonary disease, unspecified; M19.90 Unspecified osteoarthritis, unspecified site; F41.9 Anxiety disorder, unspecified; F17.200 Nicotine dependence, unspecified, uncomplicated; Z88.5 Allergy status to narcotic agent; Z88.8 Allergy status to other drugs, medicaments and biological substances; Z79.899 Other long term (current) drug therapy
CPT/HCPCS: 36415; 76770; 80053; 81001; 85025; 87077; 87086; 87186; 99284

== ENCOUNTER → 2022-07-24 | Outpatient (CLI) | payer OTHER ==
--- NOTE | 2022-07-28 13:17 | US ---
EXAMINATION TYPE: US arterial LE single level DATE OF EXAM: 07/24/2022 1:08 PM CLINICAL INDICATION: Male, 66 years old with history of I73.9 PERIPHERAL VASCULAR DISEASE; History of: Smoker: Yes Hypertension: No Diabetic: No Hyperlipidemia: No Doppler Waveforms: Right: Multiphasic Left: Multiphasic Right Brachial Pressure: 130 Left Brachial Pressure: 125 Ankle-Brachial Indices: Right: 1.19 Left: 1.15 Toe Brachial Indices: Right: 0.79 Left: 0.63 IMPRESSION: 1. Normal bilateral CAROLIN indices. 2. Borderline normal left TBI indices with normal right TBI is seen. Perhaps suggests mild atheroscle rotic on the left.
== END | disposition home or self-care (01) ==
LOC: RADUSWWP 12:42
PROVIDERS: ATTEND Podiatrist Foot & Ankle Surgery
DX: I73.9 Peripheral vascular disease, unspecified (principal)
CPT/HCPCS: 93922

== ENCOUNTER 2022-08-06 08:12 | Emergency (ER) | payer OTHER ==
[2022-08-06 08:19] VITALS: TEMP 97.4
[2022-08-06] MEDS ORDERED: DEXAMETHASONE SOD PHOSPHATE 10 MG/ML 1 ML VIAL IV STA (08:39)
[2022-08-06 08:55] LABS: Basophils % (A) 0 %; Eosinophils # (A) 0.1 k/uL (0-0.7); Eosinophils % (A) 1 %; HCT 39.5 % (39.0-53.0); Lymphocytes # (A) 2.5 k/uL (1.0-4.8); Lymphocytes % (A) 47 %; MCH 32.6 pg (25.0-35.0); MCHC 32.8 g/dL (31.0-37.0); MCV 99.2 fL (80.0-100.0); Mean Platelet Volume 7.7; Monocytes # (A) 0.3 k/uL (0-1.0); Monocytes % (A) 5 %; Neutrophils # (A) 2.3 k/uL (1.3-7.7); Neutrophils % (A) 43 %; Platelet Count 168 k/uL (150-450); RBC 3.98 m/uL (4.30-5.90); RDW 12.8 % (11.5-15.5); WBC 5.3 k/uL (3.8-10.6)
--- NOTE | 2022-08-06 08:55 | ED ---
General Adult HPI - General Chief complaint: Shortness of Breath Stated complaint: dispenea Time Seen by Provider: 08/06/22 08:14 Source: patient, EMS Mode of arrival: EMS Limitations: no limitations - History of Present Illness Initial comments: Dictation was produced using [email or web address] dictation software. please excuse any grammatical, word or spelling errors. Chief Complaint: 66-year-old male presents to emergency room for dyspnea History of Present Illness: 66-year-old male with past surgical history of COPD presents to the ER for shortness of breath. Patient states that upon waking up this morning he felt short of breath. Took his albuterol treatments. The Schmitt he is dyspneic. Called EMS to come to the emergency department. Patient wears intermittent home oxygen. He checked his pulse oximeter this morning found to be in the mid 80s. Patient has a cough. Denies any chest pain. Did complain of some night sweats. No chills. The ROS documented in this emergency department record has been reviewed and confirmed by me. Those systems with pertinent positive or negative responses have been documented in the HPI. All other systems are other negative and/or noncontributory. - Related Data Home Medications Medication Instructions Recorded Confirmed Albuterol Inhaler [Ventolin Hfa 1 puff INHALATION RT-Q6H PRN 05/18/22 05/18/22 Inhaler] Azithromycin [Zithromax Z Pack] See Taper PO DIRECTED 05/18/22 05/18/22 Folic Acid 1 mg PO DAILY 05/18/22 05/18/22 HYDROcodone/APAP 10-325MG [Lindon 1 tab PO QID PRN 05/18/22 05/18/22 10-325] Ipratropium Nebulized [Atrovent 0.5 mg INHALATION RT-Q4H PRN 05/18/22 05/18/22 Nebulized 0.2 MG/ML] Naloxone HCl [Narcan] 4 mg NASAL ONCE PRN 05/18/22 05/18/22 Spironolactone 25 mg PO DAILY 05/18/22 05/18/22 oxyCODONE HCL [oxyCODONE HCL ER] 20 mg PO BID 05/18/22 05/18/22 polyethylene glycoL 3350 [Miralax] 17 gm PO DAILY 05/18/22 05/18/22 Previous Rx's Medication Instructions Recorded Acetaminophen Tab [Tylenol] 650 mg PO Q6HR PRN tab 05/22/22 Budesonide-Formot 160-4.5 Mcg 2 puff INHALATION RT-BID #1 each 05/22/22 [Symbicort 160-4.5 Mcg Inhaler] Nicotine 21Mg/24Hr Patch [Habitrol] 1 patch TRANSDERM DAILY #30 patch 05/22/22 predniSONE [Deltasone] See Rx Instructions .ROUTE 05/22/22 .COMPLEX #15 tab Sulfamethox-Tmp 800-160Mg [Bactrim 1 each PO Q12HR #20 tab 07/16/22 Ds] Allergies Allergy/AdvReac Type Severity Reaction Status Date / Time bupropion [From Wellbutrin] Allergy Unknown Verified 07/16/22 12:15 fluoxetine [From Prozac] Allergy Unknown Verified 07/16/22 12:15 gabapentin Allergy redness, Verified 07/16/22 12:15 "didn't feel good" hydromorphone Allergy Swelling Verified 07/16/22 12:15 meclizine Allergy vertigo Verified 07/16/22 12:15 paroxetine [From Paxil] Allergy Unknown Verified 07/16/22 12:15 sertraline [From Zoloft] Allergy Rash/Hives Verified 07/16/22 12:15 tramadol Allergy Unknown Verified 07/16/22 12:15 methadone AdvReac Unknown Verified 07/16/22 12:15 niacin AdvReac Unknown Verified 07/16/22 12:15 Review of Systems ROS Statement: Those systems with pertinent positive or pertinent negative responses have been documented in the HPI. ROS Other: All systems not noted in ROS Statement are negative. Past Medical History Past Medical History: Cancer, COPD, Hearing Disorder / Deafness, Liver Disease, Osteoarthritis (OA), Pneumonia Additional Past Medical History / Comment(s): "Has Urostomy bag/stoma." Hx bladder cancer Nov 2016, hx colon cancer 2002/2003, hx epiglotitis, hx Pnemomia 2017. Hepatitis C, "a spot on the liver", cirrhosis. "? seizure X1 Mar 2018, blacked out, broke both arms." History of Any Multi-Drug Resistant Organisms: None Reported Past Surgical History: Appendectomy, Bowel Resection, Ear Surgery, Hernia Repair, Tonsillectomy Additional Past Surgical History / Comment(s): 01/21/16 cystoscopy w/evacuation of clot; urostomy, BLADDER AND PROSTATE REMOVED November 2016. Tube placed in right ear in July 2017, pilinodal cyst removed, reapir of left shoulder, Past Anesthesia/Blood Transfusion Reactions: No Reported Reaction Additional Past Anesthesia/Blood Transfusion Reaction / Comment(s): Vertigo. Past Psychological History: Anxiety Smoking Status: Current every day smoker Past Alcohol Use History: None Reported Past Drug Use History: None Reported - Past Family History Father Family Medical History: Cancer Additional Family Medical History / Comment(s): Pancreatic cancer. Mother Family Medical History: Cancer Additional Family Medical History / Comment(s): Lung cancer. Brother(s) Family Medical History: Cancer Additional Family Medical History / Comment(s): Colon cancer. General Exam - General Exam Comments Initial Comments: PHYSICAL EXAM: General Impression: Alert and oriented x3, not in acute distress HEENT: Normocephalic atraumatic, extra-ocular movements intact, pupils equal and reactive to light bilaterally, mucous membranes moist. Cardiovascular: Heart regular rate and rhythm Chest: Able to complete full sentences, no retractions, no tachypnea diffuse lung rails Abdomen: abdomen soft, non-tender, non-distended, no organomegaly Musculoskeletal: Pulses present and equal in all extremities, no peripheral edema Motor: no focal deficits noted Neurological: CN II-XII grossly intact, no focal motor or sensory deficits noted Skin: Intact with no visualized rashes Psych: Normal affect and mood Limitations: no limitations Course Vital Signs 08/06/22 08/06/22 08/06/22 08:16 09:00 12:49 Temperature 97.4 F L Pulse Rate 79 78 78 Respiratory 22 18 18 Rate Blood Pressure 148/72 103/61 O2 Sat by Pulse 97 99 Oximetry EKG Findings - EKG Comments: EKG Findings:: My EKG interpretation: Ventricular rate 74, sinus rhythm,. Interval 160, QRS 89, QTc 45. No WA prolongation, no QTC prolongation, T-wave inversion seen in [address] elevations. These T-wave changes appear to be new since May 2022. Overall, this EKG is unremarkable Medical Decision Making - Medical Decision Making Was pt. sent in by a medical professional or institution (, PA, TOE FORMER, urgent care, hospital, or assisted...) When possible be specific @ -No Did you speak to anyone other than the patient for history (EMS, parent, family, police, friend...)? What history was obtained from this source @ -No Did you review nursing and triage notes (agree or disagree)? Why? @ -I reviewed and agree with nursing and triage notes Were old charts reviewed (outside hosp., previous admission, EMS record, old EKG, old radiological studies, urgent care reports/EKG's, assisted records)? Report findings @ -No old charts were reviewed Differential Diagnosis (chest pain, altered mental status, abdominal pain women, abdominal pain men, vaginal bleeding, musculoskeletal, weakness, fever, dyspnea, syncope, headache, dizziness, GI bleed, back pain, seizure, CVA, palpatations, mental health)? @ -Differential Dyspnea: Coronary syndrome, arrhythmia, tamponade, asthma, COPD, pulmonary embolism, pneumonia, pneumothorax, pulmonary effusion, anaphylaxis, diabetic ketoacidosis, flailed chest, pulmonary contusion, diaphragmatic rupture, anemia, neuromuscular, this is not meant to be an all-inclusive list. EKG interpreted by me (3pts min.). @ -None done X-rays interpreted by me (1pt min.). @ -no acute processes on chest x-ray CT interpreted by me (1pt min.). @ -None done U/S interpreted by me (1pt. min.). @ -None done What testing was considered but not performed or refused? (CT, X-rays, U/S, lab s)? Why? @ -None What meds were considered but not given or refused? Why? @ -None Did you discuss the management of the patient with other professionals (professionals i.e. , PA, TOE FORMER, lab, RT, psych nurse, child welfare social worker, delinquency counselor, teacher, corporate ethics officer, case briefer)? Give summary @ -No Was smoking cessation discussed for >3mins.? @ -No Was critical care preformed (if so, how long)? @ -No Were there social determinants of health that impacted care today? How? (Homelessness, low income, unemployed, alcoholism, drug addiction, transportation, low edu. Level, literacy, decrease access to med. care, custodial, rehab)? @ -No Was there de-escalation of care discussed even if they declined (Discuss DNR or withdrawal of care, Hospice)? DNR status @ -No What co-morbidities impacted this encounter? (DM, HTN, Smoking, COPD, CAD, Cancer, CVA, ARF, Chemo, Hep., AIDS, mental health diagnosis, sleep apnea, morbid obesity)? @ -None Was patient admitted / discharged? Hospital course, mention meds given and route, prescriptions, significant lab abnormalities, going to OR and other pertinent info. @ -66-year-old male with past nuchal history of COPD and home oxygen intermittently presents here for shortness of breath. Vital signs upon arrival are within acceptable limits. Patient not dyspneic appearing at the bedside. Laboratory evaluation obtained showing no acute processes. Chest x-ray is negative. Patient given breathing treatment and Decadron. An Suman pulse ox i s normal. Patient on his home O2 nasal cannula at 2 L is cannula and well- appearing. Disposition options were discussed. Patient is agreeable for discharge. Undiagnosed new problem with uncertain prognosis? @ -No Drug Therapy requiring intensive monitoring for toxicity (Heparin, Nitro, Insulin, Cardizem)? @ -No Were any procedures done? @ -No Diagnosis/symptom? Acute, or Chronic, or Acute on Chronic? Uncomplicated (without systemic symptoms) or Complicated (systemic symptoms)? @ - COPD exacerbation Side effects of treatment? @ -No Exacerbation, Progression, or Severe Exacerbation? @ -No Poses a threat to life or bodily function? How? (Chest pain, [place], [place], pneumonia, PE, COPD, DKA, ARF, appy, cholecystitis, CVA, Diverticulitis, Homicidal, S uicidal, threat to staff... and all critical care pts) @ -No - Lab Data Result diagrams: 08/06/22 08:40 08/06/22 08:40 Lab Results 08/06/22 08/06/22 08/06/22 Range/Units 08:40 08:40 09:00 WBC 5.3 (3.8-10.6) k/uL RBC 3.98 L (4.30-5.90) m/uL Hgb 13.0 (13.0-17.5) gm/dL Hct 39.5 (39.0-53.0) % MCV 99.2 (80.0-100.0) fL MCH 32.6 (25.0-35.0) pg MCHC 32.8 (31.0-37.0) g/dL RDW 12.8 (11.5-15.5) % Plt Count 168 (150-450) k/uL MPV 7.7 Neutrophils % 43 % Lymphocytes % 47 % Monocytes % 5 % Eosinophils % 1 % Basophils % 0 % Neutrophils # 2.3 (1.3-7.7) k/uL Lymphocytes # 2.5 (1.0-4.8) k/uL Monocytes # 0.3 (0-1.0) k/uL Eosinophils # 0.1 (0-0.7) k/uL Basophils # 0.0 (0-0.2) k/uL Sodium 138 (137-145) mmol/L Potassium 4.1 (3.5-5.1) mmol/L Chloride 104 (98-107) mmol/L Carbon Dioxide 29 (22-30) mmol/L Anion Gap 5 mmol/L BUN 8 L (9-20) mg/dL Creatinine 0.67 (0.66-1.25) mg/dL Est GFR (CKD-EPI)AfAm >90 (>60 ml/min/1.73 sqM) Est GFR (CKD-EPI)NonAf >90 (>60 ml/min/1.73 sqM) Glucose 91 (74-99) mg/dL Calcium 8.7 (8.4-10.2) mg/dL Magnesium 1.7 (1.6-2.3) mg/dL Troponin I <0.012 (0.000-0.034) ng/mL Disposition Clinical Impression: COPD exacerbation Disposition: HOME SELF-CARE Condition: Good Instructions (If sedation given, give patient instructions): COPD (Chronic Obstructive Pulmonary Disease) (ED) Is patient prescribed a controlled substance at d/c from ED?: No Referrals: None,Stated [REFERRING] - 1-2 days Time of Disposition: 13:20
[2022-08-06] MEDS: IPRATROPIUM-ALBUTEROL 3 ML NEB INHALATION STA ×2 (09:00→09:01)
[2022-08-06 09:01] VITALS: RESP 18
[2022-08-06 09:08] LABS: African American GFR (CKD) >90 (>60 ml/min/1.73 sqM); Anion Gap 5 mmol/L; Blood Urea Nitrogen 8 mg/dL (9-20); Calcium 8.7 mg/dL (8.4-10.2); Carbon Dioxide 29 mmol/L (22-30); Chloride 104 mmol/L (98-107); Glucose 91 mg/dL (74-99); Magnesium 1.7 mg/dL (1.6-2.3); Non-African American GFR(CKD) >90 (>60 ml/min/1.73 sqM); Potassium 4.1 mmol/L (3.5-5.1); Sodium 138 mmol/L (137-145)
--- NOTE | 2022-08-06 09:24 | XR ---
EXAMINATION TYPE: XR chest 2V DATE OF EXAM: 08/06/2022 COMPARISON: 05/18/2022 HISTORY: Shortness of breath TECHNIQUE: Frontal and lateral views of the chest are obtained. FINDINGS: Scattered senescent parenchymal changes noted. Hyperinflation compatible with COPD. No evidence for infiltrate. No evidence for atelectasis. Heart size is stable. Mediastinal structures are stable and grossly unremarkable. No evidence for hilar prominence. Degenerative changes dorsal spine. IMPRESSION: 1. No evidence for acute pulmonary disease.
[2022-08-06] MEDS ORDERED: SPIRONOLACTONE 25 MG TAB PO STA (12:19)
[2022-08-06] MEDS ORDERED: oxyCODONE ER 20 MG TAB.ER.12H PO STA (12:19)
[2022-08-06] MEDS ORDERED: FOLIC ACID 1 MG TAB PO SCH (12:30)
[2022-08-06 12:51] VITALS: BP 103/61
[2022-08-06] MEDS ORDERED: IPRATROPIUM-ALBUTEROL 3 ML NEB INHALATION STA (13:14)
[2022-08-06 13:37] VITALS: PULSE 88
== END 2022-08-06 13:57 | disposition home or self-care (01) ==
LOC: EC 08:12
DX: J44.1 Chronic obstructive pulmonary disease with (acute) exacerbation (principal); M19.90 Unspecified osteoarthritis, unspecified site; F41.9 Anxiety disorder, unspecified; F17.200 Nicotine dependence, unspecified, uncomplicated; Z79.899 Other long term (current) drug therapy; Z88.5 Allergy status to narcotic agent; Z88.8 Allergy status to other drugs, medicaments and biological substances
CPT/HCPCS: 36415; 93005; 83880; 80048; 83735; 84484; 85025; 71046; 99285; 96374; J1100

== ENCOUNTER → 2022-09-24 | Outpatient (CLI) | payer OTHER, MEDICARE ==
[2022-09-24 20:17] LABS: ALT 16 U/L (10-49); AST 19 U/L (14-35); Albumin 4.7 d/dL (3.8-4.9); Albumin/Globulin Ratio 2.04 Ratio (1.60-3.17); Alkaline Phosphatase 64 U/L (41-126); BUN/Creat Ratio 7.67 Ratio (12.00-20.00); Blood Urea Nitrogen 6.9 mg/dL (9.0-27.0); Calcium 9.7 mg/dL (8.7-10.3); Carbon Dioxide 30.8 mmol/L (21.6-31.8); Chloride 100 mmol/L (96-109); Globulin 2.3 d/dL (1.6-3.3); Glucose 83 mg/dL (70-110); Potassium 4.8 mmol/L (3.5-5.5); Sodium 139 mmol/L (135-145); Total Bilirubin 0.4 mg/dL (0.3-1.2)
[2022-09-24 21:15] LABS: HCT 44.2 % (39.6-50.0); HGB 14.2 d/dL (13.0-17.0); MCH 32.2 pg (27.0-32.0); MCHC 32.1 d/dL (32.0-37.0); MCV 100.2 FL (80.0-97.0); Mean Platelet Volume 9.5 FL (9.5-12.2); NRBC Per 100 WBC 0 X 10*3/uL (0.00-0.01); Platelet Count 239 X 10*3/uL (140-440); RBC 4.41 X 10*6/uL (4.40-5.60); RDW 12.4 % (11.5-14.5); WBC 6.56 X 10*3/uL (4.50-10.00)
== END | disposition home or self-care (01) ==
LOC: LABWHC1 13:40
PROVIDERS: ATTEND Internal Medicine Gastroenterology
DX: K70.31 Alcoholic cirrhosis of liver with ascites (principal)
CPT/HCPCS: 36415; 80053; 82105; 85027

== ENCOUNTER 2022-12-19 12:16 | Emergency (ER) | payer OTHER ==
[2022-12-19] MEDS ORDERED: methylPREDNISolone SOD SUCCI 125 MG/2 ML VIAL IV STA (12:32)
[2022-12-19] MEDS ORDERED: SODIUM CHLORIDE 0.9% 1,000 ML IV STA (12:32)
[2022-12-19] MEDS ORDERED: IPRATROPIUM-ALBUTEROL 3 ML NEB INHALATION STA ×2 (12:32→14:31)
[2022-12-19 12:41] VITALS: BP 149/71
--- NOTE | 2022-12-19 12:41 | ED ---
General Adult HPI - General Chief complaint: Shortness of Breath Stated complaint: sob Time Seen by Provider: 12/19/22 12:22 Source: patient, RN notes reviewed, old records reviewed Mode of arrival: ambulatory Limitations: no limitations - History of Present Illness Initial comments: Patient is a 67-year-old male who presents emergency Department complaining of shortness of breath and productive cough. Has a history of COPD supposed to be on home oxygen all the time however only uses it as needed. Also has a history of cancer, liver disease. States symptoms have been ongoing for the last month or so with waxing and waning of symptoms. Was recently placed on a course of prednisone and doxycycline endorses symptoms of been worse over the last 2 weeks. This did initially help however over the last 2-3 days it has significantly worsened. His worsening exertional dyspnea, continued productive cough of green-yellow sputum. States endorses atypical as he normally coughs up white or clear sputum, occasionally yellow. Denies any chest pain, nausea, vomiting, diarrhea. No one sick contacts. Did received the Covid and flu vaccine at the end of October. Denies any other acute complaint at this time. His no fevers. Presents for further evaluation. His concern he may have pneumonia as he states that in the past typically this is what happens after multiple weeks of worsening shortness of breath, he has developed a pneumonia. Patient is concerned about a pneumonia. States has been off steroids for a few days. Despite fluids course of doxycycline. - Related Data Home Medications Medication Instructions Recorded Confirmed Albuterol Inhaler [Ventolin Hfa 1 puff INHALATION RT-Q6H PRN 05/18/22 08/06/22 Inhaler] Folic Acid 1 mg PO DAILY 05/18/22 08/06/22 HYDROcodone/APAP 10-325MG [Leblanc 1 tab PO Q4H PRN 05/18/22 08/06/22 10-325] Ipratropium Nebulized [Atrovent 0.5 mg INHALATION RT-Q4H PRN 05/18/22 08/06/22 Nebulized 0.2 MG/ML] Naloxone HCl [Narcan] 4 mg NASAL ONCE PRN 05/18/22 08/06/22 Spironolactone 25 mg PO DAILY 05/18/22 08/06/22 oxyCODONE HCL [oxyCODONE HCL ER] 20 mg PO BID 05/18/22 08/06/22 Ergocalciferol [Vitamin D2 (1250 1,250 mcg PO Q7D 08/06/22 08/06/22 Mcg = 31531 Iu)] Fluticasone Propion/Salmeterol 1 puff INHALATION RT-BID 08/06/22 08/06/22 [Advair 250-50 Diskus] Previous Rx's Medication Instructions Recorded Nicotine 21Mg/24Hr Patch [Habitrol] 1 patch TRANSDERM DAILY #30 patch 05/22/22 Doxycycline Hyclate 100 mg PO BID 5 Days #10 capsule 12/19/22 predniSONE [Deltasone] 40 mg PO DAILY 5 Days #10 tab 12/19/22 Allergies Allergy/AdvReac Type Severity Reaction Status Date / Time bupropion [From Wellbutrin] Allergy Unknown Verified 12/19/22 12:21 fluoxetine [From Prozac] Allergy Unknown Verified 12/19/22 12:21 hydromorphone Allergy Swelling Verified 12/19/22 12:21 paroxetine [From Paxil] Allergy Unknown Verified 12/19/22 12:21 sertraline [From Zoloft] Allergy Rash/Hives Verified 12/19/22 12:21 gabapentin AdvReac redness, Verified 12/19/22 12:21 "didn't feel good" meclizine AdvReac vertigo Verified 12/19/22 12:21 methadone AdvReac ANXIETY/NIGHT Verified 12/19/22 12:21 SWEATS niacin AdvReac FLUSHING Verified 12/19/22 12:21 tramadol AdvReac ERYTHEMA Verified 12/19/22 12:21 Review of Systems ROS Statement: Those systems with pertinent positive or pertinent negative responses have been documented in the HPI. Review of Systems: CONST: Denies fever EYES: Denies blurry vision ENT: Denies nasal congestion C/V: Denies Chest pain RESP: Endorses shortness of breath GI: Denies abdominal pain : Denies dysuria SKIN: Denies rash. MSK: Denies joint pain. NEURO: Denies headache ROS Other: All systems not noted in ROS Statement are negative. Past Medical History Past Medical History: Cancer, COPD, Hearing Disorder / Deafness, Liver Disease, Osteoarthritis (OA), Pneumonia Additional Past Medical History / Comment(s): "Has Urostomy bag/stoma." Hx blad mike cancer Nov 2016, hx colon cancer 2002/2003, hx epiglotitis, hx Pnemomia 2017. Hepatitis C, "a spot on the liver", cirrhosis. "? seizure X1 Mar 2018, blacked out, broke both arms." History of Any Multi-Drug Resistant Organisms: None Reported Past Surgical History: Appendectomy, Bowel Resection, Ear Surgery, Hernia Repair, Tonsillectomy Additional Past Surgical History / Comment(s): 01/21/16 cystoscopy w/evacuation of clot; urostomy, BLADDER AND PROSTATE REMOVED November 2016. Tube placed in right ear in July 2017, pilinodal cyst removed, reapir of left shoulder, Past Anesthesia/Blood Transfusion Reactions: No Reported Reaction Additional Past Anesthesia/Blood Transfusion Reaction / Comment(s): Vertigo. Past Psychological History: Anxiety Smoking Status: Current every day smoker Past Alcohol Use History: None Reported Past Drug Use History: None Reported - Past Family History Father Family Medical History: Cancer Additional Family Medical History / Comment(s): Pancreatic cancer. Mother Family Medical History: Cancer Additional Family Medical History / Comment(s): Lung cancer. Brother(s) Family Medical History: Cancer Additional Family Medical History / Comment(s): Colon cancer. General Exam - General Exam Comments Initial Comments: General: Appears in no acute distress. HEAD: Normal with no signs of head trauma. EYES: PERRLA, EOMI, conjunctiva normal, no discharge. ENT: Hearing grossly intact, normal oropharynx. RESPIRATORY: Right lower lobe coarse breath sounds with bilateral end expiratory wheezing. Mild hypoxia on room air. Mild increased work of breathing. C/V: Patient is tachycardic with regular rhythm. S1 and S2 auscultated. Peripheral pulses 2+ intact throughout. No significant pitting edema. ABD: Abd is soft, nontender, nondistended EXT: Normal range of motion, no obvious deformity SKIN: No rashes or lesions observed on exposed skin. NEURO: Alert and oriented 4. Limitations: no limitations Course Vital Signs 12/19/22 12/19/22 12/19/22 12:18 12:50 13:20 Temperature 98.1 F Pulse Rate 122 H Respiratory 32 H 20 15 Rate Blood Pressure 149/71 O2 Sat by Pulse 94 L 98 Oximetry 12/19/22 12/19/22 12/19/22 13:30 13:40 13:50 Temperature Pulse Rate 77 72 70 Respiratory 12 14 10 L Rate Blood Pressure O2 Sat by Pulse 98 98 100 Oximetry 12/19/22 12/19/22 12/19/22 14:00 14:04 14:10 Temperature Pulse Rate 71 68 69 Respiratory 11 L 12 Rate Blood Pressure O2 Sat by Pulse 100 100 Oximetry 12/19/22 12/19/22 12/19/22 14:13 14:20 14:30 Temperature Pulse Rate 73 73 77 Respiratory 15 12 Rate Blood Pressure O2 Sat by Pulse 100 98 Oximetry 12/19/22 12/19/22 12/19/22 14:40 14:50 15:00 Temperature Pulse Rate 77 80 84 Respiratory 13 12 10 L Rate Blood Pressure O2 Sat by Pulse 100 99 95 Oximetry 12/19/22 12/19/22 12/19/22 15:10 15:20 15:21 Temperature Pulse Rate 90 80 79 Respiratory 21 27 H Rate Blood Pressure O2 Sat by Pulse 90 L 99 Oximetry 12/19/22 12/19/22 12/19/22 15:28 15:30 15:40 Temperature Pulse Rate 81 80 80 Respiratory 9 L 13 Rate Blood Pressure O2 Sat by Pulse 100 98 Oximetry 12/19/22 12/19/22 15:50 15:55 Temperature 98.9 F Pulse Rate 81 Respiratory 36 H Rate Blood Pressure O2 Sat by Pulse 97 Oximetry Medical Decision Making - Medical Decision Making Was pt. sent in by a medical professional or institution (, PA, VAC PRESS OPERATOR, urgent care, hospital, or alf...) When possible be specific @ -No Did you speak to anyone other than the patient for history (EMS, parent, family, police, friend...)? What history was obtained from this source @ -No Did you review nursing and triage notes (agree or disagree)? Why? @ -I reviewed and agree with nursing and triage notes Were old charts reviewed (outside hosp., previous admission, EMS record, old EKG, old radiological studies, urgent care reports/EKG's, alf records)? Report findings @ -Old charts reviewed Differential Diagnosis (chest pain, altered mental status, abdominal pain women, abdominal pain men, vaginal bleeding, weakness, fever, dyspnea, syncope, headache, dizziness, GI bleed, back pain, seizure, CVA, palpatations, mental health, musculoskeletal)? @ -Differential Dyspnea: Coronary syndrome, arrhythmia, tamponade, asthma, COPD, pulmonary embolism, pneumonia, pneumothorax, pulmonary effusion, anaphylaxis, diabetic ketoacidosis, flailed chest, pulmonary contusion, diaphragmatic rupture, anemia, neuromuscular, this is not meant to be an all-inclusive list. EKG interpreted by me (3pts min.). @ -As above X-rays interpreted by me (1pt min.). @ -Chest x-ray reveals no obvious evidence of acute infiltrate or pneumonia. CT interpreted by me (1pt min.). @ -None done U/S interpreted by me (1pt. min.). @ -None done What testing was considered but not performed or refused? (CT, X-rays, U/S, labs)? Why? @ -None What meds were considered but not given or refused? Why? @ -None Did you discuss the management of the patient with other professionals (professionals i.e. , PA, VAC PRESS OPERATOR, lab, RT, psych nurse, social worker masters, dining room cashier, teacher, weapons officer, hospice case manager)? Give summary @ -No Was smoking cessation discussed for >3mins.? @ -No Was critical care preformed (if so, how long)? @ -No Were there social determinants of health that impacted care today? How? (Homelessness, low income, unemployed, alcoholism, drug addiction, transportation, low edu. Level, literacy, decrease access to med. care, long-term, rehab)? @ -No Was there de-escalation of care discussed even if they declined (Discuss DNR or withdrawal of care, Hospice)? DNR status @ -No What co-morbidities impacted this encounter? (DM, HTN, Smoking, COPD, CAD, Cancer, CVA, ARF, Chemo, Hep., AIDS, mental health diagnosis, sleep apnea, morbid obesity)? @ -COPD on oxygen. Chronic hypoxic respiratory failure. Was patient admitted / discharged? Hospital course, mention meds given and route, prescriptions, significant lab abnormalities, going to OR and other pertinent info. @ -Based on the patient's presentation and physical exam, I'm concerned for what appears to be COPD exacerbation possible pneumonia. Presents for further evaluation at this time. We will obtain viral swabs, chest x-ray, laboratory studies. Patient was in agreement this plan. He'll be symptomatically treated with IV fluids, breathing treatments, IV Solu-Medrol. Patient was in agreement this plan. Vital signs at rest remarkable for slight hypoxia to 94% and tachycardia. EKG showed no signs of acute ischemia. Chest x-ray unremarkable. Patient's labs remarkable for mild leukocytosis of 14 however patient has been on steroids. Viral swabs negative. Remainder of the labs within acceptable limits. On reevaluation, on 2 L nasal cannula which is what he normally is on patient is saturating 100%. Wheezing is improved following 1 breathing treatment, and following a second breathing treatment wheezing is gone. He is feeling much improved at this time. We discussed his workup and results. He would like to go home. I did offer him observation admission because he has no pneumonia. Like to try to go home which I believe is reasonable. I recommended he continue to wear his oxygen as prescribed. I will provide him with another course of prednisone for home as well as extend his course of doxycycline for 5 days. He was in agreement with this plan. Vital signs are within acceptable limits. Tachycardia has resolved. Patient does not require refills for breathing treatments her inhalers. I will provide the patient with a prescription for prednisone, doxycycline. I instructed the patient to follow up with their PCP in the next 1-3 days. I explained that the patient should return to the emergency department if they experience any worsening symptoms. Strict return precautions were discussed with the patient. The patient expressed understanding of these instructions. I answered all questions that the patient had. The patient was discharged home in good condition with their prescriptions and follow up information. Undiagnosed new problem with uncertain prognosis? @ -No Drug Therapy requiring intensive monitoring for toxicity (Heparin, Nitro, Insulin, Cardizem)? @ -No Were any procedures done? @ -No Diagnosis/symptom? @ -COPD exacerbation, tracheobronchitis Acute, or Chronic, or Acute on Chronic? @ -Acute Uncomplicated (without systemic symptoms) or Complicated (systemic symptoms)? @ -Complicated Side effects of treatment? @ -none Exacerbation, Progression, or Severe Exacerbation] @ -Exacerbation Poses a threat to life or bodily function? @ -Unlikely - Lab Data Result diagrams: 12/19/22 12:46 12/19/22 12:46 Lab Results 12/19/22 12/19/22 12/19/22 Range/Units 12:46 12:46 12:46 WBC 14.8 H (3.8-10.6) k/uL RBC 4.84 (4.30-5.90) m/uL Hgb 16.0 (13.0-17.5) gm/dL Hct 48.2 (39.0-53.0) % MCV 99.6 (80.0-100.0) fL MCH 33.0 (25.0-35.0) pg MCHC 33.1 (31.0-37.0) g/dL RDW 12.4 (11.5-15.5) % Plt Count 348 (150-450) k/uL MPV 7.0 Neutrophils % 58 % Lymphocytes % 34 % Monocytes % 5 % Eosinophils % 2 % Basophils % 0 % Neutrophils # 8.6 H (1.3-7.7) k/uL Lymphocytes # 5.0 H (1.0-4.8) k/uL Monocytes # 0.7 (0-1.0) k/uL Eosinophils # 0.3 (0-0.7) k/uL Basophils # 0.1 (0-0.2) k/uL Manual Slide Review Performed Sodium 141 (137-145) mmol/L Potassium 4.2 (3.5-5.1) mmol/L Chloride 98 (98-107) mmol/L Carbon Dioxide 29 (22-30) mmol/L Anion Gap 14 mmol/L BUN 13 (9-20) mg/dL Creatinine 0.84 (0.66-1.25) mg/dL Est GFR (CKD-EPI)AfAm >90 (>60 ml/min/1.73 sqM) Est GFR (CKD-EPI)NonAf >90 (>60 ml/min/1.73 sqM) Glucose 97 (74-99) mg/dL Calcium 10.3 H (8.4-10.2) mg/dL Magnesium 1.7 (1.6-2.3) mg/dL Total Bilirubin 0.9 (0.2-1.3) mg/dL AST 23 (17-59) U/L ALT 23 (4-49) U/L Alkaline Phosphatase 64 (38-126) U/L Total Protein 8.7 H (6.3-8.2) g/dL Albumin 5.1 H (3.5-5.0) g/dL Influenza Type A (PCR) Not Detected (Not Detectd) Influenza Type B (PCR) Not Detected (Not Detectd) RSV (PCR) Not Detected (Not Detectd) SARS-CoV-2 (PCR) Not Detected (Not Detectd) - EKG Data -: EKG Interpreted by Me EKG Comments: 12-lead Electrocardiogram Interpretation Note EKG was reviewed and interpreted by myself. 12-lead ECG performed at 1313 is interpreted by me as revealing normal sinus rhythm at a rate of 78 beats per minute. Left axis deviation. [place] interval is 145 ms, QRS duration 90 ms, QTc is 409 ms.. There were no ST or T wave abnormalities to suggest myocardial ischemia or injury. R wave progression across the precordium was satisfactory. By my interpretation this EKG is non-diagnostic for acute ischemia. Disposition Clinical Impression: COPD (chronic obstructive pulmonary disease), Tracheobronchitis Disposition: HOME SELF-CARE Condition: Good Instructions (If sedation given, give patient instructions): Acute Bronchitis (ED), COPD (Chronic Obstructive Pulmonary Disease) (ED) Prescriptions: predniSONE [Deltasone] 40 mg PO DAILY 5 Days #10 tab Doxycycline Hyclate 100 mg PO BID 5 Days #10 capsule Is patient prescribed a controlled substance at d/c from ED?: No Referrals: [facility],Clinic [Primary Care Provider] - 1-2 days Time of Disposition: 15:25
--- NOTE | 2022-12-19 13:07 | XR ---
EXAMINATION TYPE: XR chest 2V DATE OF EXAM: 12/19/2022 12:59 PM CLINICAL INDICATION:Male, 67 years old with history of difficulty breathing; COMPARISON: Chest radiographs from 08/06/2022 TECHNIQUE: XR chest 2V Frontal and lateral views of the chest. FINDINGS: Lungs/Pleura: There is flattening of the diaphragm with increased lucency of the lungs. No evidence o f pneumothorax, pleural effusion or focal consolidation. Pulmonary vascularity: Unremarkable. Heart/mediastinum: Cardiomediastinal silhouette is unremarkable. Musculoskeletal: No acute osseous pathology. IMPRESSION: 1. No acute cardiopulmonary disease process. 2. COPD changes.
[2022-12-19 13:12] LABS: Basophils # (A) 0.1 k/uL (0-0.2); Basophils % (A) 0 %; Eosinophils # (A) 0.3 k/uL (0-0.7); Eosinophils % (A) 2 %; HCT 48.2 % (39.0-53.0); Lymphocytes % (A) 34 %; MCHC 33.1 g/dL (31.0-37.0); MCV 99.6 fL (80.0-100.0); Monocytes # (A) 0.7 k/uL (0-1.0); Monocytes % (A) 5 %; Neutrophils # (A) 8.6 k/uL (1.3-7.7); Neutrophils % (A) 58 %; Platelet Count 348 k/uL (150-450); RBC 4.84 m/uL (4.30-5.90); RDW 12.4 % (11.5-15.5); WBC 14.8 k/uL (3.8-10.6)
[2022-12-19 13:44] LABS: ALT 23 U/L (4-49); AST 23 U/L (17-59); African American GFR (CKD) >90 (>60 ml/min/1.73 sqM); Albumin 5.1 g/dL (3.5-5.0); Alkaline Phosphatase 64 U/L (38-126); Anion Gap 14 mmol/L; Blood Urea Nitrogen 13 mg/dL (9-20); Calcium 10.3 mg/dL (8.4-10.2); Carbon Dioxide 29 mmol/L (22-30); Chloride 98 mmol/L (98-107); Glucose 97 mg/dL (74-99); Magnesium 1.7 mg/dL (1.6-2.3); Non-African American GFR(CKD) >90 (>60 ml/min/1.73 sqM); Potassium 4.2 mmol/L (3.5-5.1); Sodium 141 mmol/L (137-145); Total Bilirubin 0.9 mg/dL (0.2-1.3); Total Protein 8.7 g/dL (6.3-8.2)
[2022-12-19 15:44] VITALS: PULSE 81
[2022-12-19 16:05] VITALS: RESP 36; TEMP 98.9
== END 2022-12-19 16:13 | disposition home or self-care (01) ==
LOC: EC 12:16
DX: J44.9 Chronic obstructive pulmonary disease, unspecified (principal); J40 Bronchitis, not specified as acute or chronic; R00.0 Tachycardia, unspecified; F41.9 Anxiety disorder, unspecified; F17.200 Nicotine dependence, unspecified, uncomplicated; Z79.51 Long term (current) use of inhaled steroids; Z79.899 Other long term (current) drug therapy; Z20.822 Contact with and (suspected) exposure to COVID-19; Z88.1 Allergy status to other antibiotic agents; Z88.3 Allergy status to other anti-infective agents; Z88.5 Allergy status to narcotic agent; Z88.8 Allergy status to other drugs, medicaments and biological substances
CPT/HCPCS: 99285; 96374; 36415; 94640 ×2; 93005; 80053; 83735; 85025; 87040; 87636; 71046; J2930

== ENCOUNTER → 2023-04-07 | Outpatient (CLI) | payer OTHER ==
[2023-04-07 14:18] LABS: HCT 44.1 % (39.0-53.0); HGB 14.6 gm/dL (13.0-17.5); MCH 33.2 pg (25.0-35.0); MCHC 33.2 g/dL (31.0-37.0); MCV 100.2 fL (80.0-100.0); Mean Platelet Volume 6.7; Platelet Count 300 k/uL (150-450); RDW 12.6 % (11.5-15.5); WBC 7.3 k/uL (3.8-10.6)
[2023-04-07 14:48] LABS: ALT 13 U/L (4-49); AST 29 U/L (17-59); African American GFR (CKD) >90 (>60 ml/min/1.73 sqM); Albumin 4.8 g/dL (3.5-5.0); Albumin/Globulin Ratio 1.7; Alkaline Phosphatase 64 U/L (38-126); Anion Gap 6 mmol/L; Blood Urea Nitrogen 11 mg/dL (9-20); Calcium 10.1 mg/dL (8.4-10.2); Carbon Dioxide 32 mmol/L (22-30); Chloride 103 mmol/L (98-107); Globulin 2.9 g/dL; Glucose 99 mg/dL (74-99); Non-African American GFR(CKD) >90 (>60 ml/min/1.73 sqM); Potassium 4.7 mmol/L (3.5-5.1); Sodium 141 mmol/L (137-145); Total Bilirubin 0.7 mg/dL (0.2-1.3); Total Protein 7.7 g/dL (6.3-8.2)
--- NOTE | 2023-04-07 15:27 | CT ---
EXAMINATION: CT ABDOMEN AND PELVIS WITH IV CONTRAST DATE OF EXAMINATION: 04/07/2023. COMPARISON: None available. INDICATION: Abdominal pain. PROCEDURE: Axial CT of the abdomen and pelvis was performed with contrast and sagittal and coronal reformatted images were performed. CT dose lowering techniques were used, to include: automated expos ure control, adjustment for patient size, and/or use of iterative reconstruction. 100 mL of Isovue-30 0 was given intravenously. FINDINGS: LOWER CHEST : Emphysematous changes are seen at the visualized lung bases. There is some bronchial w all thickening otherwise noted which is likely related to inflammatory airway changes. ABDOMEN: Liver and Biliary system: Several cysts are seen within the liver with the largest in the left lobe measuring 3.9 cm. A few subcentimeter hypodensities are otherwise seen within the liver that are too small fully characterize. No suspicious liver lesions are identified. Adrenal glands: Normal. Kidneys and ureters: Subcentimeter hypodensities are seen within the kidneys bilaterally that are too small to fully characterize. There is a simple cyst in the interpolar region of the left kidney that measures 1.6 cm in diameter. Urinary diversion is seen with a right lower quadrant ileostomy and belkys or cystectomy. Spleen: Normal. Pancreas: Normal. Gallbladder: Layering hyperdensity in the gallbladder may relate to stones or sludge.. Lymph nodes, Peritoneum and mesentery: There is no mesenteric or retroperitoneal lymphadenopathy. Gastrointestinal tract: There are no dilated loops of bowel or free intraperitoneal air. There is no evidence of appendicitis. A moderate amount of stool seen throughout the colon. Aorta/IVC: There is severe vascular calcification throughout the abdominal aorta without evidence o f aneurysmal dilation or dissection. IVC normal. Abdominal wall: Normal. PELVIS: Fluid: There is no free fluid in the pelvis. Lymph Nodes: There is no pelvic or inguinal lymphadenopathy.. Urinary bladder: Prior cystectomy.. BONES: There are no osseous destructive lesions.. ADDITIONAL SIGNIFICANT FINDINGS: None. IMPRESSION: 1. Prior cystectomy with urinary diversion and right lower quadrant ostomy with no acute findings lolis ntified. 2. Inflammatory airway changes seen within the visualized lung bases as well as emphysema.
== END | disposition home or self-care (01) ==
LOC: RADCTMAIN 13:07
PROVIDERS: ATTEND Internal Medicine Gastroenterology
DX: R10.9 Unspecified abdominal pain (principal); J43.9 Emphysema, unspecified; Z90.6 Acquired absence of other parts of urinary tract
CPT/HCPCS: 80053; 85027; 82105; 74177; Q9967

== ENCOUNTER → 2023-08-18 | Outpatient (CLI) | payer OTHER ==
--- NOTE | 2023-08-18 14:12 | CTL ---
EXAMINATION TYPE: CT Low Dose Lung DATE OF EXAM: 08/18/2023 1:58 PM CLINICAL INDICATION:Male, 67 years old with history of Z12.2 LUNG CA SCREEN F17.210 CURRENT SMOKER; N icotine dependence of 2 pack/day x 45 yrs. Hx of COPD and Emphysema. , history of tobacco use. COMPARISON: 06/02/2021. TECHNIQUE: Multiple axial non-contrast scans were obtained from approximately the lung apices through the upper abdomen. Coronal and sagittal reformatted images were obtained. Low dose technique was uti lized. CT DLP: 59.5 mGycm, Automated exposure control for dose reduction was used. CT Contrast: Contrast used: None Oral contrast used: None FINDINGS: ======== Lack of intravenous contrast and low dose technique limits the evaluation of the vascular and soft ti ssue structures. LUNGS: No evidence of pulmonary fibrosis. No evidence of focal consolidation, pneumothorax or pleural effusion. Centrilobular emphysema changes. Nodules: RUL: None. RML: None. RLL: None. NY: None. LLL: Pulmonary nodule in the left lung base laterally. AIRWAY: Mild wall thickening of the lower lobe large airways. Retained secretions noted in the left l ower lobe. HEART: Size within normal limits. MEDIASTINUM: No gross evidence of adenopathy. VASCULATURE: No aortic aneurysm. MUSCULOSKELETAL: No acute osseous abnormalities SOFT TISSUES/LYMPH NODES: Unremarkable. LOWER NECK: No significant findings. UPPER ABDOMEN: Probable hepatic cyst, IMPRESSION: 1. No clinically significant pulmonary nodules. 2. Moderate emphysema/COPD with retained secretions in left lower lobe large airways. CT LUNG RAD AND CT CHEST RECOMMENDATION: Lung-Rad 1 Negative: Continue annual screening with LDCT in 12 months. S Modifier (other clinically significant findings): None Recommend smoking cessation (if current smoker), or continuation of smoking cessation (if prior smoke r). Annual screening for lung cancer with low-dose computed tomography is recommended in adults ages 55 to 77 years who have a 30 pack-year smoking history and currently smoke or have quit within the pa st 15 years. Screening should be discontinued once a person has not smoked for 15 years or develops a health problem that substantially limits life expectancy or the ability or willingness to have curat boy lung surgery. Lung rads 2021 [email or web address]
== END | disposition home or self-care (01) ==
LOC: RADCTMAIN 13:12
PROVIDERS: ATTEND Internal Medicine
DX: Z12.2 Encounter for screening for malignant neoplasm of respiratory organs (principal); F17.210 Nicotine dependence, cigarettes, uncomplicated; J43.2 Centrilobular emphysema; J44.9 Chronic obstructive pulmonary disease, unspecified
CPT/HCPCS: 71271

== ENCOUNTER → 2023-11-15 | Outpatient (CLI) | payer OTHER ==
--- NOTE | 2023-11-15 16:24 | US ---
EXAMINATION TYPE: US liver DATE OF EXAM: 11/15/2023 COMPARISON: NONE CLINICAL INDICATION: Male, 67 years old with history of K70.31 ALCOHOLIC CIRRHOSIS OF LIVER; Cirrhosi s TECHNIQUE: Grayscale and color Doppler imaging of the right upper quadrant. FINDINGS: EXAM MEASUREMENTS: Liver Length: 11.9 cm Gallbladder Wall: 0.2 cm CBD: 0.9 cm Right Kidney: 9.2x4.3x4.5 cm SENIOR INSPECTOR NOTES: Pancreas: dilated duct Liver: heterogenous, largest cyst measured in left lobe: 2.2x1.9x2.8cm Gallbladder: sludge and tiny stones Evidence for sonographic Sethi's sign: no CBD: shotgun sign, intrahepatic ductal dilations Right Kidney: small cyst inferior pole exam limited by bowel IMPRESSION: 1. No evidence for acute process. 2. Hepatocellular disease, no suspicious observations. 3. Simple appearing hepatic cyst. 4. Simple appearing right renal cyst. [facility], , 11/15/2023 4:22 PM
[2023-11-16 02:14] LABS: HCT 45.9 % (39.6-50.0); HGB 14.8 g/dL (13.0-17.0); MCH 32.3 pg (27.0-32.0); MCHC 32.2 g/dL (32.0-37.0); MCV 100.2 FL (80.0-97.0); NRBC Per 100 WBC 0 X 10*3/uL (0.00-0.01); Platelet Count 310 X 10*3/uL (140-440); RBC 4.58 X 10*6/uL (4.40-5.60); RDW 12.6 % (11.5-14.5); WBC 9.46 X 10*3/uL (4.50-10.00)
[2023-11-16 03:00] LABS: ALT 12 U/L (10-49); AST 20 U/L (14-35); Albumin 4.9 g/dL (3.8-4.9); Albumin/Globulin Ratio 1.63 Ratio (1.60-3.17); Alkaline Phosphatase 76 U/L (41-126); BUN/Creat Ratio 12.75 Ratio (12.00-20.00); Blood Urea Nitrogen 10.2 mg/dL (9.0-27.0); Calcium 10.2 mg/dL (8.7-10.3); Carbon Dioxide 27.1 mmol/L (21.6-31.8); Chloride 104 mmol/L (96-109); Glucose 101 mg/dL (70-110); Potassium 5.4 mmol/L (3.5-5.5); Sodium 144 mmol/L (135-145); Total Bilirubin 0.4 mg/dL (0.3-1.2); Total Protein 7.9 g/dL (6.2-8.2)
== END | disposition home or self-care (01) ==
LOC: RADUSWWP 15:41
PROVIDERS: ATTEND Internal Medicine Gastroenterology
CPT/HCPCS: 76705; 80053; 82105; 85027

== ENCOUNTER 2024-03-15 14:19 | Emergency (ER) | payer OTHER ==
[2024-03-15] MEDS: SODIUM CHLORIDE 0.9% 1,000 ML IV STA (15:21)
--- NOTE | 2024-03-15 15:40 | XR ---
Chest, 2 view. HISTORY: Cough. COMPARISON: TECHNIQUE: PA and lateral views the chest are obtained. FINDINGS: The lungs are clear and there is no airspace consolidation. There is stable hyperinflation of the lungs, lucency and flattening the diaphragms along with mild in terstitial changes in lung bases consistent with COPD. There is no pleural effusion or pneumothorax. The heart, pulmonary vasculature, mediastinum and juan appear normal. The osseous structures are intact. IMPRESSION: 1. No acute cardiopulmonary disease. 2. Marked stable COPD changes. [facility], , 03/15/2024 3:37 PM
[2024-03-15] MEDS: methylPREDNISolone SOD SUCCI 125 MG/2 ML VIAL IV STA (15:42)
[2024-03-15 16:29] LABS: ALT 14 U/L (4-49); African American GFR (CKD) >90 (>60 ml/min/1.73 sqM); Albumin 4.3 g/dL (3.5-5.0); Anion Gap 9 mmol/L; Blood Urea Nitrogen 12 mg/dL (9-20); Calcium 9.5 mg/dL (8.4-10.2); Carbon Dioxide 30 mmol/L (22-30); Chloride 98 mmol/L (98-107); Glucose 144 mg/dL (74-99); Non-African American GFR(CKD) >90 (>60 ml/min/1.73 sqM); Sodium 137 mmol/L (137-145); Total Bilirubin 0.7 mg/dL (0.2-1.3); Total Protein 7.4 g/dL (6.3-8.2)
[2024-03-15 16:41] LABS: Influenza A Not Detected (Not Detectd); Influenza B Not Detected (Not Detectd); RSV Not Detected (Not Detectd)
[2024-03-15 16:47] LABS: AST 26 U/L (17-59); Alkaline Phosphatase 56 U/L (38-126); Magnesium 1.8 mg/dL (1.6-2.3); Potassium 4.7 mmol/L (3.5-5.1)
[2024-03-15 17:01] LABS: Basophils % (A) 0 %; Eosinophils # (A) 0.1 k/uL (0-0.7); Eosinophils % (A) 1 %; HCT 40.9 % (39.0-53.0); HGB 13.7 gm/dL (13.0-17.5); Lymphocytes # (A) 1.7 k/uL (1.0-4.8); Lymphocytes % (A) 23 %; MCH 31.8 pg (25.0-35.0); MCHC 33.6 g/dL (31.0-37.0); MCV 94.8 fL (80.0-100.0); Mean Platelet Volume 7.9; Monocytes # (A) 0.3 k/uL (0-1.0); Monocytes % (A) 4 %; Neutrophils # (A) 5.4 k/uL (1.3-7.7); Neutrophils % (A) 71 %; Platelet Count 417 k/uL (150-450); RBC 4.32 m/uL (4.30-5.90); RDW 12.3 % (11.5-15.5); WBC 7.6 k/uL (3.8-10.6)
[2024-03-15 17:07] VITALS: RESP 18
--- NOTE | 2024-03-15 17:31 | ED ---
General Adult HPI - General Chief complaint: Shortness of Breath Stated complaint: JAKE body aches Time Seen by Provider: 03/15/24 15:00 Source: patient, RN notes reviewed, old records reviewed Mode of arrival: ambulatory Limitations: no limitations - History of Present Illness Initial comments: Patient is a 68-year-old male with past medical history remarkable for chronic hypoxic respiratory failure secondary to COPD on 2 L nasal can oxygen at home. Presents emergency department complaining of cough, congestion, body aches. Worse over the last few days but has been having symptoms for over a week. Denies any chest pain. Denies any abdominal pain with nausea, vomiting. No known sick contacts. Presents for further evaluation at this time. - Related Data Home Medications Medication Instructions Recorded Confirmed Albuterol Inhaler [Ventolin Hfa 1 puff INHALATION RT-Q6H PRN 05/18/22 08/06/22 Inhaler] Folic Acid 1 mg PO DAILY 05/18/22 08/06/22 HYDROcodone/APAP 10-325MG [[place] 1 tab PO Q4H PRN 05/18/22 08/06/22 10-325] Ipratropium Nebulized [Atrovent 0.5 mg INHALATION RT-Q4H PRN 05/18/22 08/06/22 Nebulized 0.2 MG/ML] Naloxone HCl [Narcan] 4 mg NASAL ONCE PRN 05/18/22 08/06/22 Spironolactone 25 mg PO DAILY 05/18/22 08/06/22 oxyCODONE HCL [oxyCODONE HCL ER] 20 mg PO BID 05/18/22 08/06/22 Ergocalciferol [Vitamin D2 (1250 1,250 mcg PO Q7D 08/06/22 08/06/22 Mcg = [id number] Iu)] Fluticasone Propion/Salmeterol 1 puff INHALATION RT-BID 08/06/22 08/06/22 [Advair 250-50 Diskus] Previous Rx's Medication Instructions Recorded Nicotine 21Mg/24Hr Patch [Habitrol] 1 patch TRANSDERM DAILY #30 patch 05/22/22 Doxycycline Hyclate 100 mg PO BID 5 Days #10 capsule 12/19/22 predniSONE [Deltasone] 40 mg PO DAILY 5 Days #10 tab 12/19/22 Azithromycin [Zithromax] 250 mg PO DAILY 4 Days #4 tab 01/29/25 predniSONE [Deltasone] 40 mg PO DAILY 5 Days #10 tab 03/15/24 Allergies Allergy/AdvReac Type Severity Reaction Status Date / Time bupropion [From Wellbutrin] Allergy Unknown Verified 12/19/22 12:21 fluoxetine [From Prozac] Allergy Unknown Verified 12/19/22 12:21 hydromorphone Allergy Swelling Verified 12/19/22 12:21 paroxetine [From Paxil] Allergy Unknown Verified 12/19/22 12:21 sertraline [From Zoloft] Allergy Rash/Hives Verified 12/19/22 12:21 gabapentin AdvReac redness, Verified 12/19/22 12:21 "didn't feel good" meclizine AdvReac vertigo Verified 12/19/22 12:21 methadone AdvReac ANXIETY/NIGHT Verified 12/19/22 12:21 SWEATS niacin AdvReac FLUSHING Verified 12/19/22 12:21 tramadol AdvReac ERYTHEMA Verified 12/19/22 12:21 Review of Systems ROS Statement: Those systems with pertinent positive or pertinent negative responses have been documented in the HPI. Review of Systems: CONST: Denies fever EYES: Denies blurry vision ENT: Denies nasal congestion C/V: Denies Chest pain RESP: Endorses cough, congestion GI: Denies abdominal pain : Denies dysuria SKIN: Denies rash. MSK: Denies joint pain. NEURO: Denies headache ROS Other: All systems not noted in ROS Statement are negative. Past Medical History Past Medical History: Cancer, COPD, Hearing Disorder / Deafness, Liver Disease, Osteoarthritis (OA), Pneumonia Additional Past Medical History / Comment(s): "Has Urostomy bag/stoma." Hx bladder cancer Nov 2016, hx colon cancer 2002/2003, hx epiglotitis, hx Pnemomia 2017. Hepatitis C, "a spot on the liver", cirrhosis. "? seizure X1 Mar 2018, blacked out, broke both arms." History of Any Multi-Drug Resistant Organisms: None Reported Past Surgical History: Appendectomy, Bowel Resection, Ear Surgery, Hernia Re pair, Tonsillectomy Additional Past Surgical History / Comment(s): 01/21/16 cystoscopy w/evacuation of clot; urostomy, BLADDER AND PROSTATE REMOVED November 2016. Tube placed in right ear in July 2017, pilinodal cyst removed, reapir of left shoulder, Past Anesthesia/Blood Transfusion Reactions: No Reported Reaction Additional Past Anesthesia/Blood Transfusion Reaction / Comment(s): Vertigo. Past Psychological History: Anxiety Smoking Status: Current every day smoker Past Alcohol Use History: None Reported Past Drug Use History: None Reported - Past Family History Father Family Medical History: Cancer Additional Family Medical History / Comment(s): Pancreatic cancer. Mother Family Medical History: Cancer Additional Family Medical History / Comment(s): Lung cancer. Brother(s) Family Medical History: Cancer Additional Family Medical History / Comment(s): Colon cancer. General Exam - General Exam Comments Initial Comments: General: Appears in no acute distress. HEAD: Normal with no signs of head trauma. EYES: PERRLA, EOMI, conjunctiva normal, no discharge. ENT: Hearing grossly intact, normal oropharynx. RESPIRATORY: Mild end expiratory wheezing. No significant hypoxia on baseline 2 L nasal cannula oxygen. No significant increased work of breathing. C/V: Regular rate and rhythm. S1 and S2 auscultated, peripheral pulses 2+ and intact throughout ABD: Abd is soft, nontender, nondistended EXT: No obvious deformity. SKIN: No rashes or lesions observed on exposed skin. NEURO: Alert and oriented x 4. Limitations: no limitations Course Vital Signs 03/15/24 03/15/24 03/15/24 14:21 15:24 17:04 Temperature 98.1 F 98.0 F Pulse Rate 118 H 68 Respiratory 20 20 18 Rate Blood Pressure 128/76 136/74 O2 Sat by Pulse 92 L 92 L Oximetry 03/15/24 17:38 Temperature 98.1 F Pulse Rate 76 Respiratory 18 Rate Blood Pressure 126/80 O2 Sat by Pulse 92 L Oximetry Medical Decision Making - Medical Decision Making Was pt. sent in by a medical professional or institution (, PA, PRODUCT SUPPORT SALES REPRESENTATIVE, urgent care, hospital, or senior care...) When possible be specific @ -No Did you speak to anyone other than the patient for history (EMS, parent, family, police, friend...)? What history was obtained from this source @ -No Did you review nursing and triage notes (agree or disagree)? Why? @ -I reviewed and agree with nursing and triage notes Were old charts reviewed (outside hosp., previous admission, EMS record, old EKG, old radiological studies, urgent care reports/EKG's, senior care records)? Report findings @ -No old charts were reviewed Differential Diagnosis (chest pain, altered mental status, abdominal pain women, abdominal pain men, vaginal bleeding, weakness, fever, dyspnea, syncope, headache, dizziness, GI bleed, back pain, seizure, CVA, palpatations, mental health, musculoskeletal)? @ -Differential Dyspnea: Coronary syndrome, arrhythmia, tamponade, asthma, COPD, pulmonary embolism, pneumonia, pneumothorax, pulmonary effusion, anaphylaxis, diabetic ketoacidosis, flailed chest, pulmonary contusion, diaphragmatic rupture, anemia, neuro muscular, this is not meant to be an all-inclusive list. EKG interpreted by me (3pts min.). @ -As above X-rays interpreted by me (1pt min.). @ -X-ray reveals no obvious acute cardiopulmonary process. CT interpreted by me (1pt min.). @ -None done U/S interpreted by me (1pt. min.). @ -None done What testing was considered but not performed or refused? (CT, X-rays, U/S, labs)? Why? @ -None What meds were considered but not given or refused? Why? @ -None Did you discuss the management of the patient with other professionals (professionals i.e. , PA, PRODUCT SUPPORT SALES REPRESENTATIVE, lab, RT, psych nurse, social sciences chair, food tester, teacher, textile technical officer, comp field case manager)? Give summary @ -No Was smoking cessation discussed for >3mins.? @ -No Was critical care preformed (if so, how long)? @ -No Were there social determinants of health that impacted care today? How? (Homelessness, low income, unemployed, alcoholism, drug addiction, transportation, low edu. Level, literacy, decrease access to med. care, prison, rehab)? @ -No Was there de-escalation of care discussed even if they declined (Discuss DNR or withdrawal of care, Hospice)? DNR status @ -No What co-morbidities impacted this encounter? (DM, HTN, Smoking, COPD, CAD, Cancer, CVA, ARF, Chemo, Hep., AIDS, mental health diagnosis, sleep apnea, morbid obesity)? @ -COPD, chronic hypoxic respiratory failure Was patient admitted / discharged? Hospital course, mention meds given and route, prescriptions, significant lab abnormalities, going to OR and other pertinent info. @ -Based on patient's presentation and physical exam, patient presents emergency department complaining of URI symptoms. Does have COPD and is on baseline nasal cannula oxygen at this time. Vital signs currently within acceptable limits. No fevers. No nausea or vomiting. We will obtain basic labs, viral swabs, chest x-ray. He will be given IV steroids as well as a breathing treatment and IV fluids. He was in agreement this plan. EKG shows no signs of acute ischemia. Chest x-ray unremarkable. Labs remarkable for COVID-19 infection. I updated the patient. As we are uncertain exactly when his symptoms started and he is likely outside the window for Paxlovid, he will not be administered any. He will be discharged home for tracheobronchitis with azithromycin, as w ell as prednisone and will be given a dose of azithromycin prior to discharge. Patient was in agreement this plan. Strict return precautions discussed. Does not require refill on his inhalers. Vital signs remained within acceptable limits on his baseline 2 L nasal cannula oxygen. I instructed the patient to follow up with their PCP in the next 1-3 days. I explained that the patient should return to the emergency department if they experience any worsening symptoms. Strict return precautions were discussed with the patient. The patient expressed understanding of these instructions. I answe red all questions that the patient had. The patient was discharged home in good condition with their prescriptions and follow up information. Undiagnosed new problem with uncertain prognosis? @ -No Drug Therapy requiring intensive monitoring for toxicity (Heparin, Nitro, Insulin, Cardizem)? @ -No Were any procedures done? @ -No Diagnosis/symptom? @ -COVID-19 infection, COPD, tracheobronchitis Acute, or Chronic, or Acute on Chronic? @ -Acute Uncomplicated (without systemic symptoms) or Complicated (systemic symptoms)? @ -uncomplicated Side effects of treatment? @ -No Exacerbation, Progression, or Severe Exacerbation? @ -No Poses a threat to life or bodily function? How? (Chest pain, [place], [place], pneumonia, PE, COPD, DKA, ARF, appy, cholecystitis, CVA, Diverticulitis, Homicidal, Suicidal, threat to staff... and all critical care pts) @ -Unlikely at this time - Lab Data Result diagrams: 03/15/24 15:20 03/15/24 15:20 Lab Results 03/15/24 03/15/24 03/15/24 Range/Units 15:20 15:20 15:20 WBC 7.6 (3.8-10.6) k/uL RBC 4.32 (4.30-5.90) m/uL Hgb 13.7 (13.0-17.5) gm/dL Hct 40.9 (39.0-53.0) % MCV 94.8 (80.0-100.0) fL MCH 31.8 (25.0-35.0) pg MCHC 33.6 (31.0-37.0) g/dL RDW 12.3 (11.5-15.5) % Plt Count 417 (150-450) k/uL MPV 7.9 Neutrophils % 71 % Lymphocytes % 23 % Monocytes % 4 % Eosinophils % 1 % Basophils % 0 % Neutrophils # 5.4 (1.3-7.7) k/uL Lymphocytes # 1.7 (1.0-4.8) k/uL Monocytes # 0.3 (0-1.0) k/uL Eosinophils # 0.1 (0-0.7) k/uL Basophils # 0.0 (0-0.2) k/uL Sodium 137 (137-145) mmol/L Potassium 4.7 (3.5-5.1) mmol/L Chloride 98 (98-107) mmol/L Carbon Dioxide 30 (22-30) mmol/L Anion Gap 9 mmol/L BUN 12 (9-20) mg/dL Creatinine 0.72 (0.66-1.25) mg/dL Est GFR (CKD-EPI)AfAm >90 (>60 ml/min/1.73 sqM) Est GFR (CKD-EPI)NonAf >90 (>60 ml/min/1.73 sqM) Glucose 144 H (74-99) mg/dL Calcium 9.5 (8.4-10.2) mg/dL Magnesium 1.8 (1.6-2.3) mg/dL Total Bilirubin 0.7 (0.2-1.3) mg/dL AST 26 (17-59) U/L ALT 14 (4-49) U/L Alkaline Phosphatase 56 (38-126) U/L Total Protein 7.4 (6.3-8.2) g/dL Albumin 4.3 (3.5-5.0) g/dL Influenza Type A (PCR) Not Detected (Not Detectd) Influenza Type B (PCR) Not Detected (Not Detectd) RSV (PCR) Not Detected (Not Detectd) SARS-CoV-2 (PCR) Detected A (Not Detectd) - EKG Data -: EKG Interpreted by Me EKG Comments: 12-lead Electrocardiogram Interpretation Note EKG was reviewed and interpreted by myself. 12-lead ECG performed at 1519 is interpreted by me as revealing normal sinus rhythm at a rate of 78 beats per minute. Indeterminate axis. [place] interval is 165 ms, QRS duration is 87 ms, QTc is 402 ms.. There were no ST or T wave abnormalities to suggest myocardial ischemia or injury. R wave progression across the precordium was satisfactory. By my interpretation this EKG is non-diagnostic for acute ischemia. Disposition Clinical Impression: COVID-19, COPD (chronic obstructive pulmonary disease), Tracheobronchitis Disposition: HOME SELF-CARE Condition: Good Instructions (If sedation given, give patient instructions): Acute Bronchitis (ED), COPD (Chronic Obstructive Pulmonary Disease) (ED), COVID-19 (Coronavirus Disease 2019) (ED) Prescriptions: predniSONE [Deltasone] 40 mg PO DAILY 5 Days #10 tab Azithromycin [Zithromax] 250 mg PO DAILY 4 Days #4 tab Is patient prescribed a controlled substance at d/c from ED?: No Referrals: Junior Peterson DO [Primary Care Provider] - 1-2 days Time of Disposition: 17:30
[2024-03-15] MEDS: AZITHROMYCIN 500 MG TAB PO STA (17:35)
[2024-03-15 17:40] VITALS: BP 126/80; PULSE 76; TEMP 98.1
[2024-03-15] MEDS: IPRATROPIUM-ALBUTEROL 3 ML NEB INHALATION STA (17:40)
== END 2024-03-15 17:40 | disposition home or self-care (01) ==
LOC: EC 14:19
DX: U07.1 COVID-19 (principal); J40 Bronchitis, not specified as acute or chronic; J44.9 Chronic obstructive pulmonary disease, unspecified; J96.11 Chronic respiratory failure with hypoxia; F17.200 Nicotine dependence, unspecified, uncomplicated; Z88.5 Allergy status to narcotic agent; Z88.8 Allergy status to other drugs, medicaments and biological substances
CPT/HCPCS: 36415; 93005; 80053; 83735; 85025; 87636; 71046; 99285; 96374; 96361; J2919

== ENCOUNTER 2024-04-29 17:02 | Emergency (ER) | payer OTHER ==
[2024-04-29 17:18] VITALS: TEMP 98
--- NOTE | 2024-04-29 17:45 | XR ---
EXAMINATION TYPE: XR chest 2V DATE OF EXAM: 04/29/2024 5:33 PM COMPARISON: 03/15/2024 CLINICAL INDICATION: Male, 68 years old with history of sob: Shortness of breath TECHNIQUE: XR chest 2V views of the chest are obtained. FINDINGS: Scattered senescent parenchymal changes noted. Hyperinflation compatible with COPD. No evidence for infiltrate. No evidence for atelectasis. Heart size is stable. Mediastinal structures are stable and grossly unremarkable. No evidence for hilar prominence. Degenerative changes dorsal spine. IMPRESSION: 1. No evidence for acute pulmonary disease. [facility], , 04/29/2024 5:42 PM
--- NOTE | 2024-04-29 17:57 | ED ---
General Adult HPI - General Chief complaint: Shortness of Breath Stated complaint: JAKE Time Seen by Provider: 04/29/24 17:56 Source: patient Mode of arrival: ambulatory Limitations: no limitations - History of Present Illness Initial comments: 68-year-old male presenting with chief complaint of difficulty breathing. Patient is a current smoker and has history of COPD. Feels like a COPD exacerbation. No chest pain. Admits to cough. No lower extremity swelling. No abdominal pain nausea vomiting or diarrhea. No sore throat. Patient has been taking breathing treatments at home. He states "I just need some steroids". - Related Data Home Medications Medication Instructions Recorded Confirmed Albuterol Inhaler [Ventolin Hfa 1 puff INHALATION RT-Q6H PRN 05/18/22 08/06/22 Inhaler] Folic Acid 1 mg PO DAILY 05/18/22 08/06/22 HYDROcodone/APAP 10-325MG [[place] 1 tab PO Q4H PRN 05/18/22 08/06/22 10-325] Ipratropium Nebulized [Atrovent 0.5 mg INHALATION RT-Q4H PRN 05/18/22 08/06/22 Nebulized 0.2 MG/ML] Naloxone HCl [Narcan] 4 mg NASAL ONCE PRN 05/18/22 08/06/22 Spironolactone 25 mg PO DAILY 05/18/22 08/06/22 oxyCODONE HCL [oxyCODONE HCL ER] 20 mg PO BID 05/18/22 08/06/22 Ergocalciferol [Vitamin D2 (1250 1,250 mcg PO Q7D 08/06/22 08/06/22 Mcg = 04780 Iu)] Fluticasone Propion/Salmeterol 1 puff INHALATION RT-BID 08/06/22 08/06/22 [Advair 250-50 Diskus] Previous Rx's Medication Instructions Recorded Nicotine 21Mg/24Hr Patch [Habitrol] 1 patch TRANSDERM DAILY #30 patch 05/22/22 Doxycycline Hyclate 100 mg PO BID 5 Days #10 capsule 12/19/22 predniSONE [Deltasone] 40 mg PO DAILY 5 Days #10 tab 12/19/22 Azithromycin [Zithromax] 250 mg PO DAILY 4 Days #4 tab 03/15/24 predniSONE [Deltasone] 40 mg PO DAILY 5 Days #10 tab 03/15/24 predniSONE [Deltasone] 60 mg PO DAILY 5 Days #15 tab 04/29/24 Allergies Allergy/AdvReac Type Severity Reaction Status Date / Time bupropion [From Wellbutrin] Allergy Unknown Verified 12/19/22 12:21 fluoxetine [From Prozac] Allergy Unknown Verified 12/19/22 12:21 hydromorphone Allergy Swelling Verified 12/19/22 12:21 paroxetine [From Paxil] Allergy Unknown Verified 12/19/22 12:21 sertraline [From Zoloft] Allergy Rash/Hives Verified 12/19/22 12:21 gabapentin AdvReac redness, Verified 12/19/22 12:21 "didn't feel good" meclizine AdvReac vertigo Verified 12/19/22 12:21 methadone AdvReac ANXIETY/NIGHT Verified 12/19/22 12:21 SWEATS niacin AdvReac FLUSHING Verified 12/19/22 12:21 tramadol AdvReac ERYTHEMA Verified 12/19/22 12:21 Review of Systems ROS Statement: Those systems with pertinent positive or pertinent negative responses have been documented in the HPI. ROS Other: All systems not noted in ROS Statement are negative. Past Medical History Past Medical History: Cancer, COPD, Hearing Disorder / Deafness, Liver Disease, Osteoarthritis (OA), Pneumonia Additional Past Medical History / Comment(s): "Has Urostomy bag/stoma." Hx bladder cancer Nov 2016, hx colon cancer , hx epiglotitis, hx Pnemomia 2017. Hepatitis C, "a spot on the liver", cirrhosis. "? seizure X1 Mar 2018, blacked out, broke both arms." History of Any Multi-Drug Resistant Organisms: None Reported Past Surgical History: Appendectomy, Bowel Resection, Ear Surgery, Hernia Repair, Tonsillectomy Additional Past Surgical History / Comment(s): 01/21/16 cystoscopy w/evacuation of clot; urostomy, BLADDER AND PROSTATE REMOVED November 2016. Tube placed in right ear in July 2017, pilinodal cyst removed, reapir of left shoulder, Past Anesthesia/Blood Transfusion Reactions: No Reported Reaction Additional Past Anesthesia/Blood Transfusion Reaction / Comment(s): Vertigo. Past Psychological History: Anxiety Smoking Status: Current every day smoker Past Alcohol Use History: None Reported Past Drug Use History: None Reported - Past Family History Father Family Medical History: Cancer Additional Family Medical History / Comment(s): Pancreatic cancer. Mother Family Medical History: Cancer Additional Family Medical History / Comment(s): Lung cancer. Brother(s) Family Medical History: Cancer Additional Family Medical History / Comment(s): Colon cancer. General Exam - General Exam Comments Initial Comments: Visual Physical Exam Vital signs reviewed General: Well-appearing, nontoxic, no acute distress. Head: Normocephalic, atraumatic Eyes: PERRLA, EOMI ENT: Airway patent Chest: Nonlabored breathing Skin: No visual rash, normal skin tone Neuro: Alert and oriented 3 Musculoskeletal: No gross abnormalities Limitations: no limitations General appearance: alert, in no apparent distress Head exam: Present: atraumatic, normocephalic, normal inspection Eye exam: Present: normal appearance, EOMI Neck exam: Present: normal inspection. Absent: meningismus Respiratory exam: Present: wheezes. Absent: respiratory distress, rales, rhonchi, stridor Cardiovascular Exam: Present: regular rate, normal rhythm, normal heart sounds. Absent: systolic murmur, diastolic murmur, rubs, gallop, clicks Extremities exam: Absent: pedal edema Neurological exam: Present: alert, oriented X3 Psychiatric exam: Present: normal affect, normal mood Skin exam: Present: warm, dry, normal color Course Vital Signs 04/29/24 04/29/24 04/29/24 17:16 20:16 20:58 Temperature 98 F Pulse Rate 88 65 Respiratory 20 18 18 Rate Blood Pressure 118/70 117/6 O2 Sat by Pulse 94 L 98 Oximetry Medical Decision Making - Medical Decision Making I performed the quick note portion of this visit, electronically signed José Antonio Wiggins PA-C Was pt. sent in by a medical professional or institution ([facility], TRAFFIC MAINTENANCE SUPERVISOR, urgent care, hospital, or [facility]...) When possible be specific @ -No Did you speak to anyone other than the patient for history (EMS, parent, family, police, friend...)? What history was obtained from this source @ -No Did you review nursing and triage notes (agree or disagree)? Why? @ -I reviewed and agree with nursing and triage notes Were old charts reviewed (outside hosp., previous admission, EMS record, old EKG, old radiological studies, urgent care reports/EKG's, [facility] records)? Report findings @ -No old charts were reviewed Differential Diagnosis (chest pain, altered mental status, abdominal pain women, abdominal pain men, vaginal bleeding, weakness, fever, dyspnea, syncope, headache, dizziness, GI bleed, back pain, seizure, CVA, palpatations, mental health, musculoskeletal)? @ -MDM Differential Dyspnea: Coronary syndrome, arrhythmia, tamponade, asthma, COPD, pulmonary embolism, pneumonia, pneumothorax, pulmonary effusion, anaphylaxis, diabetic ketoacidosis, flailed chest, pulmonary contusion, diaphragmatic rupture, anemia, neuromuscular this is not meant to be an all-inclusive list. EKG interpreted by me (3pts min.). @ -EG shows sinus rhythm ventricular rate 84. MS interval 156. QRS 91. QT 358. QTc 398. X-rays interpreted by me (1pt min.). @ -Chest x-ray shows no evidence for acute pulmonary disease CT interpreted by me (1pt min.). @ -None done U/S interpreted by me (1pt. min.). @ -None done What testing was considered but not performed or refused? (CT, X-rays, U/S, labs)? Why? @ -Blood work was ordered, patient refused stating "I just need steroids" What meds were considered but not given or refused? Why? @ -Breathing treatment was ordered, patient refused stating "I just need steroids" Did you discuss the management of the patient with other professionals (professionals i.e. , PA, TRAFFIC MAINTENANCE SUPERVISOR, lab, RT, psych nurse, social work associate, fur feeder, teacher, inshore undersea warfare officer, case packer)? Give summary @ -No Was smoking cessation discussed for >3mins.? @ -No Was critical care preformed (if so, how long)? @ -No Were there social determinants of health that impacted care today? How? (Homelessness, low income, unemployed, alcoholism, drug addiction, transportation, low edu. Level, literacy, decrease access to med. care, retirement, rehab)? @ -No Was there de-escalation of care discussed even if they declined (Discuss DNR or withdrawal of care, Hospice)? DNR status @ -No What co-morbidities impacted this encounter? (DM, HTN, Smoking, COPD, CAD, Cancer, CVA, ARF, Chemo, Hep., AIDS, mental health diagnosis, sleep apnea, morbid obesity)? @ -None Was patient admitted / discharged? Hospital course, mention meds given and route, prescriptions, significant lab abnormalities, going to OR and other pertinent info. @ -68-year-old male presenting with chief complaint of difficulty breathing. History of COPD and smoking. Chest x-ray shows no acute process. He is influenza, RSV, COVID. Patient is later placed in a room and evaluated by myself. Wheezing heard throughout the lung luz. Solu-Medrol and DuoNeb ordered. Patient is refusing breathing treatment stating that "I just need steroids". Patient does not want any further testing. States that he wants a prescription for steroids and he wants to leave. He feels room confident that this is just a COPD exacerbation and reports that he is already feeling much better than when he arrived in the ER because he took some breathing treatments at home. Vital signs are stable. Patient is given Solu-Medrol /25 IM and prescribed prednisone 60 mg daily for 5 days. Follow-up with PCP. Report back to ER with any new or worsening symptoms. Discussed return parameters and answered all questions. Patient conveyed verbal understanding and agreed to the plan. I discussed this case in detail with my attending Dr. Caal Undiagnosed new problem with uncertain prognosis? @ -No Drug Therapy requiring intensive monitoring for toxicity (Heparin, Nitro, Insulin, Cardizem)? @ -No Were any procedures done? @ -No Diagnosis/symptom? @ -COPD exacerbation Acute, or Chronic, or Acute on Chronic? @ -Acute on chronic Uncomplicated (without systemic symptoms) or Complicated (systemic symptoms)? @ -Uncomplicated Side effects of treatment? @ -No Exacerbation, Progression, or Severe Exacerbation? @ -Exacerbation Poses a threat to life or bodily function? How? (Chest pain, USA, [place], pneumonia, PE, COPD, DKA, ARF, appy, cholecystitis, CVA, Diverticulitis, Homicidal, Suicidal, threat to staff... and all critical care pts) @ -Potentially, follow symptoms closely and return if no improvement - Lab Data Lab Results 04/29/24 Range/Units 19:38 Influenza Type A (PCR) Not Detected (Not Detectd) Influenza Type B (PCR) Not Detected (Not Detectd) RSV (PCR) Not Detected (Not Detectd) SARS-CoV-2 (PCR) Not Detected (Not Detectd) Disposition Clinical Impression: COPD exacerbation Disposition: HOME SELF-CARE Condition: Fair Instructions (If sedation given, give patient instructions): COPD (Chronic Obstructive Pulmonary Disease) (ED) Additional Instructions: Follow-up with PCP. Report back to ER with any new or worsening symptoms. Take your medication as prescribed Prescriptions: predniSONE [Deltasone] 60 mg PO DAILY 5 Days #15 tab Is patient prescribed a controlled substance at d/c from ED?: No Referrals: Junior Peterson DO [Primary Care Provider] - 1-2 days
[2024-04-29] MEDS ORDERED: IPRATROPIUM-ALBUTEROL 3 ML NEB INHALATION STA (20:04)
[2024-04-29] MEDS ORDERED: methylPREDNISolone SOD SUCCI 125 MG/2 ML VIAL IV ONE (20:04)
[2024-04-29 20:18] VITALS: RESP 18
[2024-04-29 20:19] LABS: Influenza A Not Detected (Not Detectd); Influenza B Not Detected (Not Detectd); RSV Not Detected (Not Detectd)
[2024-04-29] MEDS: methylPREDNISolone SOD SUCCI 125 MG/2 ML VIAL IM ONE (20:54)
[2024-04-29 20:58] VITALS: BP 117/6; PULSE 65
== END 2024-04-29 21:34 | disposition home or self-care (01) ==
LOC: EC 17:02
DX: J44.1 Chronic obstructive pulmonary disease with (acute) exacerbation (principal); F17.200 Nicotine dependence, unspecified, uncomplicated; Z88.5 Allergy status to narcotic agent; Z88.8 Allergy status to other drugs, medicaments and biological substances
CPT/HCPCS: 93005; 87636; 71046; 99285; 96372; J2919

== ENCOUNTER 2024-05-05 09:36 | Inpatient (IN) | payer OTHER, MEDICARE ==
--- NOTE | 2024-05-05 09:50 | ED ---
General Adult HPI - General Stated complaint: SOB Time Seen by Provider: 05/05/24 09:40 Source: patient, EMS, RN notes reviewed Mode of arrival: EMS Limitations: no limitations - History of Present Illness Initial comments: Patient is a 68-year-old male present to the emergency department with concerns with difficulty breathing. Onset of symptoms was a few days ago. Patient does have dry nonproductive cough. Patient does feel congested. Patient does have history of COPD with similar symptoms previously. Patient presents priority 1 by EMS and is on 100% nonrebreather. - Related Data Home Medications Medication Instructions Recorded Confirmed Albuterol Inhaler [Ventolin Hfa 1 puff INHALATION RT-Q6H PRN 05/18/22 05/05/24 Inhaler] Folic Acid 1 mg PO DAILY 05/18/22 05/05/24 HYDROcodone/APAP 10-325MG [[place] 1 tab PO Q4H PRN 05/18/22 05/05/24 10-325] oxyCODONE HCL [oxyCODONE HCL ER] 20 mg PO BID 05/18/22 05/05/24 Cholecalciferol (Vitamin D3) 50 mcg PO DAILY 05/05/24 05/05/24 [Vitamin D3 (50 Mcg = 2000 Iu)] Fluticasone/Umeclidin/Vilanter 1 puff INHALATION RT-DAILY 05/05/24 05/05/24 [Trelegy Ellipta 100-62.5-25] Lactose-Reduced Food [Ensure Plus] 474 ml PO DAILY 05/05/24 05/05/24 polyethylene glycoL 3350 [Miralax] 17 gm PO DAILY 05/05/24 05/05/24 Allergies Allergy/AdvReac Type Severity Reaction Status Date / Time bupropion [From Wellbutrin] Allergy Unknown Verified 05/05/24 12:30 fluoxetine [From Prozac] Allergy Unknown Verified 05/05/24 12:30 hydromorphone Allergy Anaphylaxis Verified 05/05/24 12:30 paroxetine [From Paxil] Allergy Unknown Verified 05/05/24 12:30 sertraline [From Zoloft] Allergy Rash/Hives Verified 05/05/24 12:30 gabapentin AdvReac redness, Verified 05/05/24 12:30 "didn't feel good" meclizine AdvReac vertigo Verified 05/05/24 12:30 methadone AdvReac ANXIETY/NIGHT Verified 05/05/24 12:30 SWEATS niacin AdvReac FLUSHING Verified 05/05/24 12:30 tramadol AdvReac ERYTHEMA Verified 05/05/24 12:30 Review of Systems ROS Statement: Those systems with pertinent positive or pertinent negative responses have been documented in the HPI. ROS Other: All systems not noted in ROS Statement are negative. Constitutional: Denies: fever Eyes: Denies: eye pain ENT: Denies: ear pain Respiratory: Reports: as per HPI, cough, dyspnea Endocrine: Reports: fatigue Past Medical History Past Medical History: Cancer, COPD, Hearing Disorder / Deafness, Liver Disease, Osteoarthritis (OA), Pneumonia Additional Past Medical History / Comment(s): "Has Urostomy bag/stoma." Hx bladder cancer Nov 2016, hx colon cancer , hx epiglotitis, hx Pnemomia 2017. Hepatitis C, "a spot on the liver", cirrhosis. "? seizure X1 Mar 2018, blacked out, broke both arms." History of Any Multi-Drug Resistant Organisms: None Reported Past Surgical History: Appendectomy, Bowel Resection, Ear Surgery, Hernia Repai r, Tonsillectomy Additional Past Surgical History / Comment(s): 01/21/16 cystoscopy w/evacuation of clot; urostomy, BLADDER AND PROSTATE REMOVED November 2016. Tube placed in ri ght ear in July 2017, pilinodal cyst removed, reapir of left shoulder, Past Anesthesia/Blood Transfusion Reactions: No Reported Reaction Additional Past Anesthesia/Blood Transfusion Reaction / Comment(s): Vertigo. Past Psychological History: Anxiety Smoking Status: Current every day smoker Past Alcohol Use History: None Reported Past Drug Use History: None Reported - Past Family History Father Family Medical History: Cancer Additional Family Medical History / Comment(s): Pancreatic cancer. Mother Family Medical History: Cancer Additional Family Medical History / Comment(s): Lung cancer. Brother(s) Family Medical History: Cancer Additional Family Medical History / Comment(s): Colon cancer. General Exam Limitations: no limitations General appearance: alert Head exam: Present: normocephalic Eye exam: Present: normal appearance Neck exam: Present: normal inspection Respiratory exam: Present: respiratory distress, wheezes, accessory muscle use, decreased breath sounds Cardiovascular Exam: Present: tachycardia GI/Abdominal exam: Present: soft. Absent: tenderness Extremities exam: Present: normal inspection. Absent: pedal edema, calf tenderness Neurological exam: Present: alert Psychiatric exam: Present: anxious Skin exam: Present: normal color Course Vital Signs 05/05/24 05/05/24 05/05/24 09:37 09:57 10:01 Temperature 97.1 F L Pulse Rate 114 H 118 H Respiratory 38 H Rate O2 Sat by Pulse 100 Oximetry Fraction of 30 Inspired Oxygen (FIO2) 05/05/24 10:22 Temperature Pulse Rate 116 H Respiratory Rate O2 Sat by Pulse Oximetry Fraction of Inspired Oxygen (FIO2) EKG Findings - EKG Results: EKG: interpreted by ERMD (Left axis. Atrial enlargement.), sinus rhythm, normal QRS, normal ST/T EKG shows: tachycardia Medical Decision Making - Medical Decision Making Was pt. sent in by a medical professional or institution ([facility], PIE FILLER, urgent care, hospital, or [facility]dc...) When possible be specific @ -No Did you speak to anyone other than the patient for history (EMS, parent, family, police, friend...)? What history was obtained from this source @ -EMS provides history of presentation and transportation Did you review nursing and triage notes (agree or disagree)? Why? @ -I reviewed and agree with nursing and triage notes Were old charts reviewed (outside hosp., previous admission, EMS record, old EKG, old radiological studies, urgent care reports/EKG's, [facility]dc records)? Report findings @ -No old charts were reviewed Differential Diagnosis (chest pain, altered mental status, abdominal pain women, abdominal pain men, vaginal bleeding, weakness, fever, dyspnea, syncope, headache, dizziness, GI bleed, back pain, seizure, CVA, palpatations, mental health, musculoskeletal)? @ -Differential Dyspnea: Coronary syndrome, arrhythmia, tamponade, asthma, COPD, pulmonary embolism, pneumonia, pneumothorax, pulmonary effusion, anaphylaxis, diabetic ketoacidosis, flailed chest, pulmonary contusion, diaphragmatic rupture, anemia, neuromuscul ar, this is not meant to be an all-inclusive list. EKG interpreted by me (3pts min.). @ -As above X-rays interpreted by me (1pt min.). @ -Chest x-ray unremarkable CT interpreted by me (1pt min.). @ -None done U/S interpreted by me (1pt. min.). @ -None done What testing was considered but not performed or refused? (CT, X-rays, U/S, labs)? Why? @ -None What meds were considered but not given or refused? Why? @ -None Did you discuss the management of the patient with other professionals (pr ofessionals i.e. , PA, PIE FILLER, lab, RT, psych nurse, director of social work, automobile mechanic motor, teacher, chief media officer, therapeutic case manager)? Give summary @ -Case was discussed with practitioner Awais who will admit covering Dr. Pfeiffer me. Case was also discussed with Dr. Aleman with pulmonary. Was smoking cessation discussed for >3mins.? @ -No Was critical care preformed (if so, how long)? @ -31 minutes critical care time Were there social determinants of health that impacted care today? How? (Homelessness, low income, unemployed, alcoholism, drug addiction, transportation, low edu. Level, literacy, decrease access to med. care, alf, rehab)? @ -No Was there de-escalation of care discussed even if they declined (Discuss DNR or withdrawal of care, Hospice)? DNR status @ -No What co-morbidities impacted this encounter? (DM, HTN, Smoking, COPD, CAD, Cancer, CVA, ARF, Chemo, Hep., AIDS, mental health diagnosis, sleep apnea, morbid obesity)? @ -History of COPD Was patient admitted / discharged? Hospital course, mention meds given and route, prescriptions, significant lab abnormalities, going to OR and other pertinent info. @ -Patient presents with dyspnea requiring oxygen. Patient placed on BiPAP on arrival. On reexamination x 2 patient has significant improvement. Patient will be admitted with pulmonary consult. Admission orders written. Patient was updated. Undiagnosed new problem with uncertain prognosis? @ -No Drug Therapy requiring intensive monitoring for toxicity (Heparin, Nitro, Insul in, Cardizem)? @ -No Were any procedures done? @ -No Diagnosis/symptom? @ -Acute COPD exacerbation Acute, or Chronic, or Acute on Chronic? @ -Acute Uncomplicated (without systemic symptoms) or Complicated (systemic symptoms)? @ -Complicated with need for BiPAP assistance, respiratory failure Side effects of treatment? @ -No Exacerbation, Progression, or Severe Exacerbation? @ -Severe exacerbation Poses a threat to life or bodily function? How? (Chest pain, [place], [place], pneumonia, PE, COPD, DKA, ARF, appy, cholecystitis, CVA, Diverticulitis, Homicidal, Suicidal, threat to staff... and all critical care pts) @ -Threat to pulmonary function Viral testing negative. There is concern for possible COPD infection requiring antibiotics at 1320. Blood cultures and lactic acid and IV antibiotics will be ordered. - Lab Data Result diagrams: 05/05/24 11:40 05/05/24 11:40 Lab Results 05/05/24 05/05/24 05/05/24 Range/Units 09:55 11:40 11:40 WBC 11.8 H (3.8-10.6) k/uL RBC 4.83 (4.30-5.90) m/uL Hgb 15.4 (13.0-17.5) gm/dL Hct 47.7 (39.0-53.0) % MCV 98.7 (80.0-100.0) fL MCH 31.8 (25.0-35.0) pg MCHC 32.2 (31.0-37.0) g/dL RDW 12.9 (11.5-15.5) % Plt Count 233 (150-450) k/uL MPV 7.2 Neutrophils % 83 % Lymphocytes % 11 % Monocytes % 4 % Eosinophils % 1 % Basophils % 0 % Neutrophils # 9.8 H (1.3-7.7) k/uL Lymphocytes # 1.3 (1.0-4.8) k/uL Monocytes # 0.5 (0-1.0) k/uL Eosinophils # 0.1 (0-0.7) k/uL Basophils # 0.0 (0-0.2) k/uL PT 11.1 (10.0-12.5) sec INR 1.0 (<1.2) APTT 21.6 L (22.0-30.0) sec Sodium (137-145) mmol/L Potassium (3.5-5.1) mmol/L Chloride (98-107) mmol/L Carbon Dioxide (22-30) mmol/L Anion Gap mmol/L BUN (9-20) mg/dL Creatinine (0.66-1.25) mg/dL Est GFR (CKD-EPI)AfAm (>60 ml/min/1.73 sqM) Est GFR (CKD-EPI)NonAf (>60 ml/min/1.73 sqM) Glucose (74-99) mg/dL Plasma Lactic Acid Bernard (0.7-2.0) mmol/L Calcium (8.4-10.2) mg/dL Magnesium (1.6-2.3) mg/dL Total Bilirubin (0.2-1.3) mg/dL AST (17-59) U/L ALT (4-49) U/L Alkaline Phosphatase (38-126) U/L Total Protein (6.3-8.2) g/dL Albumin (3.5-5.0) g/dL Influenza Type A (PCR) Not Detected (Not Detectd) Influenza Type B (PCR) Not Detected (Not Detectd) RSV (PCR) Not Detected (Not Detectd) SARS-CoV-2 (PCR) Not Detected (Not Detectd) 05/05/24 05/05/24 Range/Units 11:40 11:40 WBC (3.8-10.6) k/uL RBC (4.30-5.90) m/uL Hgb (13.0-17.5) gm/dL Hct (39.0-53.0) % MCV (80.0-100.0) fL MCH (25.0-35.0) pg MCHC (31.0-37.0) g/dL RDW (11.5-15.5) % Plt Count (150-450) k/uL MPV Neutrophils % % Lymphocytes % % Monocytes % % Eosinophils % % Basophils % % Neutrophils # (1.3-7.7) k/uL Lymphocytes # (1.0-4.8) k/uL Monocytes # (0-1.0) k/uL Eosinophils # (0-0.7) k/uL Basophils # (0-0.2) k/uL PT (10.0-12.5) sec INR (<1.2) APTT (22.0-30.0) sec Sodium 137 (137-145) mmol/L Potassium 4.1 (3.5-5.1) mmol/L Chloride 98 (98-107) mmol/L Carbon Dioxide 33 H (22-30) mmol/L Anion Gap 6 mmol/L BUN 15 (9-20) mg/dL Creatinine 0.60 L (0.66-1.25) mg/dL Est GFR (CKD-EPI)AfAm >90 (>60 ml/min/1.73 sqM) Est GFR (CKD-EPI)NonAf >90 (>60 ml/min/1.73 sqM) Glucose 121 H (74-99) mg/dL Plasma Lactic Acid Bernard 2.7 H* (0.7-2.0) mmol/L Calcium 9.6 (8.4-10.2) mg/dL Magnesium 1.7 (1.6-2.3) mg/dL Total Bilirubin 0.6 (0.2-1.3) mg/dL AST 26 (17-59) U/L ALT 25 (4-49) U/L Alkaline Phosphatase 66 (38-126) U/L Total Protein 7.0 (6.3-8.2) g/dL Albumin 4.3 (3.5-5.0) g/dL Influenza Type A (PCR) (Not Detectd) Influenza Type B (PCR) (Not Detectd) RSV (PCR) (Not Detectd) SARS-CoV-2 (PCR) (Not Detectd) Disposition Clinical Impression: Acute respiratory failure, Acute exacerbation of chronic obstructive pulmonary disease (COPD) Disposition: ADMITTED IP TO THIS HOSP Condition: Serious Is patient prescribed a controlled substance at d/c from ED?: No Referrals: Junior Peterson DO [Primary Care Provider] - 1-2 days Time of Disposition: 13:20
[2024-05-05] MEDS: LORazepam 2 MG/ML INJ IV STA (09:51)
[2024-05-05] MEDS: methylPREDNISolone SOD SUCCI 125 MG/2 ML VIAL IV STA (09:55)
[2024-05-05] MEDS: IPRATROPIUM-ALBUTEROL 3 ML NEB INHALATION STA (10:00)
--- NOTE | 2024-05-05 10:40 | XR ---
EXAMINATION TYPE: XR chest 1V portable DATE OF EXAM: 05/05/2024 10:27 AM COMPARISON: 04/29/2024 CLINICAL INDICATION: Male, 68 years old with history of imelda, TECHNIQUE: XR chest 1V portable views of the chest are obtained. FINDINGS: Demonstrated are scattered senescent parenchymal change. There is no evidence for focal infiltrate. The heart is stable. Hilar and mediastinal structures are within normal limits. Degenerative changes are seen of the dorsal spine. IMPRESSION: 1. Chronic changes without evidence for acute pulmonary disease. [facility], , 05/05/2024 10:38 AM
[2024-05-05 11:00] LABS: Influenza A Not Detected (Not Detectd); Influenza B Not Detected (Not Detectd); RSV Not Detected (Not Detectd)
[2024-05-05 11:51] LABS: Basophils % (A) 0 %; Eosinophils # (A) 0.1 k/uL (0-0.7); Eosinophils % (A) 1 %; HCT 47.7 % (39.0-53.0); HGB 15.4 gm/dL (13.0-17.5); Lymphocytes # (A) 1.3 k/uL (1.0-4.8); Lymphocytes % (A) 11 %; MCH 31.8 pg (25.0-35.0); MCHC 32.2 g/dL (31.0-37.0); MCV 98.7 fL (80.0-100.0); Mean Platelet Volume 7.2; Monocytes # (A) 0.5 k/uL (0-1.0); Monocytes % (A) 4 %; Neutrophils # (A) 9.8 k/uL (1.3-7.7); Neutrophils % (A) 83 %; Platelet Count 233 k/uL (150-450); RBC 4.83 m/uL (4.30-5.90); RDW 12.9 % (11.5-15.5); WBC 11.8 k/uL (3.8-10.6)
[2024-05-05 12:05] LABS: Prothrombin Time 11.1 sec (10.0-12.5)
[2024-05-05 12:09] LABS: Partial Thromboplastin Time 21.6 sec (22.0-30.0)
[2024-05-05 12:10] LABS: ALT 25 U/L (4-49); AST 26 U/L (17-59); African American GFR (CKD) >90 (>60 ml/min/1.73 sqM); Albumin 4.3 g/dL (3.5-5.0); Alkaline Phosphatase 66 U/L (38-126); Anion Gap 6 mmol/L; Blood Urea Nitrogen 15 mg/dL (9-20); Calcium 9.6 mg/dL (8.4-10.2); Carbon Dioxide 33 mmol/L (22-30); Chloride 98 mmol/L (98-107); Glucose 121 mg/dL (74-99); Magnesium 1.7 mg/dL (1.6-2.3); Non-African American GFR(CKD) >90 (>60 ml/min/1.73 sqM); Potassium 4.1 mmol/L (3.5-5.1); Sodium 137 mmol/L (137-145); Total Bilirubin 0.6 mg/dL (0.2-1.3)
[2024-05-05] MEDS ORDERED: ACETAMINOPHEN TAB 325 MG TAB PO PRN (13:21)
[2024-05-05] MEDS ORDERED: NALOXONE 0.4 MG/ML 1 ML VIAL IVP PRN (13:21)
[2024-05-05] MEDS ORDERED: NON FORMULARY DRUG (Albuterol Inhaler 90 MCG Puff) INHALATION PRN (13:23)
[2024-05-05] MEDS: AZITHROMYCIN 500 MG in SODIUM CHLORIDE 0.9% 250 ML IVPB SCH (13:54)
[2024-05-05] MEDS: HYDROcodone/APAP 10-325MG 1 EACH TAB PO PRN (14:48)
--- NOTE | 2024-05-05 15:12 | P.CNPUL ---
History of Present Illness Consult date: 05/05/24 Requesting physician: Urbano Francisco Reason for consult: COPD, hypoxemia Chief complaint: Shortness of breath History of present illness: This is a 68-year-old male patient with a known history of alcoholism, alcoholic cirrhosis, hepatitis C, seizure disorder, colon cancer with previous resection, bladder cancer with urostomy, polysubstance abuse, chronic and ongoing tobacco dependence with severe chronic obstructive pulmonary disease. Presented here to the emergency room earlier this morning with a 3-day history of increasing shortness of breath nonproductive cough and congestion. Was found to be significantly hypoxic and was brought in by EMS on a nonrebreather mask. He was subsequently placed on BiPAP 14/5 and 40% FiO2. Chest x-ray shows severe COPD but no acute pulmonary process. White count 11.8. Hemoglobin 15.4. Platelets 233. INR 1.0. Sodium 137. Potassium 4.1. Bicarb 33. BUN 15. Creatinine 0.60. Glucose 121. Viral screen is negative. He is seen today in consultation in the emergency department. He is awake and alert. Anxious. Remains on BiPAP support for now. He is afebrile. Slightly tachycardic. Review of Systems REVIEW OF SYSTEMS: CONSTITUTIONAL: Denies any recent significant weight loss or weight gain. EYES: Denies change in vision. EARS, NOSE, MOUTH, THROAT: Denies headaches, denies sore throat. CARDIOVASCULAR: Denies chest pain, palpitations or syncopal episodes. RESPIRATORY: Positive for shortness of breath, cough, congestion no hemoptysis. GASTROINTESTINAL: Denies change in appetite, denies abdominal pain GENITOURINARY: Denies hematuria, denies infections. MUSKULOSKELETAL: Denies pain, denies swelling. INTEGUMENTARY: Denies rash, denies eczema. NEUROLOGICAL: Denies recent memory loss, no recent seizure activity. PSYCHIATRIC: Denies anxiety, denies depression. HEMATOLOGIC/LYMPHATIC: Denies anemia, denies enlarged lymph nodes. Past Medical History Past Medical History: Cancer, COPD, Hearing Disorder / Deafness, Liver Disease, Osteoarthritis (OA), Pneumonia Additional Past Medical History / Comment(s): "Has Urostomy bag/stoma." Hx bl adder cancer Nov 2016, hx colon cancer 2002/2003, hx epiglotitis, hx Pnemomia 2017. Hepatitis C, "a spot on the liver", cirrhosis. "? seizure X1 Mar 2018, blacked out, broke both arms." History of Any Multi-Drug Resistant Organisms: None Reported Past Surgical History: Appendectomy, Bowel Resection, Ear Surgery, Hernia Repair, Tonsillectomy Additional Past Surgical History / Comment(s): 01/21/16 cystoscopy w/evacuation of clot; urostomy, BLADDER AND PROSTATE REMOVED November 2016. Tube placed in right ear in July 2017, pilinodal cyst removed, reapir of left shoulder, Past Anesthesia/Blood Transfusion Reactions: No Reported Reaction Additional Past Anesthesia/Blood Transfusion Reaction / Comment(s): Vertigo. Past Psychological History: Anxiety Smoking Status: Current every day smoker Past Alcohol Use History: None Reported Past Drug Use History: None Reported - Past Family History Father Family Medical History: Cancer Additional Family Medical History / Comment(s): Pancreatic cancer. Mother Family Medical History: Cancer Additional Family Medical History / Comment(s): Lung cancer. Brother(s) Family Medical History: Cancer Additional Family Medical History / Comment(s): Colon cancer. Medications and Allergies Home Medications Medication Instructions Recorded Confirmed Type Albuterol Inhaler [Ventolin Hfa 1 puff INHALATION RT-Q6H PRN 05/18/22 05/05/24 History Inhaler] Folic Acid 1 mg PO DAILY 05/18/22 05/05/24 History HYDROcodone/APAP 10-325MG [[place] 1 tab PO Q4H PRN 05/18/22 05/05/24 History 10-325] oxyCODONE HCL [oxyCODONE HCL ER] 20 mg PO BID 05/18/22 05/05/24 History Cholecalciferol (Vitamin D3) 50 mcg PO DAILY 05/05/24 05/05/24 History [Vitamin D3 (50 Mcg = 2000 Iu)] Fluticasone/Umeclidin/Vilanter 1 puff INHALATION RT-DAILY 05/05/24 05/05/24 History [Trelegy Ellipta 100-62.5-25] Lactose-Reduced Food [Ensure Plus] 474 ml PO DAILY 05/05/24 05/05/24 History polyethylene glycoL 3350 [Miralax] 17 gm PO DAILY 05/05/24 05/05/24 History Allergies Allergy/AdvReac Type Severity Reaction Status Date / Time bupropion [From Wellbutrin] Allergy Unknown Verified 05/05/24 12:30 fluoxetine [From Prozac] Allergy Unknown Verified 05/05/24 12:30 hydromorphone Allergy Anaphylaxis Verified 05/05/24 12:30 paroxetine [From Paxil] Allergy Unknown Verified 05/05/24 12:30 sertraline [From Zoloft] Allergy Rash/Hives Verified 05/05/24 12:30 gabapentin AdvReac redness, Verified 05/05/24 12:30 "didn't feel good" meclizine AdvReac vertigo Verified 05/05/24 12:30 methadone AdvReac ANXIETY/NIGHT Verified 05/05/24 12:30 SWEATS niacin AdvReac FLUSHING Verified 05/05/24 12:30 tramadol AdvReac ERYTHEMA Verified 05/05/24 12:30 Physical Exam Vitals: Vital Signs Temp Pulse Resp Pulse Ox FiO2 05/05/24 10:22 116 H 05/05/24 10:01 118 H 05/05/24 09:57 30 05/05/24 09:37 97.1 F L 114 H 38 H 100 Intake and Output 05/05/24 05/05/24 05/05/24 06:59 14:59 22:59 Other: Weight 47.627 kg GENERAL EXAM: Alert, thin, cachectic, disheveled 68-year-old male, on BiPAP, in mild respiratory distress. HEAD: Normocephalic. EYES: Normal reaction of pupils, equal size. NOSE: Clear with pink turbinates. THROAT: No erythema or exudates. NECK: No masses, no JVD. CHEST: No chest wall deformity. LUNGS: Equal air entry with wheeze, diminished throughout. CVS: S1 and S2 normal with no audible murmur, regular rhythm. ABDOMEN: No hepatosplenomegaly, normal bowel sounds, no guarding or rigidity. SPINE: No scoliosis or deformity SKIN: No rashes CENTRAL NERVOUS SYSTEM: No focal deficits, tone is normal in all 4 extremities. EXTREMITIES: There is no peripheral edema. No clubbing, no cyanosis. Per ipheral pulses are intact. Results - Laboratory Findings CBC and BMP: 05/05/24 11:40 05/05/24 11:40 PT/INR, D-dimer PT 11.1 sec (10.0-12.5) 05/05/24 11:40 INR 1.0 (<1.2) 05/05/24 11:40 Abnormal lab findings: Abnormal Labs 05/05/24 05/05/24 05/05/24 11:40 11:40 11:40 WBC 11.8 H Neutrophils # 9.8 H APTT 21.6 L Carbon Dioxide Creatinine Glucose Plasma Lactic Acid Bernard 2.7 H* 05/05/24 11:40 WBC Neutrophils # APTT Carbon Dioxide 33 H Creatinine 0.60 L Glucose 121 H Plasma Lactic Acid Bernard - Diagnostic Findings Chest x-ray: image reviewed Assessment and Plan Assessment: Acute hypoxemic respiratory failure secondary to an acute exacerbation of chronic obstructive pulmonary disease History of severe chronic obstructive pulmonary disease Chronic and ongoing tobacco dependence History of alcoholism History of alcoholic cirrhosis History of polysubstance abuse History of colon cancer status post resection History of bladder cancer status post urostomy The patient was seen and evaluated Chest x-ray, labs and medications reviewed Continue BiPAP support for now Transition to nasal cannula as tolerated Initiate DuoNeb inhalations 4 times daily and as needed Initiate Pulmicort and Perforomist inhalations Solu-Medrol 60 mg every 6 hours Titrate the FiO2 as tolerated Educated regarding smoking cessation NicoDerm patch will be offered We will continue to follow and make further recommendations based on his clinical status I have personally seen and examined the patient, performed the documentation and the assessment and plan as written. Number of minutes spent on the visit: 20 Dictation was produced using [employer] dictation software. Please excuse any grammatical, word or spelling errors.
[2024-05-05] MEDS: IPRATROPIUM-ALBUTEROL 3 ML NEB INHALATION SCH (15:39)
--- NOTE | 2024-05-05 17:26 | P.HPIM ---
History of Present Illness H&P Date: 05/05/24 68 year old M with PMH of chronic respiratory failure on 2L home O2, COPD, EtOH abuse, liver cirrhosis, hepatitis C, seizure disorder, colon CA, bladder CA with urostomy presents to the ED for worsening shortness of breath especially with exertion for the past 2-3 days. He denies any headache, LE edema, N/V, fever or chills, cough, chest pain, palpitations, changes in urination or bowel habits. No changes in appetite or weight. Denies dizziness, numbness/weakness/tinging of the extremities. In the ED he underwent extensive evaluation. T 97.1, HR 114, RR 38, 100% on 15L non-rebreather. CBC, Coag panel, CMP significant WBC 11.8, APTT 21.6, bicarb 33, Cr 0.6, glu 121. Lactic acid 2.7. Mag 1.7. COVID, RSV, Flu neg. CXR no acute process. EKG sinus tachycardia with rate of [address] T wave changes. Patient is started on BiPAP and admitted for further workup and management. General: non toxic, no distress, appears at stated age Derm: warm, dry Head: atraumatic, normocephalic, symmetric Mouth: no lip lesion, mucus membranes moist Cardiovascular: S1S2 tachy, no murmur Lungs: Expiratory wheezing bilaterally, no accessory muscle use Abd: Non tender to palpation. Urostomy intact Ext: no gross muscle atrophy, no edema, no contractures Neuro: no focal neuro deficits Psych: Alert and oriented. Based on my assessment of this patient, this patient meets a high complexity level of care. Acute on chronic hypoxic respiratory failure secondary to COPD exacerbation: DuoNeb QID scheduled and PRN SOB/wheezing. Pulmicort 1 mg INH BID. Perforomist 20 mcg INH BID. SoluMedrol 60 mg IV Q6H. Pulmonary consulted. SIRS likely due to above: CXR no acute process. Obtain BCx. Empirically started on Azithromycin 500 mg IV QD for acute bronchitis. Telemetry monitoring. Lactic acidosis likely secondary to above: Trend until negative. EtOH abuse, liver cirrhosis, hepatitis C, seizure disorder, colon CA, bladder CA with urostomy CODE STATUS: FULL CODE. DVT Prophylaxis: Lovenox SQ GI Prophylaxis: Protonix PO Designated medical POA if patient is not able to make medical decisions for themselves: I have reviewed the following lead consultant notes: ED note. I have reviewed the results of the following tests: As above I have ordered the following tests: As above I have discussed the care of this patient with the following independent historian: DELANEY. I have independently interpreted the following test below: EKG. I have discussed the management of this patient with the following physician: Past Medical History Past Medical History: Cancer, COPD, Hearing Disorder / Deafness, Liver Disease, Osteoarthritis (OA), Pneumonia Additional Past Medical History / Comment(s): "Has Urostomy bag/stoma." Hx bladder cancer Nov 2016, hx colon cancer , hx epiglotitis, hx Pnemomia 2017. Hepatitis C, "a spot on the liver", cirrhosis. "? seizure X1 Mar 2018, blacked out, broke both arms." History of Any Multi-Drug Resistant Organisms: None Reported Past Surgical History: Appendectomy, Bowel Resection, Ear Surgery, Hernia Repair, Tonsillectomy Additional Past Surgical History / Comment(s): 01/21/16 cystoscopy w/evacuation of clot; urostomy, BLADDER AND PROSTATE REMOVED November 2016. Tube placed in right ear in July 2017, pilinodal cyst removed, reapir of left shoulder, Past Anesthesia/Blood Transfusion Reactions: No Reported Reaction Additional Past Anesthesia/Blood Transfusion Reaction / Comment(s): Vertigo. Past Psychological History: Anxiety Smoking Status: Current every day smoker Past Alcohol Use History: None Reported Past Drug Use History: None Reported - Past Family History Father Family Medical History: Cancer Additional Family Medical History / Comment(s): Pancreatic cancer. Mother Family Medical History: Cancer Additional Family Medical History / Comment(s): Lung cancer. Brother(s) Family Medical History: Cancer Additional Family Medical History / Comment(s): Colon cancer. Medications and Allergies Home Medications Medication Instructions Recorded Confirmed Type Albuterol Inhaler [Ventolin Hfa 1 puff INHALATION RT-Q6H PRN 05/18/22 05/05/24 History Inhaler] Folic Acid 1 mg PO DAILY 05/18/22 05/05/24 History HYDROcodone/APAP 10-325MG [[place] 1 tab PO Q4H PRN 05/18/22 05/05/24 History 10-325] oxyCODONE HCL [oxyCODONE HCL ER] 20 mg PO BID 05/18/22 05/05/24 History Cholecalciferol (Vitamin D3) 50 mcg PO DAILY 05/05/24 05/05/24 History [Vitamin D3 (50 Mcg = 2000 Iu)] Fluticasone/Umeclidin/Vilanter 1 puff INHALATION RT-DAILY 05/05/24 05/05/24 History [Trelegy Ellipta 100-62.5-25] Lactose-Reduced Food [Ensure Plus] 474 ml PO DAILY 05/05/24 05/05/24 History polyethylene glycoL 3350 [Miralax] 17 gm PO DAILY 05/05/24 05/05/24 History Allergies Allergy/AdvReac Type Severity Reaction Status Date / Time bupropion [From Wellbutrin] Allergy Unknown Verified 05/05/24 12:30 fluoxetine [From Prozac] Allergy Unknown Verified 05/05/24 12:30 hydromorphone Allergy Anaphylaxis Verified 05/05/24 12:30 paroxetine [From Paxil] Allergy Unknown Verified 05/05/24 12:30 sertraline [From Zoloft] Allergy Rash/Hives Verified 05/05/24 12:30 gabapentin AdvReac redness, Verified 05/05/24 12:30 "didn't feel good" meclizine AdvReac vertigo Verified 05/05/24 12:30 methadone AdvReac ANXIETY/NIGHT Verified 05/05/24 12:30 SWEATS niacin AdvReac FLUSHING Verified 05/05/24 12:30 tramadol AdvReac ERYTHEMA Verified 05/05/24 12:30 Physical Exam Vitals: Vital Signs Temp Pulse Resp Pulse Ox FiO2 05/05/24 15:56 100 05/05/24 15:43 96 05/05/24 15:40 30 05/05/24 10:22 116 H 05/05/24 10:01 118 H 05/05/24 09:57 30 05/05/24 09:37 97.1 F L 114 H 38 H 100 Intake and Output 05/05/24 05/05/24 05/05/24 06:59 14:59 22:59 Other: Weight 47.627 kg Results CBC & Chem 7: 05/05/24 11:40 05/05/24 11:40 Labs: Abnormal Lab Results - Last 24 Hours (Table) 05/05/24 05/05/24 05/05/24 Range/Units 11:40 11:40 11:40 WBC 11.8 H (3.8-10.6) k/uL Neutrophils # 9.8 H (1.3-7.7) k/uL APTT 21.6 L (22.0-30.0) sec Carbon Dioxide (22-30) mmol/L Creatinine (0.66-1.25) mg/dL Glucose (74-99) mg/dL Plasma Lactic Acid Bernard 2.7 H* (0.7-2.0) mmol/L 05/05/24 Range/Units 11:40 WBC (3.8-10.6) k/uL Neutrophils # (1.3-7.7) k/uL APTT (22.0-30.0) sec Carbon Dioxide 33 H (22-30) mmol/L Creatinine 0.60 L (0.66-1.25) mg/dL Glucose 121 H (74-99) mg/dL Plasma Lactic Acid Bernard (0.7-2.0) mmol/L
[2024-05-05] MEDS: methylPREDNISolone SOD SUCCI 125 MG/2 ML VIAL IV SCH (18:53)
[2024-05-05] MEDS ORDERED: SYMBICORT 160-4.5 MCG INHALER INHALATION SCH (20:00)
[2024-05-05] MEDS: FORMOTEROL FUMARATE 20 MCG/2 ML NEBU INHALATION SCH (21:28)
[2024-05-05] MEDS: BUDESONIDE 1 MG/2 ML NEBU INHALATION SCH (21:29)
[2024-05-05] MEDS: oxyCODONE ER 20 MG TAB.ER.12H PO STA (22:12)
[2024-05-05] MEDS: NICOTINE 21MG/24HR PATCH TRANSDERM STA (22:14)
[2024-05-06] MEDS: IPRATROPIUM-ALBUTEROL 3 ML NEB INHALATION PRN (06:08)
[2024-05-06] MEDS ORDERED: TIOTROPIUM 2.5 MCG INHALER INHALATION SCH (08:00)
[2024-05-06] MEDS ORDERED: NON FORMULARY DRUG (Lactose-Reduced Food [Ensure Plus] 237 ML Ml) PO SCH (09:00)
[2024-05-06] MEDS: FOLIC ACID 1 MG TAB PO SCH (10:19)
[2024-05-06] MEDS: CHOLECALCIFEROL 25 MCG (1000 IU) TABLET PO SCH (10:19)
[2024-05-06] MEDS: ENOXAPARIN 40 MG/0.4 ML SYRINGE SQ SCH (10:20)
[2024-05-06] MEDS: polyethylene glycoL 3350 17 GM POWD.PACK PO SCH (10:20)
[2024-05-06] MEDS: PANTOPRAZOLE 40 MG TABLET PO SCH (10:20)
[2024-05-06] MEDS: oxyCODONE ER 20 MG TAB.ER.12H PO SCH (11:57)
[2024-05-06] MEDS: NICOTINE 21MG/24HR PATCH TRANSDERM SCH (12:00)
--- NOTE | 2024-05-06 13:01 | P.PN ---
Subjective Progress Note Date: 05/06/24 This is a 68-year-old male patient with a known history of alcoholism, alcoholic cirrhosis, hepatitis C, seizure disorder, colon cancer with previous resection, bladder cancer with urostomy, polysubstance abuse, chronic and ongoing tobacco dependence with severe chronic obstructive pulmonary disease. Presented here to the emergency room earlier this morning with a 3-day history of increasing shortness of breath nonproductive cough and congestion. Was found to be significantly hypoxic and was brought in by EMS on a nonrebreather mask. He was subsequently placed on BiPAP 14/5 and 40% FiO2. Chest x-ray shows severe COPD but no acute pulmonary process. White count 11.8. Hemoglobin 15.4. Platelets 233. INR 1.0. Sodium 137. Potassium 4.1. Bicarb 33. BUN 15. Creatinine 0.60. Glucose 121. Viral screen is negative. He is seen today in consultation in the emergency department. He is awake and alert. Anxious. Remains on BiPAP support for now. He is afebrile. Slightly tachycardic. The patient is seen today May 06, 2024 in follow-up in the emergency department. He is currently sitting up in the stretcher attempting to eat breakfast. He is in significant respiratory distress. He had been taken off his BiPAP earlier this morning and is on 3 L nasal cannula. No new labs today. He is continued on DuoNeb inhalations, Pulmicort and Perforomist inhalations, Solu-Medrol. NicoDerm patch in place. Lovenox for DVT prophylaxis. Empiric antibiotics in the form of azithromycin. Objective - Vital Signs Vital signs: Vital Signs Temp 97.1 F L 05/05/24 09:37 Pulse 88 05/06/24 11:39 Resp 15 05/06/24 05:20 BP 116/57 05/06/24 05:20 Pulse Ox 95 05/06/24 05:20 FiO2 30 05/05/24 21:58 Intake & Output 05/05/24 05/06/24 05/06/24 18:59 06:59 18:59 Weight 47.627 kg - Exam GENERAL EXAM: Alert, thin 68-year-old male, on 3 L nasal cannula, in moderate respiratory distress. HEAD: Normocephalic. EYES: Normal reaction of pupils, equal size. NOSE: Clear with pink turbinates. THROAT: No erythema or exudates. NECK: No masses, no JVD. CHEST: No chest wall deformity. LUNGS: Equal air entry with bilateral wheezing. Diminished throughout CVS: S1 and S2 normal with no audible murmur, regular rhythm. ABDOMEN: No hepatosplenomegaly, normal bowel sounds, no guarding or rigidity. SPINE: No scoliosis or deformity SKIN: No rashes CENTRAL NERVOUS SYSTEM: No focal deficits, tone is normal in all 4 extremities. EXTREMITIES: There is no peripheral edema. No clubbing, no cyanosis. Peripheral pulses are intact. - Labs CBC & Chem 7: 05/05/24 11:40 05/05/24 11:40 Assessment and Plan Assessment: Acute hypoxemic respiratory failure secondary to an acute exacerbation of chronic obstructive pulmonary disease History of severe chronic obstructive pulmonary disease Chronic and ongoing tobacco dependence History of alcoholism History of alcoholic cirrhosis History of polysubstance abuse History of colon cancer status post resection History of bladder cancer status post urostomy Plan: The patient was seen and evaluated Medications reviewed In moderate respiratory distress Discontinued nasal cannula Placed back on BiPAP 12/5 and 30% FiO2 Encouraged to wear it is much as possible Continue DuoNeb inhalations 4 times daily and as needed Continue Pulmicort and Perforomist inhalations Continue Solu-Medrol 60 mg every 6 hours Titrate the FiO2 as tolerated Again educated regarding smoking cessation NicoDerm patch in place We will continue to follow I have personally seen and examined the patient, performed the documentation and the assessment and plan as written. Number of minutes spent on the visit: 10 Dictation was produced using [employer] dictation software. Please excuse any grammatical, word or spelling errors.
--- NOTE | 2024-05-06 13:12 | P.PN ---
Subjective Progress Note Date: 05/06/24 68 year old M with PMH of chronic respiratory failure on 2L home O2, COPD, EtOH abuse, liver cirrhosis, hepatitis C, seizure disorder, colon CA, bladder CA with urostomy presents to the ED for worsening shortness of breath especially with exertion for the past 2-3 days. He denies any headache, LE edema, N/V, fever or chills, cough, chest pain, palpitations, changes in urination or bowel habits. No changes in appetite or weight. Denies dizziness, numbness/weakness/tinging of the extremities. In the ED he underwent extensive evaluation. T 97.1, HR 114, RR 38, 100% on 15L non-rebreather. CBC, Coag panel, CMP significant WBC 11.8, APTT 21.6, bicarb 33, Cr 0.6, glu 121. Lactic acid 2.7. Mag 1.7. COVID, RSV, Flu neg. CXR no acute process. EKG sinus tachycardia with rate of [address] T wave changes. Patient is started on BiPAP and admitted for further workup and management. Started on bronchodilators and Solumedrol. 05/06 Patient was seen and examined. On BiPAP 12/5 FiO2 30%. Breathing improved. No new labs done today. General: non toxic, no distress, appears at stated age Derm: warm, dry Head: atraumatic, normocephalic, symmetric Mouth: no lip lesion, mucus membranes moist Cardiovascular: S1S2 tachy, no murmur Lungs: Expiratory wheezing bilaterally, no accessory muscle use Abd: Non tender to palpation. Urostomy intact Ext: no gross muscle atrophy, no edema, no contractures Neuro: no focal neuro deficits Psych: Alert and oriented. Based on my assessment of this patient, this patient meets a high complexity level of care. Acute on chronic hypoxic respiratory failure secondary to COPD exacerbation: DuoNeb QID scheduled and PRN SOB/wheezing. Pulmicort 1 mg INH BID. Perforomist 20 mcg INH BID. SoluMedrol 60 mg IV Q6H. Pulmonary on board. SIRS likely due to above: CXR no acute process. Follow BCx. Empirically started on Azithromycin 500 mg IV QD for acute bronchitis. Telemetry monitoring. Lactic acidosis likely secondary to above: Trend until negative. EtOH abuse, liver cirrhosis, hepatitis C, seizure disorder, colon CA, bladder CA with urostomy CODE STATUS: FULL CODE. DVT Prophylaxis: Lovenox SQ GI Prophylaxis: Protonix PO Designated medical POA if patient is not able to make medical decisions for themselves: I have reviewed the following data communications software consultant notes: Pulmonary note. I have reviewed the results of the following tests: I have ordered the following tests: CBC, BMP, Mag in the AM. I have discussed the care of this patient with the following independent h istorian: Family at bedside. I have independently interpreted the following test below: I have discussed the management of this patient with the following physician: Objective - Vital Signs Vital signs: Vital Signs Temp 97.1 F L 05/05/24 09:37 Pulse 88 05/06/24 11:39 Resp 15 05/06/24 05:20 BP 116/57 05/06/24 05:20 Pulse Ox 95 05/06/24 05:20 FiO2 30 05/05/24 21:58 Intake & Output 05/05/24 05/06/24 05/06/24 18:59 06:59 18:59 Weight 47.627 kg - Labs CBC & Chem 7: 05/05/24 11:40 05/05/24 11:40
[2024-05-07 06:33] LABS: HCT 42.7 % (39.0-53.0); HGB 13.6 gm/dL (13.0-17.5); Hypochromasia Slight; MCH 31.7 pg (25.0-35.0); MCHC 31.9 g/dL (31.0-37.0); MCV 99.3 fL (80.0-100.0); Mean Platelet Volume 7.1; Platelet Count 236 k/uL (150-450); RDW 12.9 % (11.5-15.5); WBC 12.7 k/uL (3.8-10.6)
[2024-05-07 06:54] LABS: African American GFR (CKD) >90 (>60 ml/min/1.73 sqM); Anion Gap 6 mmol/L; Blood Urea Nitrogen 15 mg/dL (9-20); Calcium 9.6 mg/dL (8.4-10.2); Carbon Dioxide 34 mmol/L (22-30); Chloride 101 mmol/L (98-107); Glucose 163 mg/dL (74-99); Magnesium 1.8 mg/dL (1.6-2.3); Non-African American GFR(CKD) >90 (>60 ml/min/1.73 sqM); Potassium 5.1 mmol/L (3.5-5.1); Sodium 141 mmol/L (137-145)
--- NOTE | 2024-05-07 10:20 | P.PN ---
Subjective Progress Note Date: 05/07/24 68 year old M with PMH of chronic respiratory failure on 2L home O2, COPD, EtOH abuse, liver cirrhosis, hepatitis C, seizure disorder, colon CA, bladder CA with urostomy presents to the ED for worsening shortness of breath especially with exertion for the past 2-3 days. He denies any headache, LE edema, N/V, fever or chills, cough, chest pain, palpitations, changes in urination or bowel habits. No changes in appetite or weight. Denies dizziness, numbness/weakness/tinging of the extremities. In the ED he underwent extensive evaluation. T 97.1, HR 114, RR 38, 100% on 15L non-rebreather. CBC, Coag panel, CMP significant WBC 11.8, APTT 21.6, bicarb 33, Cr 0.6, glu 121. Lactic acid 2.7. Mag 1.7. COVID, RSV, Flu neg. CXR no acute process. EKG sinus tachycardia with rate of [address] T wave changes. Patient is started on BiPAP and admitted for further workup and management. Started on bronchodilators and Solumedrol. Weaned off BiPAP 05/06. 05/07 Patient was seen and examined. Placed back on BiPAP this morning after being on 3L NC last night. Breathing not much improved. Wants a bronchoscopy. CBC and BMP significant for WBC 12.7, bicarb 34, glu 163. Mag 1.8. Vitals: BP 137/87, HR 90, RR 16, BiPAP FiO2 30. General: non toxic, no distress, appears at stated age Derm: warm, dry Head: atraumatic, normocephalic, symmetric Mouth: no lip lesion, mucus membranes moist Cardiovascular: S1S2 tachy, no murmur Lungs: Expiratory wheezing bilaterally, no accessory muscle use Abd: Non tender to palpation. Urostomy intact Ext: no gross muscle atrophy, no edema, no contractures Neuro: no focal neuro deficits Psych: Alert and oriented. Based on my assessment of this patient, this patient meets a high complexity level of care. Acute on chronic hypoxic respiratory failure secondary to COPD exacerbation: DuoNeb QID scheduled and PRN SOB/wheezing. Pulmicort 1 mg INH BID. Perforomist 20 mcg INH BID. SoluMedrol 60 mg IV Q6H. Pulmonary on board. SIRS likely due to above: CXR no acute process. Follow BCx. Empirically started on Azithromycin 500 mg IV QD for acute bronchitis. Telemetry monitoring. Lactic acidosis likely secondary to above: Trend until negative. Nicotine dependance: Nicotine patch 21 mg/24H QD. Chronic pain: Oxycontin 20 mg PO BID. [place] 10 PO Q4H PRN. EtOH abuse, liver cirrhosis, hepatitis C, seizure disorder, colon CA, bladder CA with urostomy CODE STATUS: FULL CODE. DVT Prophylaxis: Lovenox SQ GI Prophylaxis: Protonix PO Designated medical POA if patient is not able to make medical decisions for themselves: Dispo: He is pending clinical improvement. Discharge when cleared by Pulmonary. I have reviewed the following organizational development consultant notes: Pulmonary note. I have reviewed the results of the following tests: CBC, BMP, Mag. I have ordered the following tests: I have discussed the care of this patient with the following independent historian: DELANEY I have independently interpreted the following test below: I have discussed the management of this patient with the following physician: Objective - Vital Signs Vital signs: Vital Signs Temp 97.5 F L 05/06/24 20:00 Pulse 90 05/07/24 03:21 Resp 16 05/07/24 03:21 BP 137/87 05/07/24 03:21 Pulse Ox 93 L 05/07/24 03:21 FiO2 30 05/06/24 16:30 Intake & Output 05/06/24 05/07/24 05/07/24 18:59 06:59 18:59 Intake Total 20 540 Output Total 100 600 Balance -80 -60 Weight 47.627 kg 45.5 kg Intake: IV 20 Invasive Line 1 10 Invasive Line 2 10 Oral 540 Output: Urine 100 600 Other: Voiding Method Ileal Conduit (Right) Ileal Conduit (Right) - Labs CBC & Chem 7: 05/07/24 06:07 05/07/24 06:07 Labs: Abnormal Lab Results - Last 24 Hours (Table) 05/07/24 05/07/24 Range/Units 06:07 06:07 WBC 12.7 H (3.8-10.6) k/uL Carbon Dioxide 34 H (22-30) mmol/L Glucose 163 H (74-99) mg/dL Microbiology - Last 24 Hours (Table) 05/05/24 11:40 Blood Culture - Preliminary Blood
--- NOTE | 2024-05-07 13:27 | P.PN ---
Subjective Progress Note Date: 05/07/24 Principal diagnosis: Acute exacerbation of COPD This is a 68-year-old male patient with a known history of alcoholism, alcoholic cirrhosis, hepatitis C, seizure disorder, colon cancer with previous resection, bladder cancer with urostomy, polysubstance abuse, chronic and ongoing tobacco dependence with severe chronic obstructive pulmonary disease. Presented here to the emergency room earlier this morning with a 3-day history of increasing shortness of breath nonproductive cough and congestion. Was found to be significantly hypoxic and was brought in by EMS on a nonrebreather mask. He was subsequently placed on BiPAP 14/5 and 40% FiO2. Chest x-ray shows severe COPD b ut no acute pulmonary process. White count 11.8. Hemoglobin 15.4. Platelets 233. INR 1.0. Sodium 137. Potassium 4.1. Bicarb 33. BUN 15. Creatinine 0.60. Glucose 121. Viral screen is negative. He is seen today in consultation in the emergency department. He is awake and alert. Anxious. Remains on BiPAP support for now. He is afebrile. Slightly tachycardic. The patient is seen today May 06, 2024 in follow-up in the emergency department. He is currently sitting up in the stretcher attempting to eat breakfast. He is in significant respiratory distress. He had been taken off his BiPAP earlier this morning and is on 3 L nasal cannula. No new labs today. He is continued on DuoNeb inhalations, Pulmicort and Perforomist inhalations, Solu-Medrol. NicoDerm patch in place. Lovenox for DVT prophylaxis. Empiric antibiotics in the form of azithromycin. Patient was seen today on 05/07/2024, continues to cough and wheeze, but he is now compliant with the BiPAP, using his BiPAP faithfully and as needed, received an updraft treatment today he claimed that he did not feel well after the updraft treatment but he felt much better once he put his BiPAP on. Patient is on maximal therapy including multiple bronchodilators and steroids, I believe he is much better now compared to how he felt when he came in initially when I saw him in the ER. Patient is afebrile, temp is 98.3, hemodynamically stable. Intermittently on BiPAP alternating with 3 L nasal cannula. WBC count is 12.7 hemoglobin 13.6 electrolytes are normal renal profile is normal bicarb is 34, influenza screen RSV screen and COVID screen negative. Chest x-ray showed chronic changes no evidence of pneumonia. Objective - Vital Signs Vital signs: Vital Signs Temp 98.3 F 05/07/24 12:00 Pulse 90 05/07/24 12:15 Resp 17 05/07/24 12:00 BP 129/67 05/07/24 12:00 Pulse Ox 95 05/07/24 12:00 FiO2 30 05/07/24 12:15 Intake & Output 05/06/24 05/07/24 05/07/24 18:59 06:59 18:59 Intake Total 20 540 250 Output Total 100 600 Balance -80 -60 250 Weight 47.627 kg 45.5 kg Intake: IV 20 10 Invasive Line 1 10 Invasive Line 2 10 10 Oral 540 240 Output: Urine 100 600 Other: Voiding Method Ileal Conduit (Right) Ileal Conduit (Right) Ileal Conduit (Rig ht) - Exam GENERAL EXAM: Alert, thin 68-year-old male, on BiPAP this morning, comfortable but not back to baseline. HEAD: Normocephalic. Atraumatic EYES: Normal reaction of pupils, equal size. NOSE: Clear with pink turbinates. THROAT: No erythema or exudates. NECK: No masses, no JVD. CHEST: No chest wall deformity. LUNGS: Scattered rhonchi and wheezes noted bilaterally. CVS: S1 and S2 normal with no audible murmur, regular rhythm. ABDOMEN: No hepatosplenomegaly, normal bowel sounds, no guarding or rigidity. SKIN: No rashes CENTRAL NERVOUS SYSTEM: Alert oriented x 3 no gross focal deficit EXTREMITIES: No clubbing edema or cyanosis - Labs CBC & Chem 7: 05/07/24 06:07 05/07/24 06:07 Labs: Abnormal Lab Results - Last 24 Hours (Table) 05/07/24 05/07/24 Range/Units 06:07 06:07 WBC 12.7 H (3.8-10.6) k/uL Carbon Dioxide 34 H (22-30) mmol/L Glucose 163 H (74-99) mg/dL Microbiology - Last 24 Hours (Table) 05/05/24 11:40 Blood Culture - Preliminary Blood Assessment and Plan Assessment: Impression: Acute hypoxic respiratory failure secondary to acute exacerbation of COPD Severe COPD by history Chronic and ongoing tobacco dependence syndrome History of alcoholism and alcoholic liver disease History of polysubstance abuse History of colon cancer and previous bowel resection History of bladder cancer and previous urostomy bag placement Recommendation: Continue present course of bronchodilators including DuoNeb Pulmicort Perforomist Continue Solu-Medrol 60 mg IV push every 6 hours Continue oxygen via nasal cannula and intermittently placed on BiPAP as needed Continue NicoDerm patch. Counseled regarding smoking cessation. Prognosis remains guarded, patient is not ready for discharge Will continue to follow Time with Patient: Less than 30
[2024-05-07] MEDS: ALPRAZolam 0.25 MG TAB PO PRN (14:59)
[2024-05-08 13:01] VITALS: BMI 15.1
--- NOTE | 2024-05-08 13:27 | P.PN ---
Subjective Progress Note Date: 05/08/24 Principal diagnosis: COPD exacerbation. This is a 68-year-old male patient with a known history of alcoholism, alcoholic cirrhosis, hepatitis C, seizure disorder, colon cancer with previous resection, bladder cancer with urostomy, polysubstance abuse, chronic and ongoing tobacco dependence with severe chronic obstructive pulmonary disease. Presented here to the emergency room earlier this morning with a 3-day history of increasing shortness of breath nonproductive cough and congestion. Was found to be significantly hypoxic and was brought in by EMS on a nonrebreather mask. He was subsequently placed on BiPAP 14/5 and 40% FiO2. Chest x-ray shows severe COPD but no acute pulmonary process. White count 11.8. Hemoglobin 15.4. Platelets 233. INR 1.0. Sodium 137. Potassium 4.1. Bicarb 33. BUN 15. Creatinine 0.60. Glucose 121. Viral screen is negative. He is seen today in consultation in the emergency department. He is awake and alert. Anxious. Remains on BiPAP support for now. He is afebrile. Slightly tachycardic. The patient is seen today May 06, 2024 in follow-up in the emergency department. He is currently sitting up in the stretcher attempting to eat breakfast. He is in significant respiratory distress. He had been taken off his BiPAP earlier this morning and is on 3 L nasal cannula. No new labs today. He is continued on DuoNeb inhalations, Pulmicort and Perforomist inhalations, Solu-Medrol. NicoDerm patch in place. Lovenox for DVT prophylaxis. Empiric antibiotics in the form of azithromycin. Patient was seen today on 05/07/2024, continues to cough and wheeze, but he is now compliant with the BiPAP, using his BiPAP faithfully and as needed, received an updraft treatment today he claimed that he did not feel well after the updraft treatment but he felt much better once he put his BiPAP on. Patient is on maximal therapy including multiple bronchodilators and steroids, I believe he is much better now compared to how he felt when he came in initially when I saw him in the ER. Patient is afebrile, temp is 98.3, hemodynamically stable. Intermittently on BiPAP alternating with 3 L nasal cannula. WBC count is 12.7 hemoglobin 13.6 electrolytes are normal renal profile is normal bicarb is 34, influenza screen RSV screen and COVID screen negative. Chest x-ray showed chronic changes no evidence of pneumonia. Progress note dated May 08, 2024. 68-year-old male with a history of severe COPD. The patient is seen today in room 362. He continues on O2, by nasal cannula at 3 L. He also uses BiPAP, with settings of 12/5, and 30%. The patient states that he is feeling better, and less short of breath. In addition to severe COPD, the patient has a history of chronic alcohol abuse, alcoholic cirrhosis, hepatitis C, seizure disorder, colon cancer, bladder cancer, polysubstance abuse, and chronic and ongoing tobacco dependence. No new laboratory data today. No chest x-ray today. Objective - Vital Signs Vital signs: Vital Signs Temp 98 F 05/08/24 08:13 Pulse 104 H 05/08/24 12:15 Resp 18 05/08/24 12:15 BP 149/71 05/08/24 12:15 Pulse Ox 98 05/08/24 12:15 FiO2 30 05/08/24 12:15 Intake & Output 05/07/24 05/08/24 05/08/24 18:59 06:59 18:59 Intake Total 260 20 240 Output Total 500 300 800 Balance -240 -280 -560 Weight 46.5 kg 46.5 kg Intake: IV 20 20 Invasive Line 2 10 Invasive Line 3 10 20 Oral 240 240 Output: Urine 500 300 800 Other: Voiding Method Ileal Conduit (Right) Ileal Conduit (Right) Ileal Conduit (Right) - Exam No acute distress, oriented 3. Currently on 3 L. No respiratory distress. HEENT examination is grossly unremarkable. Mucous membranes are moist. No oral lesions. Neck supple. Full range of motion. No adenopathy thyromegaly or neck vein distention. Cardiovascular examination reveals regular rhythm rate. S1-S2 normal. No S3 or S4. No discernible murmur noted. Lungs reveal severely diminished bilateral breath sounds. Scattered wheezes and rhonchi are noted. There are no crackles. There is prolongation on forced maneuver. Adventitious lung sounds are more prominent on forced maneuver. Abdomen soft bowel sounds are heard. No masses or tenderness. Extremities are intact. No cyanosis clubbing or edema. Skin is without rash or lesion. Neurologic examination is brief but nonfocal. - Labs CBC & Chem 7: 05/07/24 06:07 05/07/24 06:07 Labs: Microbiology - Last 24 Hours (Table) 05/05/24 11:40 Blood Culture - Preliminary Blood Assessment and Plan Assessment: Acute hypoxemic respiratory failure secondary to COPD exacerbation. History of severe COPD. Chronic and ongoing tobacco dependence syndrome. History of alcoholism and alcoholic liver disease. History of polysubstance abuse. History of liver cirrhosis. History of colon cancer, with previous bowel resection. History of urostomy, secondary to bladder cancer. Plan: Plan dated May 08, 2024. The patient continues on appropriate medications including albuterol sulfate, ipratropium bromide, long-acting beta agonist, inhaled corticosteroids, and systemic corticosteroids. We will continue to follow make recommendations along the way. The patient continues to use BiPAP, 12/5, 30% at nighttime. During the daytime, he is on 3 L of oxygen. He continues on nicotine patch. He is counseled about the importance of smoking cessation. Labs, x-rays, and all medications are reviewed. The patient's overall prognosis remains guarded. We will continue to follow the patient, make recommendations along the way. Time with Patient: Less than 30
--- NOTE | 2024-05-08 14:03 | P.PN ---
Subjective Progress Note Date: 05/08/24 Hospital Course: 68 year old M with PMH of chronic respiratory failure on 2L home O2, COPD, EtOH abuse, liver cirrhosis, hepatitis C, seizure disorder, colon CA, bladder CA with urostomy presents to the ED for worsening shortness of breath especially with exertion for the past 2-3 days. He denies any headache, LE edema, N/V, fever or chills, cough, chest pain, palpitations, changes in urination or bowel habits. No changes in appetite or weight. Denies dizziness, numbness/weakness/tinging of the extremities. In the ED he underwent extensive evaluation. T 97.1, HR 114, RR 38, 100% on 15L non-rebreather. CBC, Coag panel, CMP significant WBC 11.8, APTT 21.6, bicarb 33, Cr 0.6, glu 121. Lactic acid 2.7. Mag 1.7. COVID, RSV, Flu neg. CXR no acute process. EKG sinus tachycardia with rate of [address] T wave changes. Patient is started on BiPAP and admitted for further workup and geoffrey hutchison. Started on bronchodilators and Solumedrol. Weaned off continious BiPAP 05/06. 05/08 on nasal cannula 3 L, later was placed again on BiPAP. Continues to complain of significant shortness of breath with minimal exertion. Patient does not have BiPAP machine at home, he is [facility] with [facility] and [facility] Pertinent Imaging: No new imaging Subjective: Complains of ongoing shortness of breath with exertion Pertinent positives and negatives as discussed above, a complete review of systems was performed and all other systems are negative. Vitals Signs Reviewed. General: [nontoxic], [no distress], [appears at stated age], chronically ill- appearing, malnourished Derm: [warm], [dry] Head: [atraumatic], [normocephalic], [symmetric] Eyes: [EOMI], [no lid lag], [anicteric sclera] Mouth: [no lip lesion], [mucus membranes moist] Cardiovascular: [S1S2 reg], [no murmur] Lungs: [CTA bilateral], bilateral end expiratory wheezes] , [no accessory muscle use] Abdominal: [soft], [ nontender to palpation], [no guarding], [no appreciable organomegaly] Ext: [no gross muscle atrophy], [no edema], [no contractures] Neuro: [ CN II-XI grossly intact], [no focal neuro deficits] Psych: [Alert], [oriented], [appropriate affect] Data Reviewed Today: Pertinent Labs: No new blood work Assessment and Plan: Acute on chronic hypoxic respiratory failure secondary to COPD exacerbation SIRS likely secondary to above Lactic acidosis secondary to above, resolved -Pulmonary on board, appreciate recommendations -Continue Solu-Medrol 60 mg IV every 6 -Continue Perforomist 20 mcg inhalation twice daily -Continue Pulmicort 1 mg at night dilation twice daily -Continue DuoNebs 4 times daily scheduled and as needed for shortness of breath/wheezing -Completed 3 days of azithromycin Nicotine dependence: Counseled on smoking cessation, continue with nicotine patch 21 mg/24-hour daily Chronic pain, chronic opioid use: Continue OxyContin 20 mg p.o. twice daily, [place] 10 mg p.o. every 4 hours as needed EtOH abuse, liver cirrhosis, hepatitis C, seizure disorder, colon CA, bladder CA with urostomy DVT ppx: Lovenox Code status: Full code Anticipated discharge place: Home Anticipated discharge time: When cleared by pulmonary, likely 24 to 48 hours Objective - Vital Signs Vital signs: Vital Signs Temp 98 F 05/08/24 08:13 Pulse 104 H 05/08/24 12:15 Resp 18 05/08/24 12:15 BP 149/71 05/08/24 12:15 Pulse Ox 98 05/08/24 12:15 FiO2 30 05/08/24 12:15 Intake & Output 05/07/24 05/08/24 05/08/24 18:59 06:59 18:59 Intake Total 260 20 240 Output Total 500 300 800 Balance -240 -280 -560 Weight 46.5 kg 46.5 kg Intake: IV 20 20 Invasive Line 2 10 Invasive Line 3 10 20 Oral 240 240 Output: Urine 500 300 800 Other: Voiding Method Ileal Conduit (Right) Ileal Conduit (Right) Ileal Conduit (Right) - Labs CBC & Chem 7: 05/07/24 06:07 05/07/24 06:07 Labs: Microbiology - Last 24 Hours (Table) 05/05/24 11:40 Blood Culture - Preliminary Blood
[2024-05-09 07:50] LABS: Basophils % (A) 0 %; Eosinophils % (A) 0 %; HCT 45.3 % (39.0-53.0); HGB 14.4 gm/dL (13.0-17.5); Lymphocytes % (A) 11 %; MCH 31.7 pg (25.0-35.0); MCHC 31.7 g/dL (31.0-37.0); MCV 99.9 fL (80.0-100.0); Mean Platelet Volume 7.2; Monocytes # (A) 0.2 k/uL (0-1.0); Monocytes % (A) 3 %; Neutrophils # (A) 7.7 k/uL (1.3-7.7); Neutrophils % (A) 84 %; Platelet Count 224 k/uL (150-450); RBC 4.54 m/uL (4.30-5.90); WBC 9.2 k/uL (3.8-10.6)
[2024-05-09 07:56] LABS: African American GFR (CKD) >90 (>60 ml/min/1.73 sqM); Anion Gap 3 mmol/L; Blood Urea Nitrogen 20 mg/dL (9-20); Calcium 9.6 mg/dL (8.4-10.2); Carbon Dioxide 40 mmol/L (22-30); Chloride 97 mmol/L (98-107); Glucose 146 mg/dL (74-99); Non-African American GFR(CKD) >90 (>60 ml/min/1.73 sqM); Potassium 4.2 mmol/L (3.5-5.1); Sodium 140 mmol/L (137-145)
[2024-05-09 09:36] VITALS: TEMP 97.6
--- NOTE | 2024-05-09 10:48 | P.DS ---
Providers Date of admission: 05/05/24 13:21 Attending physician: Cary Horvath MD Consults: 05/05/24 13:21 Consult Physician Routine Consulting Provider: Luz Maria Rodriges Consult Reason/Comments: resp failure Do you want consulting provider notified?: Already Contacted Primary care physician: Junior Peterson Hospital Course: Discharge Diagnosis: Acute on chronic hypoxic respiratory failure secondary to COPD exacerbation SIRS likely secondary to above Lactic acidosis secondary to above, resolved Nicotine dependence Chronic pain, chronic opioid use Ethanol abuse, liver cirrhosis, hepatitis C, seizure disorder, colon cancer, bladder cancer with urostomy Hospital Course: 68 year old M with PMH of chronic respiratory failure on 2L home O2, COPD, EtOH abuse, liver cirrhosis, hepatitis C, seizure disorder, colon CA, bladder CA with urostomy presents to the ED for worsening shortness of breath especially with exertion for the past 2-3 days. He denies any headache, LE edema, N/V, fever or chills, cough, chest pain, palpitations, changes in urination or bowel habits. No changes in appetite or weight. Denies dizziness, numbness/weakness/tinging of the extremities. In the ED he underwent extensive evaluation. T 97.1, HR 114, RR 38, 100% on 15L non-rebreather. CBC, Coag panel, CMP significant WBC 11.8, APTT 21.6, bicarb 33, Cr 0.6, glu 121. Lactic acid 2.7. Mag 1.7. COVID, RSV, Flu neg. CXR no acute process. EKG sinus tachycardia with rate of [address] T wave changes. Patient is started on BiPAP and admitted for further workup and management. Started on bronchodilators and Solumedrol. Weaned off continious BiPAP 05/06. Patient does not have BiPAP machine at home, he is following with [facility] and will have to obtain it through [facility]. 05/09 was cleared by pulmonology for discharge, will continue breathing treatment, switch to prednisone and complete treatment as outpatient, follow-up with primary care physician. recommend to request pulmonary rehab referral. Counseled on smoking cessation by multiple team members. Of note, patient was repeatedly requesting EGD to be done while inpatient to resolve his breathing issue, it was explained again multiple times by RN, att ending physician that the EGD will not be diagnostic or therapeutic for his COPD exacerbation, he was advised to keep his appointment with Dr. Lopez for planned outpatient EGD. Patient seen and examined at bedside.[] Vital signs reviewed and stable. General: [nontoxic], [no distress], [appears at stated age], chronically ill- appearing, malnourished Derm: [warm], [dry] Head: [atraumatic], [normocephalic], [symmetric] Eyes: [EOMI], [no lid lag], [anicteric sclera] Mouth: [no lip lesion], [mucus membranes moist] Cardiovascular: [S1S2 reg], [no murmur] Lungs: [CTA bilateral], bilateral end expiratory wheezes] , [no accessory muscle use] Abdominal: [soft], [ nontender to palpation], [no guarding], [no appreciable organomegaly] urostomy tube in place, clear yellow urine draining Ext: [no gross muscle atrophy], [no edema], [no contractures] Neuro: [ CN II-XI grossly intact], [no focal neuro deficits] Psych: [Alert], [oriented], [appropriate affect] A total of 40 minutes of time were spent preparing this complex discharge summary. Patient was discharged on 05/09/2024. Patient Condition at Discharge: Serious Plan - Discharge Summary New Discharge Prescriptions: New predniSONE See Taper PO DIRECTED #30 tab Continue oxyCODONE HCL [oxyCODONE HCL ER] 20 mg PO BID HYDROcodone/APAP 10-325MG [[place] 10-325] 1 tab PO Q4H PRN PRN Reason: Breakthrough Pain Lactose-Reduced Food [Ensure Plus] 474 ml PO DAILY Folic Acid 1 mg PO DAILY Albuterol Inhaler [Ventolin Hfa Inhaler] 1 puff INHALATION RT-Q6H PRN PRN Reason: Shortness Of Breath Cholecalciferol (Vitamin D3) [Vitamin D3 (50 Mcg = 2000 Iu)] 50 mcg PO DAILY polyethylene glycoL 3350 [Miralax] 17 gm PO DAILY Fluticasone/Umeclidin/Vilanter [Trelegy Ellipta 100-62.5-25] 1 puff INHALATION RT-DAILY Discharge Medication List Albuterol Inhaler [Ventolin Hfa Inhaler] 1 puff INHALATION RT-Q6H PRN 05/18/22 [History] Folic Acid 1 mg PO DAILY 05/18/22 [History] HYDROcodone/APAP 10-325MG [[place] 10-325] 1 tab PO Q4H PRN 05/18/22 [History] oxyCODONE HCL [oxyCODONE HCL ER] 20 mg PO BID 05/18/22 [History] Cholecalciferol (Vitamin D3) [Vitamin D3 (50 Mcg = 2000 Iu)] 50 mcg PO DAILY 05/05/24 [History] Fluticasone/Umeclidin/Vilanter [Trelegy Ellipta 100-62.5-25] 1 puff INHALATION RT-DAILY 05/05/24 [History] Lactose-Reduced Food [Ensure Plus] 474 ml PO DAILY 05/05/24 [History] polyethylene glycoL 3350 [Miralax] 17 gm PO DAILY 05/05/24 [History] predniSONE See Taper PO DIRECTED #30 tab 05/09/24 [Rx] Follow up Appointment(s)/Referral(s): Junior Peterson DO [Primary Care Provider] - 1-2 days Luz Maria Rodriges MD [STAFF PHYSICIAN] - 1 Week Patient Instructions/Handouts: How to Stop Smoking (DC), COPD (Chronic Obstructive Pulmonary Disease) (DC), Pulmonary Rehabilitation (DC) Activity/Diet/Wound Care/Special Instructions: complete prednisone treatment as outpatient, follow-up with primary care physician, pulmonology, recommend to request pulmonary rehab referral. Keep your EGD appointment as scheduled Discharge Disposition: HOME SELF-CARE
--- NOTE | 2024-05-09 11:20 | P.PN ---
Subjective Progress Note Date: 05/09/24 Principal diagnosis: COPD exacerbation. This is a 68-year-old male patient with a known history of alcoholism, alcoholic cirrhosis, hepatitis C, seizure disorder, colon cancer with previous resection, bladder cancer with urostomy, polysubstance abuse, chronic and ongoing tobacco dependence with severe chronic obstructive pulmonary disease. Presented here to the emergency room earlier this morning with a 3-day history of increasing shortness of breath nonproductive cough and congestion. Was found to be significantly hypoxic and was brought in by EMS on a nonrebreather mask. He was subsequently placed on BiPAP 14/5 and 40% FiO2. Chest x-ray shows severe COPD but no acute pulmonary process. White count 11.8. Hemoglobin 15.4. Platelets 233. INR 1.0. Sodium 137. Potassium 4.1. Bicarb 33. BUN 15. Creatinine 0.60. Glucose 121. Viral screen is negative. He is seen today in consultation in the emergency department. He is awake and alert. Anxious. Remains on BiPAP support for now. He is afebrile. Slightly tachycardic. The patient is seen today May 06, 2024 in follow-up in the emergency department. He is currently sitting up in the stretcher attempting to eat breakfast. He is in significant respiratory distress. He had been taken off his BiPAP earlier this morning and is on 3 L nasal cannula. No new labs today. He is continued on DuoNeb inhalations, Pulmicort and Perforomist inhalations, Solu-Medrol. NicoDerm patch in place. Lovenox for DVT prophylaxis. Empiric antibiotics in the form of azithromycin. Patient was seen today on 05/07/2024, continues to cough and wheeze, but he is now compliant with the BiPAP, using his BiPAP faithfully and as needed, received an updraft treatment today he claimed that he did not feel well after the updraft treatment but he felt much better once he put his BiPAP on. Patient is on maximal therapy including multiple bronchodilators and steroids, I believe he is much better now compared to how he felt when he came in initially when I saw him in the ER. Patient is afebrile, temp is 98.3, hemodynamically stable. Intermittently on BiPAP alternating with 3 L nasal cannula. WBC count is 12.7 hemoglobin 13.6 electrolytes are normal renal profile is normal bicarb is 34, influenza screen RSV screen and COVID screen negative. Chest x-ray showed chronic changes no evidence of pneumonia. Progress note dated May 08, 2024. 68-year-old male with a history of severe COPD. The patient is seen today in room 362. He continues on O2, by nasal cannula at 3 L. He also uses BiPAP, with settings of 12/5, and 30%. The patient states that he is feeling better, and less short of breath. In addition to severe COPD, the patient has a history of chronic alcohol abuse, alcoholic cirrhosis, hepatitis C, seizure disorder, colon cancer, bladder cancer, polysubstance abuse, and chronic and ongoing tobacco dependence. No new laboratory data today. No chest x-ray today. Progress note dated May 09, 2024. 68-year-old male seen today in room 362. Currently, he is on 3 L of nasal cannula. He is not receiving any IV fluids. He did use the BiPAP for a brief period of time last night. BiPAP settings are 12/5, and 30%. His Solu-Medrol will be converted to prednisone 40 mg a day. His budesonide and formoterol change his Symbicort 160/4.5, 2 puffs twice a day. Clinically, the patient is doing much better. In addition to COPD he does have a history of chronic alcohol abuse, alcoholic liver cirrhosis, hepatitis C, seizure disorder, colon cancer, bladder cancer, polysubstance abuse, and chronic and ongoing tobacco dependence. Current laboratory data includes a white count 9.2, hemoglobin 14.4, hematocrit 45.3, and a platelet count of 224,000. Sodium 140, potassium 4.2, chloride 97, CO2 40, BUN 20, creatinine 0.57. Glucose is 146. Calcium 9.6. Objective - Vital Signs Vital signs: Vital Signs Temp 97.6 F 05/09/24 08:25 Pulse 81 05/09/24 08:25 Resp 18 05/09/24 08:25 BP 161/72 05/09/24 08:25 Pulse Ox 100 05/09/24 08:25 FiO2 30 05/08/24 12:15 Intake & Output 05/08/24 05/09/24 05/09/24 18:59 06:59 18:59 Intake Total 240 Output Total 800 700 800 Balance -560 -700 -800 Weight 46.5 kg 46.5 kg Intake: Oral 240 Output: Urine 800 700 800 Other: Voiding Method Ileal Conduit (Right) Ileal Conduit (Right) Ileal Conduit (Right) - Exam No acute distress, oriented 3. Currently on 3 L. No respiratory distress. HEENT examination is grossly unremarkable. Mucous membranes are moist. No oral lesions. Neck supple. Full range of motion. No adenopathy thyromegaly or neck vein distention. Cardiovascular examination reveals regular rhythm rate. S1-S2 normal. No S3 or S4. No discernible murmur noted. Lungs reveal severely diminished bilateral breath sounds. Scattered wheezes and rhonchi are noted. There are no crackles. There is prolongation on forced maneuver. Adventitious lung sounds are more prominent on forced maneuver. Abdomen soft bowel sounds are heard. No masses or tenderness. Extremities are intact. No cyanosis clubbing or edema. Skin is without rash or lesion. Neurologic examination is brief but nonfocal. - Labs CBC & Chem 7: 05/09/24 07:06 05/09/24 07:06 Labs: Abnormal Lab Results - Last 24 Hours (Table) 05/09/24 Range/Units 07:06 Chloride 97 L (98-107) mmol/L Carbon Dioxide 40 H (22-30) mmol/L Creatinine 0.57 L (0.66-1.25) mg/dL Glucose 146 H (74-99) mg/dL Microbiology - Last 24 Hours (Table) 05/05/24 11:40 Blood Culture - Preliminary Blood Assessment and Plan Assessment: Acute hypoxemic respiratory failure secondary to COPD exacerbation. History of severe COPD. Chronic and ongoing tobacco dependence syndrome. History of alcoholism and alcoholic liver disease. History of polysubstance abuse. History of liver cirrhosis. History of colon cancer, with previous bowel resection. History of urostomy, secondary to bladder cancer. Plan: Plan dated May 08, 2024. The patient continues on appropriate medications including albuterol sulfate, ipratropium bromide, long-acting beta agonist, inhaled corticosteroids, and systemic corticosteroids. We will continue to follow make recommendations along the way. The patient continues to use BiPAP, 12/5, 30% at nighttime. During the daytime, he is on 3 L of oxygen. He continues on nicotine patch. He is counseled about the importance of smoking cessation. Labs, x-rays, and all medications are reviewed. The patient's overall prognosis remains guarded. We will continue to follow the patient, make recommendations along the way. Plan dated May 09, 2024. The patient appears to be doing much better. He is sitting in bed. He is awake and alert. No respiratory distress. No audible wheezing, conversational dyspnea or use of accessory muscles. The patient Solu-Medrol was converted to prednisone, and budesonide and formoterol or change his Symbicort. From the pulmonary perspective, the patient could be considered for possible discharge. Labs, x-rays, and all medications are reviewed. The patient is counseled about the importance of smoking cessation. Up into the time of his hospitalization, he was smoking. She did resume smoking, he will likely be right back here in the hospital. Prognosis is guarded. Dictation was produced using [employer] software. Please excuse any grammatical, word or spelling errors. Time with Patient: Less than 30
[2024-05-09] MEDS: predniSONE 20 MG TAB PO SCH (11:51)
[2024-05-09 12:55] VITALS: BP 144/70; PULSE 89; RESP 17
== END 2024-05-09 15:34 | disposition home or self-care (01) | DRG 189 ==
LOC: SUPCPDRO 09:36 → EC 09:36 → 3SCARD 13:21 → 4SSUR 05-06 12:50 → 3SCARD 05-06 18:28
PROVIDERS: ADMIT Family Medicine; ATTEND Family Medicine
PROC: 5A09357 Assistance with Respiratory Ventilation, Less than 24 Consecutive Hours, Continuous Positive Airway Pressure (ICD-10-PCS; principal; 2024-05-05)
DX: J96.21 Acute and chronic respiratory failure with hypoxia (principal); E87.20 Acidosis, unspecified; K70.30 Alcoholic cirrhosis of liver without ascites; J44.0 Chronic obstructive pulmonary disease with (acute) lower respiratory infection; F10.21 Alcohol dependence, in remission; F19.11 Other psychoactive substance abuse, in remission; G40.909 Epilepsy, unspecified, not intractable, without status epilepticus; J44.1 Chronic obstructive pulmonary disease with (acute) exacerbation; R65.10 Systemic inflammatory response syndrome (SIRS) of non-infectious origin without acute organ dysfunction; Z93.6 Other artificial openings of urinary tract status; Z71.6 Tobacco abuse counseling; J20.9 Acute bronchitis, unspecified; H91.90 Unspecified hearing loss, unspecified ear; G89.29 Other chronic pain; M19.90 Unspecified osteoarthritis, unspecified site; B19.20 Unspecified viral hepatitis C without hepatic coma; F17.200 Nicotine dependence, unspecified, uncomplicated; F41.9 Anxiety disorder, unspecified; Z79.51 Long term (current) use of inhaled steroids; Z79.891 Long term (current) use of opiate analgesic; Z85.038 Personal history of other malignant neoplasm of large intestine; Z85.51 Personal history of malignant neoplasm of bladder; Z90.49 Acquired absence of other specified parts of digestive tract; Z99.81 Dependence on supplemental oxygen; Z87.01 Personal history of pneumonia (recurrent); Z20.822 Contact with and (suspected) exposure to COVID-19
CPT/HCPCS: 36415; 71045; 80048; 80053; 83605; 83735; 85025; 85027; 85610; 85730; 87040; 87636; 93005; 94640; 94660; 94760; 96365; 96372; 96375; 96376; 99291

== ENCOUNTER → 2024-05-15 | Outpatient (CLI) | payer OTHER ==
--- NOTE | 2024-05-15 11:31 | US ---
EXAMINATION TYPE: US liver DATE OF EXAM: 05/15/2024 COMPARISON: US(11/15/2023) CLINICAL INDICATION: Male, 68 years old with history of K70.31ALCOHOLIC CIRRHOSIS OF LIVER WITH ASCIT ES; TECHNIQUE: Grayscale and color Doppler imaging of the right upper quadrant. FINDINGS: EXAM MEASUREMENTS: Liver Length: 12.8 cm Gallbladder Wall: 0.2 cm CBD: 1.0 cm, color Doppler imaging was utilized to isolate the common bile duct for measurement. Right Kidney: 11.5x5.6x4.5 cm BUSINESS INTELLIGENCE CONSULTANT NOTES: Pancreas: ?dilated duct: 0.4cm Prior US measurements: 0.4cm Liver: Heterogenous Anechoic area seen within Lt lobe: 2.5x1.7x2.2cm Prior US measurements: 2.2x1.9x2.8cm No suspicious solid observations identified within the liver. Gallbladder: ?sludge & tiny stones seen As seen on prior US Evidence for sonographic Sethi's sign: No CBD: Dilated Right Kidney: Anechoic area seen: 1.1x0.8x1.0cm Prior US measurements: 0.9x0.8x1.1cm IMPRESSION: 1. Hepatocellular disease no suspicious observations. 2. No evidence for acute process. 3. Simple appearing hepatic cysts. No follow-up recommended. 4. Cholelithiasis. 5. Prominent common bile duct diameter consider further evaluation with MRCP for complete characteri zation. [facility], , 05/15/2024 11:29 AM
== END | disposition home or self-care (01) ==
LOC: RADUSWWP 10:31
PROVIDERS: ATTEND Internal Medicine Gastroenterology
DX: K80.20 Calculus of gallbladder without cholecystitis without obstruction (principal); K70.31 Alcoholic cirrhosis of liver with ascites; K76.89 Other specified diseases of liver
CPT/HCPCS: 76705

== ENCOUNTER → 2024-05-15 | Outpatient (CLI) | payer OTHER ==
[2024-05-15 14:51] LABS: HCT 45.1 % (39.6-50.0); HGB 14.7 g/dL (13.0-17.0); MCH 31.9 pg (27.0-32.0); MCHC 32.6 g/dL (32.0-37.0); MCV 97.8 FL (80.0-97.0); NRBC Per 100 WBC 0 X 10*3/uL (0.00-0.01); Platelet Count 305 X 10*3/uL (140-440); RBC 4.61 X 10*6/uL (4.40-5.60); RDW 12.3 % (11.5-14.5); WBC 12.59 X 10*3/uL (4.50-10.00)
[2024-05-15 15:13] LABS: ALT 29 U/L (10-49); AST 22 U/L (14-35); Albumin 4.3 g/dL (3.8-4.9); Albumin/Globulin Ratio 1.43 Ratio (1.60-3.17); Alkaline Phosphatase 76 U/L (41-126); BUN/Creat Ratio 16.57 Ratio (12.00-20.00); Blood Urea Nitrogen 11.6 mg/dL (9.0-27.0); Calcium 10.2 mg/dL (8.7-10.3); Carbon Dioxide 36.1 mmol/L (21.6-31.8); Chloride 97 mmol/L (96-109); Glucose 128 mg/dL (70-110); Potassium 4.2 mmol/L (3.5-5.5); Sodium 142 mmol/L (135-145); Total Bilirubin 0.8 mg/dL (0.3-1.2); Total Protein 7.3 g/dL (6.2-8.2)
== END | disposition home or self-care (01) ==
LOC: LABPAT 11:01
PROVIDERS: ATTEND Nurse Practitioner Family
DX: K70.31 Alcoholic cirrhosis of liver with ascites (principal)
CPT/HCPCS: 80053; 82105; 85027

== ENCOUNTER 2024-06-06 05:48 | Day surgery (SDC) | payer OTHER ==
[2024-05-31 11:05] VITALS: BMI 15.2
[~2024-06-06 05:48] MED LIST changes: -DEXAMETHASONE SOD PHOSPHATE 10 MG/ML 1 ML VIAL IV ONE; -LACTATED RINGERS 1,000 ML IV SCH; +LIDOCAINE 1% (10MG/ML) FOR IV START INTRADERMA PRN; -ONDANSETRON 4 MG/2 ML VIAL IVP ONE
[2024-06-06 06:31] VITALS: RESP 18; TEMP 97.8
[2024-06-06] MEDS: LACTATED RINGERS 1,000 ML IV ONE (06:41)
[2024-06-06] MEDS: LACTATED RINGERS 1,000 ML IV SCH (06:41)
[2024-06-06] MEDS ORDERED: ONDANSETRON 4 MG/2 ML VIAL IVP PRN (07:00)
[2024-06-06] MEDS ORDERED: LIDOCAINE 2% (PF) 20 MG/ML 5 ML VIAL ONE (07:00)
[2024-06-06] MEDS ORDERED: PROPOFOL 10 MG/ML 20 ML VIAL IV ONE (07:00)
--- NOTE | 2024-06-06 07:15 | P.PCN ---
Date of Procedure: 06/06/24 Procedure(s) Performed: BRIEF HISTORY: Patient is a 68-year-old, pleasant, white male scheduled for an upper endoscopy as a part of evaluation of liver cirrhosis/screening for esophageal varices. PROCEDURE PERFORMED: Esophagogastroduodenoscopy with biopsy. PREOPERATIVE DIAGNOSIS: History of liver cirrhosis/screening for esophageal varices. IV sedation per anesthesia. PROCEDURE: After informed consent was obtained, the patient was brought into the endoscopy unit. IV sedation was administered by Anesthesia under continuous monitoring. Initially the Olympus GIF-140 video endoscope was inserted into the mouth. Esophagus intubated without any difficulty. It was gradually advanced into the stomach and duodenum and carefully examined. The bulb and the second part of the duodenum appeared normal. The scope at this time was withdrawn to the stomach, adequately insufflated with air, and upon careful examination, mucosa of the antrum, gastritis and biopsies were done from this area. Mucosa of the body, cardia and the fundus appeared normal. The scope was then withdrawn into the esophagus. Small hiatal hernia noted. The GE junction was located at 39 cm from the incisors. The esophagus appeared normal. No esophageal varices seen there were no erosions or ulcerations seen and the patient tolerated the procedure well. IMPRESSION: 1. Mild gastritis and small hiatal hernia. 2. No evidence of gastric or esophageal varices. RECOMMENDATIONS: The findings of this examination were discussed with the patient as well as his family. He was advised to follow-up with the biopsy results. Recommended repeat upper endoscopy in 3 years to screen for esophageal varices.
[2024-06-06 07:43] VITALS: BP 120/65; PULSE 62
== END 2024-06-06 08:08 | disposition home or self-care (01) ==
LOC: ORWHC2ENDO 05:48
PROVIDERS: ATTEND Internal Medicine Gastroenterology
DX: K29.70 Gastritis, unspecified, without bleeding (principal); K44.9 Diaphragmatic hernia without obstruction or gangrene; K31.9 Disease of stomach and duodenum, unspecified; K74.60 Unspecified cirrhosis of liver
CPT/HCPCS: 43239; J2704; J2003; 88305

== ENCOUNTER → 2024-06-08 | Outpatient (CLI) | payer OTHER ==
[2024-06-08 19:37] LABS: HGB 13.9 g/dL (13.0-17.0); MCH 32.3 pg (27.0-32.0); MCHC 33.1 g/dL (32.0-37.0); MCV 97.7 FL (80.0-97.0); Mean Platelet Volume 9.2 FL (9.5-12.2); NRBC Per 100 WBC 0 X 10*3/uL (0.00-0.01); Platelet Count 390 X 10*3/uL (140-440); RDW 12.9 % (11.5-14.5); WBC 7.93 X 10*3/uL (4.50-10.00)
[2024-06-08 20:17] LABS: ALT 23 U/L (10-49); AST 29 U/L (14-35); Albumin 4.5 g/dL (3.8-4.9); Albumin/Globulin Ratio 1.29 Ratio (1.60-3.17); Alkaline Phosphatase 76 U/L (41-126); Calcium 10.1 mg/dL (8.7-10.3); Carbon Dioxide 27.9 mmol/L (21.6-31.8); Chloride 102 mmol/L (96-109); Globulin 3.5 g/dL (1.6-3.3); Glucose 107 mg/dL (70-110); Potassium 4.4 mmol/L (3.5-5.5); Sodium 143 mmol/L (135-145); Total Bilirubin 0.3 mg/dL (0.3-1.2)
== END | disposition home or self-care (01) ==
LOC: LABWHC1 13:06
PROVIDERS: ATTEND Nurse Practitioner Family
DX: K70.31 Alcoholic cirrhosis of liver with ascites (principal)
CPT/HCPCS: 36415; 80053; 82105; 85027

== ENCOUNTER → 2024-08-21 | Outpatient (CLI) | payer OTHER ==
--- NOTE | 2024-08-21 21:59 | CTL ---
EXAMINATION TYPE: CT Low Dose Lung DATE OF EXAM: 08/21/2024 4:02 PM COMPARISON: 08/18/2023.. CLINICAL INDICATION: Male, 68 years old with history of Z12.2 LUNG CA SCR; Yearly f/u lung ca screeni ng, history of tobacco use. TECHNIQUE: Multiple axial non-contrast scans were obtained from approximately the lung apices through the upper abdomen. Coronal and sagittal reformatted images were obtained. Low dose technique was uti lized. MIP were created on a separate workstation and submitted for review. CT DLP: 56 mGycm, Automated exposure control for dose reduction was used. CT Contrast: Contrast used: None Oral contrast used: None FINDINGS: Lack of intravenous contrast and low dose technique limits the evaluation of the vascular and soft ti ssue structures. LUNGS: No evidence of pulmonary fibrosis. No evidence of focal consolidation, pneumothorax or pleural effusion. Centrilobular emphysema changes. Retained secretions in the lung bases of improved flow ne w Nodules: RUL: None. RML: None. RLL: None. [place]: Medial nodular-liker density measuring 4 mm series 4 image 81 possibly secondary to retained secretions/atelectasis. Additional lingula consolidation superimposed on emphysema as well as suprah ilar region similar findings. LLL: Pulmonary nodule in the left lung base laterally. AIRWAY: Mild wall thickening of the lower lobe large airways. Retained secretions noted in the left l ower lobe. HEART: Size within normal limits.Moderate coronary artery atherosclerosis. MEDIASTINUM: No gross evidence of adenopathy. VASCULATURE: Atherosclerotic calcifications are present throughout the aorta and its branches. MUSCULOSKELETAL: Moderate disc degeneration changes are present throughout the thoracolumbar spine. SOFT TISSUES/LYMPH NODES: Unremarkable. LOWER NECK: No significant findings. UPPER ABDOMEN: Hepatic simple cyst measuring up to 3.6 cm. IMPRESSION: 1. No clinically significant pulmonary nodules. No new or enlarging pulmonary nodules. 2. Moderate emphysema/COPD. 3. Retained secretions in the lower lungs have resolved. Nodular density in the left upper lung media lly possibly related to atelectasis and/or retained secretions but similar areas in the left suprahil ar region and left lingula. Attention on follow-up imaging. CT LUNG RAD AND CT CHEST RECOMMENDATION: Lung-Rad 2 Benign Appearance or Behavior: Continue annual sc reening with LDCT in 12 months. S Modifier (other clinically significant findings): None Recommend smoking cessation (if current smoker), or continuation of smoking cessation (if prior smoke r). Annual screening for lung cancer with low-dose computed tomography is recommended in adults ages 55 to 77 years who have a 30 pack-year smoking history and currently smoke or have quit within the pa st 15 years. Screening should be discontinued once a person has not smoked for 15 years or develops a health problem that substantially limits life expectancy or the ability or willingness to have curat boy lung surgery. Lung rads 2021 [email or web address] [facility], , 08/21/2024 9:57 PM
== END | disposition home or self-care (01) ==
LOC: RADCTMAIN 15:37
PROVIDERS: ATTEND Internal Medicine
DX: Z12.2 Encounter for screening for malignant neoplasm of respiratory organs (principal); J43.2 Centrilobular emphysema; Z87.891 Personal history of nicotine dependence; R91.8 Other nonspecific abnormal finding of lung field
CPT/HCPCS: 71271

== ENCOUNTER 2024-08-29 17:38 | Inpatient (IN) | payer OTHER, MEDICARE ==
[2024-08-29] MEDS: IPRATROPIUM-ALBUTEROL 3 ML NEB INHALATION STA (17:47)
[2024-08-29 17:54] LABS: Basophils # (A) 0.06 10*3/uL (0.00-0.10); Basophils % (A) 0.5 %; Eosinophils # (A) 0.13 10*3/uL (0.04-0.35); Eosinophils % (A) 1.0 %; HCT 36.0 % (39.6-50.0); HGB 12.8 g/dL (13.0-17.0); Lymphocytes # (A) 3.25 10*3/uL (0.90-5.00); Lymphocytes % (A) 26.0 %; MCH 33.0 pg (27.0-32.0); MCHC 35.6 g/dL (32.0-37.0); MCV 92.8 fL (80.0-97.0); Monocytes # (A) 0.72 10*3/uL (0.20-1.00); Monocytes % (A) 5.8 %; Neutrophils # (A) 8.31 10*3/uL (1.80-7.70); Neutrophils % (A) 66.3 %; Platelet Count 295 10*3/uL (140-440); RBC 3.88 10*6/uL (4.40-5.60); RDW 11.9 % (11.5-14.5); WBC 12.52 10*3/uL (4.50-10.00)
[2024-08-29 18:05] LABS: ALT 17 U/L (4-49); AST 26 U/L (17-59); African American GFR (CKD) >90 (>60 ml/min/1.73 sqM); Albumin 4.6 g/dL (3.5-5.0); Alkaline Phosphatase 54 U/L (38-126); Anion Gap 9 mmol/L; Blood Urea Nitrogen 18 mg/dL (9-20); Calcium 10.0 mg/dL (8.4-10.2); Carbon Dioxide 30 mmol/L (22-30); Chloride 104 mmol/L (98-107); Glucose 76 mg/dL (74-99); Magnesium 1.8 mg/dL (1.6-2.3); Non-African American GFR(CKD) 90 (>60 ml/min/1.73 sqM); Potassium 4.5 mmol/L (3.5-5.1); Sodium 143 mmol/L (137-145); Total Protein 7.5 g/dL (6.3-8.2)
[2024-08-29 18:06] LABS: INR 1.0 (<1.2); Partial Thromboplastin Time 23.1 sec (22.0-30.0); Prothrombin Time 11.5 sec (10.0-12.5)
[2024-08-29] MEDS: methylPREDNISolone SOD SUCCI 125 MG/2 ML VIAL IV STA (18:06)
[2024-08-29] MEDS: LACTATED RINGERS 1,000 ML IV SCH (18:09)
[2024-08-29] MEDS: LACTATED RINGERS 1,000 ML IV ONE ×2 (18:09→20:24)
[2024-08-29] MEDS: MAGNESIUM SULFATE-D5W PMX 1 GM in DEXTROSE/WATER 1 100ML.BAG IVPB STA (18:12)
--- NOTE | 2024-08-29 18:17 | XR ---
EXAMINATION TYPE: XR chest 1V portable DATE OF EXAM: 08/29/2024 6:01 PM COMPARISON: Chest radiographs from 05/05/2024, CT low-dose lung 08/21/2024 TECHNIQUE: XR chest 1V portable Portable AP radiograph of the chest. CLINICAL INDICATION:Male, 68 years old with history of cough; FINDINGS: Lungs/Pleura: There is no evidence of pleural effusion or pneumothorax. Reticular opacities within th e right lung base. Pulmonary vascularity: Unremarkable. Heart/mediastinum: Cardiomediastinal silhouette is unremarkable. Atherosclerotic calcifications are seen in the aorta. Musculoskeletal: No acute osseous pathology. IMPRESSION: Reticular opacities within the right lung base concerning for atelectasis/scarring versus pneumonia. [facility], , 08/29/2024 6:15 PM
[2024-08-29 18:42] LABS: Amorphous Sediment,Urine Rare /hpf; Bacteria,Urine Rare /hpf; Bilirubin,Urine Negative (Negative); Blood,Urine Trace (Negative); Color,Urine Colorless; Glucose,Urine (UA) Negative (Negative); Ketones,Urine Negative (Negative); Leukocyte Esterase,Urine Negative (Negative); Nitrite,Urine Positive (Negative); PH, Urine 7.0 (5.0-8.0); Protein,Urine Negative (Negative); RBC,Urine 2 /hpf (0-5); Specific Gravity,Urine 1.014 (1.001-1.035); Urobilinogen,Urine <2.0 mg/dL (<2.0); WBC,Urine 4 /hpf (0-5)
[2024-08-29 18:52] LABS: RSV Not Detected (Not Detectd)
[2024-08-29] MEDS ORDERED: PNEUMONIA PROTOCOL UTILIZED 1 EACH MISC PO PRN (18:58)
[2024-08-29] MEDS ORDERED: IPRATROPIUM-ALBUTEROL 3 ML NEB INHALATION PRN ×2 (18:59→23:33)
[2024-08-29] MEDS ORDERED: NALOXONE 0.4 MG/ML 1 ML VIAL IV PRN (19:00)
[2024-08-29] MEDS ORDERED: ACETAMINOPHEN TAB 325 MG TAB PO PRN (19:10)
[2024-08-29] MEDS ORDERED: ONDANSETRON 4 MG/2 ML VIAL IVP PRN (19:10)
--- NOTE | 2024-08-29 19:23 | ED ---
General Adult HPI - General Chief complaint: Shortness of Breath Stated complaint: SOB Time Seen by Provider: 08/29/24 17:39 Source: patient, RN notes reviewed, old records reviewed Mode of arrival: EMS Limitations: no limitations - History of Present Illness Initial comments: 68-year-old male who presents emergency department complaining of shortness of breath. States has been progressively worsening throughout the day today. Does have a history of COPD. Is chronically on nasal cannula oxygen at home. Also has a history of cancer, liver disease, urostomy. States he has had a mild cough that is minimally productive. Denies any fevers. Denies any known sick contacts. Has no other acute complaints at this time. States he has required BiPAP in the past. Presents on CPAP. Work of breathing was elevated per EMS. He did receive albuterol on the way to the hospital. - Related Data Home Medications Medication Instructions Recorded Confirmed Albuterol Inhaler [Ventolin Hfa 1 puff INHALATION RT-Q6H PRN 05/18/22 08/29/24 Inhaler] Folic Acid 1 mg PO DAILY 05/18/22 08/29/24 HYDROcodone/APAP 10-325MG [[place] 1 tab PO QID PRN 05/18/22 08/29/24 10-325] oxyCODONE HCL [oxyCODONE HCL ER] 20 mg PO BID 05/18/22 08/29/24 Cholecalciferol (Vitamin D3) 50 mcg PO DAILY 05/05/24 08/29/24 [Vitamin D3 (50 Mcg = 2000 Iu)] Fluticasone/Umeclidin/Vilanter 1 puff INHALATION RT-DAILY 05/05/24 08/29/24 [Trelekali Ellipta 100-62.5-25] Lactose-Reduced Food [Ensure Plus] 474 ml PO DAILY 05/05/24 08/29/24 polyethylene glycoL 3350 [Miralax] 17 gm PO DAILY 05/05/24 08/29/24 Clotrimazole/Betameth Cream 1 applic TOPICAL BID 08/29/24 08/29/24 [Lotrisone] Allergies Allergy/AdvReac Type Severity Reaction Status Date / Time bupropion [From Wellbutrin] Allergy Unknown Verified 08/29/24 20:59 fluoxetine [From Prozac] Allergy Unknown Verified 08/29/24 20:59 hydromorphone Allergy Anaphylaxis Verified 08/29/24 20:59 paroxetine [From Paxil] Allergy Unknown Verified 08/29/24 20:59 sertraline [From Zoloft] Allergy Rash/Hives Verified 08/29/24 20:59 gabapentin AdvReac redness, Verified 08/29/24 20:59 "didn't feel good" meclizine AdvReac vertigo Verified 08/29/24 20:59 methadone AdvReac ANXIETY/NIGHT Verified 08/29/24 20:59 SWEATS niacin AdvReac FLUSHING Verified 08/29/24 20:59 tramadol AdvReac ERYTHEMA Verified 08/29/24 20:59 Review of Systems ROS Statement: Those systems with pertinent positive or pertinent negative responses have been documented in the HPI. Review of Systems: CONST: Denies fever EYES: Denies blurry vision ENT: Denies nasal congestion C/V: Denies Chest pain RESP: Endorses shortness of breath GI: Denies abdominal pain : Denies dysuria SKIN: Denies rash. MSK: Denies joint pain. NEURO: Denies headache ROS Other: All systems not noted in ROS Statement are negative. Past Medical History Past Medical History: Cancer, COPD, Hearing Disorder / Deafness, Liver Disease, Osteoarthritis (OA), Pneumonia Additional Past Medical History / Comment(s): "Has Urostomy bag/stoma." Hx bladder/prostate cancer Nov 2016, hx colon cancer 2002/2003, hx epiglotitis, hx Pnemomia 2017. Hepatitis C, "a spot on the liver", cirrhosis. "? seizure X1 Mar 2018, blacked out, broke both arms.", home 02 at 2 liters History of Any Multi-Drug Resistant Organisms: None Reported Past Surgical History: Appendectomy, Bowel Resection, Ear Surgery, Hernia Repair, Tonsillectomy Additional Past Surgical History / Comment(s): 01/21/16 cystoscopy w/evacuation of clot; urostomy, BLADDER AND PROSTATE REMOVED November 2016. Tube placed in right ear in July 2017, pilinodal cyst removed, reapir of left shoulder, Past Anesthesia/Blood Transfusion Reactions: No Reported Reaction Additional Past Anesthesia/Blood Transfusion Reaction / Comment(s): Vertigo. Past Psychological History: Anxiety Smoking Status: Former smoker - Past Family History Father Family Medical History: Cancer Additional Family Medical History / Comment(s): Pancreatic cancer. Mother Family Medical History: Cancer Additional Family Medical History / Comment(s): Lung cancer. Brother(s) Family Medical History: Cancer Additional Family Medical History / Comment(s): Colon cancer. General Exam - General Exam Comments Initial Comments: General: Appears in mild to moderate respiratory distress secondary to suspected COPD exacerbation. HEAD: Normal with no signs of head trauma. EYES: PERRLA, EOMI, conjunctiva normal, no discharge. ENT: Hearing grossly intact, normal oropharynx. RESPIRATORY: Increased work of breathing. Normoxic on CPAP as well as BiPAP. Tight breath sounds bilaterally. C/V: Regular rate and rhythm. S1 and S2 auscultated, no edema, peripheral pulses 2+ and intact throughout ABD: Abd is soft, nontender, nondistended. Urostomy bag is present appears to be functioning appropriately. EXT: Normal range of motion, no obvious deformity SKIN: No rashes or lesions observed on exposed skin. NEURO: Alert and oriented x 4. Limitations: no limitations Course Vital Signs 08/29/24 08/29/24 08/29/24 17:41 17:47 17:49 Temperature 97.2 F L Pulse Rate 81 83 Respiratory 19 26 H Rate Blood Pressure 127/65 O2 Sat by Pulse 100 Oximetry Fraction of 28 Inspired Oxygen (FIO2) 08/29/24 08/29/24 08/29/24 18:02 18:15 20:19 Temperature Pulse Rate 87 72 Respiratory 26 H 20 Rate Blood Pressure 127/65 O2 Sat by Pulse 100 Oximetry Fraction of 28 Inspired Oxygen (FIO2) Medical Decision Making - Medical Decision Making Was pt. sent in by a medical professional or institution (, PA, [employer], urgent care, hospital, or detention...) When possible be specific @ -No Did you speak to anyone other than the patient for history (EMS, parent, family, police, friend...)? What history was obtained from this source @ -No Did you review nursing and triage notes (agree or disagree)? Why? @ -I reviewed and agree with nursing and triage notes Were old charts reviewed (outside hosp., previous admission, EMS record, old EKG, old radiological studies, urgent care reports/EKG's, detention records)? Report findings @ -No old charts were reviewed Differential Diagnosis (chest pain, altered mental status, abdominal pain women, abdominal pain men, vaginal bleeding, weakness, fever, dyspnea, syncope, headache, dizziness, GI bleed, back pain, seizure, CVA, palpatations, mental health, musculoskeletal)? @ -Differential Dyspnea: Coronary syndrome, arrhythmia, tamponade, asthma, COPD, pulmonary embolism, pneumonia, pneumothorax, pulmonary effusion, anaphylaxis, diabetic ketoacidosis, flailed chest, pulmonary contusion, diaphragmatic rupture, anemia, neuromuscular, this is not meant to be an all-inclusive list. EKG interpreted by me (3pts min.). @ -As above X-rays interpreted by me (1pt min.). @ -Chest x-ray shows questionable right lower lobe pneumonia CT interpreted by me (1pt min.). @ -None done U/S interpreted by me (1pt. min.). @ -None done What testing was considered but not performed or refused? (CT, X-rays, U/S, labs)? Why? @ -None What meds were considered but not given or refused? Why? @ -None Did you discuss the management of the patient with other professionals (professionals i.e. , PA, [employer], lab, RT, psych nurse, protective services social worker, configuration management specialist, te acher, driver's license reviewing officer, hospice case manager)? Give summary @ -Discussed with admitting provider, Dr. Klein who accepts the admission. Was smoking cessation discussed for >3mins.? @ -No Was critical care preformed (if so, how long)? @ -Yes, 38 minutes Were there social determinants of health that impacted care today? How? (Homelessness, low income, unemployed, alcoholism, drug addiction, transportation, low edu. Level, literacy, decrease access to med. care, half-way, rehab)? @ -No Was there de-escalation of care discussed even if they declined (Discuss DNR or withdrawal of care, Hospice)? DNR status @ -No What co-morbidities impacted this encounter? (DM, HTN, Smoking, COPD, CAD, Cancer, CVA, ARF, Chemo, Hep., AIDS, mental health diagnosis, sleep apnea, morbid obesity)? @ -COPD, chronic hypoxic respiratory failure. Was patient admitted / discharged? Hospital course, mention meds given and rout e, prescriptions, significant lab abnormalities, going to OR and other pertinent info. @ -Based on patient's presentation and physical exam, presents with what appears to be a COPD exacerbation with require treatment for BiPAP. He is not currently hypoxic however is on CPAP upon arrival. Transition to BiPAP without issue. Does have some increased work of breathing. Patient will be administere d IV steroids, fluids, breathing treatments. Will obtain respiratory workup. Patient was in agreement this plan. EKG shows no signs of acute ischemia. Laboratory studies remarkable for slight leukocytosis of 12.5. Remainder the labs unremarkable. Viral swabs negative. Chest x-ray reveals questionable right lower lobe pneumonia. On reevaluation, patient is saturating well. Work of breathing has improved as well. Discussed with the patient and we will keep the patient on BiPAP at this time. Will continue with IV steroids, breathing treatments, antibiotics will be initiated for the possible pneumonia as well. Patient was in agreement this plan. Consult placed to pulmonology. I spoke with the admitting provider, Dr. Klein who accepted the admission. Undiagnosed new problem with uncertain prognosis? @ -No Drug Therapy requiring intensive monitoring for toxicity (Heparin, Nitro, Insulin, Cardizem)? @ -No Were any procedures done? @ -no Diagnosis/symptom? @ -Acute on chronic hypoxic respiratory failure, COPD, pneumonia, BiPAP dependent Acute, or Chronic, or Acute on Chronic? @ -Acute Uncomplicated (without systemic symptoms) or Complicated (systemic symptoms)? @ -Complicated Side effects of treatment? @ -No Exacerbation, Progression, or Severe Exacerbation? @ -Yes Poses a threat to life or bodily function? How? (Chest pain, [place], CO, pneumonia, PE, COPD, DKA, ARF, appy, cholecystitis, CVA, Diverticulitis, Homicidal, Suicidal, threat to staff... and all critical care pts) @ -Yes - Lab Data Result diagrams: 08/29/24 17:50 08/29/24 17:50 Lab Results 08/29/24 08/29/24 08/29/24 Range/Units 17:50 17:50 17:50 WBC 12.52 H (4.50-10.00) 10*3/uL RBC 3.88 L (4.40-5.60) 10*6/uL Hgb 12.8 L (13.0-17.0) g/dL Hct 36.0 L (39.6-50.0) % MCV 92.8 (80.0-97.0) fL MCH 33.0 H (27.0-32.0) pg MCHC 35.6 (32.0-37.0) g/dL Plt Count 295 (140-440) 10*3/uL MPV 8.8 L (9.5-12.2) fL Immature Gran % (Auto) 0.4 % Neutrophils % 66.3 % Lymphocytes % 26.0 % Monocytes % 5.8 % Eosinophils % 1.0 % Basophils % 0.5 % Immature Gran # 0.05 H (0.00-0.04) 10*3/uL Neutrophils # 8.31 H (1.80-7.70) 10*3/uL Lymphocytes # 3.25 (0.90-5.00) 10*3/uL Monocytes # 0.72 (0.20-1.00) 10*3/uL Eosinophils # 0.13 (0.04-0.35) 10*3/uL Basophils # 0.06 (0.00-0.10) 10*3/uL PT 11.5 (10.0-12.5) sec INR 1.0 (<1.2) APTT 23.1 (22.0-30.0) sec Sodium 143 (137-145) mmol/L Potassium 4.5 (3.5-5.1) mmol/L Chloride 104 (98-107) mmol/L Carbon Dioxide 30 (22-30) mmol/L Anion Gap 9 mmol/L BUN 18 (9-20) mg/dL Creatinine 0.83 (0.66-1.25) mg/dL Est GFR (CKD-EPI)AfAm >90 (>60 ml/min/1.73 sqM) Est GFR (CKD-EPI)NonAf 90 (>60 ml/min/1.73 sqM) Glucose 76 (74-99) mg/dL Plasma Lactic Acid Bernard (0.7-2.0) mmol/L Calcium 10.0 (8.4-10.2) mg/dL Magnesium 1.8 (1.6-2.3) mg/dL Total Bilirubin 0.3 (0.2-1.3) mg/dL AST 26 (17-59) U/L ALT 17 (4-49) U/L Alkaline Phosphatase 54 (38-126) U/L C-Reactive Protein (<1.0) mg/dL Total Protein 7.5 (6.3-8.2) g/dL Albumin 4.6 (3.5-5.0) g/dL Urine Color Urine Appearance (Clear) Urine pH (5.0-8.0) Ur Specific [place] (1.001-1.035) Urine Protein (Negative) Urine Glucose (UA) (Negative) Urine Ketones (Negative) Urine Blood (Negative) Urine Nitrite (Negative) Urine Bilirubin (Negative) Urine Urobilinogen (<2.0) mg/dL Ur Leukocyte Esterase (Negative) Urine RBC (0-5) /hpf Urine WBC (0-5) /hpf Amorphous Sediment (None) /hpf Urine Bacteria (None) /hpf Influenza Type A (PCR) (Not Detectd) Influenza Type B (PCR) (Not Detectd) RSV (PCR) (Not Detectd) SARS-CoV-2 (PCR) (Not Detectd) 08/29/24 08/29/24 08/29/24 Range/Units 17:50 17:50 18:14 WBC (4.50-10.00) 10*3/uL RBC (4.40-5.60) 10*6/uL Hgb (13.0-17.0) g/dL Hct (39.6-50.0) % MCV (80.0-97.0) fL MCH (27.0-32.0) pg MCHC (32.0-37.0) g/dL Plt Count (140-440) 10*3/uL MPV (9.5-12.2) fL Immature Gran % (Auto) % Neutrophils % % Lymphocytes % % Monocytes % % Eosinophils % % Basophils % % Immature Gran # (0.00-0.04) 10*3/uL Neutrophils # (1.80-7.70) 10*3/uL Lymphocytes # (0.90-5.00) 10*3/uL Monocytes # (0.20-1.00) 10*3/uL Eosinophils # (0.04-0.35) 10*3/uL Basophils # (0.00-0.10) 10*3/uL PT (10.0-12.5) sec INR (<1.2) APTT (22.0-30.0) sec Sodium (137-145) mmol/L Potassium (3.5-5.1) mmol/L Chloride (98-107) mmol/L Carbon Dioxide (22-30) mmol/L Anion Gap mmol/L BUN (9-20) mg/dL Creatinine (0.66-1.25) mg/dL Est GFR (CKD-EPI)AfAm (>60 ml/min/1.73 sqM) Est GFR (CKD-EPI)NonAf (>60 ml/min/1.73 sqM) Glucose (74-99) mg/dL Plasma Lactic Acid Bernard 1.0 (0.7-2.0) mmol/L Calcium (8.4-10.2) mg/dL Magnesium (1.6-2.3) mg/dL Total Bilirubin (0.2-1.3) mg/dL AST (17-59) U/L ALT (4-49) U/L Alkaline Phosphatase (38-126) U/L C-Reactive Protein <0.5 (<1.0) mg/dL Total Protein (6.3-8.2) g/dL Albumin (3.5-5.0) g/dL Urine Color Urine Appearance (Clear) Urine pH (5.0-8.0) Ur Specific [place] (1.001-1.035) Urine Protein (Negative) Urine Glucose (UA) (Negative) Urine Ketones (Negative) Urine Blood (Negative) Urine Nitrite (Negative) Urine Bilirubin (Negative) Urine Urobilinogen (<2.0) mg/dL Ur Leukocyte Esterase (Negative) Urine RBC (0-5) /hpf Urine WBC (0-5) /hpf Amorphous Sediment (None) /hpf Urine Bacteria (None) /hpf Influenza Type A (PCR) Not Detected (Not Detectd) Influenza Type B (PCR) Not Detected (Not Detectd) RSV (PCR) Not Detected (Not Detectd) SARS-CoV-2 (PCR) Not Detected (Not Detectd) 08/29/24 Range/Units 18:24 WBC (4.50-10.00) 10*3/uL RBC (4.40-5.60) 10*6/uL Hgb (13.0-17.0) g/dL Hct (39.6-50.0) % MCV (80.0-97.0) fL MCH (27.0-32.0) pg MCHC (32.0-37.0) g/dL Plt Count (140-440) 10*3/uL MPV (9.5-12.2) fL Immature Gran % (Auto) % Neutrophils % % Lymphocytes % % Monocytes % % Eosinophils % % Basophils % % Immature Gran # (0.00-0.04) 10*3/uL Neutrophils # (1.80-7.70) 10*3/uL Lymphocytes # (0.90-5.00) 10*3/uL Monocytes # (0.20-1.00) 10*3/uL Eosinophils # (0.04-0.35) 10*3/uL Basophils # (0.00-0.10) 10*3/uL PT (10.0-12.5) sec INR (<1.2) APTT (22.0-30.0) sec Sodium (137-145) mmol/L Potassium (3.5-5.1) mmol/L Chloride (98-107) mmol/L Carbon Dioxide (22-30) mmol/L Anion Gap mmol/L BUN (9-20) mg/dL Creatinine (0.66-1.25) mg/dL Est GFR (CKD-EPI)AfAm (>60 ml/min/1.73 sqM) Est GFR (CKD-EPI)NonAf (>60 ml/min/1.73 sqM) Glucose (74-99) mg/dL Plasma Lactic Acid Bernard (0.7-2.0) mmol/L Calcium (8.4-10.2) mg/dL Magnesium (1.6-2.3) mg/dL Total Bilirubin (0.2-1.3) mg/dL AST (17-59) U/L ALT (4-49) U/L Alkaline Phosphatase (38-126) U/L C-Reactive Protein (<1.0) mg/dL Total Protein (6.3-8.2) g/dL Albumin (3.5-5.0) g/dL Urine Color Colorless Urine Appearance Clear (Clear) Urine pH 7.0 (5.0-8.0) Ur Specific [place] 1.014 (1.001-1.035) Urine Protein Negative (Negative) Urine Glucose (UA) Negative (Negative) Urine Ketones Negative (Negative) Urine Blood Trace H (Negative) Urine Nitrite Positive (Negative) Urine Bilirubin Negative (Negative) Urine Urobilinogen <2.0 (<2.0) mg/dL Ur Leukocyte Esterase Negative (Negative) Urine RBC 2 (0-5) /hpf Urine WBC 4 (0-5) /hpf Amorphous Sediment Rare H (None) /hpf Urine Bacteria Rare H (None) /hpf Influenza Type A (PCR) (Not Detectd) Influenza Type B (PCR) (Not Detectd) RSV (PCR) (Not Detectd) SARS-CoV-2 (PCR) (Not Detectd) - EKG Data -: EKG Interpreted by Me EKG Comments: 12-lead Electrocardiogram Interpretation Note EKG was reviewed and interpreted by myself. 12-lead ECG performed at 1749 is interpreted by me as revealing normal sinus rhythm at a rate of 76 beats per minute. Indeterminate axis. ME interval is 166 ms, QRS duration is 88 ms, QTc is 402 ms.. There were no ST or T wave abnormalities to suggest myocardial ischemia or injury. R wave progression across the precordium was satisfactory. By my interpretation this EKG is non-diagnostic for acute ischemia. Critical Care Time Critical Care Time: Yes Total Critical Care Time: 38 Disposition Clinical Impression: COPD (chronic obstructive pulmonary disease), BiPAP (biphasic positive airway pressure) dependence, Acute on chronic hypoxic respiratory failure, Pneumonia Disposition: ADMITTED IP TO THIS HOSP Condition: Stable Time of Disposition: 19:00
[2024-08-29] MEDS: AZITHROMYCIN 500 MG in SODIUM CHLORIDE 0.9% 250 ML IVPB STA (19:44)
[2024-08-29] MEDS: MORPHINE SULFATE 4 MG/ML SYRINGE IVP STA (20:08)
[2024-08-29] MEDS ORDERED: IPRATROPIUM-ALBUTEROL 3 ML NEB INHALATION SCH (22:00)
[2024-08-29] MEDS: IPRATROPIUM-ALBUTEROL 3 ML NEB INHALATION SCH (23:12)
--- NOTE | 2024-08-29 23:14 | P.HPIM ---
History of Present Illness H&P Date: 08/29/24 Chief Complaint: shortness of breath Pt is a 68-year-old male with a PMH of - COPD - on 2 L home oxygen - Hearing disorder/deafness - Prostate cancer 2016 - Colon cancer 2002 - Hepatitis C - Cirrhosis Is brought to the emergency by EMS for shortness of breath. Patient stated having sudden difficulty breathing today, that kept worsening during the day. Patient endorsed having a similar episode back in 05/2024 and he was hospitalized for it. Patient has significant smoking history of [id number], but he also stated that he quit smoking for 3 months now. Patient is on 2 L home oxygen that he uses only when he needs it. He also has an albuterol nebulizer machine, that he used when symptoms started but stated that it did not help alleviating the symptoms. ED course: Patient arrived to the ED by EMS and he was on BiPAP at the time. Methylprednis olone 125 mg was administered. IV ceftriaxone and azithromycin antibiotic treatment were initiated. Albuterol and DuoNeb treatment was given by EMS and in the ED as well. Patient denied headache, chest pain, change in vision, muscle weakness, abdominal pain, numbness or tingling. Patient is positive for shortness of breath. Imaging: Chest x-ray 08/29 Reticular opacities within the right lung base concerning for atelectasis/scarring versus pneumonia. Labs: WBC 12.52/RBC 3.88/Hgb 12.8/plt count 295 Na 143/ K 4.5/ Cl 104/ CO2 30/ BUN 18/ Cr 0.83 Viral panel - negative Urinalysis - trace blood in urine Vitals: T 97.2/ HR 83/ RR 26/ O2 sat 100% on BiPAP / BP 127/65 ED documentation reviewed. Review of systems: Pertinent positives and negatives as discussed in HPI, a complete review of systems was performed and all other systems are negative. Physical examination: Vital signs reviewed General: non toxic, no distress, appears at stated age. Derm: no unusual rashes/lesions, warm Head: atraumatic, normocephalic, symmetric Eyes: EOMI, anicteric sclera, pupils equal round reactive to light Cardiovascular: S1S2 reg, no murmur, no edema Lungs: CTA bilateral, no rhonchi, no rales, no accessory muscle use Abdominal: soft, nontender to palpation. Has urostomy tube on right side of abdomen. Ext: muscle strength 5 out of 5 in all 4 extremities grossly, no gross muscle atrophy Neuro: CN II-XI grossly intact, no gross focal neuro deficits Psych: Alert, oriented to person, place, and time Assessment/Plan: A 68-year-old male with a history of COPD, was brought to the emergency by EMS for shortness of breath for the past couple of days. #. Acute COPD exacerbation - Itiology unknown, but suspected pneumonia on imaging - On BiPAP-100% O2 sat, FiO2 28% - keep on BiPAP for tachypnea - Continue with methylprednisolone 40 mg BID - Continue IV ceftriaxone and azithromycin for 3 days. - Continue DuoNeb treatment Q6H while awake - Check ABG - Monitor O2 sat #. Pneumonia, bacterial community acquired - Suspected pneumonia on chest x-ray - Check CRP, Pro-Abel, ESR - WBC 12.52 - monitor CBC - Obtain sputum culture if possible - Continue ceftriaxone and azithromycin #) history of prostate cancer x2, in remission #) history of colon cancer s/p resection in 2002 #) malnutrition, unspecified #) Hepatitis C #) Cirrhosis DVT prophylaxis: Lovenox 40 mg CODE STATUS: [] Discussed with: Dr. Esteban Anticipated discharge place: Home Marge Mitchell MD PGY-1 IM Dictation was produced using [employer] dictation software. please excuse any grammatical, word or spelling errors. I have seen and evaluated the patient today. Discussed with the resident and agree with the residents finding and plan as documented in the resident's note. Changes highlighted in blue font. Past Medical History Past Medical History: Cancer, COPD, Hearing Disorder / Deafness, Liver Disease, Osteoarthritis (OA), Pneumonia Additional Past Medical History / Comment(s): "Has Urostomy bag/stoma." Hx bladder/prostate cancer Nov 2016, hx colon cancer 2002/2003, hx epiglotitis, hx Pnemomia 2017. Hepatitis C, "a spot on the liver", cirrhosis. "? seizure X1 Mar 2018, blacked out, broke both arms.", home 02 at 2 liters History of Any Multi-Drug Resistant Organisms: None Reported Past Surgical History: Appendectomy, Bowel Resection, Ear Surgery, Hernia Repair, Tonsillectomy Additional Past Surgical History / Comment(s): 01/21/16 cystoscopy w/evacuation of clot; urostomy, BLADDER AND PROSTATE REMOVED November 2016. Tube placed in right ear in July 2017, pilinodal cyst removed, reapir of left shoulder, Past Anesthesia/Blood Transfusion Reactions: No Reported Reaction Additional Past Anesthesia/Blood Transfusion Reaction / Comment(s): Vertigo. Past Psychological History: Anxiety Smoking Status: Former smoker - Past Family History Father Family Medical History: Cancer Additional Family Medical History / Comment(s): Pancreatic cancer. Mother Family Medical History: Cancer Additional Family Medical History / Comment(s): Lung cancer. Brother(s) Family Medical History: Cancer Additional Family Medical History / Comment(s): Colon cancer. Medications and Allergies Home Medications Medication Instructions Recorded Confirmed Type Albuterol Inhaler [Ventolin Hfa 1 puff INHALATION RT-Q6H PRN 05/18/22 08/29/24 History Inhaler] Folic Acid 1 mg PO DAILY 05/18/22 08/29/24 History HYDROcodone/APAP 10-325MG [[place] 1 tab PO QID PRN 05/18/22 08/29/24 History 10-325] oxyCODONE HCL [oxyCODONE HCL ER] 20 mg PO BID 05/18/22 08/29/24 History Cholecalciferol (Vitamin D3) 50 mcg PO DAILY 05/05/24 08/29/24 History [Vitamin D3 (50 Mcg = 2000 Iu)] Fluticasone/Umeclidin/Vilanter 1 puff INHALATION RT-DAILY 05/05/24 08/29/24 Hist ory [Trelegy Ellipta 100-62.5-25] Lactose-Reduced Food [Ensure Plus] 474 ml PO DAILY 05/05/24 08/29/24 History polyethylene glycoL 3350 [Miralax] 17 gm PO DAILY 05/05/24 08/29/24 History Clotrimazole/Betameth Cream 1 applic TOPICAL BID 08/29/24 08/29/24 History [Lotrisone] Allergies Allergy/AdvReac Type Severity Reaction Status Date / Time bupropion [From Wellbutrin] Allergy Unknown Verified 08/29/24 20:59 fluoxetine [From Prozac] Allergy Unknown Verified 08/29/24 20:59 hydromorphone Allergy Anaphylaxis Verified 08/29/24 20:59 paroxetine [From Paxil] Allergy Unknown Verified 08/29/24 20:59 sertraline [From Zoloft] Allergy Rash/Hives Verified 08/29/24 20:59 gabapentin AdvReac redness, Verified 08/29/24 20:59 "didn't feel good" meclizine AdvReac vertigo Verified 08/29/24 20:59 methadone AdvReac ANXIETY/NIGHT Verified 08/29/24 20:59 SWEATS niacin AdvReac FLUSHING Verified 08/29/24 20:59 tramadol AdvReac ERYTHEMA Verified 08/29/24 20:59 Physical Exam Vitals: Vital Signs Temp Pulse Resp BP Pulse Ox FiO2 08/29/24 20:19 28 08/29/24 18:15 72 20 127/65 100 08/29/24 18:02 87 26 H 08/29/24 17:49 28 08/29/24 17:47 83 26 H 08/29/24 17:41 97.2 F L 81 19 127/65 100 Intake and Output 08/29/24 08/29/24 08/29/24 06:59 14:59 22:59 Other: Weight 53.07 kg Results CBC & Chem 7: 08/29/24 17:50 08/29/24 17:50 Labs: Abnormal Lab Results - Last 24 Hours (Table) 08/29/24 08/29/24 Range/Units 17:50 18:24 WBC 12.52 H (4.50-10.00) 10*3/uL RBC 3.88 L (4.40-5.60) 10*6/uL Hgb 12.8 L (13.0-17.0) g/dL Hct 36.0 L (39.6-50.0) % MCH 33.0 H (27.0-32.0) pg MPV 8.8 L (9.5-12.2) fL Immature Gran # 0.05 H (0.00-0.04) 10*3/uL Neutrophils # 8.31 H (1.80-7.70) 10*3/uL Urine Blood Trace H (Negative) Amorphous Sediment Rare H (None) /hpf Urine Bacteria Rare H (None) /hpf
[2024-08-29] MEDS: methylPREDNISolone SOD SUCCI 40 MG/ML 1 ML VIAL IV SCH (23:50)
[2024-08-29] MEDS: oxyCODONE ER 20 MG TAB.ER.12H PO SCH (23:51)
--- NOTE | 2024-08-30 01:40 | P.CNPUL ---
History of Present Illness Consult date: 08/30/24 Requesting physician: Nura Wilson Reason for consult: COPD Chief complaint: Shortness of breath History of present illness: Patient is a 68-year-old male with past medical history significant for alcoholism, hepatitis C, liver cirrhosis, seizure disorder, colon cancer with previous resection, bladder cancer with urostomy, former tobacco dependence quitting in May, and severe chronic obstructive pulmonary disease. He is oxygen dependent at baseline. He does see Dr. Aleman in the pulmonary office. His FEV1 is 24% of predicted. Maintained on Trelegy maintenance inhaler as well as albuterol rescue inhaler with albuterol nebs [id number]. Present to the emergency department last night complaining of sudden onset respiratory distress and chest tightness. He was placed on BiPAP on arrival in the ED. Chest x-ray showing reticular opacities within the right lung base concerning for atelectasis or possible pneumonia. Labs including a CBC with a WBC count of 12.5, hemoglobin 12.8, platelets 295. CMP unremarkable, electrolytes WDL, creatinine 0.83, glucose 76. Lactic 1. Urinalysis positive for nitrates and rare bacteria. He does have a urostomy. Viral screen negative for influenza A/B, RSV, COVID. Patient currently being evaluated in the emergency department. He received multiple DuoNeb treatments and was loaded with IV Solu-Medrol. He states he is feeling much better. BiPAP is on standby. He is back on his 2 L/min nasal cannula. No signs of CO2 narcosis. Not in any current respiratory distress. States that his difficulty in breathing started rather abruptly and developed severe chest tightness. His cough is nonproductive. Denies any recent sick contacts. Denies any URI-like symptoms. Denies any fevers or chills. Denies any sputum production, hemoptysis, pleurisy. He was started empirically on antibiotics in the ED. Afebrile. States he has not been using his maintenance inhaler for the last 2 to 3 days, states it "plugs me up". Hemodynamics are stable. Review of Systems REVIEW OF SYSTEMS: CONSTITUTIONAL: Denies any recent significant weight loss or weight gain. EYES: Denies change in vision. EARS, NOSE, MOUTH, THROAT: Denies headaches, denies sore throat. CARDIOVASCULAR: Denies chest pain, palpitations or syncopal episodes. RESPIRATORY: See HPI GASTROINTESTINAL: Denies change in appetite, abdominal pain, nausea and vomiting, or diarrhea GENITOURINARY: Denies hematuria, denies infections. MUSKULOSKELETAL: Denies pain, denies swelling. INTEGUMENTARY: Denies rash, denies eczema. NEUROLOGICAL: Denies recent memory loss, no recent seizure activity. PSYCHIATRIC: Denies anxiety, denies depression. HEMATOLOGIC/LYMPHATIC: Denies anemia, denies enlarged lymph node Past Medical History Past Medical History: Cancer, COPD, Hearing Disorder / Deafness, Liver Disease, Osteoarthritis (OA), Pneumonia Additional Past Medical History / Comment(s): "Has Urostomy bag/stoma." Hx bladder/prostate cancer Nov 2016, hx colon cancer 2002/2003, hx epiglotitis, hx Pnemomia 2017. Hepatitis C, "a spot on the liver", cirrhosis. "? seizure X1 Mar 2018, blacked out, broke both arms.", home 02 at 2 liters History of Any Multi-Drug Resistant Organisms: None Reported Past Surgical History: Appendectomy, Bowel Resection, Ear Surgery, Hernia Repair, Tonsillectomy Additional Past Surgical History / Comment(s): 01/21/16 cystoscopy w/evacuation of clot; urostomy, BLADDER AND PROSTATE REMOVED November 2016. Tube placed in right ear in July 2017, pilinodal cyst removed, reapir of left shoulder, Past Anesthesia/Blood Transfusion Reactions: No Reported Reaction Additional Past Anesthesia/Blood Transfusion Reaction / Comment(s): Vertigo. Past Psychological History: Anxiety Smoking Status: Former smoker - Past Family History Father Family Medical History: Cancer Additional Family Medical History / Comment(s): Pancreatic cancer. Mother Family Medical History: Cancer Additional Family Medical History / Comment(s): Lung cancer. Brother(s) Family Medical History: Cancer Additional Family Medical History / Comment(s): Colon cancer. Medications and Allergies Home Medications Medication Instructions Recorded Confirmed Type Albuterol Inhaler [Ventolin Hfa 1 puff INHALATION RT-Q6H PRN 05/18/22 08/29/24 History Inhaler] Folic Acid 1 mg PO DAILY 05/18/22 08/29/24 History HYDROcodone/APAP 10-325MG [Downs 1 tab PO QID PRN 05/18/22 08/29/24 History 10-325] oxyCODONE HCL [oxyCODONE HCL ER] 20 mg PO BID 05/18/22 08/29/24 History Cholecalciferol (Vitamin D3) 50 mcg PO DAILY 05/05/24 08/29/24 History [Vitamin D3 (50 Mcg = 2000 Iu)] Fluticasone/Umeclidin/Vilanter 1 puff INHALATION RT-DAILY 05/05/24 08/29/24 History [Trelegy Ellipta 100-62.5-25] Lactose-Reduced Food [Ensure Plus] 474 ml PO DAILY 05/05/24 08/29/24 History polyethylene glycoL 3350 [Miralax] 17 gm PO DAILY 05/05/24 08/29/24 History Clotrimazole/Betameth Cream 1 applic TOPICAL BID 08/29/24 08/29/24 History [Lotrisone] Allergies Allergy/AdvReac Type Severity Reaction Status Date / Time bupropion [From Wellbutrin] Allergy Unknown Verified 08/29/24 20:59 fluoxetine [From Prozac] Allergy Unknown Verified 08/29/24 20:59 hydromorphone Allergy Anaphylaxis Verified 08/29/24 20:59 paroxetine [From Paxil] Allergy Unknown Verified 08/29/24 20:59 sertraline [From Zoloft] Allergy Rash/Hives Verified 08/29/24 20:59 gabapentin AdvReac redness, Verified 08/29/24 20:59 "didn't feel good" meclizine AdvReac vertigo Verified 08/29/24 20:59 methadone AdvReac ANXIETY/NIGHT Verified 08/29/24 20:59 SWEATS niacin AdvReac FLUSHING Verified 08/29/24 20:59 tramadol AdvReac ERYTHEMA Verified 08/29/24 20:59 Physical Exam Vitals: Vital Signs Temp Pulse Resp BP Pulse Ox FiO2 08/30/24 01:14 97.8 F 79 16 116/59 100 08/30/24 00:49 80 16 135/89 99 08/29/24 23:35 94 L 08/29/24 23:22 84 08/29/24 23:14 28 08/29/24 23:13 82 08/29/24 21:36 68 16 130/62 100 08/29/24 20:19 28 08/29/24 18:15 72 20 127/65 100 08/29/24 18:02 87 26 H 08/29/24 17:49 28 08/29/24 17:47 83 26 H 08/29/24 17:41 97.2 F L 81 19 127/65 100 Intake and Output 08/29/24 08/29/24 08/30/24 14:59 22:59 06:59 Other: Weight 53.07 kg GENERAL EXAM: Alert, 68-year-old male, on 2 L/min nasal cannula, comfortable in no apparent distress. HEAD: Normocephalic and atraumatic EYES: Normal reaction of pupils, equal size. NOSE: Clear with pink turbinates. THROAT: No erythema or exudates. NECK: No masses, no JVD. CHEST: Barrel chest LUNGS: Equal air entry with markedly diminished lung sounds and prolonged expiratory phase. No crackles, wheezes, rhonchi. No conversational dyspnea or accessory muscle use while at rest CVS: S1 and S2 normal with no audible murmur, regular rhythm. No extra heart sounds ABDOMEN: Flat abdomen, urostomy noted, active bowel sounds, no hepatosplenomegaly, no guarding or rigidity. SPINE: No scoliosis or deformity SKIN: No rashes CENTRAL NERVOUS SYSTEM: Alert and oriented x 3, no focal deficits, tone is normal in all 4 extremities. EXTREMITIES: There is no peripheral edema, clubbing, or cyanosis. Peripheral pulses are intact. Results - Laboratory Findings CBC and BMP: 08/30/24 06:37 08/30/24 06:37 PT/INR, D-dimer PT 11.5 sec (10.0-12.5) 08/29/24 17:50 INR 1.0 (<1.2) 08/29/24 17:50 Abnormal lab findings: Abnormal Labs 08/29/24 08/29/24 17:50 18:24 WBC 12.52 H RBC 3.88 L Hgb 12.8 L Hct 36.0 L MCH 33.0 H MPV 8.8 L Immature Gran # 0.05 H Neutrophils # 8.31 H Urine Blood Trace H Amorphous Sediment Rare H Urine Bacteria Rare H - Diagnostic Findings Chest x-ray: image reviewed Assessment and Plan Assessment: Acute on chronic hypoxemic respiratory failure, secondary to acute COPD exacerbation with possible right lower lobe pneumonia not excluded. Chest x-ray showing reticular opacities within the right lung base concerning for atelectasis or possible pneumonia. History of very severe COPD, with an FEV1 26% of predicted, normally maintained on Trelegy maintenance inhaler, albuterol inhaler as needed, as well as albuterol nebs. He has been compliant with his Trelegy inhaler for the last 2 to 3 days Chronic hypoxemic respiratory failure, normally maintained on 2 L/min nasal cannula, secondary to above Former tobacco dependence, quit May, Former alcohol abuse, quit drinking in 2019 History of alcoholic liver disease History of hepatitis C History of polysubstance abuse History of colon cancer with previous bowel resection History of urostomy with cystectomy secondary to bladder cancer Plan: Patient currently alert and oriented without signs of CO2 narcosis. BiPAP is on standby Not in any current respiratory distress, back on 2 L/min nasal cannula which she wears 07/09 at home Continue DuoNebs [id number] and IV Solu-Medrol Add Symbicort inhaler Continue empiric antibiotics Repeat chest x-ray in the morning Procalcitonin also pending We will continue to follow I have personally seen and examined the patient, performed the documentation and the assessment and plan as written. Number of minutes spent on the visit:20 On 08/30/2024, the patient is being seen in joint evaluation along with the nurse practitioner. The patient is known to have advanced COPD and the patient was hospitalized for worsening shortness of breath. The patient had an acute on top of chronic hypoxic respiratory failure due to COPD exacerbation. Questionable right basilar atelectasis. Based on 91 is an order of 26% predicted and the patient has been maintained on trilogy Ellipta 1 puff a day and albuterol As Needed Basis. Initially, the Patient Was on a BiPAP and the patient was started on a BiPAP pressure of 12/5 with an FiO2 of 28%. Currently he is on oxygen at 2 L/min nasal cannula. He has home O2. He is not steroid-dependent. Awake and alert and communicating and the patient is currently on bronchodilators and IV Solu-Medrol and a dose has been modified to 60 mg IV push every 6 hours. Start empirically with Zithromax. Also on Lovenox for DVT prophylaxis. White cell count is not elevated. Currently at 7.2 with a heme of 12.3. Electrolytes are all within normal limits. Procalcitonin level is 0.06. UA is negative. The viral screen was also negative. Will continue to follow. He is a former smoker. Time with Patient: Greater than 30
[2024-08-30] MEDS: HYDROcodone/APAP 10-325MG 1 EACH TAB PO PRN (03:27)
[2024-08-30 06:23] LABS: Glucose,Whole Blood 148 mg/dL (70-110)
[2024-08-30 07:26] LABS: Basophils # (A) 0.01 10*3/uL (0.00-0.10); Basophils % (A) 0.1 %; Eosinophils # (A) 0.00 10*3/uL (0.04-0.35); Eosinophils % (A) 0.0 %; HCT 36.0 % (39.6-50.0); HGB 12.3 g/dL (13.0-17.0); Lymphocytes # (A) 1.11 10*3/uL (0.90-5.00); Lymphocytes % (A) 15.3 %; MCH 31.9 pg (27.0-32.0); MCHC 34.2 g/dL (32.0-37.0); MCV 93.3 fL (80.0-97.0); Monocytes # (A) 0.03 10*3/uL (0.20-1.00); Monocytes % (A) 0.4 %; Neutrophils # (A) 6.07 10*3/uL (1.80-7.70); Neutrophils % (A) 83.5 %; Platelet Count 272 10*3/uL (140-440); RBC 3.86 10*6/uL (4.40-5.60); RDW 12.1 % (11.5-14.5); WBC 7.27 10*3/uL (4.50-10.00)
[2024-08-30 08:04] LABS: ALT 16 U/L (4-49); AST 21 U/L (17-59); African American GFR (CKD) >90 (>60 ml/min/1.73 sqM); Albumin 4.1 g/dL (3.5-5.0); Alkaline Phosphatase 60 U/L (38-126); Anion Gap 11 mmol/L; Blood Urea Nitrogen 12 mg/dL (9-20); Calcium 9.6 mg/dL (8.4-10.2); Carbon Dioxide 27 mmol/L (22-30); Chloride 105 mmol/L (98-107); Glucose 146 mg/dL (74-99); Non-African American GFR(CKD) >90 (>60 ml/min/1.73 sqM); Potassium 4.6 mmol/L (3.5-5.1); Sodium 143 mmol/L (137-145); Total Protein 6.8 g/dL (6.3-8.2)
[2024-08-30] MEDS: ENOXAPARIN 40 MG/0.4 ML SYRINGE SQ SCH (08:14)
[2024-08-30] MEDS: methylPREDNISolone SOD SUCCI 40 MG/ML 1 ML VIAL IV SCH (08:14)
[2024-08-30] MEDS: AZITHROMYCIN 500 MG TAB PO SCH (08:14)
[2024-08-30] MEDS: FOLIC ACID 1 MG TAB PO SCH (08:14)
--- NOTE | 2024-08-30 08:43 | XR ---
EXAMINATION TYPE: XR chest 1V portable DATE OF EXAM: 08/30/2024 6:43 AM COMPARISON: 08/29/2024 CLINICAL INDICATION: Male, 68 years old with history of pneumonia, , FINDINGS: Heart normal size. Hyperinflation. Mild interstitial density is unchanged. Some bibasilar d ensity is a strandy appearance ingesting scarring or atelectasis. IMPRESSION: 1. COPD. Interstitial prominence could reflect superimposed acute bronchitis or a prominent component of chronic bronchitis. 2. Previous reticular change at the right base now appears symmetric with a strandy appearance favori ng atelectasis/scarring. [facility], , 08/30/2024 8:41 AM
[2024-08-30] MEDS: SYMBICORT 160-4.5 MCG INHALER INHALATION SCH (09:18)
[2024-08-30] MEDS ORDERED: ALPRAZolam 0.5 MG TAB PO PRN (10:35)
--- NOTE | 2024-08-30 10:46 | P.PN ---
Subjective Progress Note Date: 08/30/24 Hospital Course: A 68-year-old male PMH of chronic respiratory failure on 2L home O2, COPD, EtOH abuse, liver cirrhosis, hepatitis C, seizure disorder, colon CA, bladder CA with urostomy, chronic opioid use, former smoker quit 3 months ago, [id number] smoking history, presents to the ED for worsening shortness of breath Upon arrival patient was placed on BiPAP, received Solu-Medrol 125 IV, chest x- ray showed possible developing right sided pneumonia, patient received IV ceftriaxone and azithromycin, started on breathing treatment, admitted for further treatment of acute on chronic hypoxic respiratory failure secondary to COPD exacerbation and possible pneumonia, procalcitonin came back negative. Repeat chest x-ray showed no suspicion for consolidation, possible acute bronchitis or prominent component of chronic bronchitis 08/30/2024: Patient seen and examined at bedside, no acute events overnight, he was transitioned to nasal cannula, currently on home oxygen of 2 L, satting w ell, afebrile, blood pressure stable and soft, heart rate in the 80s. Lab work showed normal WBC count, hemoglobin of 12.3, normal platelet count, grossly unremarkable BMP. Patient still complains of some shortness of breath, no wheezing, he feels anxious and requested Xanax refill provided 0.5 p.o. twice daily as needed. RN at bedside, discussed management. Pulmonology following. Pertinent positives and negatives as discussed above, a complete review of systems was performed and all other systems are negative. Vitals Signs Reviewed. General: Nontoxic, no distress, appears at stated age, chronically ill- appearing, malnourished Derm: Warm, dry Head: Atraumatic, normocephalic, symmetric Eyes: EOMI, no lid lag, anicteric sclera Mouth: No lip lesion, mucus membranes moist Cardiovascular: S1S2 reg, no murmur Lungs: CTA bilateral, no rhonchi, no rales, no accessory muscle use Abdominal: Soft, nontender to palpation, no guarding, no appreciable organomegaly, urostomy in place, chronic abdominal tenderness surrounding Ext: No gross muscle atrophy, no edema, no contractures Neuro: CN II-XI grossly intact, no focal neuro deficits Psych: Alert, oriented, appropriate affect Assessment and Plan: Acute on chronic hypoxic respiratory failure secondary to COPD exacerbation Bacterial community-acquired pneumonia ruled out SIRS likely secondary to above Lactic acidosis secondary to above, resolved -Pulmonary on board, appreciate recommendations -Continue Solu-Medrol 40 mg IV every 12 hours - Symbicort 160/4.5 twice daily, scheduled DuoNeb every 4 hour as well as as needed options, continue azithromycin 500 mg, SOT 08/29 -Continue DuoNebs 4 times daily scheduled and as needed for shortness of breath/wheezing - Procalcitonin negative Chronic pain, chronic opioid use: Continue OxyContin 20 mg p.o. twice daily, [place] 10 mg p.o. every 4 hours as needed EtOH abuse, liver cirrhosis, hepatitis C, seizure disorder, colon CA, bladder CA with urostomy DVT ppx: Lovenox Code status: Full code Anticipated discharge place: Home Anticipated discharge time: When cleared by pulmonary, likely 24 hours Objective - Vital Signs Vital signs: Vital Signs Temp 97.8 F 08/30/24 08:12 Pulse 80 08/30/24 09:31 Resp 18 08/30/24 08:12 BP 110/64 08/30/24 08:12 Pulse Ox 99 08/30/24 08:12 FiO2 28 08/29/24 23:14 Intake & Output 08/29/24 08/30/24 08/30/24 18:59 06:59 18:59 Intake Total 240 Output Total 0 Balance 0 240 Weight 53.07 kg 52.3 kg Intake: Oral 240 Output: Urine 0 Other: Voiding Method Ileal Conduit (Left) - Labs CBC & Chem 7: 08/30/24 06:37 08/30/24 06:37 Labs: Abnormal Lab Results - Last 24 Hours (Table) 08/29/24 08/29/24 08/29/24 Range/Units 17:50 18:24 23:55 WBC 12.52 H (4.50-10.00) 10*3/uL RBC 3.88 L (4.40-5.60) 10*6/uL Hgb 12.8 L (13.0-17.0) g/dL Hct 36.0 L (39.6-50.0) % MCH 33.0 H (27.0-32.0) pg MPV 8.8 L (9.5-12.2) fL Immature Gran # 0.05 H (0.00-0.04) 10*3/uL Neutrophils # 8.31 H (1.80-7.70) 10*3/uL Monocytes # (0.20-1.00) 10*3/uL Eosinophils # (0.04-0.35) 10*3/uL ESR 22 H (0-20) mm/Hr Creatinine (0.66-1.25) mg/dL Glucose (74-99) mg/dL POC Glucose (mg/dL) (70-110) mg/dL Urine Blood Trace H (Negative) Amorphous Sediment Rare H (None) /hpf Urine Bacteria Rare H (None) /hpf 08/30/24 08/30/24 08/30/24 Range/Units 06:22 06:37 06:37 WBC (4.50-10.00) 10*3/uL RBC 3.86 L (4.40-5.60) 10*6/uL Hgb 12.3 L (13.0-17.0) g/dL Hct 36.0 L (39.6-50.0) % MCH (27.0-32.0) pg MPV 8.9 L (9.5-12.2) fL Immature Gran # 0.05 H (0.00-0.04) 10*3/uL Neutrophils # (1.80-7.70) 10*3/uL Monocytes # 0.03 L (0.20-1.00) 10*3/uL Eosinophils # 0.00 L (0.04-0.35) 10*3/uL ESR (0-20) mm/Hr Creatinine 0.61 L (0.66-1.25) mg/dL Glucose 146 H (74-99) mg/dL POC Glucose (mg/dL) 148 H (70-110) mg/dL Urine Blood (Negative) Amorphous Sediment (None) /hpf Urine Bacteria (None) /hpf
[2024-08-30 13:07] VITALS: BMI 17.0
[2024-08-30] MEDS: methylPREDNISolone SOD SUCCI 125 MG/2 ML VIAL IV SCH (13:37)
[2024-08-30] MEDS ORDERED: IPRATROPIUM-ALBUTEROL 3 ML NEB INHALATION PRN (20:38)
[2024-08-31 01:05] VITALS: TEMP 97.8
[2024-08-31 07:09] LABS: Basophils # (A) 0.01 10*3/uL (0.00-0.10); Basophils % (A) 0.1 %; Eosinophils # (A) 0.00 10*3/uL (0.04-0.35); Eosinophils % (A) 0.0 %; HCT 35.7 % (39.6-50.0); HGB 12.2 g/dL (13.0-17.0); Lymphocytes # (A) 1.12 10*3/uL (0.90-5.00); Lymphocytes % (A) 10.4 %; MCH 32.4 pg (27.0-32.0); MCHC 34.2 g/dL (32.0-37.0); MCV 94.9 fL (80.0-97.0); Monocytes # (A) 0.19 10*3/uL (0.20-1.00); Monocytes % (A) 1.8 %; Neutrophils # (A) 9.40 10*3/uL (1.80-7.70); Neutrophils % (A) 86.8 %; Platelet Count 259 10*3/uL (140-440); RBC 3.76 10*6/uL (4.40-5.60); RDW 12.3 % (11.5-14.5); WBC 10.82 10*3/uL (4.50-10.00)
[2024-08-31 07:32] LABS: ALT 15 U/L (4-49); AST 19 U/L (17-59); African American GFR (CKD) >90 (>60 ml/min/1.73 sqM); Albumin 4.2 g/dL (3.5-5.0); Alkaline Phosphatase 60 U/L (38-126); Anion Gap 10 mmol/L; Blood Urea Nitrogen 13 mg/dL (9-20); Calcium 10.2 mg/dL (8.4-10.2); Carbon Dioxide 30 mmol/L (22-30); Chloride 105 mmol/L (98-107); Glucose 119 mg/dL (74-99); Non-African American GFR(CKD) >90 (>60 ml/min/1.73 sqM); Potassium 4.4 mmol/L (3.5-5.1); Sodium 145 mmol/L (137-145); Total Protein 7.0 g/dL (6.3-8.2)
[2024-08-31] MEDS: IPRATROPIUM-ALBUTEROL 3 ML NEB INHALATION SCH (08:33)
--- NOTE | 2024-08-31 11:41 | P.DS ---
Providers Date of admission: 08/29/24 19:00 Attending physician: Deja Klein MD Consults: 08/29/24 19:10 Consult Physician Routine Consulting Provider: Alia Melendez Consult Reason/Comments: copd, pneumonia, bipap Do you want consulting provider notified?: Yes Primary care physician: Junior Peterson Hospital Course: Discharge Diagnosis: Acute on chronic hypoxic respiratory failure secondary to COPD exacerbation Chronic pain, chronic opioid use Hospital Course: A 68-year-old male PMH of chronic respiratory failure on 2L home O2, COPD, EtOH abuse, liver cirrhosis, hepatitis C, seizure disorder, colon CA, bladder CA with urostomy, chronic opioid use, former smoker quit 3 months ago, [id number] smoking history, presents to the ED for worsening shortness of breath Upon arrival patient was placed on BiPAP, received Solu-Medrol 125 IV, chest x- ray showed possible developing right sided pneumonia, patient received IV ceftriaxone and azithromycin, started on breathing treatment, admitted for further treatment of acute on chronic hypoxic respiratory failure secondary to COPD exacerbation and possible pneumonia, procalcitonin came back negative. Repeat chest x-ray showed no suspicion for consolidation, possible acute bronchitis or prominent component of chronic bronchitis 08/31/2024: Patient seen and examined at bedside, no acute events overnight he was transitioned from nasal cannula to room air, , satting well, afebrile, blood pressure stable , heart rate in the 80s. Lab work showed leukocytosis, likely steroid-induced 10.8, hemoglobin stable 10.2, CMP is unremarkable. Patient will be discharged on prednisone taper, follow-up with PCP and pulmonology. Patient seen and examined at bedside. Vital signs reviewed and stable. General: Nontoxic, no distress, appears at stated age, chronically ill- appearing, malnourished Derm: Warm, dry Head: Atraumatic, normocephalic, symmetric Eyes: EOMI, no lid lag, anicteric sclera Mouth: No lip lesion, mucus membranes moist Cardiovascular: S1S2 reg, no murmur Lungs: CTA bilateral, no rhonchi, no rales, no accessory muscle use Abdominal: Soft, nontender to palpation, no guarding, no appreciable organomegaly, urostomy in place, chronic abdominal tenderness surrounding Ext: No gross muscle atrophy, no edema, no contractures Neuro: CN II-XI grossly intact, no focal neuro deficits Psych: Alert, oriented, appropriate affect A total of 40 minutes of time were spent preparing this complex discharge summary. Patient was discharged on 08/31. Patient Condition at Discharge: Stable Plan - Discharge Summary Discharge Rx Participant: No New Discharge Prescriptions: New predniSONE See Taper PO DIRECTED #30 tab Continue oxyCODONE HCL [oxyCODONE HCL ER] 20 mg PO BID HYDROcodone/APAP 10-325MG [[place] 10-325] 1 tab PO QID PRN PRN Reason: Breakthrough Pain Lactose-Reduced Food [Ensure Plus] 474 ml PO DAILY Folic Acid 1 mg PO DAILY Albuterol Inhaler [Ventolin Hfa Inhaler] 1 puff INHALATION RT-Q6H PRN PRN Reason: Shortness Of Breath Cholecalciferol (Vitamin D3) [Vitamin D3 (50 Mcg = 2000 Iu)] 50 mcg PO DAILY polyethylene glycoL 3350 [Miralax] 17 gm PO DAILY Fluticasone/Umeclidin/Vilanter [Trelegy Ellipta 100-62.5-25] 1 puff INHALATION RT-DAILY Clotrimazole/Betameth Cream [Lotrisone] 1 applic TOPICAL BID Discharge Medication List Albuterol Inhaler [Ventolin Hfa Inhaler] 1 puff INHALATION RT-Q6H PRN 05/18/22 [History] Folic Acid 1 mg PO DAILY 05/18/22 [History] HYDROcodone/APAP 10-325MG [[place] 10-325] 1 tab PO QID PRN 05/18/22 [History] oxyCODONE HCL [oxyCODONE HCL ER] 20 mg PO BID 05/18/22 [History] Cholecalciferol (Vitamin D3) [Vitamin D3 (50 Mcg = 2000 Iu)] 50 mcg PO DAILY 05/05/24 [History] Fluticasone/Umeclidin/Vilanter [Trelegy Ellipta 100-62.5-25] 1 puff INHALATION RT-DAILY 05/05/24 [History] Lactose-Reduced Food [Ensure Plus] 474 ml PO DAILY 05/05/24 [History] polyethylene glycoL 3350 [Miralax] 17 gm PO DAILY 05/05/24 [History] Clotrimazole/Betameth Cream [Lotrisone] 1 applic TOPICAL BID 08/29/24 [History] predniSONE See Taper PO DIRECTED #30 tab 08/31/24 [Rx] Follow up Appointment(s)/Referral(s): Luz Maria Rodriges MD [STAFF PHYSICIAN] - 1 Week Junior Peterson DO [Primary Care Provider] - 1-2 days Patient Instructions/Handouts: COPD (Chronic Obstructive Pulmonary Disease) (DC) Activity/Diet/Wound Care/Special Instructions: Please, follow-up with your primary care physician, manager hair, complete your steroid taper, use your inhalers as prescribed Discharge/Stand Alone Forms: AA Antonella Amaya, Who Do I Call?, Inp Substance Abuse Facilities Discharge Disposition: HOME SELF-CARE
[2024-08-31 11:45] VITALS: BP 119/61; RESP 16
[2024-08-31 12:03] VITALS: PULSE 83
--- NOTE | 2024-08-31 20:37 | P.PN ---
Subjective Progress Note Date: 08/31/24 Patient is a 68-year-old male with past medical history significant for alcoholism, hepatitis C, liver cirrhosis, seizure disorder, colon cancer with previous resection, bladder cancer with urostomy, former tobacco dependence quitting in May, and severe chronic obstructive pulmonary disease. He is oxy gen dependent at baseline. He does see Dr. Aleman in the pulmonary office. His FEV1 is 24% of predicted. Maintained on Trelegy maintenance inhaler as well as albuterol rescue inhaler with albuterol nebs [id number]. Present to the emergency department last night complaining of sudden onset respiratory distress and chest tightness. He was placed on BiPAP on arrival in the ED. Chest x-ray showing reticular opacities within the right lung base concerning for atelectasis or possible pneumonia. Labs including a CBC with a WBC count of 12.5, hemoglobin 12.8, platelets 295. CMP unremarkable, electrolytes WDL, creatinine 0.83, glucose 76. Lactic 1. Urinalysis positive for nitrates and r are bacteria. He does have a urostomy. Viral screen negative for influenza A/B, RSV, COVID. Patient currently being evaluated in the emergency department. He received multiple DuoNeb treatments and was loaded with IV Solu-Medrol. He states he is feeling much better. BiPAP is on standby. He is back on his 2 L/min nasal cannula. No signs of CO2 narcosis. Not in any current respiratory distress. States that his difficulty in breathing started rather abruptly and developed severe chest tightness. His cough is nonproductive. Denies any recent sick contacts. Denies any URI-like symptoms. Denies any fevers or chills. Denies any sputum production, hemoptysis, pleurisy. He was started empirically on antibiotics in the ED. Afebrile. States he has not been using his maintenance inhaler for the last 2 to 3 days, states it "plugs me up". Hemodynamics are stable. On 08/31/2024, the patient is doing well, on room air oxygen. Feels much improved and overall respiratory status is back to his baseline. The patient wants to go home. No chest pain. No pleurisy. No hemoptysis. The patient was discharged home on Trelegy Ellipta and prednisone burst taper. The white cell count at 10.8 with a hemoglobin of 12.2 and a platelet count of 256. BUN 13 with a creatinine 0.66. Sodium levels at 145. LFTs are essentially within normal limits. Objective - Vital Signs Vital signs: Vital Signs Temp 97.8 F 08/31/24 04:00 Pulse 82 08/31/24 08:45 Resp 18 08/31/24 08:36 BP 120/63 08/31/24 08:36 Pulse Ox 96 08/31/24 08:36 FiO2 28 08/29/24 23:14 Intake & Output 08/30/24 08/31/24 08/31/24 18:59 06:59 18:59 Intake Total 520 20 20 Balance 520 20 20 Weight 52.3 kg 52.3 kg Intake: IV 40 20 20 Invasive Line 1 20 10 10 Invasive Line 2 20 10 10 Oral 480 0 Other: Voiding Method Ileal Conduit (Left) Ileal Conduit (Left) # Voids 2 - Exam GENERAL EXAM: Alert, 68-year-old male, on room air oxygen, calm and comfortable HEAD: Normocephalic and atraumatic EYES: Normal reaction of pupils, equal size. NOSE: Clear with pink turbinates. THROAT: No erythema or exudates. NECK: No masses, no JVD. CHEST: Barrel chest LUNGS: Equal air entry with markedly diminished lung sounds and prolonged expiratory phase. No crackles, wheezes, rhonchi. No conversational dyspnea or accessory muscle use while at rest CVS: S1 and S2 normal with no audible murmur, regular rhythm. No extra heart sounds ABDOMEN: Flat abdomen, urostomy noted, active bowel sounds, no hepatosplenomegaly, no guarding or rigidity. SPINE: No scoliosis or deformity SKIN: No rashes CENTRAL NERVOUS SYSTEM: Alert and oriented x 3, no focal deficits, tone is normal in all 4 extremities. EXTREMITIES: There is no peripheral edema, clubbing, or cyanosis. Peripheral pulses are intact. - Labs CBC & Chem 7: 08/31/24 06:37 08/31/24 06:37 Labs: Abnormal Lab Results - Last 24 Hours (Table) 08/31/24 08/31/24 Range/Units 06:37 06:37 WBC 10.82 H (4.50-10.00) 10*3/uL RBC 3.76 L (4.40-5.60) 10*6/uL Hgb 12.2 L (13.0-17.0) g/dL Hct 35.7 L (39.6-50.0) % MCH 32.4 H (27.0-32.0) pg MPV 9.0 L (9.5-12.2) fL Immature Gran # 0.10 H (0.00-0.04) 10*3/uL Neutrophils # 9.40 H (1.80-7.70) 10*3/uL Monocytes # 0.19 L (0.20-1.00) 10*3/uL Eosinophils # 0.00 L (0.04-0.35) 10*3/uL Glucose 119 H (74-99) mg/dL Microbiology - Last 24 Hours (Table) 08/29/24 19:50 Blood Culture - Preliminary Blood Assessment and Plan Assessment: Acute on chronic hypoxemic respiratory failure, secondary to acute COPD exacerbation with possible right lower lobe pneumonia not excluded. Chest x-ray showing reticular opacities within the right lung base concerning for atelectasis or possible pneumonia. Clinically improved and overall respiratory status is back to his baseline. The patient is currently on room air oxygen. History of very severe COPD, with an FEV1 26% of predicted, normally maintained on Trelegy maintenance inhaler, albuterol inhaler as needed, as well as albuterol nebs. He has been compliant with his Trelegy inhaler for the last 2 to 3 days Chronic hypoxemic respiratory failure, normally maintained on 2 L/min nasal cannula on outpatient basis Former tobacco dependence, quit May, Former alcohol abuse, quit drinking in 2019 History of alcoholic liver disease History of hepatitis C History of polysubstance abuse History of colon cancer with previous bowel resection History of urostomy with cystectomy secondary to bladder cancer Plan: Clinically improved Respiratory status is back to his baseline oxygenation is stable on room air oxygen the patient to be discharged home today and the patient will be maintained on prednisone burst taper at time of discharge, Trelegy Ellipta 100 mcg 1 puff a day and albuterol nebulizer treatments and solution as needed basis. Resume home medications. Follow-up in the clinic. Patient has home O2.
== END 2024-08-31 13:36 | disposition home or self-care (01) | DRG 189 ==
LOC: EC 17:38 → 3SCARD 19:00
PROVIDERS: ADMIT Student in an Organized Health Care Education/Training Program; ATTEND Student in an Organized Health Care Education/Training Program
PROC: 5A09357 Assistance with Respiratory Ventilation, Less than 24 Consecutive Hours, Continuous Positive Airway Pressure (ICD-10-PCS; principal; 2024-08-29)
DX: J96.21 Acute and chronic respiratory failure with hypoxia (principal); K74.60 Unspecified cirrhosis of liver; J44.1 Chronic obstructive pulmonary disease with (acute) exacerbation; Z99.81 Dependence on supplemental oxygen; F10.21 Alcohol dependence, in remission; F19.11 Other psychoactive substance abuse, in remission; R65.10 Systemic inflammatory response syndrome (SIRS) of non-infectious origin without acute organ dysfunction; Z93.6 Other artificial openings of urinary tract status; K70.9 Alcoholic liver disease, unspecified; B19.20 Unspecified viral hepatitis C without hepatic coma; G89.29 Other chronic pain; H91.90 Unspecified hearing loss, unspecified ear; F41.9 Anxiety disorder, unspecified; Z79.51 Long term (current) use of inhaled steroids; Z79.891 Long term (current) use of opiate analgesic; Z79.899 Other long term (current) drug therapy; Z85.46 Personal history of malignant neoplasm of prostate; Z85.51 Personal history of malignant neoplasm of bladder; Z85.038 Personal history of other malignant neoplasm of large intestine; Z87.891 Personal history of nicotine dependence; Z88.5 Allergy status to narcotic agent; Z88.8 Allergy status to other drugs, medicaments and biological substances
CPT/HCPCS: 36415; 71045; 80053; 81001; 83605; 83735; 84145; 85025; 85379; 85610; 85652; 85730; 86140; 87040; 87070; 87205; 87449; 87636; 93005; 94640; 94660; 94760; 96361; 96365; 96366; 96367; 96368; 96375; 99291